=== PATIENT | female | born 1990 | race African-American/Black ===

== ENCOUNTER 2016-08-01 14:14 | Outpatient (CLI) | payer MEDICAID ==
[2016-08-01 15:10] LABS: APPEARANCE,URINE SLIGHTLY-CLOUDY; BILIRUBIN,URINE NEGATIVE (NEGATIVE); GLUCOSE, URINE NEGATIVE (NEGATIVE); KETONES,URINE 20 mg/dL (NEGATIVE); LEUKOCYTE ESTERASE,URINE NEGATIVE (NEGATIVE); NITRITE,URINE NEGATIVE (NEGATIVE); PROTEIN,URINE 30 mg/dL (NEGATIVE); URINE SPECIFIC GRAVITY 1.029; UROBILINOGEN,URINE NEGATIVE mg/dL (<2.0)
[2016-08-01 15:23] LABS: URINE BARBITURATES SCREEN NEGATIVE; URINE METHADONE SCREEN NEGATIVE; URINE OPIATES LOW NEGATIVE; URINE PHENCYCLIDINE SCREEN NEGATIVE
[2016-08-01 15:31] LABS: AMNISURE (ROM) NEGATIVE (NEGATIVE)
--- NOTE | 2016-08-01 16:00 | L&D Flow Sheet ---
LD Flowsheet Datetime Report Generated by CPN: 08/01/2016 16:00 Datetime: 08/01/2016 15:55 Communication Communication Comments: D/C instructions given. Prescription for Flagyl given. Reviewed dehydration and round ligament pain. Pt verbalizes understanding (Tamar Broderick, RN) Datetime: 08/01/2016 15:45 Vaginal Exam Exam by: A. Emmel CNM (Tamar Broderick, RN) Vaginal Exam Comments: closed/long (Tamar Broderick, RN) Datetime: 08/01/2016 15:44 Communication Communication Comments: GC/Chlam and wet prep sent (Tamar Broderick, RN) Datetime: 08/01/2016 15:05 Vital Signs NBP Sys/Lexi/Mean (mmHg): 117 (QS system process) : 57 (QS system process) : 78 (QS system process) Pulse: 65 (QS system process) Datetime: 08/01/2016 15:00 Pain Pain Scale: 5 (Tamar Broderick, RN) Pain Presence: Intermittent (Tamar Broderick, RN) Pain Type: Sharp (Tamar Broderick, RN) Pain Location: Abdomen; Back (Tamar Broderick, RN) Vaginal Bleeding: None (Tamar Broderick, RN) Maternal Assessment Level of Consciousness: Fully Conscious (Tamar Broderick, RN) DTR's/Clonus: DTRs 2+; No Clonus (Tamar Broderick, RN) Headache: Denies (Tamar Broderick, RN) Breath Sounds, Left: Clear and Equal (Tamar Broderick, RN) Breath Sounds, Right: Clear and Equal (Tamar Broderick, RN) Nausea/Vomiting: Denies (Tamar Broderick, RN) RUQ Epigastric Pain: Denies (Tamar Broderick, RN) Teaching Instructional Method: Verbal; Patient Instructed; Verbalized Understanding (Tamar Broderick RN) Plan of Care: Plan of Care Discussed (Tamar Broderick RN) Unit Routine: Shorter to Room; Call [place]; Bed; Handwashing; Monitoring; Bathroom Privileges (Tamar Broderick RN) Datetime: 08/01/2016 14:54 Temperature (F): 98.2 (Tamar Broderick RN) Temperature (C): 36.8 (QS system process)
[2016-08-01 18:06] LABS: CHLAM PCR NOT DETECTED (NOT DETECT)
== END 2016-08-01 16:02 | disposition home or self-care (01) ==
LOC: LC 14:14
PROVIDERS: ATTEND Obstetrics & Gynecology
PROC: 4A1HXCZ Monitoring of Products of Conception, Cardiac Rate, External Approach (ICD-10-PCS; principal; 2016-08-01)
DX: O23.592 Infection of other part of genital tract in pregnancy, second trimester (principal); N76.0 Acute vaginitis; B96.89 Other specified bacterial agents as the cause of diseases classified elsewhere; O99.282 Endocrine, nutritional and metabolic diseases complicating pregnancy, second trimester; E86.0 Dehydration; O26.892 Other specified pregnancy related conditions, second trimester; R10.2 Pelvic and perineal pain; O99.212 Obesity complicating pregnancy, second trimester; Z3A.23 23 weeks gestation of pregnancy
CPT/HCPCS: 80307; 81001; 84112; 87210; 87491; 87591

== ENCOUNTER 2016-11-03 07:25 | Outpatient (CLI) | payer MEDICAID ==
[2016-11-03 08:08] LABS: APPEARANCE,URINE CLOUDY; BILIRUBIN,URINE NEGATIVE (NEGATIVE); GLUCOSE, URINE NEGATIVE (NEGATIVE); KETONES,URINE NEGATIVE (NEGATIVE); LEUKOCYTE ESTERASE,URINE SMALL (NEGATIVE); NITRITE,URINE NEGATIVE (NEGATIVE); PROTEIN,URINE NEGATIVE (NEGATIVE); URINE SPECIFIC GRAVITY 1.019
--- NOTE | 2016-11-03 08:47 | L&D Progress Notes ---
PROGRESS NOTES Datetime Report Generated by CPN: 11/03/2016 08:46 PROGRESS NOTE Vital Signs : Reviewed Comment: 26 yo presents with possible LOF and increased pressure recently treated for yeast infection EDC 11/23/16 EGA 37 wega obesity >45 term instructions reviewed normal d/c cvx exam unchanged per RN no contractions noted lower lumbosacral pain- discussed body mechanics d/c home f/u at office FETUS A Monitoring: External US Variability: Moderate 6-25bpm Decelerations: None FHR Category: Category I : 37.0 SIGNATURE SIGNATURE: [id number] Assignment: Nereyda Graf MD Signature: with User ID: [email or web address] : with User ID: [email or web address]
[2016-11-03 08:52] LABS: URINE BARBITURATES SCREEN NEGATIVE; URINE METHADONE SCREEN NEGATIVE; URINE OPIATES LOW NEGATIVE; URINE PHENCYCLIDINE SCREEN NEGATIVE
--- NOTE | 2016-11-03 09:03 | Non Stress Test Report ---
Non Stress Test Datetime Report Generated by CPN: 11/03/2016 09:03 DEMOGRAPHIC EGA NST: 37.1 INDICATION Indication for Study: Other Indication for Study (NST) Other: LC MONITORING Monitor Explained: Monitor Explained; Test Explained; Patient Verbalized Understanding Time on Monitor: 11/03/2016 07:42 Time off Monitor: 11/03/2016 08:41 NST Duration: 59 NST INTERVENTIONS NST Interventions: None Physician Notified NST: A. Emmel CNM BABY A: [id number] BABY A Movement : Present Contraction Frequency : NONE FHR Baseline : 135 Accelerations : 15X15 Decelerations : None Variability : Moderate 6-25bpm NST Review: Meets Criteria for Reactive NST NST Review and Verified By : BL ROULUND, RN NST Results: Reactive NST REPORT Report Trigger: Send Report
== END 2016-11-03 08:48 | disposition home or self-care (01) ==
LOC: LC 07:25
PROVIDERS: ATTEND Obstetrics & Gynecology
PROC: 4A1HXCZ Monitoring of Products of Conception, Cardiac Rate, External Approach (ICD-10-PCS; principal; 2016-11-03)
DX: O47.1 False labor at or after 37 completed weeks of gestation (principal); Z3A.37 37 weeks gestation of pregnancy
CPT/HCPCS: 59025; 81005; 80307; Q0114

== ENCOUNTER 2016-11-08 17:48 | Outpatient (CLI) | payer MEDICAID ==
[2016-11-08 18:30] LABS: APPEARANCE,URINE SLIGHTLY-CLOUDY; BILIRUBIN,URINE NEGATIVE (NEGATIVE); GLUCOSE, URINE NEGATIVE (NEGATIVE); KETONES,URINE NEGATIVE (NEGATIVE); LEUKOCYTE ESTERASE,URINE SMALL (NEGATIVE); NITRITE,URINE NEGATIVE (NEGATIVE); PROTEIN,URINE NEGATIVE (NEGATIVE); URINE SPECIFIC GRAVITY 1.026; UROBILINOGEN,URINE NEGATIVE mg/dL (<2.0)
[2016-11-08 18:47] LABS: URINE BARBITURATES SCREEN NEGATIVE; URINE METHADONE SCREEN NEGATIVE; URINE OPIATES LOW NEGATIVE; URINE PHENCYCLIDINE SCREEN NEGATIVE
--- NOTE | 2016-11-08 18:58 | Non Stress Test Report ---
Non Stress Test Datetime Report Generated by CPN: 11/08/2016 18:58 DEMOGRAPHIC EGA NST: 37.6 INDICATION Indication for Study: Decreased Movement MONITORING Monitor Explained: Monitor Explained; Test Explained; Patient Verbalized Understanding Time on Monitor: 11/08/2016 18:00 Time off Monitor: 11/08/2016 18:51 NST Duration: 51 NST INTERVENTIONS NST Interventions: None Physician Notified NST: Dr Tal BABY A: [id number] BABY A Contraction Frequency : 0 FHR Baseline : 135 Accelerations : 15X15 Decelerations : None Variability : Moderate 6-25bpm NST Review: Meets Criteria for Reactive NST NST Review and Verified By : Kika Carlos RN NST Results: Reactive NST REPORT Report Trigger: Send Report
== END 2016-11-08 18:55 | disposition home or self-care (01) ==
LOC: LC 17:48
PROVIDERS: ATTEND Obstetrics & Gynecology
PROC: 4A1HXCZ Monitoring of Products of Conception, Cardiac Rate, External Approach (ICD-10-PCS; principal; 2016-11-08)
DX: O36.8130 Decreased fetal movements, third trimester, not applicable or unspecified (principal); Z3A.37 37 weeks gestation of pregnancy
CPT/HCPCS: 59025; 80307; 81005

== ENCOUNTER 2016-11-20 13:17 | Outpatient (CLI) | payer MEDICAID ==
[2016-11-20 14:17] LABS: APPEARANCE,URINE CLOUDY; BILIRUBIN,URINE NEGATIVE (NEGATIVE); GLUCOSE, URINE NEGATIVE (NEGATIVE); KETONES,URINE 80 mg/dL (NEGATIVE); LEUKOCYTE ESTERASE,URINE MODERATE (NEGATIVE); NITRITE,URINE NEGATIVE (NEGATIVE); PROTEIN,URINE 30 mg/dL (NEGATIVE); URINE SPECIFIC GRAVITY 1.028
[2016-11-20] MEDS ORDERED: RINGERS SOLUTION,LACTATED 1,000 ML IV PRN (14:17)
[2016-11-20] MEDS ORDERED: ONDANSETRON HCL INJ/PF 4 MG/2 ML SDV IV ONE (14:18)
[2016-11-20] MEDS ORDERED: ONDANSETRON HCL INJ/PF 4 MG/2 ML SDV ONE (14:32)
[2016-11-20 14:40] LABS: URINE BARBITURATES SCREEN NEGATIVE; URINE METHADONE SCREEN NEGATIVE; URINE OPIATES LOW NEGATIVE; URINE PHENCYCLIDINE SCREEN NEGATIVE
[2016-11-20] MEDS ORDERED: DEXTROSE 5%-LACTATED RINGERS 1,000 ML IV PRN (15:00)
== END 2016-11-20 16:25 | disposition home or self-care (01) ==
LOC: LC 13:17
PROVIDERS: ATTEND Obstetrics & Gynecology
PROC: 4A1HXCZ Monitoring of Products of Conception, Cardiac Rate, External Approach (ICD-10-PCS; principal; 2016-11-20)
DX: O47.1 False labor at or after 37 completed weeks of gestation (principal); O26.893 Other specified pregnancy related conditions, third trimester; R11.2 Nausea with vomiting, unspecified; R19.7 Diarrhea, unspecified; Z3A.39 39 weeks gestation of pregnancy
CPT/HCPCS: 59025; 81005; 80307; J2405

== ENCOUNTER 2016-11-20 23:01 | Inpatient (IN) | payer MEDICAID ==
--- NOTE | 2016-11-20 23:05 | Non Stress Test Report ---
Non Stress Test Datetime Report Generated by CPN: 11/20/2016 23:05 DEMOGRAPHIC EGA NST: 39.4 INDICATION Indication for Study: Other Indication for Study (NST) Other: LABOR CHECK- UC'S,N/V/D MONITORING Monitor Explained: Monitor Explained; Test Explained; Patient Verbalized Understanding Time on Monitor: 11/20/2016 13:48 Time off Monitor: 11/20/2016 16:06 NST Duration: 138 NST INTERVENTIONS NST Interventions: PO Hydration; IV Fluids; Reposition Patient BABY A: [id number] BABY A Movement : Present Contraction Frequency : IRREG FHR Baseline : 125 Accelerations : 15X15 Decelerations : None Variability : Moderate 6-25bpm NST Review: Meets Criteria for Reactive NST NST Review and Verified By : Edilma Camp RNC NST Results: Reactive NST REPORT Report Trigger: Send Report
[2016-11-20 23:48] LABS: APPEARANCE,URINE CLOUDY; BILIRUBIN,URINE NEGATIVE (NEGATIVE); GLUCOSE, URINE NEGATIVE (NEGATIVE); KETONES,URINE TRACE mg/dL (NEGATIVE); LEUKOCYTE ESTERASE,URINE SMALL (NEGATIVE); NITRITE,URINE NEGATIVE (NEGATIVE); PROTEIN,URINE 30 mg/dL (NEGATIVE); URINE SPECIFIC GRAVITY 1.027
[2016-11-20 23:52] LABS: AMNISURE (ROM) POSITIVE (NEGATIVE)
[2016-11-20] MEDS ORDERED: PENICILLIN G-K 5 MILLION UNIT VIAL ONE (23:59)
[2016-11-21] MEDS ORDERED: PENICILLIN G POTASSIUM 5,000,000 UNIT in DEXTROSE 5%-WATER 100 ML IV ONE (00:01)
[2016-11-21 00:10] LABS: URINE BARBITURATES SCREEN NEGATIVE; URINE METHADONE SCREEN NEGATIVE; URINE OPIATES LOW NEGATIVE; URINE PHENCYCLIDINE SCREEN NEGATIVE
[2016-11-21] MEDS ORDERED: PENICILLIN G-K 5 MILLION UNIT VIAL IV PRN (00:34)
[2016-11-21] MEDS: RINGERS SOLUTION,LACTATED 1,000 ML IV PRN ×3 (00:39→06:45)
[2016-11-21 00:41] LABS: ABSOLUTE EOSINOPHILS # (AUTO) 0.1 10^3/uL (0.0-0.6); ABSOLUTE LYMPHOCYTES (AUTO) 1.9 10^3/uL (0.5-4.7); ABSOLUTE MONOCYTES (AUTO) 0.5 10^3/uL (0.1-1.4); ABSOLUTE NEUT (AUTO) 5.7 10^3/uL (1.7-8.2); BASOPHILS % (AUTO) 0.6 % (0-2); EOSINOPHILS % (AUTO) 1.2 % (0-6); HEMATOCRIT 36.2 % (36.0-47.0); HEMOGLOBIN 12.1 g/dL (12.0-15.5); HGB HCT DIFFERENCE 0.1; LYMPHOCYTES % (AUTO) 23.1 % (13-45); MEAN CORPUSCULAR HEMOGLOBIN 29.1 pg (27.0-33.4); MEAN CORPUSCULAR HGB CONC 33.4 g/dL (32.0-36.0); MEAN CORPUSCULAR VOLUME 87 fl (80-97); MONOCYTES % (AUTO) 6.4 % (3-13); RED BLOOD COUNT 4.16 10^6/uL (3.72-5.28); SEGMENTED NEUTROPHILS % (AUTO) 68.7 % (42-78); WHITE BLOOD COUNT 8.3 10^3/uL (4.0-10.5)
[2016-11-21] MEDS ORDERED: OXYTOCIN/NORMAL SALINE 1,000 ML IV PRN ×2 (01:34→08:37)
--- NOTE | 2016-11-21 02:11 | RADIOLOGY REPORT (SQ) ---
EXAM DESCRIPTION: U/S OB LIMITED COMPLETED DATE/TIME: 11/21/2016 1:50 am REASON FOR STUDY: presentation-bedside . The patient is 39 weeks 5 days . COMPARISON: None. TECHNIQUE: Limited transabdominal grayscale ultrasound for evaluation of specific requested obstetri lizz parameters. LIMITATIONS: None. FINDINGS: CERVICAL LENGTH: Not applicable. Greater than 20 weeks. Need transvaginal study if indicat ed. FHR: 136 beats per minute. PRESENTATION: Vertex. IMPRESSION: LIMITED OBSTETRICAL ULTRASOUND WITH MEASURED PARAMETERS DELINEATED ABOVE. Trimester of : Third trimester - 28 weeks to delivery. TECHNICAL DOCUMENTATION: JOB ID: [id number] [employer]- All Rights Reserved
[2016-11-21] MEDS ORDERED: BUPIVACAINE HCL 0.25 % INJ/PF (2.5 MG/1 ML) 30 ML VIAL INFIL ONE (02:53)
[2016-11-21] MEDS ORDERED: FENTANYL/BUPIVACAINE/NS/PF 100 ML EPI PRN (02:53)
[2016-11-21] MEDS ORDERED: EPHEDRINE SULFATE INJ 50 MG/1 ML AMPULE IV ONE (02:53)
[2016-11-21] MEDS ORDERED: EPHEDRINE SULFATE INJ 50 MG/1 ML AMPULE IV PRN (02:53)
[2016-11-21] MEDS ORDERED: BENZOIN/ALOE VERA/STORAX/TOLU TINCTURE 60 ML TP PRN (02:53)
[2016-11-21] MEDS ORDERED: EPHEDRINE SULFATE INJ 50 MG/1 ML AMPULE ONE (02:54)
[2016-11-21] MEDS ORDERED: MISOPROSTOL 0.2 MG TABLET ONE (02:54)
[2016-11-21] MEDS ORDERED: LIDOCAINE 1% INJ-PF (10 MG/ML) 30 ML SDV ONE (02:54)
[2016-11-21] MEDS ORDERED: FENTANYL/BUPIVACAINE/NS/PF 200 MCG/100 ML RTUINJ EPI ONE (02:54)
[2016-11-21] MEDS ORDERED: OXYTOCIN/NORMAL SALINE 20 UNIT/1,000 ML RTUINJ ONE (02:55)
[2016-11-21] MEDS ORDERED: BUPIVACAINE HCL 0.25 % INJ/PF (2.5 MG/1 ML) 30 ML VIAL ONE (02:55)
[2016-11-21] MEDS ORDERED: PENICILLIN G-K 5 MILLION UNIT VIAL ONE (03:51)
[2016-11-21] MEDS ORDERED: PENICILLIN G POTASSIUM 2,500,000 UNIT in DEXTROSE 5%-WATER 50 ML IV SCH (04:00)
[2016-11-21] MEDS ORDERED: NALBUPHINE HCL INJ 10 MG/1 ML AMPULE INJ ONE (06:43)
[2016-11-21] MEDS ORDERED: NALBUPHINE HCL INJ 10 MG/1 ML AMPULE ONE (06:43)
[2016-11-21] MEDS ORDERED: PENICILLIN G-K 5 MILLION UNIT VIAL IV SCH (07:00)
[2016-11-21] MEDS ORDERED: DIBUCAINE 1% OINTMENT 28 GM TP PRN (08:37)
[2016-11-21] MEDS ORDERED: ZOLPIDEM TARTRATE 5 MG TABLET PO PRN (08:37)
[2016-11-21] MEDS ORDERED: MEASLES,MUMPS&RUBELLA VACC/PF 0.5 ML VIAL SUBCUT PRN (08:37)
[2016-11-21] MEDS ORDERED: DIPH/PERTUSS(ACELL)/TETANUS VAC/PF 0.5 ML SYR (>=10YO) IM PRN (08:37)
[2016-11-21] MEDS ORDERED: ACETAMINOPHEN WITH CODEINE #3 TABLET PO PRN (08:37)
[2016-11-21] MEDS ORDERED: BENZOCAINE/MENTHOL AEROSOL SPRAY 56 ML TOP PRN (08:37)
[2016-11-21] MEDS ORDERED: IBUPROFEN 800 MG TABLET ONE (08:51)
--- NOTE | 2016-11-21 09:26 | Delivery Summary ---
Del Sum A-C Datetime Report Generated by CPN: 11/21/2016 09:26 DELIVERY PERSONNEL DELIVERY PERSONNEL: [id number] Delivery Doctor:: Peggy Astudillo CNM Labor and Delivery Nurse:: Tamar Broderick RNdressing machine operator Nurse:: Radha Fortune RN Technology Education Teacher/INSURANCE INVESTIGATOR: Leti Miranda, DIRECTOR TREASURER Technology Education Teacher/INSURANCE INVESTIGATOR: Georgina Wolff CNA II MATERNAL INFORMATION Delivery Anesthesia: Epidural Medications After Delivery: Pitocin Bolus-Please Comment; Pitocin Drip 20 Units/1000ml NSS Estimated Blood Loss (ml): 250 Maternal Complications: None Provider Comments: of viable male infant over 2nd degree perineal laceration. Head, shoulders, and body delivered without difficulty. Infant with spontaneous cry and respirations, to maternal abdomen, cord clamped X2 after 2 minute delay, cut free by pts significant other, spontaneous delivery of intact meconium stained placeta, 3 VC, to pathology, repair as above, hemostasis acheived with external fundal massage and IV pitocin. Mother and in stable condition. Routine pp care. LABOR SUMMARY EDC: 11/23/2016 00:00 No. Babies in Womb: 1 Attempted: No Labor Anesthesia: Epidural LABOR INFORMATION Reason for Induction: Not Applicable Onset of Labor: 11/20/2016 23:39 Complete Dilatation: 11/21/2016 07:59 Oxytocin: Augmentation Group B Beta Strep: POSITIVE Antibiotics # of Doses: 2 Antibiotics Time of Last Dose: 0425 Name of Antibiotic Given: PCN Steroids Given: None Reason Steroids Not Administered: Not Applicable MEMBRANES Membranes Rupture Method: Spontaneous Rupture of Membranes: 11/20/2016 22:15 Length of Rupture (hr): 9.87 Amniotic Fluid Color: Moderate Meconium Amniotic Fluid Amount: per pt report moderate amount Amniotic Fluid Odor: Normal STAGES OF LABOR Stage 1 hr: 8 Stage 1 min: 20 Stage 2 hr: 0 Stage 2 min: 8 Stage 3 hr: 0 Stage 3 min: 4 Total Time in Labor hr: 8 Total Time in Labor min: 32 VAGINAL DELIVERY Episiotomy: None Laceration Extension: Second Degree Laceration Type: Perineal Laceration Repair: Yes Laceration Repair Note: repaired with 3-0 chromic in usual fashion using lidocaine for anesthesia Sponge Count Correct: Yes Sharps Count Correct: Yes CSECTION DELIVERY Primary Indication: N/A Secondary Indication: N/A CSection Incidence: N/A Labor: N/A Elective: N/A CSection Incision: N/A BABY A INFORMATION Infant Delivery Date/Time: 11/21/2016 08:07 Method of Delivery: Vaginal Born in Route : No : N/A Forceps: N/A Vacuum Extraction: N/A Shoulder Dystocia : No PRESENTATION/POSITION BABY A Presentation: Cephalic Cephalic Presentation: Vertex Vertex Position: Right Occipital Anterior Breech Presentation: N/A PLACENTA INFORMATION BABY A Placenta Delivery Time : 11/21/2016 08:11 Placenta Method of Delivery: Spontaneous Placenta Status: Delivered SCORES BABY A Heart Rate 1 min: >100 bpm Resp Effort 1 min: Good Cry Reflex Irritability 1 min: Cough or Sneeze or Pulls Away Muscle Tone 1 min: Active Motion Color 1 min: Body [place], Extremities Blue Resuscitation Effort 1 min: Tactile Stimulation SCORE 1 MIN: 9 Heart Rate 5 min: >100 bpm Resp Effort 5 min: Good Cry Reflex Irritability 5 min: Cough or Sneeze or Pulls Away Muscle Tone 5 min: Active Motion Color 5 min: Body [place], Extremities Blue Resuscitation Effort 5 min: Tactile Stimulation SCORE 5 MIN: 9 INFORMATION BABY A Gestational Age at Delivery: 39.5 Gestational Status: Full Term- 39- 40.6 Weeks Infant Outcome : Liveborn Infant Condition : Stable Sex: Male IDENTIFICATION BABY A Infant Verification Date/Time: 11/21/2016 08:59 ID Band Number: [id number] Mother's Name Verified: Yes RN Verifying Infant: Deborah Broderick RN Yohan Fortune RN WEIGHT/LENGTH BABY A Infant Birthweight (gm): 2865 Infant Weight (lb): 6 Infant Weight (oz): 5 Infant Length (in): 20.00 Infant Length (cm): 50.80 CORD INFORMATION BABY A No. Cord Vessels: 3 Nuchal Cord : N/A Cord Blood Taken: Yes-For Storage (Mom's Blood type +) Infant Suction: None ASSESSMENT BABY A Complications: Meconium Physical Findings at Delivery: Within Normal Limits Respirations: Appears Normal Skin to Skin: Yes Skin to Skin Time (min): 60 Client Service Representative/ALS Called : No Care By: R. Tong RN Transferred To: Remains with Mother BABY B INFORMATION : N/A SIGNATURES Assignment: Nereyda Graf MD Signature: with User ID: [email or web address] : with User ID: [email or web address]
--- NOTE | 2016-11-21 10:34 | Admission Physical ---
Datetime Report Generated by CPN: 11/21/2016 10:33 CURRENT ADMISSION Chief Complaint: Suspected Ruptured Membranes Indication for Induction: PROM Admit Plan: Admit to Unit; Initiate Labor Augmentation Protocol ALLERGIES Medication Allergies: No Medication Allergies: No Known Allergies (11/20/2016) Medication Allergies: No Known Allergies (11/03/2016) Medication Allergies: No Known Allergies (08/01/2016) Medication Allergies: No Known Allergies (04/08/2016) Latex: No Latex Allergies Food Allergies: NONE Environmental Allergies: NONE OBSTETRICAL HISTORY EDC: 11/23/2016 00:00 : 4 Para: 1 Para: 1 Term: 0 : 1 SAB: 2 IAB: 0 Ectopic: 0 Livin Cesareans: 0 VBACs: 0 Multiple Births: 0 Gestational Diabetes: No Rh Sensitization: No Incompetent Cervix: No ELOY: No Infertility: No ART Treatment: No Uterine Anomaly: No IUGR: Yes Hx Previous C/S: No Macrosomia: No Hx Loss/Stillborn: No PIH: No Hx : No Placenta Previa/Abruption: No Depression/PP Depression: No PTL/PROM: No Post Hemorrhage: No Current Procedures: Ultrasound Obstetrical History Comments: G1: 2009 32 week (pt states fluid was too low, IUGR) G2: SAB (pt unsure when it was but after delivery) G3: SAB (pt unsure what year) G4: current SEE RECORDS Alcohol: No Marijuana : No Cocaine: No Other Illicit Drugs: No Cigarettes: Never Smoker. [id number] MEDICAL HISTORY Diabetes: No Blood Transfusion: No Pulmonary Disease (Asthma, TB): No Breast Disease: No Hypertension: No Mask Inspector Surgery: No Heart Disease: No Hosp/Surgery: Yes Autoimmune Disorder: No Anesthetic Complications: No Kidney Disease: No Abnormal Pap Smear: No Neuro/Epilepsy: No Psychiatric Disorders: No Other Medical Diseases: No Hepatitis/Liver Disease: No Significant Family History: No Varicosities/Phlebitis: No Trauma/Violence : No Thyroid Dysfunction: No Medical History Comments: ACL repair 2005 surgery left ankle, childbirth INFECTIOUS HISTORY Gonorrhea: No Genital Herpes: No Chlamydia: No Tuberculosis: No Syphilis: No Hepatitis: No HIV/AIDS Exposure: No Rash or Viral Illness: No HPV: No PHYSICAL EXAM General: Normal HEENT: Normal Neurologic: Normal Thyroid: Normal Heart: Normal Lungs: Normal Breast: Normal Back: Normal Abdomen: Normal Genitourinary Exam: Normal Extremities: Normal DTRs: Normal Pelvic Type: Adequate Vital Signs: Reviewed VAGINAL EXAM Dilatation: 4 Effacement: 80 Station: -1 MEMBRANES Pooling: Positive Membranes: Ruptured FETUS A EGA: 37.1 Monitoring: External US FHR- Baseline: 130 Variability: Minimal - Undetectable to <=5bpm Accelerations: 15X15 Decelerations: None FHR Category: Category I Estimated Weight (gm): 4000 Presentation: Vertex PLANS FOR LABOR AND DELIVERY Labor and Delivery: None Pain Management: Epidural Feeding Preference: Both Benefit of Breast Feed Discussed: Yes Circumcision: Yes INFORMED CONSENT Signature: with User ID: [email or web address]
[2016-11-21] MEDS: PRENATAL VITAMIN W-O CA NO5/FE FUMARATE/FA CAPSULE PO SCH (10:40)
[2016-11-21] MEDS: DOCUSATE SODIUM 100 MG CAPSULE PO SCH ×2 (10:40→17:04)
[2016-11-21] MEDS: SENNOSIDES/DOCUSATE 8.6-50 MG 1 EACH TABLET PO SCH (10:40)
[2016-11-21] MEDS: FERROUS SULFATE 325 MG TABLET PO SCH ×2 (10:40→17:04)
[2016-11-21] MEDS: ACETAMINOPHEN WITH CODEINE #3 TABLET PO PRN ×2 (10:58→17:04)
[2016-11-21] MEDS: IBUPROFEN 800 MG TABLET PO SCH ×2 (14:46→21:39)
[2016-11-22] MEDS: IBUPROFEN 800 MG TABLET PO SCH ×3 (05:54→22:24)
[2016-11-22 06:44] LABS: HEMATOCRIT 34.7 % (36.0-47.0); HEMOGLOBIN 11.7 g/dL (12.0-15.5); HGB HCT DIFFERENCE 0.4; MEAN CORPUSCULAR HEMOGLOBIN 29.4 pg (27.0-33.4); MEAN CORPUSCULAR HGB CONC 33.6 g/dL (32.0-36.0); MEAN CORPUSCULAR VOLUME 87 fl (80-97); RED BLOOD COUNT 3.97 10^6/uL (3.72-5.28); RED CELL DISTRIBUTION WIDTH 14.3 % (11.5-14.0); WHITE BLOOD COUNT 11.7 10^3/uL (4.0-10.5)
[2016-11-22] MEDS: ACETAMINOPHEN WITH CODEINE #3 TABLET PO PRN (08:05)
--- NOTE | 2016-11-22 08:38 | PDOC PROGRESS REPORT ---
Subjective-OB Subjective: Post Delivery Day: 1 26 year old. Denies any needs at this time,states lochia is stable, pain is well controlled, voiding without difficulty, tolerating diet. Physical Exam (OB) Vital Signs: Temp Pulse Resp BP Pulse Ox 98.5 F 54 L 16 131/68 H 100 11/21/16 20:54 11/21/16 20:54 11/21/16 20:54 11/21/16 20:54 11/21/16 20:54 Intake & Output 11/21/16 11/22/16 11/23/16 06:59 06:59 06:59 Weight 143 kg - PIH/Pre-Eclampsia Clonus: Negative Headache: Absent Epigastric Pain: No Visual Changes: No - Lochia Lochia Amount: Scant < 10 ml Lochia Color: Rubra/Red - Abdomen Description: Soft Hernia Present: No Fundal Description: Firm Fundal Height: u/u - u/2 Objective-Diagnostic Laboratory: 11/22/16 06:20 11/22/16 06:20 WBC 11.7 H RBC 3.97 Hgb 11.7 L Hct 34.7 L MCV 87 MCH 29.4 MCHC 33.6 RDW 14.3 H Plt Count 150 Assessment and Plan(PN) - Assessment and Plan (1) Vaginal delivery Is this a current diagnosis for this admission?: YesPlan: routine pp care (2) Adjustment disorder with depressed mood Is this a current diagnosis for this admission?: YesPlan: d/c planning (3) Hyperemesis affecting , antepartum Is this a current diagnosis for this admission?: YesPlan: n/a-resolved - Time Spent with Patient Time with patient: Less than 15 minutes Critical Time spent with patient: Less than 15 minutes Medications reviewed and adjusted accordingly: Yes - Disposition Anticipated Discharge: Home
[2016-11-22] MEDS: PRENATAL VITAMIN W-O CA NO5/FE FUMARATE/FA CAPSULE PO SCH (10:33)
[2016-11-22] MEDS: SENNOSIDES/DOCUSATE 8.6-50 MG 1 EACH TABLET PO SCH (10:33)
[2016-11-22] MEDS: FERROUS SULFATE 325 MG TABLET PO SCH ×2 (10:33→18:09)
[2016-11-22] MEDS: DOCUSATE SODIUM 100 MG CAPSULE PO SCH ×2 (10:33→18:09)
[2016-11-23] MEDS: IBUPROFEN 800 MG TABLET PO SCH (05:39)
--- NOTE | 2016-11-23 08:18 | PDOC DISCHARGE SUMMARY ---
Final Diagnosis Discharge Date: 11/23/16 - Final Diagnosis (1) Vaginal delivery Is this a current diagnosis for this admission?: Yes (2) Adjustment disorder with depressed mood Is this a current diagnosis for this admission?: Yes (3) Hyperemesis affecting , antepartum Is this a current diagnosis for this admission?: Yes Discharge Data - Discharge Medication Home Medications: Vit/Iron Fumarate/FA [ Tablet] 1 tab PO DAILY 05/09/16 Acetaminophen with Codeine [Tylenol #3 Tablet] 2 each PO Q4HP PRN #20 tablet 10/06 Docusate Sodium [Colace 100 mg Capsule] 100 mg PO BID #60 capsule 11/23/16 Ibuprofen [Motrin 800 mg Tablet] 800 mg PO Q8 #60 tablet 11/23/16 Gestational Age: 39.5 Reason(s) for Admission: Onset of Labor, PROM, Group B Strep Positive Procedures: NST Intrapartum Procedure(s): Spontaneous Vaginal Delivery Complication(s): Laceration-Perineal Laceration-Degree: 2nd - Data Baby 1 Male at 1 minute: 9 at 5 minutes: 9 Weight: 2865 kg Home with Mother: Yes Complications: No - Diagnosis Test Laboratory: Temp Pulse Resp BP Pulse Ox 98.0 F 64 18 116/64 100 11/22/16 20:30 11/22/16 20:30 11/22/16 20:30 11/22/16 20:30 11/22/16 20:30 11/20/16 11/21/16 11/22/16 23:16 00:17 06:20 RBC 4.16 3.97 Hgb 12.1 11.7 L Hct 36.2 34.7 L Urine Opiates Screen NEGATIVE - Discharge information/Instructions Discharge Activity: Activity As Tolerated, No Lifting Over 10 Pounds, Pelvic Rest, Slowly Increase Activity, No tub bath Discharge Diet: Regular Disposition: HOME, SELF-CARE Follow [facility] with: [facility] in: 4, Weeks
[2016-11-23 09:11] VITALS: BP 116/64
[2016-11-23] MEDS: PRENATAL VITAMIN W-O CA NO5/FE FUMARATE/FA CAPSULE PO SCH (10:12)
[2016-11-23] MEDS: DOCUSATE SODIUM 100 MG CAPSULE PO SCH (10:12)
[2016-11-23] MEDS: FERROUS SULFATE 325 MG TABLET PO SCH (10:12)
[2016-11-23] MEDS: SENNOSIDES/DOCUSATE 8.6-50 MG 1 EACH TABLET PO SCH (10:13)
== END 2016-11-23 11:49 | disposition home or self-care (01) | DRG 775 ==
LOC: LC 23:01 → LR 23:59 → 2S 11-21 10:32
PROVIDERS: ADMIT Obstetrics & Gynecology; ATTEND Obstetrics & Gynecology
PROC: 10E0XZZ Delivery of Products of Conception, External Approach (ICD-10-PCS; principal; 2016-11-21)
PROC: 0KQM0ZZ Repair Perineum Muscle, Open Approach (ICD-10-PCS; 2016-11-21)
DX: O42.02 Full-term premature rupture of membranes, onset of labor within 24 hours of rupture (principal); Z68.42 Body mass index [BMI] 45.0-49.9, adult; O70.1 Second degree perineal laceration during delivery; O77.0 Labor and delivery complicated by meconium in amniotic fluid; O99.824 Streptococcus B carrier state complicating childbirth; O75.89 Other specified complications of labor and delivery; O99.214 Obesity complicating childbirth; F43.21 Adjustment disorder with depressed mood; E66.9 Obesity, unspecified; Z3A.39 39 weeks gestation of pregnancy; Z37.0 Single live birth
CPT/HCPCS: 36415; 59025; 76815; 80307; 81005; 84112; 85025; 85027; 86592; 86850; 86900; 86901; 88307; 94760; J2300; J2405; J2540; J2590; J3490

== ENCOUNTER 2016-12-14 22:48 | Emergency (ER) | payer MEDICAID ==
[2016-12-14] MEDS ORDERED: MORPHINE SULFATE 10 MG/ML INJ IV ONE (23:31)
--- NOTE | 2016-12-14 23:34 | ER Document Report ---
ED General - General Chief Complaint: Abdominal Pain Stated Complaint: PAINS IN BACK AND STOMACH Time Seen by Provider: 12/14/16 23:20 Notes: Patient is a 26-year-old female who presents with complaint of pain over bilateral upper abdomen that radiates from the flanks. She says she has had this pain off and on since around the second trimester of her . She had delivery of her child at the beginning of this month. She has not been sexually active since giving to her child. She says the pain continues to recur and therefore she is come to the ER. No fevers. No vomiting. No diarrhea. Pain is not triggered by eating. She is not currently breast- feeding. She had a vaginal delivery. No complications during the delivery. No other complaints at this time. She was told by her ESTIMATOR LUMBER that this was ligamentous pain from the . TRAVEL OUTSIDE OF THE [place] IN LAST 30 DAYS: No - Related Data Allergies/Adverse Reactions: No Known Allergies Allergy (Verified 11/20/16 13:28) Past Medical History - Social History Smoking Status: Never Smoker Frequency of alcohol use: None Drug Abuse: None Family History: None - Past Medical History Cardiac Medical History: Reports: Hx Hypertension Renal/ Medical History: Denies: Hx Peritoneal Dialysis Past Surgical History: Reports: Hx Oral Surgery, Hx Orthopedic Surgery - ACl R knee L ankle - Immunizations Hx Diphtheria, Pertussis, Tetanus Vaccination: Yes Review of Systems - Review of Systems Notes: My Normal Review Basic REVIEW OF SYSTEMS: CONSTITUTIONAL : Denies fever, chills, or sweats. Denies recent illness. EENT: Denies eye, ear, throat, or mouth pain or symptoms. Denies nasal or sinus congestion. CARDIOVASCULAR: Denies chest pain. RESPIRATORY: Denies cough, cold, or chest congestion. Denies shortness of breath, difficulty breathing, or wheezing. GASTROINTESTINAL: Intermittent upper abdominal pain. Denies nausea, vomiting, or diarrhea. Denies constipation. Last BM: GENITOURINARY: Denies difficulty urinating, painful urination, burning, frequency, or blood in urine. FEMALE GENITOURINARY: Denies vaginal bleeding, abnormal or irregular periods. LMP: Delivery of child 3 weeks ago MUSCULOSKELETAL: Denies neck or back pain or joint pain or swelling. SKIN: Denies rash or skin lesions. NEUROLOGICAL: Denies altered mental status or loss of consciousness. ALL OTHER SYSTEMS REVIEWED AND NEGATIVE. Physical Exam - Vital signs Vitals: Temp Pulse Resp BP Pulse Ox 97.5 F 78 20 104/76 98 12/14/16 23:00 12/14/16 23:00 12/14/16 23:00 12/14/16 23:00 12/14/16 23:00 - Notes Notes: General Appearance: Well nourished, alert, cooperative, no acute distress, moderate obvious discomfort. Vitals: reviewed, See vital signs table. Head: no swelling or tenderness to the head Eyes: PERRL, EOMI, Conjuctiva clear Mouth: No decreasd moisture Throat: No tonsillar inflammation, No airway obstruction, No lymphadenopathy Lungs: No wheezing, No rales, No rhonci, No accessory muscle use, good air exchange bilaterally. Heart: Normal rate, Regular rythm, No murmur, no rub Abdomen: Normal BS, soft, No rigidity, moderate bilateral upper abdominal tenderness to palpation. Lower abdomen is nontender., No guarding, no rebound, no abdominal masses, no organomegaly Extremities: strength 5/5 in all extremities, good pulses in all extremities, no swelling or tenderness in the extremities, no edema. Skin: warm, dry, appropriate color, no rash Neuro: speech clear, oriented x 3, normal affect, responds appropriately to questions. Course - Vital Signs Vital signs: Temp Pulse Resp BP Pulse Ox 97.5 F 78 20 104/76 98 12/14/16 23:00 12/14/16 23:00 12/14/16 23:00 12/14/16 23:00 12/14/16 23:00 - Laboratory Result Diagrams: 12/14/16 23:45 12/14/16 23:45 Laboratory results interpreted by me: 12/14/16 12/15/16 23:45 01:10 Direct Bilirubin 0.5 H AST 156 H ALT 262 H Alkaline Phosphatase 198 H Urine Urobilinogen 2.0 H Ur Leukocyte Esterase TRACE H Urine Ascorbic Acid 40 H - Transfer of Care Notes: 12/15/16 03:12 I did speak with the patient at length about her laboratory findings. She does have some elevated liver enzymes. Her gallbladder shows no signs of cholecystitis. She does have some gallstones, but her bile ducts are normal diameter. She is currently completely pain-free. She looks and feels improved. I did offer for her to stay to speak with the surgeon in the morning. I also offered her to go home and call the surgery clinic in the morning for close follow-up appointment. Informed her that she does go home she must return to the ER immediately if she has any recurrent pain, any fevers , or any vomiting. Patient requests to go home and follow-up with surgery clinic. She said she would call them in the morning to make a close follow-up appointment. I strongly encouraged her to return to ER immediately if she does have any recurrent pain or vomiting. I informed her to avoid any fats in her diet. I informed her to avoid any fried foods. Patient agrees with plan and will be discharged home. Dictation of this chart was performed using voice recognition software; therefore, there may be some unintended grammatical errors. Discharge - Discharge Clinical Impression: Elevated liver enzymes Cholelithiasis Qualifiers: Cholelithiasis location: gallbladder Cholecystitis presence: without cholecystitis Biliary obstruction: without biliary obstruction Qualified Code(s) : K80.20 - Calculus of gallbladder without cholecystitis without obstruction Condition: Good Disposition: HOME, SELF-CARE Additional Instructions: ABDOMINAL PAIN: There are many causes of abdominal pain. Pain can mean a serious problem requiring surgery (such as appendicitis). It can also be an innocent problem that goes away on its own (such as a viral infection). Often, time must pass to determine the cause of pain. The physician does not feel that hospitalization is necessary, at present. Things may change within the next 24 hours. Call the doctor or come back for re- examination if any problems occur, such as: (1) Pain that becomes more severe, steady, or becomes concentrated in one specific area. Also, pain that is more severe with movement or coughing. (2) Vomiting that persists or becomes more frequent. (3) Blood in the vomitus, urine, or bowel movements. Blood in the stool may have a tarry or black appearance. (4) Shaking chills or fever greater than 100 degrees F. (5) The abdomen becomes more distended or swollen. (6) Bowel movements cease. (7) Failure to improve as expected. GALLBLADDER DISEASE: Your evaluation shows evidence of gallbladder disease. The gallbladder is a pouch under the liver which stores bile. Stones, infection, or irritation of the gallbladder cause attacks of pain. Certain foods -- fats in particular -- may provoke attacks. The usual treatment for gallbladder disease is surgical removal of the gallbladder -- called a cholecystectomy. You will be referred to a physician qualified to advise you on the best treatment for your problem. Hospitalization is not necessary. Take clear liquids only until you are painfree. After that, you should stay on a low-fat diet, with frequent SMALL meals. Call the doctor or return at once if you develop severe pain, repeated vomiting, fever, or jaundice (a yellow color in the skin and whites of the eyes) . LOW-FAT DIET: The physician has recommended a low-fat diet. This diet is often used for gallbladder or pancreas problems. Your meals should be high-carbohydrate (potato, apples, noodles, breads, vegetables). Eat fish or skinless chicken (boiled or baked rather than fried) for protein. Beans and peas are good sources of fat-free protein. Soups are usually very low-fat. Don't eat anything fried. Avoid red meats. Avoid most dairy products. Skim milk and non-fat yogurt are OK. Most popular cheeses are very high-fat. Don't add butter or sauces -- use lemon or pepper instead. If you like salads, use one of the new "non-fat" dressings. "Fast Food" is "fat food." There is virtually nothing from a typical fast- food restaurant that you can eat. Fish patties and chicken nuggets are almost always deep-fat fried. "Special Sauces" are mostly fat. ANTINAUSEA MEDICATION: You have been given a medication to suppress nausea and vomiting. This type of medication can be given as a shot, pill, or suppository. It will usually last for many hours. Pills and shots usually last six to eight hours, suppositories last about 12 hours. For the typical illness, only one or two doses of the medication may be necessary. Mild lightheadedness may occur. This type of medicine can cause drowsiness. Do not drive or operate dangerous machinery while under its influence. Do not mix with alcohol. See your doctor at once if you have muscle spasms or tightness, or uncontrollable motions (particularly of the neck, mouth, or jaw). Persistent vomiting or severe lightheadedness should also be evaluated by the physician. FOLLOW-UP CARE: If you have been referred to a physician for follow-up care, call the physician s office for an appointment as you were instructed or within the next two days. If you experience worsening or a significant change in your symptoms, notify the physician immediately or return to the Emergency Department at any time for re-evaluation. It is very important you return to the immediately if you develop recurrent pain , fevers, vomiting, or feel unwell. Please follow up quickly with the surgery clinic to arrange a close follow up appointment to be reevaluated. You must avoid any fat containing foods or fried foods. Prescriptions: Ondansetron [Zofran Odt 4 mg Tablet] 1 tab PO Q4H PRN #10 tab.rapdis PRN Reason: For Nausea/Vomiting Forms: Return to Work Referrals: GILES CHAUDHARY MD [ACTIVE STAFF] - Follow up tomorrow (call the office in the morning to make a close follow up appointment.)
[2016-12-14 23:59] LABS: ABSOLUTE EOSINOPHILS # (AUTO) 0.2 10^3/uL (0.0-0.6); ABSOLUTE LYMPHOCYTES (AUTO) 2.2 10^3/uL (0.5-4.7); ABSOLUTE MONOCYTES (AUTO) 0.5 10^3/uL (0.1-1.4); ABSOLUTE NEUT (AUTO) 3.7 10^3/uL (1.7-8.2); BASOPHILS % (AUTO) 0.5 % (0-2); EOSINOPHILS % (AUTO) 2.4 % (0-6); HEMATOCRIT 42.5 % (36.0-47.0); HEMOGLOBIN 13.9 g/dL (12.0-15.5); HGB HCT DIFFERENCE -0.8; LYMPHOCYTES % (AUTO) 33.3 % (13-45); MEAN CORPUSCULAR HEMOGLOBIN 28.7 pg (27.0-33.4); MEAN CORPUSCULAR HGB CONC 32.6 g/dL (32.0-36.0); MEAN CORPUSCULAR VOLUME 88 fl (80-97); MONOCYTES % (AUTO) 8.1 % (3-13); RED BLOOD COUNT 4.83 10^6/uL (3.72-5.28); RED CELL DISTRIBUTION WIDTH 13.9 % (11.5-14.0); SEGMENTED NEUTROPHILS % (AUTO) 55.7 % (42-78); WHITE BLOOD COUNT 6.7 10^3/uL (4.0-10.5)
[2016-12-15 00:24] LABS: ALANINE AMINOTRANSFERASE 262 U/L (9-52); ALBUMIN 3.9 g/dL (3.5-5.0); ALKALINE PHOSPHATASE 198 U/L (38-126); ANION GAP 12 (5-19); ASPARTATE AMINO TRANSFERASE 156 U/L (14-36); BILIRUBIN,DIRECT 0.5 mg/dL (0.0-0.4); BILIRUBIN,TOTAL 0.7 mg/dL (0.2-1.3); BLOOD UREA NITROGEN 12 mg/dL (7-20); CALCIUM 9.3 mg/dL (8.4-10.2); CARBON DIOXIDE 28 mmol/L (22-30); CHLORIDE 103 mmol/L (98-107); CREATININE RESULT 0.91 mg/dL (0.52-1.25); GLUCOSE 107 mg/dL (75-110); LIPASE 91.5 U/L (23-300); POTASSIUM 3.7 mmol/L (3.6-5.0); SODIUM 142.9 mmol/L (137-145); TOTAL PROTEIN 7.8 g/dL (6.3-8.2)
[2016-12-15 01:30] LABS: APPEARANCE,URINE CLEAR; BILIRUBIN,URINE NEGATIVE (NEGATIVE); GLUCOSE, URINE NEGATIVE (NEGATIVE); KETONES,URINE NEGATIVE (NEGATIVE); LEUKOCYTE ESTERASE,URINE TRACE (NEGATIVE); NITRITE,URINE NEGATIVE (NEGATIVE); PROTEIN,URINE NEGATIVE (NEGATIVE); URINE SPECIFIC GRAVITY 1.014
--- NOTE | 2016-12-15 02:29 | RADIOLOGY REPORT (SQ) ---
EXAM DESCRIPTION: U/S ABDOMEN LTD W/DOPPLER COMPLETED DATE/TIME: 12/15/2016 2:12 am REASON FOR STUDY: RUQ pain COMPARISON: None. TECHNIQUE: Dynamic and static grayscale images acquired of the abdomen and recorded on PACS. Additio nal selected color Doppler and spectral images recorded. LIMITATIONS: None. FINDINGS: PANCREAS: No masses. Visualized pancreatic duct normal caliber. LIVER: No masses. Echotexture normal. LIVER VASCULATURE: Normal directional flow of the main portal vein and hepatic veins. GALLBLADDER: Small Gallstone(s). No pericholecystic fluid. No wall thickening. ULTRASOUND-DETECTED VILLALOBOS'S SIGN: Negative. INTRAHEPATIC DUCTS AND COMMON DUCT: 0.5 cm diameter CBD and intrahepatic ducts normal caliber. No gia ling defects. INFERIOR VENA CAVA: Normal flow. AORTA: No aneurysm. RIGHT KIDNEY: Normal size. Normal echogenicity. No solid or suspicious masses. No hydronephrosis. No calcifications. PERITONEAL AND RIGHT PLEURAL SPACE: No ascites or effusions. OTHER: No other significant findings. IMPRESSION: No acute findings. Cholelithiasis. TECHNICAL DOCUMENTATION: JOB ID: [id number] [employer]- All Rights Reserved
[2016-12-15 04:17] VITALS: BP 109/63
== END 2016-12-15 03:20 | disposition home or self-care (01) ==
LOC: ER 22:48
DX: O99.63 Diseases of the digestive system complicating the puerperium (principal); K80.20 Calculus of gallbladder without cholecystitis without obstruction; O90.89 Other complications of the puerperium, not elsewhere classified; R74.8 Abnormal levels of other serum enzymes; R10.11 Right upper quadrant pain; R10.12 Left upper quadrant pain; O16.5 Unspecified maternal hypertension, complicating the puerperium
CPT/HCPCS: 99284; 96374; 36415; 83690; 85025; 80053; 81001; 76705; 93976; J2270

== ENCOUNTER 2016-12-18 05:49 | Emergency (ER) | payer MEDICAID ==
[2016-12-18 07:17] LABS: ABSOLUTE EOSINOPHILS # (AUTO) 0.1 10^3/uL (0.0-0.6); ABSOLUTE LYMPHOCYTES (AUTO) 2.2 10^3/uL (0.5-4.7); ABSOLUTE MONOCYTES (AUTO) 0.4 10^3/uL (0.1-1.4); ABSOLUTE NEUT (AUTO) 2.7 10^3/uL (1.7-8.2); BASOPHILS % (AUTO) 0.7 % (0-2); EOSINOPHILS % (AUTO) 2.7 % (0-6); HEMATOCRIT 41.6 % (36.0-47.0); HEMOGLOBIN 13.5 g/dL (12.0-15.5); HGB HCT DIFFERENCE -1.1; LYMPHOCYTES % (AUTO) 39.5 % (13-45); MEAN CORPUSCULAR HEMOGLOBIN 28.6 pg (27.0-33.4); MEAN CORPUSCULAR HGB CONC 32.5 g/dL (32.0-36.0); MEAN CORPUSCULAR VOLUME 88 fl (80-97); MONOCYTES % (AUTO) 6.9 % (3-13); RED BLOOD COUNT 4.74 10^6/uL (3.72-5.28); RED CELL DISTRIBUTION WIDTH 13.7 % (11.5-14.0); SEGMENTED NEUTROPHILS % (AUTO) 50.2 % (42-78); WHITE BLOOD COUNT 5.5 10^3/uL (4.0-10.5)
[2016-12-18 07:18] LABS: APPEARANCE,URINE CLEAR; BILIRUBIN,URINE NEGATIVE (NEGATIVE); GLUCOSE, URINE NEGATIVE (NEGATIVE); KETONES,URINE NEGATIVE (NEGATIVE); LEUKOCYTE ESTERASE,URINE TRACE (NEGATIVE); NITRITE,URINE NEGATIVE (NEGATIVE); PROTEIN,URINE NEGATIVE (NEGATIVE); URINE SPECIFIC GRAVITY 1.011; UROBILINOGEN,URINE NEGATIVE mg/dL (<2.0)
[2016-12-18] MEDS ORDERED: ONDANSETRON HCL INJ/PF 4 MG/2 ML SDV IV ONE (07:21)
[2016-12-18] MEDS ORDERED: MORPHINE SULFATE 10 MG/ML INJ IV ONE ×2 (07:21→09:02)
--- NOTE | 2016-12-18 07:22 | ER Document Report ---
ED GI/ - General Chief Complaint: Abdominal Pain Stated Complaint: ABDOMINAL PAIN Time Seen by Provider: 12/18/16 07:20 Mode of Arrival: Ambulatory Information source: Patient Notes: Patient is a 26 year old morbidly obese -[place] female who presents to the ER today for right upper quadrant abdominal pain that started at 3 AM this morning and has been constant since. She admits to multiple episodes of nausea and vomiting along with diarrhea. She states that she has surgery to remove her gallbladder tomorrow for gallstones scheduled already. She denies any fevers or chills or other new symptoms. TRAVEL OUTSIDE OF THE [place] IN LAST 30 DAYS: No - Related Data Allergies/Adverse Reactions: No Known Allergies Allergy (Verified 11/20/16 13:28) Past Medical History - General Information source: Patient - Social History Smoking Status: Unknown if Ever Smoked Family History: None Patient has suicidal ideation: No - Past Medical History Cardiac Medical History: Reports: Hx Hypertension Renal/ Medical History: Denies: Hx Peritoneal Dialysis Past Surgical History: Reports: Hx Oral Surgery, Hx Orthopedic Surgery - ACl R knee L ankle - Immunizations Hx Diphtheria, Pertussis, Tetanus Vaccination: Yes Review of Systems - Review of Systems Constitutional: No symptoms reported EENT: No symptoms reported Cardiovascular: No symptoms reported Respiratory: No symptoms reported Gastrointestinal: See HPI Genitourinary: No symptoms reported Female Genitourinary: No symptoms reported Musculoskeletal: No symptoms reported Skin: No symptoms reported Hematologic/Lymphatic: No symptoms reported Neurological/Psychological: No symptoms reported Physical Exam - Vital signs Vitals: Temp Pulse Resp BP Pulse Ox 98.1 F 78 22 H 118/67 99 12/18/16 05:56 12/18/16 05:56 12/18/16 05:56 12/18/16 05:56 12/18/16 05:56 - Notes Notes: PHYSICAL EXAMINATION: General: Uncomfortable appearing, but in no acute distress. HEAD: Atraumatic, normocephalic. EYES: Pupils equal round and reactive to light, extraocular movements intact, sclera anicteric, conjunctiva are normal. NECK: Normal range of motion, supple without lymphadenopathy LUNGS: CTAB and equal. No wheezes rales or rhonchi. HEART: Regular rate and rhythm without murmurs ABDOMEN: Soft, moderate epigastric and RUQ tenderness. No guarding, no rebound BACK: no vertebral tenderness, normal ROM GI/: no CVA tenderness EXTREMITIES: Normal range of motion, no pitting edema. No cyanosis. NEUROLOGICAL: Cranial nerves grossly intact. Normal sensory/motor exams. PSYCH: Normal mood, normal affect. SKIN: Warm, Dry, normal turgor, no rashes or lesions noted Course - Re-evaluation Re-evalutation: 12/18/16 09:30 Lab work is unremarkable today including a normal white blood cell count, liver enzymes that are actually improved from here a couple days ago when this was diagnosed. She is scheduled for surgery for gallbladder removal for this exact issue tomorrow already and there is nothing emergent to take her to the OR today as right upper quadrant ultrasound revealed cholelithiasis but no cholecystitis. She is comfortable with the morphine here. I will send her home with Percocet and Zofran until tomorrow. - Vital Signs Vital signs: Temp Pulse Resp BP Pulse Ox 98.1 F 68 22 H 118/67 99 12/18/16 05:59 12/18/16 05:59 12/18/16 05:59 12/18/16 05:59 12/18/16 05:59 - Laboratory Result Diagrams: 12/18/16 06:43 12/18/16 06:43 Laboratory results interpreted by me: 12/18/16 12/18/16 06:43 06:43 AST 103 H ALT 171 H Alkaline Phosphatase 174 H Ur Leukocyte Esterase TRACE H Urine Ascorbic Acid 40 H Discharge - Discharge Clinical Impression: Cholelithiasis Qualifiers: Cholelithiasis location: gallbladder Cholecystitis presence: without cholecystitis Biliary obstruction: without biliary obstruction Qualified Code(s) : K80.20 - Calculus of gallbladder without cholecystitis without obstruction Condition: Stable Disposition: HOME, SELF-CARE Additional Instructions: Return immediately for any new or worsening symptoms. Keep your appointment for surgery tomorrow morning. Prescriptions: Ondansetron [Zofran Odt 4 mg Tablet] 1 - 2 tab PO Q4H PRN #15 tab.rapdis PRN Reason: For Nausea/Vomiting Oxycodone HCl/Acetaminophen [Percocet 5-325 mg Tablet] 1 - 2 tab PO Q4H PRN #15 tablet PRN Reason: Referrals: GILES CHAUDHARY MD [ACTIVE STAFF] - Follow up as needed
[2016-12-18 07:33] LABS: ALANINE AMINOTRANSFERASE 171 U/L (9-52); ALBUMIN 3.8 g/dL (3.5-5.0); ALKALINE PHOSPHATASE 174 U/L (38-126); ANION GAP 9 (5-19); ASPARTATE AMINO TRANSFERASE 103 U/L (14-36); BILIRUBIN,DIRECT 0.4 mg/dL (0.0-0.4); BILIRUBIN,TOTAL 0.6 mg/dL (0.2-1.3); BLOOD UREA NITROGEN 16 mg/dL (7-20); CALCIUM 9.3 mg/dL (8.4-10.2); CARBON DIOXIDE 28 mmol/L (22-30); CHLORIDE 104 mmol/L (98-107); CREATININE RESULT 0.87 mg/dL (0.52-1.25); GLUCOSE 102 mg/dL (75-110); LIPASE 114.2 U/L (23-300); POTASSIUM 4.2 mmol/L (3.6-5.0); SODIUM 141.2 mmol/L (137-145); TOTAL PROTEIN 7.2 g/dL (6.3-8.2)
--- NOTE | 2016-12-18 09:10 | RADIOLOGY REPORT (SQ) ---
EXAM DESCRIPTION: U/S ABDOMEN LIMITED W/O DOP COMPLETED DATE/TIME: 12/18/2016 9:00 am REASON FOR STUDY: ruq pain, n/v COMPARISON: 12/15/2016 TECHNIQUE: Dynamic and static grayscale images acquired of the abdomen and recorded on PACS. Altagraciao rich selected color Doppler and spectral images recorded. LIMITATIONS: None. FINDINGS: PANCREAS: No masses. Visualized pancreatic duct normal caliber. Limited visualization of the tail due to bowel gas. LIVER: No masses. Echotexture normal. LIVER VASCULATURE: Normal directional flow of the main portal vein and hepatic veins. GALLBLADDER: Gallstone(s). No pericholecystic fluid. No wall thickening. ULTRASOUND-DETECTED VILLALOBOS'S SIGN: Negative. INTRAHEPATIC DUCTS AND COMMON DUCT: CBD and intrahepatic ducts normal caliber. No filling defects. C ommon bile duct measures 6 mm INFERIOR VENA CAVA: Normal flow. AORTA: No aneurysm. RIGHT KIDNEY: Normal size. Normal echogenicity. No solid or suspicious masses. No hydronephrosis. No calcifications. PERITONEAL AND RIGHT PLEURAL SPACE: No ascites or effusions. OTHER: No other significant findings. IMPRESSION: Cholelithiasis without acute cholecystitis. Otherwise unremarkable right upper quadrant ultrasound. TECHNICAL DOCUMENTATION: JOB ID: [id number] [employer]- All Rights Reserved
[2016-12-18 09:45] VITALS: BP 122/74
== END 2016-12-18 09:45 | disposition home or self-care (01) ==
LOC: ER 05:49
DX: K80.20 Calculus of gallbladder without cholecystitis without obstruction (principal); R10.11 Right upper quadrant pain; R11.2 Nausea with vomiting, unspecified; R19.7 Diarrhea, unspecified; I10 Essential (primary) hypertension
CPT/HCPCS: 96376; 99284; 96374; 96375; 36415; 83690; 84703; 85025; 80053; 81001; 76705; J2270; J2405

== ENCOUNTER 2016-12-22 07:25 | Day surgery (SDC) | payer MEDICAID ==
[~2016-12-22 07:25] MED LIST: ACETAMINOPHEN 325 MG TABLET PO PRN; CEFAZOLIN 1 GM/D5W RTU 1 GM/50 ML RTUPB IV PRN; RINGERS SOLUTION,LACTATED 1,000 ML IV PRN
[2016-12-22] MEDS ORDERED: BUPIVACAINE HCL 0.25 % INJ/PF (2.5 MG/1 ML) 30 ML VIAL ONE (09:51)
[2016-12-22] MEDS ORDERED: ONDANSETRON HCL INJ/PF 4 MG/2 ML SDV ONE (10:02)
[2016-12-22] MEDS ORDERED: ACETAMINOPHEN 100 ML IV ONE (10:04)
[2016-12-22] MEDS ORDERED: PROPOFOL INJ 200 MG/20 ML VIAL IV ONE (10:04)
[2016-12-22] MEDS ORDERED: FENTANYL CITRATE INJ/PF 100 MCG/2 ML AMPUL ONE (10:04)
[2016-12-22] MEDS ORDERED: HYDROMORPHONE HCL INJ/PF 2 MG/ML AMPULE ONE (10:04)
[2016-12-22] MEDS ORDERED: MIDAZOLAM 2 MG/2 ML INJ ONE (10:04)
[2016-12-22] MEDS ORDERED: PROMETHAZINE HCL INJ 25 MG/1 ML VIAL IV PRN (10:54)
[2016-12-22] MEDS ORDERED: FENTANYL CITRATE INJ/PF 100 MCG/2 ML AMPUL IV PRN ×3 (10:54)
[2016-12-22] MEDS ORDERED: MORPHINE SULFATE 10 MG/ML INJ IV PRN (10:54)
[2016-12-22] MEDS ORDERED: MEPERIDINE HCL/PF INJ 25 MG/1 ML DISP.SYRIN IV PRN (10:54)
[2016-12-22] MEDS ORDERED: DIPHENHYDRAMINE HCL 50 MG/ML VIAL IV PRN (10:54)
[2016-12-22] MEDS ORDERED: RINGERS SOLUTION,LACTATED 1,000 ML IV PRN (11:36)
[2016-12-22] MEDS ORDERED: ONDANSETRON HCL INJ/PF 4 MG/2 ML SDV IV PRN (11:36)
[2016-12-22] MEDS ORDERED: OXYCODONE-ACETAMINOPHEN 5-325 MG TABLET PO PRN (11:36)
--- NOTE | 2016-12-22 11:47 | PDOC DISCHARGE SUMMARY ---
Discharge Summary (SDC) - Discharge Final Diagnosis: cholelithiasis Date of Surgery: 12/22/16 Discharge Date: 12/22/16 Condition: Stable Treatment or Instructions: [facility] [address], [place] [address] Discharge Instructions: Laparoscopic Surgery 1. General Information: a. DO NOT DRIVE a car or operate dangerous machinery for 3-4 days or while taking narcotic pain pills. b. DO NOT consume alcohol, tranquilizers, sleeping medications or any non- prescribed medications for 24 hours unless approved by your doctor or as long as taking narcotic prescription medications. c. DO NOT make important decisions or sign any important papers for the first 24 hours after surgery. d. When discharged home the same day of surgery have a responsible person with you for the first night. 2. Activity Restrictions: 4 weeks. a. NO heavy lifting, straining abdominal muscles, bending over a lot, yard work, house work, or sports for [address] for 3-4 days or while taking _narcotic pain medication_ . c. It is fine to go for walks, up and down steps, ride in a car. d. Elevate your head when sleeping/resting. 3. Treatment: a. You may shower 24 hours after surgery, no baths or swimming for 2 weeks. Remove band-aids or dressings before shower but leave paper strips (steri-strips ) on the skin to fall off on their own. If still on at postoperative visit they will be removed then. b. Drainage of fluid or blood is not unusual from an incision. If occurs, you can clean with peroxide and cotton ball daily and cover with dry gauze until the wound seals. c. If a lot of bleeding occurs, you can hold pressure with a gauze or cloth over the site for 10 minutes and it will usually stop. If bleeding continues you will need to call for possible evaluation in office or emergency room. 4. Medications: a. __Toradol__ may be taken for pain as needed, one tablet every 6 hours. Stop the narcotic when able since you cannot take it and drive, and they cause constipation. You may switch to plain Tylenol transition from the narcotic. Many adults find good pain relief with Advil 600-800 mg three times a day with meals when not taking Toradol. This can cause indigestion, ulcers, and kidney problems with long-term use. b. You should resume all normal medications unless a change is specified by your doctors. c. Antibiotic(s) if needed ( NONE) 5. Diet: Begin with clear liquids and may progress to your normal diet if not nauseated. No high fat, high protein foods the day of surgery. 6. The following may occur after laparoscopic surgery: a. Shoulder or upper back ache from retained gas that should resolve in 1-2 days b. Soreness and bruising at incision sites will resolve with time. c. Scrotal swelling (labia in women) and bruising is often seen after hernia surgery. d. Sore throat e. Fatigue may last days to weeks. f. Difficulty urinating may occur and may need to come into emergency room for urinary catheter placement. 7. Notify Physician If: a. Worsening or pain not improved with pain medication b. Persistent nausea and vomiting c. Fever above 101 d. Persistent bleeding or swelling at operative site e. Unable to urinate and uncomfortable bladder 6-8 hours after surgery 8..Follow Up Care: a. Schedule a follow up appointment with your doctor for 2 weeks. In the event of any postoperative problems or questions or you may call the office during business hours or the On-Call physician evenings and weekends at [facility]. [facility] I understand the instructions for my postoperative care as described above and a copy has been given to me. Patient/Significant Other Witness Date Prescriptions: Ketorolac Tromethamine [Toradol 10 mg Tablet] 10 mg PO Q6HP PRN #20 tablet PRN Reason: Discharge Diet: As Tolerated Discharge Activity: Activity As Tolerated Report the Following to Your Physician Immediately: Fever over 101 Degrees, Unusual Bleeding, Redness, Swelling, Warmth, Drainage-Foul Smelling
--- NOTE | 2016-12-22 11:49 | Operative Report ---
Operative Report DATE OF SURGERY: 12/22/16 PREOPERATIVE DIAGNOSIS: 1. Symptomatic cholelithiasis with cholecystitis. 2. Elevated liver function studies POSTOPERATIVE DIAGNOSIS: Same with distal common bile duct obstruction secondary to retained common duct stones OPERATION: 1. Laparoscopic cholecystectomy. 2. Intraoperative cholangiogram. 3. Interpretation of intraoperative cholangiography SURGEON: GILES CHAUDHARY 1ST BANQUET DIRECTOR: BRYAN BRITT ANESTHESIA: GA TISSUE REMOVED OR ALTERED: 1 gallbladder with stones COMPLICATIONS: None ESTIMATED BLOOD LOSS: Scant INTRAOPERATIVE FINDINGS: See below PROCEDURE: Patient taken to the preop holding area the main operating room and general anesthesia was induced. Arms were abducted, abdomen exposed, and prepped and draped in a sterile fashion. Laparoscopic instrumentation was set up for planned cholecystectomy. Surgical plan and surgical timeout conducted A supraumbilical vertical incision made with a knife and Veress needle was inserted peritoneal cavity pneumoperitoneum was established. Veress needle was removed, 5 mm port was inserted a 5 mm flexible scope was inserted. Under direct visualization 3 additional ports were placed one subxiphoid to in subcostal position. Findings were significant for a moderately distended gallbladder with chronic inflammatory changes but no acute changes. There was no evidence of bile in the peritoneal cavity. We aspirated the gallbladder approximately 50 cc of bile. Grasper placed on the fundus and infundibulum and the gallbladder was reflected above the liver bed. The neck of the gallbladder its junction with the cystic duct was dissected out. The anatomy here was classic. [place] of [place] was opened widely. Photographs taken. Cystic artery and node of [place] low in its typical location. Cystic artery was surrounded with a right angle clamp, clipped twice proximally once distally divided with scissors. Because of the patient's history of elevated liver function studies, and intraoperative cholangiogram was performed. The cystic duct was clipped on the gallbladder side, then a small opening made in the cystic duct. A percutaneous disposable cholangiogram catheter was threaded through a separate stab wound created by 11 blade. Upon opening up of the cystic duct, there was expression of 3 small round stones approximately 3-4 mm each. The bile expressed was under mild pressure. We insinuated the catheter into the cystic duct, and clipped it into position Patient level that we create a series of cholangiograms using full strength contrast. The revealed appropriate positioning of the catheter into the cystic duct with opacification of the cystic duct, bile duct, common hepatic duct, and intrahepatic biliary tree. There was no evidence of leak. Distally however there was no opacification of contrast into the duodenum. The patient was given 1 mg of glucagon, requisite time elapsed, and repeat imaging again showed no opacification of contrast into the duodenum. In fact there appeared to be a meniscus sign consistent with retained common duct stone or stones in the distal common bile duct. We level the patient now removed the cholangiogram catheter, milked an additional stone out of the cystic duct, clipped the cystic duct 3 times, divided. The gallbladder was removed from the liver bed using hook cautery dissection. It was taken out of the patient to the super umbilical port site incision without spillage of bile or stones. Return the peritoneal cavity check for bleeding there is none. Sponge and needle counts correct. We felt the operation was complete. All ports removed under direct visualization pneumoperitoneum evacuated was closed with 3-0 Vicryl benzoin and Steri-Strips Patient was extubated and taken to the recovery room in stable condition Postoperative management will include checking liver function studies, and setting patient up for interval ERCP. The physician chef's assistant, Ms. Britt, provided assistance during this case by: Assisting and port insertion, retracting tissue, instillation of local anesthesia and closure of skin incisions.
[2016-12-22] MEDS ORDERED: PROMETHAZINE HCL INJ 25 MG/1 ML VIAL ONE (12:00)
[2016-12-22 12:22] LABS: ALANINE AMINOTRANSFERASE 92 U/L (9-52); ALBUMIN 3.6 g/dL (3.5-5.0); ALKALINE PHOSPHATASE 134 U/L (38-126); ASPARTATE AMINO TRANSFERASE 35 U/L (14-36); BILIRUBIN,DIRECT 0.3 mg/dL (0.0-0.4); BILIRUBIN,TOTAL 0.6 mg/dL (0.2-1.3); TOTAL PROTEIN 6.8 g/dL (6.3-8.2)
[2016-12-22] MEDS ORDERED: NEOSTIGMINE METHYLSULFATE 10 MG/10 ML VIAL ONE (13:28)
[2016-12-22] MEDS ORDERED: ROCURONIUM BROMIDE INJ 50 MG/5 ML VIAL IV ONE (13:28)
[2016-12-22] MEDS ORDERED: GLYCOPYRROLATE INJ 0.4 MG/2 ML VIAL ONE (13:28)
[2016-12-22] MEDS ORDERED: SUCCINYLCHOLINE CHLORIDE INJ 200 MG/10 ML VIAL ONE (13:28)
[2016-12-22 15:43] VITALS: BP 124/72
--- NOTE | 2016-12-22 16:15 | RADIOLOGY REPORT (SQ) ---
EXAM DESCRIPTION: NO CHG FLUORO; CHOLANGIOGRAM OPERATIVE COMPLETED DATE/TIME: 12/22/2016 4:05 pm REASON FOR STUDY: CHOLANGIOGRAM K80.20 CALCULUS OF GALLBLADDER W/O CHOLECYSTITIS W/O OBSTRUC COMPARISON: None. FLUOROSCOPY TIME: 0.1 minute 5 images saved to PACS. TECHNIQUE: 5 images were obtained from an intraoperative cholangiogram. LIMITATIONS: Motion. FINDINGS: There is opacification of the bile ducts, cystic duct remnants and second portion of the d uodenum without evidence of fixed filling defect or significant extravasation. IMPRESSION: INTRAOPERATIVE CHOLANGIOGRAM. COMMENT: Quality ID 145: Final reports for procedures using fluoroscopy that document radiation exp osure indices, or exposure time and number of fluorographic images (if radiation exposure indices are not available) TECHNICAL DOCUMENTATION: JOB ID: [id number]- All Rights Reserved
--- NOTE | 2016-12-22 16:15 | RADIOLOGY REPORT (SQ) ---
EXAM DESCRIPTION: NO CHG FLUORO; CHOLANGIOGRAM OPERATIVE COMPLETED DATE/TIME: 12/22/2016 4:05 pm REASON FOR STUDY: CHOLANGIOGRAM K80.20 CALCULUS OF GALLBLADDER W/O CHOLECYSTITIS W/O OBSTRUC COMPARISON: None. FLUOROSCOPY TIME: 0.1 minute 5 images saved to PACS. TECHNIQUE: 5 images were obtained from an intraoperative cholangiogram. LIMITATIONS: Motion. FINDINGS: There is opacification of the bile ducts, cystic duct remnants and second portion of the d uodenum without evidence of fixed filling defect or significant extravasation. IMPRESSION: INTRAOPERATIVE CHOLANGIOGRAM. COMMENT: Quality ID 145: Final reports for procedures using fluoroscopy that document radiation exp osure indices, or exposure time and number of fluorographic images (if radiation exposure indices are not available) TECHNICAL DOCUMENTATION: JOB ID: [id number] [employer]- All Rights Reserved
== END 2016-12-22 15:00 | disposition home or self-care (01) ==
LOC: OROUT 07:25
PROVIDERS: ATTEND Surgery
PROC: BF13YZZ Fluoroscopy of Gallbladder and Bile Ducts using Other Contrast (ICD-10-PCS; 2016-12-22)
PROC: 0FT44ZZ Resection of Gallbladder, Percutaneous Endoscopic Approach (ICD-10-PCS; principal; 2016-12-22 09:45)
DX: K80.11 Calculus of gallbladder with chronic cholecystitis with obstruction (principal); E66.9 Obesity, unspecified; Z68.42 Body mass index [BMI] 45.0-49.9, adult
CPT/HCPCS: 86900; 86901; 36415; 86850; 82150; 81025; 80076; 88304 ×2; 74300; 47563; J2250; J0690; J3490 ×2; J3010; J1610; J1170; J2550; J0330; J2405; S0020; J2704; J0131; 790

== ENCOUNTER → 2016-12-24 | Outpatient (CLI) | payer MEDICAID ==
[2016-12-24 12:33] LABS: ALANINE AMINOTRANSFERASE 302 U/L (9-52); ALBUMIN 3.6 g/dL (3.5-5.0); ALKALINE PHOSPHATASE 198 U/L (38-126); ASPARTATE AMINO TRANSFERASE 174 U/L (14-36); BILIRUBIN,DIRECT 0.4 mg/dL (0.0-0.4); BILIRUBIN,TOTAL 0.6 mg/dL (0.2-1.3); TOTAL PROTEIN 6.6 g/dL (6.3-8.2)
== END ==
LOC: OD 11:07
PROVIDERS: ATTEND Internal Medicine Gastroenterology
DX: R94.5 Abnormal results of liver function studies (principal)
CPT/HCPCS: 36415; 80076

== ENCOUNTER 2016-12-25 16:29 | Day surgery (SDC) | payer MEDICAID ==
[~2016-12-25 16:29] MED LIST changes: -ACETAMINOPHEN 325 MG TABLET PO PRN; -CEFAZOLIN 1 GM/D5W RTU 1 GM/50 ML RTUPB IV PRN; +EPINEPHRINE INJ 1 MG/10 ML DISP.SYRIN ONE; -RINGERS SOLUTION,LACTATED 1,000 ML IV PRN
[2016-12-25] MEDS ORDERED: FENTANYL CITRATE INJ/PF 100 MCG/2 ML AMPUL ONE (18:27)
[2016-12-25] MEDS ORDERED: PROPOFOL INJ 200 MG/20 ML VIAL IV ONE (18:27)
[2016-12-25] MEDS ORDERED: MIDAZOLAM 2 MG/2 ML INJ ONE (18:27)
[2016-12-25] MEDS ORDERED: FENTANYL CITRATE INJ/PF 100 MCG/2 ML AMPUL IV PRN ×3 (19:44)
[2016-12-25] MEDS ORDERED: ONDANSETRON HCL INJ/PF 4 MG/2 ML SDV IV PRN ×2 (19:44→20:22)
[2016-12-25] MEDS ORDERED: MEPERIDINE HCL/PF INJ 25 MG/1 ML DISP.SYRIN IV PRN (19:44)
[2016-12-25] MEDS ORDERED: DIPHENHYDRAMINE HCL 50 MG/ML VIAL IV PRN (19:44)
[2016-12-25] MEDS ORDERED: PROMETHAZINE HCL INJ 25 MG/1 ML VIAL IV PRN (19:44)
--- NOTE | 2016-12-25 20:06 | RADIOLOGY REPORT (SQ) ---
EXAM DESCRIPTION: CHOLANGIOGRAM OPERATIVE COMPLETED DATE/TIME: 12/25/2016 7:57 pm REASON FOR STUDY: ERCP K80.43 CALCULUS OF BILE DUCT W ACUTE CHOLECYSTITIS WITH OBST COMPARISON: None. FLUOROSCOPY TIME: 2.6 minutes. TECHNIQUE: Intra-operative images acquired during surgical procedure to evaluate progress. NUMBER OF IMAGES: 8 images LIMITATIONS: None. FINDINGS: Fluoroscopic images obtained during ERCP with opacification of the common bile duct and in trahepatic biliary ducts. No gross complication identified. IMPRESSION: IMAGE(S) OBTAINED DURING PROCEDURE. COMMENT: Quality ID 145: Final reports for procedures using fluoroscopy that document radiation exp osure indices, or exposure time and number of fluorographic images (if radiation exposure indices are not available) Please consult full operative report of the attending physician for description of the procedure. TECHNICAL DOCUMENTATION: JOB ID: [id number]- All Rights Reserved
--- NOTE | 2016-12-25 20:20 | Operative Report ---
Operative Report DATE OF SURGERY: 12/25/16 Operative Report: Pre-op diagnosis: Abnormal intraoperative cholangiogram and elevated LFT Post-op diagnosis: Common bile duct sludge Surgery: ERCP with sphincterotomy and balloon sludge extraction Medications: As per anesthesia Tissue removed: None Procedure: After informed consent obtained from patient, she was placed under general anesthesia. The ERCP endoscope was then inserted into the esophagus blindly and advanced into the stomach. The duodenum was entered and the ampulla was identified. Using the triple-lumen sphincterotomy catheter the common bile duct was freely cannulated. A cholangiogram was obtained which showed possible filling defect in the distal common bile duct. The common bile duct and intrahepatic ducts did not appear dilated. A good sized sphincterotomy was then performed using the endocut mode. The catheter was removed over the guidewire before a 9-12 mm balloon catheter was inserted. The balloon was inflated to 12 mm in the proximal common bile duct and pulled down the duct. Some sludge was extracted. The duct was swept one more time. A balloon occlusion cholangiogram was normal. The pancreatic duct was intentionally not cannulated. Patient tolerated procedure well. Findings Common bile duct: Small amount of sludge Intrahepatic ducts: Normal Pancreatic duct: Not cannulated Plan: We will observe overnight and follow LFTs OPERATION: .
[2016-12-25] MEDS ORDERED: NORMAL SALINE 1000 ML 1,000 ML IV PRN (20:21)
[2016-12-26 06:52] LABS: ABSOLUTE EOSINOPHILS # (AUTO) 0.1 10^3/uL (0.0-0.6); ABSOLUTE LYMPHOCYTES (AUTO) 1.8 10^3/uL (0.5-4.7); ABSOLUTE MONOCYTES (AUTO) 0.4 10^3/uL (0.1-1.4); ABSOLUTE NEUT (AUTO) 3.8 10^3/uL (1.7-8.2); BASOPHILS % (AUTO) 0.6 % (0-2); EOSINOPHILS % (AUTO) 1.5 % (0-6); HEMATOCRIT 40.2 % (36.0-47.0); HGB HCT DIFFERENCE -1.2; LYMPHOCYTES % (AUTO) 29.8 % (13-45); MEAN CORPUSCULAR HEMOGLOBIN 28.3 pg (27.0-33.4); MEAN CORPUSCULAR HGB CONC 32.4 g/dL (32.0-36.0); MEAN CORPUSCULAR VOLUME 88 fl (80-97); MONOCYTES % (AUTO) 6.4 % (3-13); RED BLOOD COUNT 4.59 10^6/uL (3.72-5.28); RED CELL DISTRIBUTION WIDTH 13.8 % (11.5-14.0); SEGMENTED NEUTROPHILS % (AUTO) 61.7 % (42-78); WHITE BLOOD COUNT 6.2 10^3/uL (4.0-10.5)
[2016-12-26 07:11] LABS: ALANINE AMINOTRANSFERASE 156 U/L (9-52); ALBUMIN 3.4 g/dL (3.5-5.0); ALKALINE PHOSPHATASE 154 U/L (38-126); ASPARTATE AMINO TRANSFERASE 64 U/L (14-36); BILIRUBIN,DIRECT 0.3 mg/dL (0.0-0.4); BILIRUBIN,TOTAL 0.7 mg/dL (0.2-1.3); TOTAL PROTEIN 6.5 g/dL (6.3-8.2)
[2016-12-26 09:01] VITALS: BP 142/89
== END 2016-12-26 09:46 | disposition home or self-care (01) ==
LOC: 2N 16:29 → OROUT 16:29
PROVIDERS: ATTEND Internal Medicine Gastroenterology
PROC: 0FC98ZZ Extirpation of Matter from Common Bile Duct, Via Natural or Artificial Opening Endoscopic (ICD-10-PCS; principal; 2016-12-25 17:30)
PROC: 0F798ZZ Dilation of Common Bile Duct, Via Natural or Artificial Opening Endoscopic (ICD-10-PCS; 2016-12-25 17:30)
DX: K83.8 Other specified diseases of biliary tract (principal); F17.210 Nicotine dependence, cigarettes, uncomplicated; E66.9 Obesity, unspecified; Z68.42 Body mass index [BMI] 45.0-49.9, adult; Z79.891 Long term (current) use of opiate analgesic
CPT/HCPCS: 43264; 43262; 36415; 85025; 81025; 80076; 74300; J2250; J3010; J2704; 740; J0171

== ENCOUNTER 2017-01-15 09:10 | Emergency (ER) | payer MEDICAID ==
--- NOTE | 2017-01-15 09:42 | ER Document Report ---
ED Medical Screen (RME) - General Chief Complaint: Vaginal Bleeding Stated Complaint: VAGINAL BLEEDING Time Seen by Provider: 01/15/17 09:41 Notes: Patient presents with vaginal bleeding and lower abdominal cramping that started approximately 530 this morning. She states she is already soaked 4 pads. She states she is 6 weeks . She states after her last she did not have a period for 1 year so that is why she is concerned. She also states that this would be heavier than a normal period for her. She states she has not had intercourse since giving . TRAVEL OUTSIDE OF THE [place] IN LAST 30 DAYS: No - Related Data Allergies/Adverse Reactions: No Known Allergies Allergy (Verified 01/15/17 09:19) Past Medical History - Past Medical History Cardiac Medical History: Denies: Hx Coronary Artery Disease, Hx Heart Attack, Hx Hypertension Pulmonary Medical History: Denies: Hx Asthma, Hx Bronchitis, Hx COPD, Hx Pneumonia Neurological Medical History: Denies: Hx Cerebrovascular Accident, Hx Seizures Renal/ Medical History: Denies: Hx Peritoneal Dialysis Musculoskeltal Medical History: Denies Hx Arthritis Past Surgical History: Reports: Hx Oral Surgery, Hx Orthopedic Surgery - ACl R knee L ankle - Immunizations Hx Diphtheria, Pertussis, Tetanus Vaccination: Yes Physical Exam - Vital signs Vitals: Temp Pulse Resp BP Pulse Ox 97.8 F 67 20 114/77 99 01/15/17 09:20 01/15/17 09:20 01/15/17 09:20 01/15/17 09:20 01/15/17 09:20 Course - Vital Signs Vital signs: Temp Pulse Resp BP Pulse Ox 97.8 F 67 20 114/77 99 01/15/17 09:20 01/15/17 09:20 01/15/17 09:20 01/15/17 09:20 01/15/17 09:20
[2017-01-15 10:00] LABS: ABSOLUTE BASOPHILS # (AUTO) 0.1 10^3/uL (0.0-0.2); ABSOLUTE EOSINOPHILS # (AUTO) 0.1 10^3/uL (0.0-0.6); ABSOLUTE LYMPHOCYTES (AUTO) 2.2 10^3/uL (0.5-4.7); ABSOLUTE MONOCYTES (AUTO) 0.4 10^3/uL (0.1-1.4); ABSOLUTE NEUT (AUTO) 2.2 10^3/uL (1.7-8.2); BASOPHILS % (AUTO) 1.1 % (0-2); EOSINOPHILS % (AUTO) 2.6 % (0-6); HEMATOCRIT 39.6 % (36.0-47.0); HEMOGLOBIN 13.5 g/dL (12.0-15.5); HGB HCT DIFFERENCE 0.9; LYMPHOCYTES % (AUTO) 44.1 % (13-45); MEAN CORPUSCULAR HEMOGLOBIN 29.3 pg (27.0-33.4); MEAN CORPUSCULAR HGB CONC 34.1 g/dL (32.0-36.0); MEAN CORPUSCULAR VOLUME 86 fl (80-97); MONOCYTES % (AUTO) 7.4 % (3-13); RED CELL DISTRIBUTION WIDTH 13.7 % (11.5-14.0); SEGMENTED NEUTROPHILS % (AUTO) 44.8 % (42-78); WHITE BLOOD COUNT 4.9 10^3/uL (4.0-10.5)
[2017-01-15 10:21] LABS: ALANINE AMINOTRANSFERASE 35 U/L (9-52); ALBUMIN 4.2 g/dL (3.5-5.0); ALKALINE PHOSPHATASE 84 U/L (38-126); ANION GAP 12 (5-19); ASPARTATE AMINO TRANSFERASE 30 U/L (14-36); BILIRUBIN,DIRECT 0.3 mg/dL (0.0-0.4); BILIRUBIN,TOTAL 0.4 mg/dL (0.2-1.3); BLOOD UREA NITROGEN 20 mg/dL (7-20); CALCIUM 9.6 mg/dL (8.4-10.2); CARBON DIOXIDE 25 mmol/L (22-30); CHLORIDE 104 mmol/L (98-107); GLUCOSE 79 mg/dL (75-110); POTASSIUM 4.4 mmol/L (3.6-5.0); SODIUM 140.9 mmol/L (137-145); TOTAL PROTEIN 7.5 g/dL (6.3-8.2)
[2017-01-15 10:24] LABS: APPEARANCE,URINE CLEAR; BILIRUBIN,URINE NEGATIVE (NEGATIVE); GLUCOSE, URINE NEGATIVE (NEGATIVE); KETONES,URINE NEGATIVE (NEGATIVE); LEUKOCYTE ESTERASE,URINE NEGATIVE (NEGATIVE); NITRITE,URINE NEGATIVE (NEGATIVE); PROTEIN,URINE NEGATIVE (NEGATIVE); URINE SPECIFIC GRAVITY 1.016; UROBILINOGEN,URINE NEGATIVE mg/dL (<2.0)
--- NOTE | 2017-01-15 10:25 | ER Document Report ---
ED GI/ - General Chief Complaint: Vaginal Bleeding Stated Complaint: VAGINAL BLEEDING Time Seen by Provider: 01/15/17 09:41 Mode of Arrival: Ambulatory Information source: Patient TRAVEL OUTSIDE OF THE [place] IN LAST 30 DAYS: No - HPI Patient complains to provider of: Pelvic pain, Vaginal bleeding Onset: Yesterday Timing/Duration: Sudden Quality of pain: Achy, Cramping Severity at maximum: Moderate Severity in ED: Moderate Location: Pelvis Vaginal bleeding (Compared to normal period): Heavier Associated symptoms: None Exacerbated by: Denies Relieved by: Denies Similar symptoms previously: No Recently seen / treated by doctor: Yes Notes: 01/15/17 10:23 Patient is a 26-year-old female who is approximately 6 weeks from a normal vaginal delivery with no complications, who presents today with heavy vaginal bleeding and pelvic cramping that started yesterday, this is the first episode of bleeding since her normal bleeding, she does report heavier periods prior to but this is worse than usual, stating she is gone through 4 pads in an hour, although she feels as though the bleeding has slowed down slightly since being in the emergency room, she denies any nausea or vomiting, no urinary symptoms, she has taken Tylenol 3 and ibuprofen at home with minimal relief of symptoms - Related Data Allergies/Adverse Reactions: No Known Allergies Allergy (Verified 01/15/17 09:19) Home Medications: Current Home Medications Vit/Iron Fumarate/FA [ Tablet] 1 each PO DAILY 01/15/17 [ History] Past Medical History - General Information source: Patient - Social History Smoking Status: Never Smoker Family History: None Patient has suicidal ideation: No Patient has homicidal ideation: No - Past Medical History Cardiac Medical History: Denies: Hx Coronary Artery Disease, Hx Heart Attack, Hx Hypertension Pulmonary Medical History: Denies: Hx Asthma, Hx Bronchitis, Hx COPD, Hx Pneumonia Neurological Medical History: Denies: Hx Cerebrovascular Accident, Hx Seizures Renal/ Medical History: Denies: Hx Peritoneal Dialysis Musculoskeltal Medical History: Denies Hx Arthritis Past Surgical History: Reports: Hx Oral Surgery, Hx Orthopedic Surgery - ACl R knee L ankle - Immunizations Hx Diphtheria, Pertussis, Tetanus Vaccination: Yes Review of Systems - Review of Systems Constitutional: No symptoms reported EENT: No symptoms reported Cardiovascular: No symptoms reported Respiratory: No symptoms reported Gastrointestinal: No symptoms reported Genitourinary: No symptoms reported Female Genitourinary: See HPI Musculoskeletal: No symptoms reported Skin: No symptoms reported Hematologic/Lymphatic: No symptoms reported Neurological/Psychological: No symptoms reported -: Yes All other systems reviewed and negative Physical Exam - Vital signs Vitals: Temp Pulse Resp BP Pulse Ox 97.8 F 67 20 114/77 99 01/15/17 09:20 01/15/17 09:20 01/15/17 09:20 01/15/17 09:20 01/15/17 09:20 Interpretation: Normal - General General appearance: Appears well, Alert - HEENT Head: Normocephalic, Atraumatic Eyes: Normal Pupils: PERRL - Respiratory Respiratory status: No respiratory distress Chest status: Nontender Breath sounds: Normal Chest palpation: Normal - Cardiovascular Rhythm: Regular Heart sounds: Normal auscultation Murmur: No - Abdominal Inspection: Obese Distension: No distension Bowel sounds: Normal Tenderness: Nontender Organomegaly: No organomegaly - Genitourinary External exam: Normal Speculum exam: Cervix closed Vaginal bleeding: Moderate Bimanuel exam: Normal - Back Back: Normal, Nontender - Extremities General upper extremity: Normal inspection, Nontender, Normal color, Normal ROM , Normal temperature General lower extremity: Normal inspection, Nontender, Normal color, Normal ROM , Normal temperature, Normal weight bearing. No: Pat's sign - Neurological Neuro grossly intact: Yes Cognition: Normal Orientation: AAOx4 [place] Coma Scale Eye Opening: Spontaneous Nenita Coma Scale Verbal: Oriented [place] Coma Scale Motor: Obeys Commands [place] Coma Scale Total: 15 Speech: Normal Motor strength normal: LUE, RUE, LLE, RLE Sensory: Normal - Psychological Associated symptoms: Normal affect, Normal mood - Skin Skin Temperature: Warm Skin Moisture: Dry Skin Color: Normal Course - Re-evaluation Re-evalutation: 01/15/17 11:22 Patient with moderate amount of vaginal bleeding approximately 7 weeks , normal labs and vital signs, physical exam findings otherwise unremarkable, attempted to call on-call MEDICAL MASSAGE THERAPIST, message was left on voicemail, however patient is stable, she will be discharged with prescription for pain medication and information for follow-up, advised to return if symptoms worsen, patient acknowledges understanding and agreement with this plan 01/15/17 11:25 Patient was discussed with Dr. Parada, on-call MEDICAL MASSAGE THERAPIST, who reports this is likely patient's first menstrual period since delivery, generally menstrual cycles are heavier and more painful in the early period, She confirms that no additional testing is required and patient can safely be discharged home to follow-up as an outpatient - Vital Signs Vital signs: Temp Pulse Resp BP Pulse Ox 97.8 F 67 20 114/77 99 01/15/17 09:20 01/15/17 09:20 01/15/17 09:20 01/15/17 09:20 01/15/17 09:20 - Laboratory Result Diagrams: 01/15/17 09:50 01/15/17 09:50 Laboratory results interpreted by me: 01/15/17 09:59 Urine Blood LARGE H Urine Ascorbic Acid 40 H Discharge - Discharge Clinical Impression: Vaginal bleeding Condition: Stable Disposition: HOME, SELF-CARE Instructions: Vaginal Bleeding ([facility]) Additional Instructions: Follow up with your primary care provider and MEDICAL MASSAGE THERAPIST in one to 2 days. Return to the emergency room immediately if symptoms worsen or any additional concerns. Prescriptions: Hydrocodone/Acetaminophen [Hydrocodon-Acetaminophen 5-325] 1 each PO Q6 #20 tablet Forms: Return to Work
[2017-01-15 11:43] VITALS: BP 114/55
== END 2017-01-15 11:41 | disposition home or self-care (01) ==
LOC: ER 09:10
DX: N93.9 Abnormal uterine and vaginal bleeding, unspecified (principal)
CPT/HCPCS: 36415; 80053; 81001; 81025; 85025; 99284

== ENCOUNTER 2017-03-09 11:03 | Emergency (ER) | payer SELFPAY ==
[2017-03-09 11:25] VITALS: BP 114/71
[2017-03-09] MEDS ORDERED: ACETAMINOPHEN 325 MG TABLET PO ONE (12:42)
--- NOTE | 2017-03-09 13:01 | ER Document Report ---
ED Fall - General Chief Complaint: Fall Stated Complaint: FALL BACK PAIN Time Seen by Provider: 03/09/17 12:11 Mode of Arrival: Ambulatory Information source: Patient Notes: 26-year-old female presents to ED for pain in her left shoulder, left hip, upper and lower back since she fell last night getting her to shower. She states she took ibuprofen at 11 AM and Tylenol 3 at 5 AM that she had left over from her gallbladder surgery. TRAVEL OUTSIDE OF THE [place] IN LAST 30 DAYS: No - HPI Occurred: Yesterday Where: Home, Indoors Context: Slipped Associated symptoms: None Location of injury/pain: Back, Hip, Shoulder Quality of pain: Achy, Sharp Severity: Moderate Pain Level: 4 - Related data Allergies/Adverse Reactions: No Known Allergies Allergy (Verified 01/15/17 09:19) Past Medical History - General Information source: Patient - Social History Smoking Status: Never Smoker Cigarette use (# per day): No Chew tobacco use (# tins/day): No Smoking Education Provided: No Frequency of alcohol use: None Drug Abuse: None Occupation: [employer] Lives with: Spouse/Significant other Family History: Arthritis, Hypertension. denies: CAD, COPD, CVA, DM, Hyperlipidemia, Malignancy, Thyroid Disfunction Patient has suicidal ideation: No Patient has homicidal ideation: No - Past Medical History Cardiac Medical History: Denies: Hx Coronary Artery Disease, Hx Heart Attack, Hx Hypertension Pulmonary Medical History: Denies: Hx Asthma, Hx Bronchitis, Hx COPD, Hx Pneumonia Neurological Medical History: Denies: Hx Cerebrovascular Accident, Hx Seizures Renal/ Medical History: Denies: Hx Peritoneal Dialysis Musculoskeltal Medical History: Denies Hx Arthritis Past Surgical History: Reports: Hx Oral Surgery, Hx Orthopedic Surgery - ACl R knee L ankle - Immunizations Hx Diphtheria, Pertussis, Tetanus Vaccination: Yes Review of Systems - Review of Systems Constitutional: No symptoms reported EENT: No symptoms reported Cardiovascular: No symptoms reported Respiratory: No symptoms reported Gastrointestinal: No symptoms reported Genitourinary: No symptoms reported Female Genitourinary: No symptoms reported Musculoskeletal: Back pain - upper and lower, Other - left shoulder and hip pain from fall Skin: No symptoms reported Hematologic/Lymphatic: No symptoms reported Neurological/Psychological: No symptoms reported -: Yes All other systems reviewed and negative Physical Exam - Vital signs Vitals: Temp Pulse Resp BP Pulse Ox 98.1 F 69 16 114/71 99 03/09/17 11:24 03/09/17 11:24 03/09/17 11:24 03/09/17 11:24 03/09/17 11:24 Interpretation: Normal - General General appearance: Appears well, Alert - HEENT Head: Normocephalic, Atraumatic Eyes: Normal Pupils: PERRL - Respiratory Respiratory status: No respiratory distress Chest status: Nontender Breath sounds: Normal Chest palpation: Normal - Cardiovascular Rhythm: Regular Heart sounds: Normal auscultation Murmur: No - Abdominal Inspection: Normal Distension: No distension Bowel sounds: Normal Tenderness: Nontender Organomegaly: No organomegaly - Back Back: Normal, Tender. No: Deformity/step-off, CVA tenderness, Vertebra tenderness, Scars, Scoliosis, Wounds - Extremities General upper extremity: Normal inspection, Normal color, Normal ROM - with pain to left shoulder, Normal temperature General lower extremity: Normal inspection, Normal color, Normal ROM - with pain to left hip, Normal temperature, Normal weight bearing. No: Pat's sign Shoulder: Tender. No: Limited ROM - pain with range of motion Hip: Tender, Pain with ROM - Neurological Neuro grossly intact: Yes Cognition: Normal Orientation: AAOx4 [place] Coma Scale Eye Opening: Spontaneous [place] Coma Scale Verbal: Oriented [place] Coma Scale Motor: Obeys Commands Nenita Coma Scale Total: 15 Speech: Normal Motor strength normal: LUE, RUE, LLE, RLE Sensory: Normal - Psychological Associated symptoms: Normal affect, Normal mood - Skin Skin Temperature: Warm Skin Moisture: Dry Skin Color: Normal Course - Re-evaluation Re-evalutation: 03/09/17 17:05 X-rays discussed with patient. Patient was given Tylenol in the ED and instructed to use Tylenol or Motrin and Aspercreme for her pain to her left shoulder hip and back after her fall. Patient to follow-up with her primary doctor. - Vital Signs Vital signs: Temp Pulse Resp BP Pulse Ox 98.1 F 69 16 114/71 99 03/09/17 11:24 03/09/17 11:24 03/09/17 11:24 03/09/17 11:24 03/09/17 11:24 - Diagnostic Test Radiology reviewed: Image reviewed, Reports reviewed Discharge - Discharge Clinical Impression: Upper back pain Fall Qualifiers: Encounter type: initial encounter Qualified Code(s): W19.XXXA - Unspecified fall, initial encounter Low back pain Qualifiers: Chronicity: acute Back pain laterality: left Sciatica presence: without sciatica Qualified Code(s): M54.5 - Low back pain Contusion of left hip Qualifiers: Encounter type: initial encounter Qualified Code(s): S70.02XA - Contusion of left hip, initial encounter Contusion of left shoulder Qualifiers: Encounter type: initial encounter Qualified Code(s): S40.012A - Contusion of left shoulder, initial encounter Condition: Stable Disposition: HOME, SELF-CARE Instructions: Family Physicians / Practices, Knee Exercise Program ([facility]), Range of Motion Exercises ([facility]), Exercise Program for the Shoulder ([facility]), Stretching Exercises for the Back ([facility]) Additional Instructions: CONTUSION: Your injury has resulted in a contusion -- a crushing of the deep tissues. No injury to important structures was detected during the physician's exam. Contusions vary in the amount of pain they cause, and in the length of time required for healing. Typically, the area will become bruised, and will remain painful to touch for two or three weeks. However, most patients are back to working and playing within a few days. After the initial period of rest and cold-packs, your symptoms (together with the doctor's recommendations) will determine how rapidly you can get back to full activity. Usually this means "do what feels okay, but don't do things that hurt." If re-examination was recommended, it's important to follow up as instructed. Call the doctor or return any time if pain increases, if swelling becomes severe, if you develop numbness or weakness in an injured extremity, or if any other alarming symptoms occur. LOW BACK PAIN: Three out of every four people will have an episode of disabling back pain during their lifetime. Most commonly the pain is due to straining of the muscles and ligaments in the low back. Usual treatment includes: (1) Rest on a firm surface. Avoid lying on your stomach. (2) Ice pack the painful area. After a few days, gentle heat may be used intermittently to relax the area, or ice packs can be continued. (3) Medication may be needed -- muscle relaxers and antiinflammatory medicines are commonly used. (4) As the back improves, exercises are prescribed to strengthen the back and abdominal muscles. Your doctor will advise you on the proper care for your back at each stage in your recovery. You may be better in a few days -- or healing may take several weeks. If new symptoms of a "herniated disc" (radiation of pain, numbness, or tingling down the back of the leg or weakness in the leg) occur, you should be re-examined. Further testing may be necessary. Ibuprofen Ibuprofen is an excellent, safe drug for pain control. In addition, it has potent antiinflammatory effects which are beneficial, especially in the treatment of injuries, arthritis, or tendonitis. It's best to take ibuprofen with food. Persons with ulcer disease or allergy to aspirin should notify their physician of this before taking ibuprofen. Take the medication exactly as prescribed. Don't take additional doses unless instructed to do so by your doctor. If you develop wheezing, shortness of breath, hives, faintness, stomach pain, vomiting, or dark black stools, return for re-evaluation at once. ICE PACKS: Apply ice packs frequently against the painful area. Many different schedules are recommended, such as "20 minutes on, 20 minutes off" or "one hour ice, two hours rest." If you need to work, you may need to go longer between ice treatments. You should plan to have the area ice packed AT LEAST one fourth of the time. The ice should be applied over the wrap, tape, or splint, or over a layer of cloth -- not directly against the skin. Some ice bags have a built-in cloth and can be put directly on the skin. WARM PACKS: After approximately two days, apply gentle heat (such as a heating pad or hot water bottle) for about 20 to 30 minutes about every two hours -- at least four times daily. Warmth and elevation will help you make a more rapid recovery , and will ease the pain considerably. Do not use HOT heat, and never apply heat for longer than 30 minutes. The continuous heat can invisibly damage skin and muscles -- even when no burn is seen on the surface. Damaged muscles can make you MORE sore. FOLLOW-UP CARE: If you have been referred to a physician for follow-up care, call the physician s office for an appointment as you were instructed or within the next two days. If you experience worsening or a significant change in your symptoms, notify the physician immediately or return to the Emergency Department at any time for re-evaluation. Prescriptions: Ibuprofen 800 mg PO Q8HP PRN #20 tablet PRN Reason: Forms: Return to Work
[2017-03-09 14:35] LABS: APPEARANCE,URINE CLEAR; BILIRUBIN,URINE NEGATIVE (NEGATIVE); GLUCOSE, URINE NEGATIVE (NEGATIVE); KETONES,URINE NEGATIVE (NEGATIVE); LEUKOCYTE ESTERASE,URINE NEGATIVE (NEGATIVE); NITRITE,URINE NEGATIVE (NEGATIVE); PROTEIN,URINE NEGATIVE (NEGATIVE); URINE SPECIFIC GRAVITY 1.014; UROBILINOGEN,URINE NEGATIVE mg/dL (<2.0)
--- NOTE | 2017-03-09 15:01 | RADIOLOGY REPORT (SQ) ---
EXAM DESCRIPTION: L SPINE WHOLE COMPLETED DATE/TIME: 03/09/2017 2:49 pm REASON FOR STUDY: fall out of shower pain back hip shoulder COMPARISON: None. NUMBER OF VIEWS: Five views including obliques. TECHNIQUE: AP, lateral, oblique, and sacral radiographic images acquired of the lumbar spine. LIMITATIONS: None. FINDINGS: MINERALIZATION: Normal. SEGMENTATION: Normal. No transitional anatomy. ALIGNMENT: Normal. VERTEBRAE: Maintained height. No fracture or worrisome bone lesion. DISCS: Preserved height. No significant osteophytes or end plate irregularity. POSTERIOR ELEMENTS: Pedicles and facets are intact. No pars defect or posterior arch defects. HARDWARE: None in the spine. PARASPINAL SOFT TISSUES: Normal. PELVIS: Intact as visualized. No fractures or worrisome bone lesions. SI joints intact. OTHER: No other significant finding. IMPRESSION: NORMAL 5 VIEW LUMBAR SPINE. TECHNICAL DOCUMENTATION: JOB ID: [id number] [employer]- All Rights Reserved
--- NOTE | 2017-03-09 15:02 | RADIOLOGY REPORT (SQ) ---
EXAM DESCRIPTION: SHOULDER LEFT 2 OR MORE VIEWS COMPLETED DATE/TIME: 03/09/2017 2:49 pm REASON FOR STUDY: fall out of shower pain back hip shoulder COMPARISON: None. NUMBER OF VIEWS: Three views. TECHNIQUE: Internal rotation, external rotation, and Y view images acquired of the left shoulder. LIMITATIONS: None. FINDINGS: MINERALIZATION: Normal. BONES: No acute fracture or dislocation. No worrisome bone lesions. JOINTS: No dislocation. VISUALIZED LUNGS AND RIBS: No pneumothorax. No rib fracture. SOFT TISSUES: No radiopaque foreign body. OTHER: No other significant finding. IMPRESSION: NEGATIVE STUDY OF THE LEFT SHOULDER. NO RADIOGRAPHIC EVIDENCE OF ACUTE INJURY. TECHNICAL DOCUMENTATION: JOB ID: [id number] [employer]- All Rights Reserved
--- NOTE | 2017-03-09 15:02 | RADIOLOGY REPORT (SQ) ---
EXAM DESCRIPTION: T SPINE AP/LAT COMPLETED DATE/TIME: 03/09/2017 2:49 pm REASON FOR STUDY: fall out of shower pain back hip shoulder COMPARISON: None. NUMBER OF VIEWS: Two views. TECHNIQUE: AP and lateral radiographic images acquired of the thoracic spine. LIMITATIONS: None. FINDINGS: MINERALIZATION: Normal. ALIGNMENT: Normal. No scoliosis. VERTEBRAE: No fracture or bone lesion. Maintained height, normal segmentation. DISCS: No significant loss of height or significant narrowing. No large osteophytes. HARDWARE: None in the spine. MEDIASTINUM AND SOFT TISSUES: Normal heart size and aortic contour. No soft tissue abnormality. VISUALIZED LUNG OLIVARES: Clear. OTHER: No other significant finding. IMPRESSION: NO SIGNIFICANT RADIOGRAPHIC FINDING IN THE THORACIC SPINE. TECHNICAL DOCUMENTATION: JOB ID: [id number] [employer]- All Rights Reserved
--- NOTE | 2017-03-09 15:02 | RADIOLOGY REPORT (SQ) ---
EXAM DESCRIPTION: HIP LEFT AP/LATERAL COMPLETED DATE/TIME: 03/09/2017 2:49 pm REASON FOR STUDY: fall out of shower pain back hip shoulder COMPARISON: None. NUMBER OF VIEWS: Two views. TECHNIQUE: AP pelvis and additional frog-leg view of the left hip. LIMITATIONS: None. FINDINGS: MINERALIZATION: Normal. LEFT HIP: No fracture or dislocation. No worrisome bone lesions. RIGHT HIP: No fracture or dislocation. No worrisome bone lesions. PUBIS AND ISCHIUM: No fracture. PELVIS: No fracture. SACRUM: No fracture or dislocation. No worrisome bone lesions. LOWER LUMBAR SPINE: No fracture or dislocation. No worrisome bone lesions. No significant disc disea se. SOFT TISSUES: No findings. OTHER: No other significant finding. IMPRESSION: NEGATIVE STUDY OF THE LEFT HIP AND PELVIS. NO RADIOGRAPHIC EVIDENCE OF ACUTE INJURY. TECHNICAL DOCUMENTATION: JOB ID: [id number] [employer]- All Rights Reserved
== END 2017-03-09 15:35 | disposition home or self-care (01) ==
LOC: ER 11:03
DX: S40.012A Contusion of left shoulder, initial encounter (principal); S70.02XA Contusion of left hip, initial encounter; M54.5 Low back pain; M25.512 Pain in left shoulder; M25.552 Pain in left hip; M54.89 Other dorsalgia; W18.2XXA Fall in (into) shower or empty bathtub, initial encounter; Y93.89 Activity, other specified; Y92.002 Bathroom of unspecified non-institutional (private) residence as the place of occurrence of the external cause
CPT/HCPCS: 72070; 72110; 81001; 81025; 99283

== ENCOUNTER 2017-05-04 05:58 | Emergency (ER) | payer MEDICAID ==
[2017-05-04] MEDS ORDERED: DIPHENHYDRAMINE HCL 50 MG CAPSULE PO ONE (07:30)
[2017-05-04] MEDS ORDERED: PROMETHAZINE HCL 25 MG TABLET PO ONE (07:30)
--- NOTE | 2017-05-04 08:15 | ER Document Report ---
ED General - General Chief Complaint: Abdominal Cramping Stated Complaint: ABDOMINAL PAIN,HEADACHE Time Seen by Provider: 05/04/17 07:15 Mode of Arrival: Ambulatory Information source: Patient Notes: 26-year-old female presents with complaints of a headache. Patient denies any fevers or chills admits to nausea vomiting. Patient states she is unsure of how far along but states she will have an ultrasound this week coming up. Patient denies any vaginal bleeding or discharge admits to mild cramping to the nurse however denies this to myself TRAVEL OUTSIDE OF THE [place] IN LAST 30 DAYS: No - HPI Onset: Other - 2 days Onset/Duration: Persistent Quality of pain: Cramping Severity: None Pain Level: Denies Associated symptoms: Headache, Nausea, Vomiting Exacerbated by: Denies Relieved by: Denies Similar symptoms previously: No Recently seen / treated by doctor: No - Related Data Allergies/Adverse Reactions: No Known Allergies Allergy (Verified 04/23/17 17:00) Past Medical History - Social History Smoking Status: Never Smoker Cigarette use (# per day): No Chew tobacco use (# tins/day): No Smoking Education Provided: No Frequency of alcohol use: None Drug Abuse: None Family History: Arthritis, Hypertension. denies: CAD, COPD, CVA, DM, Hyperlipidemia, Malignancy, Thyroid Disfunction Patient has suicidal ideation: No Patient has homicidal ideation: No - Past Medical History Cardiac Medical History: Denies: Hx Coronary Artery Disease, Hx Heart Attack, Hx Hypertension Pulmonary Medical History: Denies: Hx Asthma, Hx Bronchitis, Hx COPD, Hx Pneumonia Neurological Medical History: Denies: Hx Cerebrovascular Accident, Hx Seizures Renal/ Medical History: Denies: Hx Peritoneal Dialysis Musculoskeltal Medical History: Denies Hx Arthritis Past Surgical History: Reports: Hx Cholecystectomy - 4 months ago, Hx Oral Surgery, Hx Orthopedic Surgery - ACl R knee L ankle - Immunizations Hx Diphtheria, Pertussis, Tetanus Vaccination: Yes Review of Systems - Review of Systems Notes: REVIEW OF SYSTEMS: CONSTITUTIONAL : Denies fever, chills, or sweats. Denies recent illness. EENT: Denies eye, ear, throat, or mouth pain or symptoms. Denies nasal or sinus congestion or discharge. Denies throat, tongue, or mouth swelling or difficulty swallowing. CARDIOVASCULAR: Denies chest pain. Denies palpitations or racing or irregular heart beat. Denies ankle edema. RESPIRATORY: Denies cough, cold, or chest congestion. Denies shortness of breath, difficulty breathing, or wheezing. GASTROINTESTINAL: Denies abdominal pain or distention. Denies nausea, vomiting , or diarrhea. Denies blood in vomitus, stools, or per rectum. Denies black, tarry stools. Denies constipation. GENITOURINARY: Denies difficulty urinating, painful urination, burning, frequency, blood in urine, or discharge. FEMALE GENITOURINARY: Denies vaginal bleeding, heavy or abnormal periods, irregular periods. Denies vaginal discharge or odor. MUSCULOSKELETAL: Denies back or neck pain or stiffness. Denies joint pain or swelling. SKIN: Denies rash, lesions or sores. HEMATOLOGIC : Denies easy bruising or bleeding. LYMPHATIC: Denies swollen, enlarged glands. NEUROLOGICAL: Admits to headache PSYCHIATRIC: Denies anxiety or stress. Denies depression, suicidal ideation, or homicidal ideation. ALL OTHER SYSTEMS REVIEWED AND NEGATIVE. PHYSICAL EXAMINATION: GENERAL: Well-appearing, well-nourished and in no acute distress. HEAD: Atraumatic, normocephalic. EYES: Pupils equal round and reactive to light, extraocular movements intact, conjunctiva are normal. ENT: Nares patent, oropharynx clear without exudates. Moist mucous membranes. NECK: Normal range of motion, supple without lymphadenopathy LUNGS: Breath sounds clear to auscultation bilaterally and equal. No wheezes rales or rhonchi. HEART: Regular rate and rhythm without murmurs ABDOMEN: Soft, nontender, nondistended abdomen. No guarding, no rebound. No masses appreciated. Female : deferred Musculoskeletal: Normal range of motion, no pitting or edema. No cyanosis. NEUROLOGICAL: Cranial nerves grossly intact. Normal speech, normal gait. Normal sensory, motor exams PSYCH: Normal mood, normal affect. SKIN: Warm, Dry, normal turgor, no rashes or lesions noted. Dictation was performed using [employer] voice recognition software Physical Exam - Vital signs Vitals: Temp Pulse Resp BP Pulse Ox 98.2 F 65 16 110/59 L 98 05/04/17 06:01 05/04/17 06:01 05/04/17 06:01 05/04/17 06:01 05/04/17 06:01 Course - Re-evaluation Re-evalutation: 05/04/17 14:[address] head and lumbar puncture however she states she is which is deferred at this time, risks and benefits have been discussed, I spoke with the patient at length in regards to having a lumbar puncture performed. Pt was told the risks and benefits of the procedure in length. I do not believe the patient should leave without the LP being performed but the patient is alert oriented x4, understands the risks and benefits of staying and leaving including disability and . Pt understands that she can return at any time for further care and is more than welcome to do so. Patient was also discussed regarding her abdominal pain which she denies at this time. Therefore I will treat her symptomatically and was given Benadryl and Phenergan and notes her headache is improved significantly, patient has been instructed to follow-up with her A[employer] PROFESSOR regarding her pain as well as follow-up for confirmation of . Strict return precautions including pain vaginal bleeding have been discussed for concerns of ectopic as well as miscarriage After performing a Medical Screening Examination, I estimate there is LOW risk for ACUTE APPENDICITIS, BOWEL OBSTRUCTION, ACUTE CHOLECYSTITIS, PERFORATED DIVERTICULITIS, INCARCERATED HERNIA, PANCREATITIS, PELVIC INFLAMMATORY DISEASE, PERFORATED ULCER, ECTOPIC , or TUBO-OVARIAN ABSCESS, thus I consider the discharge disposition reasonable. Also, there is no evidence or peritonitis , sepsis, or toxicity. I have reevaluated this patient multiple times and no significant life threatening changes are noted. The patient and I have discussed the diagnosis and risks, and we agree with discharging home with close follow-up with the understanding that symptoms and presentations can change. We also discussed returning to the Emergency Department immediately if new or worsening symptoms occur. We have discussed the symptoms which are most concerning (e.g., bloody stool, fever, changing or worsening pain, vomiting) that necessitate immediate return. - Vital Signs Vital signs: Temp Pulse Resp BP Pulse Ox 98.4 F 80 18 104/77 100 05/04/17 08:29 05/04/17 08:29 05/04/17 08:29 05/04/17 08:29 05/04/17 08:29 Discharge - Discharge Clinical Impression: Nausea & vomiting Qualifiers: Vomiting type: unspecified Vomiting Intractability: non-intractable Qualified Code(s): R11.2 - Nausea with vomiting, unspecified Headache Qualifiers: Headache type: unspecified Headache chronicity pattern: acute headache Intractability: not intractable Qualified Code(s): R51 - Headache Condition: Stable Disposition: HOME, SELF-CARE Instructions: Vomiting ([facility]) Additional Instructions: Follow up with your physician tomorrow for further care or return to the ED IMMEDIATELY if symptoms worsen or new concerns occur. If you cannot afford to follow up with your primary care physician a list of low cost clinics have been provided at the end of your discharge papers as well. Prescriptions: Promethazine HCl [Phenergan 25 mg Tablet] 25 - 50 mg PO Q4HP PRN #20 tablet PRN Reason: Forms: Return to Work
[2017-05-04 08:34] VITALS: BP 104/77
== END 2017-05-04 08:30 | disposition home or self-care (01) ==
LOC: ER 05:58
DX: R51 Headache (principal); R11.2 Nausea with vomiting, unspecified; R10.9 Unspecified abdominal pain
CPT/HCPCS: 99283; J3490 ×2

== ENCOUNTER 2017-05-30 10:00 | Emergency (ER) | payer MEDICAID ==
[2017-05-30] MEDS ORDERED: GUAIFENESIN SYRP 200 MG/10 ML UDC PO ONE (10:17)
--- NOTE | 2017-05-30 10:23 | ER Document Report ---
ED General <SHERRILL NEAL - Last Filed: 05/30/17 17:42> - General Mode of Arrival: Medic Information source: Patient TRAVEL OUTSIDE OF THE [place] IN LAST 30 DAYS: No - HPI Onset: Other Onset/Duration: Persistent Associated symptoms: Productive cough, Fever Exacerbated by: Denies Relieved by: Denies Similar symptoms previously: No Recently seen / treated by doctor: No <NOEMI MAHARAJ - Last Filed: 06/03/17 16:52> - General Chief Complaint: Respiratory Distress Stated Complaint: DIFFICULTY BREATHING Time Seen by Provider: 05/30/17 10:08 Notes: Patient presents emergency department with complaints of productive cough with green sputum for the past couple of days. Reports cough so hard that she vomits. Denies nausea. Denies recent trips. HR 76. 02SAT 95%. Denies history of PE. Reports she feels short of breath that started yesterday. She reports she used her sons albuterol inhaler yesterday but it did not help her symptoms. Reports fever today, when she arrived here. Denies history of asthma. Patient is approximately 12 weeks , patient frequently coughing, gagging after cough, no retractions. Denies abdominal pain, denies vaginal bleeding/discharge. (NOEMI MAHARAJ) - Related Data Allergies/Adverse Reactions: No Known Allergies Allergy (Verified 05/30/17 10:13) Past Medical History - General Information source: Patient Last Menstrual Period: 12 weeks - Social History Smoking Status: Never Smoker Cigarette use (# per day): No Chew tobacco use (# tins/day): No Frequency of alcohol use: None Drug Abuse: None Occupation: [employer] Lives with: Family Family History: Arthritis, Hypertension. denies: CAD, COPD, CVA, DM, Hyperlipidemia, Malignancy, Thyroid Disfunction Patient has suicidal ideation: No Patient has homicidal ideation: No - Past Medical History Cardiac Medical History: Denies: Hx Coronary Artery Disease, Hx Heart Attack, Hx Hypertension Pulmonary Medical History: Denies: Hx Asthma, Hx Bronchitis, Hx COPD, Hx Pneumonia Neurological Medical History: Denies: Hx Cerebrovascular Accident, Hx Seizures Renal/ Medical History: Denies: Hx Peritoneal Dialysis Musculoskeltal Medical History: Denies Hx Arthritis Traumatic Medical History: Reports: Hx Fractures - ankle Past Surgical History: Reports: Hx Cholecystectomy - 4 months ago, Hx Oral Surgery, Hx Orthopedic Surgery - ACl R knee L ankle - Immunizations Hx Diphtheria, Pertussis, Tetanus Vaccination: Yes <NOEMI MAHARAJ - Last Filed: 06/03/17 16:52> Review of Systems <SHERRILL NEAL - Last Filed: 05/30/17 17:42> <NOEMI MAHARAJ - Last Filed: 06/03/17 16:52> - Review of Systems Notes: Review HPI for review of systems., All other systems negative (NOEMI MAHARAJ) Physical Exam <SHERRILL NEAL - Last Filed: 05/30/17 17:42> <NOEMI MAHARAJ - Last Filed: 06/03/17 16:52> - Vital signs Vitals: Temp Pulse BP Pulse Ox 99.1 F 76 141/62 H 95 05/30/17 10:05 05/30/17 10:05 05/30/17 10:05 05/30/17 10:05 - Notes Notes: PHYSICAL EXAMINATION: GENERAL: nontoxic looking HEAD: Atraumatic, normocephalic. EYES: Pupils equal round , extraocular movements intact, sclera anicteric, conjunctiva are normal. ENT: nares patent, oropharynx clear without exudates. Moist mucous membranes. NECK: Normal range of motion, supple without lymphadenopathy LUNGS: RR even, SOB with talk, exertion, exp. wheeze right posterior HEART: Regular rate and rhythm without murmurs ABDOMEN: Soft, no tenderness. No guarding, no rebound denies pain EXTREMITIES: Normal range of motion, no pitting edema. No cyanosis. NEUROLOGICAL: Cranial nerves grossly intact. Normal sensory/motor exams. PSYCH: Normal mood, normal affect. SKIN: Warm, Dry, normal turgor, no rashes or lesions noted (NOEMI MAHARAJ) Course - Laboratory Result Diagrams: 05/30/17 12:45 05/30/17 12:45 <SHERRILL NEAL - Last Filed: 05/30/17 17:42> - Laboratory Result Diagrams: 05/30/17 12:45 05/30/17 12:45 - Diagnostic Test Radiology reviewed: Image reviewed, Reports reviewed - IMPRESSION: NO SIGNIFICANT RADIOGRAPHIC FINDING IN THE CHEST - EKG Interpretation by Wy EKG shows normal: Sinus rhythm <NOEMI MAHARAJ - Last Filed: 06/03/17 16:52> - Re-evaluation Re-evalutation: 05/30/17 11:40 pt got up to go to the BR, became sob, tight, dr neal in to see patient, advised continuous neb, magnesium 2gms 05/30/17 12:38 pt still wheezing, tight, dr neal advised epi 0.3 Subcut, codeine for cough. 2nd gram of magnesium infusing. dr neal advised ddimer 05/30/17 13:39 Pt 02sat 93% on 2 l/nc, decreases to 89% without oxygen. Tight some expiratory wheeze posterior right side, pt becoming tired, dr neal in to assess patient. pt informed we will try xopenex if that doesn't help patient informed of possible intubation. 05/30/17 13:[address] dinah rivas in regards to steroids per dr neal request. Dr rivas reports treat mom at this time, 125 mg Solu-Medrol IV ordered dr neal agree's to bipap trial 05/30/17 14:10 bipap started pt seems to be doing better on bipap, ativan ordered for anxiety. 05/30/17 14:30 pt not tolerating bipap, tachypneic, 02sat 93%, c/o cp EKG SR. 05/30/17 14:54 Mother contacted- leilani henriquez [phone], she will come to the [facility], [place], contacted regarding propofal for sedation in , does cross placenta but at this time we need to keep mom comfortable pt intubated 7.5 at 21cm at the lip, OG placed, ETT placement confirmed by xray , consider PE, cta ordered, attempting to obtain 20g in AC. 05/30/17 15:20 Mother leilani henriquez at bedside, instructed on patients condition, waiting for CTA. reports patient had history of asthma as a child but not as an adult. 05/30/17 15:48 central line placed right femoral by Dr Neal, fluids started 05/30/17 16:[address] Locke radiologist, no PE noted , contacted dr han , she is worried about pulmonology support, dr le consulted, he is ok if hospitalist and ob is on board. 05/30/17 17:14 dr han in the ED, she declines patient, reports patient needs tertiary center. Informed Dr Le is consular officer and will see patient if ob and hospitalist is on board. Dr Neal informed, he advised contact [facility], [facility] transfer center contacted. Suctioning out thick sputum 05/30/17 17:26 Dr Butt from [facility] accepted patient. Family at bedside, aware of transfer 05/30/17 18:03 Gastricult neg. protonix cancelled, bed available at [facility] c209, family aware 05/30/17 18:13 patient fighting the vent, ABG attempted x 3, unsuccessful due to patient fighting vent, diprivan at 60mcg/kg, instructed nurse to titrate 05/30/17 20:08 Multiple family members at the bedside, pt very agitated, vomited, suctioned, NGT secured, family instructed on importance of maintaining sedation, calm, one family at a time requested. family members very understanding. consulted dr denny regarding alternate sedation- versed, he agree's, nicanor RN instructed on versed, titrate diprivan to maintain sedation. 05/30/17 20:25 [facility] transport here, family will travel to [facility]. Pt stable, calm during transfer. (NOEMI MAHARAJ) - Vital Signs Vital signs: Temp Pulse Resp BP Pulse Ox 99.1 F 76 27 H 137/67 H 100 05/30/17 10:05 05/30/17 10:05 05/30/17 21:15 05/30/17 21:15 05/30/17 21:15 - Laboratory Laboratory results interpreted by me: 05/30/17 05/30/17 05/30/17 12:45 12:45 12:45 RDW 14.2 H Seg Neutrophils % 78.3 H D-Dimer 0.99 H Potassium 3.4 L Glucose 126 H POC Glucose Beta HCG, Quant Urine Protein Urine Glucose (UA) Urine Ketones Urine Urobilinogen Urine Ascorbic Acid 05/30/17 05/30/17 05/30/17 12:45 14:50 16:32 RDW Seg Neutrophils % D-Dimer Potassium Glucose POC Glucose 250 H Beta HCG, Quant 99744.00 H Urine Protein >=500 H Urine Glucose (UA) 50 H Urine Ketones 80 H Urine Urobilinogen 2.0 H Urine Ascorbic Acid 40 H Procedures - Central Line Right Femoral Time completed: 03:00 Central line pre-insertion: Sterile PPE donned, Betadine prep applied, Chloraprep applied, Sterile drapes applied Central line lumen type: Triple Ultrasound guided: No Line secured with sutures: Yes Central line post-insertion: Blood return from lumens, Biopatch applied, Sutured Number of attempts: 1 - Intubation Orotracheal Time of Intubation: 03:00 Airway evaluation: Normal anatomy. No: Abnormal 3-3-2 rule, Copious secretions , Large tongue, Loose teeth, Neck immobility, Obese, Poss. upper airway obst., Other Mallampati Classification: Class 1 Medications: Etomidate, Succinylcholine Intubation method: Orotracheal Blade type: Servin Blade size: 4 ETT size: 7.5 ETT secured at: Teeth ETT secured at (cm): 24 Breath Sounds after Intubation: Equal End tidal CO2 confirmed: Yes Ventilator settings: CMV Tidal volume: Refer to the order set Post Intubation Xray: Yes Intubation Complications: No complications <SHERRILL NEAL - Last Filed: 05/30/17 17:42> <NOEMI MAHARAJ - Last Filed: 06/03/17 16:52> - Central Line Right Femoral Notes: 05/30/17 17:39 Procedure was done without any complications. (SHERRILL NEAL) Critical Care Note - Critical Care Note Total time excluding time spent on procedures (mins): 90 <SHERRILL NEAL - Last Filed: 05/30/17 17:42> <NOEMI MAHARAJ - Last Filed: 06/03/17 16:52> - Critical Care Note Comments: Ventilator management, status asthmaticus management, upper GI bleed management , IV IV fluid and sedation management. (SHERRILL NEAL) Discharge <SHERRILL NEAL - Last Filed: 05/30/17 17:42> <NOEMI MAHARAJ - Last Filed: 06/03/17 16:52> - Discharge Clinical Impression: Status asthmaticus Disposition: [facility]
[2017-05-30] MEDS ORDERED: ROCURONIUM BROMIDE INJ 50 MG/5 ML VIAL IV ONE (10:52)
[2017-05-30] MEDS ORDERED: SUCCINYLCHOLINE CHLORIDE INJ 200 MG/10 ML VIAL ONE (10:52)
--- NOTE | 2017-05-30 10:53 | RADIOLOGY REPORT (SQ) ---
EXAM DESCRIPTION: CHEST PA/LAT COMPLETED DATE/TIME: 05/30/2017 10:40 am REASON FOR STUDY: productive cough COMPARISON: 01/19/2016. EXAM PARAMETERS: NUMBER OF VIEWS: two views TECHNIQUE: Digital Frontal and Lateral radiographic views of the chest acquired. RADIATION DOSE: NA LIMITATIONS: none FINDINGS: LUNGS AND PLEURA: No opacities, masses or pneumothorax. No pleural effusion. MEDIASTINUM AND HILAR STRUCTURES: No masses or contour abnormalities. HEART AND VASCULAR STRUCTURES: Heart normal size. No evidence for failure. BONES: No acute findings. HARDWARE: None in the chest. OTHER: No other significant finding. IMPRESSION: NO SIGNIFICANT RADIOGRAPHIC FINDING IN THE CHEST. TECHNICAL DOCUMENTATION: JOB ID: [id number] [employer]- All Rights Reserved
[2017-05-30] MEDS ORDERED: ALBUTEROL SULFATE 0.083% NEB 2.5 MG/3 ML AMPUL NEB ONE ×3 (10:56→11:45)
[2017-05-30] MEDS: MAGNESIUM SULFATE/D5W 1 GM/100 ML RTUPB IV SCH ×2 (11:47→12:36)
[2017-05-30] MEDS ORDERED: ONDANSETRON HCL INJ/PF 4 MG/2 ML SDV IV ONE (12:11)
[2017-05-30] MEDS ORDERED: ACETAMINOPHEN WITH CODEINE 120-12 MG/5 ML UDCUP PO ONE (12:36)
[2017-05-30] MEDS ORDERED: EPINEPHRINE INJ/PF 1 MG/1 ML AMPULE ONE (12:40)
[2017-05-30] MEDS ORDERED: EPINEPHRINE INJ/PF 1 MG/1 ML AMPULE SUBCUT ONE (12:45)
[2017-05-30 12:58] LABS: ABSOLUTE EOSINOPHILS # (AUTO) 0.2 10^3/uL (0.0-0.6); ABSOLUTE LYMPHOCYTES (AUTO) 1.2 10^3/uL (0.5-4.7); ABSOLUTE MONOCYTES (AUTO) 0.4 10^3/uL (0.1-1.4); ABSOLUTE NEUT (AUTO) 6.6 10^3/uL (1.7-8.2); BASOPHILS % (AUTO) 0.3 % (0-2); EOSINOPHILS % (AUTO) 2.1 % (0-6); HEMATOCRIT 39.5 % (36.0-47.0); HEMOGLOBIN 13.7 g/dL (12.0-15.5); LYMPHOCYTES % (AUTO) 14.2 % (13-45); MEAN CORPUSCULAR HEMOGLOBIN 29.4 pg (27.0-33.4); MEAN CORPUSCULAR HGB CONC 34.5 g/dL (32.0-36.0); MEAN CORPUSCULAR VOLUME 85 fl (80-97); MONOCYTES % (AUTO) 5.1 % (3-13); PLATELET COUNT 220 10^3/uL (150-450); RED BLOOD COUNT 4.65 10^6/uL (3.72-5.28); RED CELL DISTRIBUTION WIDTH 14.2 % (11.5-14.0); SEGMENTED NEUTROPHILS % (AUTO) 78.3 % (42-78); TOTAL CELLS COUNTED % (AUTO) 100 %; WHITE BLOOD COUNT 8.5 10^3/uL (4.0-10.5)
[2017-05-30 13:17] LABS: ALANINE AMINOTRANSFERASE 32 U/L (9-52); ALBUMIN 4.2 g/dL (3.5-5.0); ALKALINE PHOSPHATASE 60 U/L (38-126); ANION GAP 14 (5-19); ASPARTATE AMINO TRANSFERASE 24 U/L (14-36); BILIRUBIN,DIRECT 0.4 mg/dL (0.0-0.4); BILIRUBIN,TOTAL 0.4 mg/dL (0.2-1.3); BLOOD UREA NITROGEN 10 mg/dL (7-20); CALCIUM 9.6 mg/dL (8.4-10.2); CARBON DIOXIDE 23 mmol/L (22-30); CHLORIDE 102 mmol/L (98-107); GLUCOSE 126 mg/dL (75-110); POTASSIUM 3.4 mmol/L (3.6-5.0); SODIUM 138.6 mmol/L (137-145); TOTAL PROTEIN 7.5 g/dL (6.3-8.2)
[2017-05-30] MEDS ORDERED: LEVALBUTEROL HCL NEB 1.25 MG/3 ML AMPUL NEB ONE ×2 (13:37→13:39)
[2017-05-30] MEDS ORDERED: METHYLPREDNISOLONE INJ 125 MG/2 ML SDV IV ONE (13:50)
[2017-05-30] MEDS ORDERED: LORAZEPAM INJ 2 MG/1 ML VIAL IV ONE (14:16)
[2017-05-30] MEDS ORDERED: LORAZEPAM INJ 2 MG/1 ML VIAL ONE (14:21)
[2017-05-30] MEDS ORDERED: ETOMIDATE INJ/PF 20 MG/10 ML SDV IV ONE (14:29)
[2017-05-30] MEDS ORDERED: VECURONIUM BROMIDE INJ 10 MG VIAL IV ONE ×2 (14:36→14:37)
[2017-05-30] MEDS ORDERED: PROPOFOL INJ 200 MG/20 ML VIAL IV ONE ×2 (14:49→16:33)
[2017-05-30] MEDS ORDERED: PROPOFOL 100 ML IV PRN (14:58)
[2017-05-30] MEDS ORDERED: SUCCINYLCHOLINE CHLORIDE INJ 200 MG/10 ML VIAL IV ONE (15:02)
--- NOTE | 2017-05-30 15:13 | RADIOLOGY REPORT (SQ) ---
EXAM DESCRIPTION: CHEST SINGLE VIEW COMPLETED DATE/TIME: 05/30/2017 2:59 pm REASON FOR STUDY: ETT, NGT COMPARISON: 05/30/2017. EXAM PARAMETERS: NUMBER OF VIEWS: One view. TECHNIQUE: Single frontal radiographic view of the chest acquired. RADIATION DOSE: NA LIMITATIONS: None. FINDINGS: LUNGS AND PLEURA: No opacities, masses or pneumothorax. No pleural effusion. MEDIASTINUM AND HILAR STRUCTURES: No masses. Contour normal. HEART AND VASCULAR STRUCTURES: Mild cardiac enlargement and mild vascular prominence. BONES: No acute findings. HARDWARE: Endotracheal tube with the tip located 3 cm proximal to the johnny. Nasogastric tube with the tip in the stomach. OTHER: No other significant finding. IMPRESSION: LIFE LINES DESCRIBED IN SATISFACTORY POSITION. THERE IS MILD CARDIOMEGALY WITH MILD VASCULAR PROMINENCE. TECHNICAL DOCUMENTATION: JOB ID: [id number] [employer]- All Rights Reserved
[2017-05-30] MEDS ORDERED: NORMAL SALINE 1000 ML 1,000 ML IV PRN (15:48)
--- NOTE | 2017-05-30 16:53 | RADIOLOGY REPORT (SQ) ---
EXAM DESCRIPTION: CTA NECK COMPLETED DATE/TIME: 05/30/2017 4:30 pm REASON FOR STUDY: Tracheal stenosis COMPARISON: None. TECHNIQUE: Axial dynamic scanning technique with dynamic contrast enhancement through the extra-aircraft steel fabricator nial carotid and vertebral arteries. Multiplanar reconstruction. 3-D MIPS and Volume-rendered imag es acquired at the workstation and saved to PACS. Images are reviewed in soft tissue, bone, lung w indows. All CT scanners at this facility use dose modulation, iterative reconstruction, and/or weight based d osing when appropriate to reduce radiation dose to as low as reasonably achievable (ALARA). [facility]: Dose Right [facility]: CareDose [facility]: Dose Right [facility]: Teradose 4D [facility]: [place] CONTRAST TYPE AND DOSE: 86.5 mL RENAL FUNCTION: None required. The patient is less than 50 years old. LIMITATIONS: None. FINDINGS: AORTIC ARCH: Normal three-vessel origin. Bilateral subclavian arteries are patent. No d issection. RIGHT CAROTIDS: Patent common, internal and external carotid arteries without suggestion of significa nt stenosis or irregular plaque. No dissection. RIGHT VERTEBRAL: Patent. No dissection. LEFT CAROTIDS: Patent common, internal and external carotid arteries without suggestion of significan t stenosis or irregular plaque. No dissection. LEFT VERTEBRAL: Patent. No dissection. OTHER: Endotracheal tube and nasogastric tube in place. OTHER: 3-D reconstructions confirm findings. IMPRESSION: NORMAL CTA OF THE EXTRA-CRANIAL CAROTID AND VERTEBRAL ARTERIES. COMMENT: Quality ID #[id number]: Measurements of distal internal carotid diameter were used as the denomina tor for stenosis measurement. TECHNICAL DOCUMENTATION: JOB ID: [id number] Quality ID # [id number]: Final reports with documentation of one or more dose reduction techniques (e.g., Au tomated exposure control, adjustment of the mA and/or kV according to patient size, use of iterative reconstruction technique) 2010 [employer]- All Rights Reserved
--- NOTE | 2017-05-30 16:55 | RADIOLOGY REPORT (SQ) ---
EXAM DESCRIPTION: CTA CHEST COMPLETED DATE/TIME: 05/30/2017 4:30 pm REASON FOR STUDY: difficulty breathing COMPARISON: None. TECHNIQUE: CT scan of the chest performed using helical scanning technique with dynamic intravenous contrast injection. Images reviewed with lung, soft tissue and bone windows. Reconstructed coronal and sagittal MPR images reviewed. Additional 3 dimensional post-processing performed to develop Maximal Intensity Projection images (NE P). All images stored on PACS. All CT scanners at this facility use dose modulation, iterative reconstruction, and/or weight based d osing when appropriate to reduce radiation dose to as low as reasonably achievable (ALARA). [facility]: Dose Right [facility]: CareDose [facility]: Dose Right [facility]: Teradose 4D [facility]: [employer] CONTRAST TYPE AND DOSE: 86.5 mL Isovue 370- low osmolar. Contrast bolus optimized for the pulmonary arteries. Not diagnostic for the aorta. RENAL FUNCTION: None required. The patient is less than 50 years old. RADIATION DOSE: . LIMITATIONS: Auditory motion. FINDINGS: LUNGS AND PLEURA: Secretions/ mucus plugging noted within the anterior basal segment of th e right lower lobe in the medial segment of the right middle lobe with mild surrounding airspace dise ase. Lungs and pleural spaces otherwise clear. AORTA AND GREAT VESSELS: No aneurysm. Contrast bolus not optimized for the aorta. HEART: No pericardial effusion. No significant coronary artery calcifications. PULMONARY ARTERIES: No emboli visualized in the main pulmonary arteries or the segmental branches. HILAR AND MEDIASTINAL STRUCTURES: No identified masses or abnormal nodes. HARDWARE: Endotracheal tube and nasogastric tube visualized in adequate position. UPPER ABDOMEN: No significant findings. Limited exam. THYROID AND OTHER SOFT TISSUES: No masses. No adenopathy. BONES: No acute or significant finding. 3D MIPS: Confirm above findings. OTHER: No other significant finding. IMPRESSION: NO PULMONARY EMBOLI. SECRETIONS/MUCUS PLUGGING MEDIAL SEGMENT RIGHT MIDDLE LOBE AND ANTERIOR BASAL SEGMENT RIGHT LOWER LOB E SUGGESTIVE OF ASPIRATION GIVEN RECENT ENDOTRACHEAL TUBE PLACEMENT. SATISFACTORY POSITION ENDOTRACHEAL TUBE AND NASOGASTRIC TUBE. NO ADDITIONAL ACUTE OR SIGNIFICANT FINDINGS. COMMENT: Quality ID # 436: Final reports with documentation of one or more dose reduction techniques (e.g., Automated exposure control, adjustment of the mA and/or kV according to patient size, use of iterative reconstruction technique) TECHNICAL DOCUMENTATION: JOB ID: [id number]- All Rights Reserved
--- NOTE | 2017-05-30 17:23 | PDOC CONSULTATION ---
Consultation Consult Date: 05/30/17 Consult reason:: [facility] hospitalist services have been consulted for potential admission. History of Present Illness History of Present Illness: CAYLA NOLASCO is a 26 year old female who came into the emergency department via EMS secondary to worsening shortness of breath. The patient was well until a few days ago. According to her mother the patient started to feel ill a few days ago with aches and pains in her muscles and joints. The patient started to develop shortness of breath yesterday. This progressed to the point that she used her son's nebulizer machine last evening. The mother was unable to tell me if this was effective or not. By this morning the patient's symptoms got worse and she sought treatment through urgent care clinic. The urgent care clinic Center to the emergency department via EMS. When she arrived in the emergency department she was given several doses of albuterol and Zofran. She was ruled out for pulmonary embolus by CT angiogram and she was eventually intubated. She appears to be in status asthmaticus. She has a history of asthma as a child but has not had any difficulties with asthma during her recent adulthood. Because the patient is 12 weeks we have recommended that the patient be sent to a tertiary care center where they have high risk obstetrics available. Past Medical History Cardiac Medical History: Denies: Coronary Artery Disease, Myocardial Infarction, Hypertension Pulmonary Medical History: Denies: Asthma, Bronchitis, Chronic Obstructive Pulmonary Disease (COPD), Pneumonia Neurological Medical History: Denies: Seizures Musculoskeltal Medical History: Denies: Arthritis Hematology: Denies: Anemia Past Surgical History Past Surgical History: Reports: Cholecystectomy - 4 months ago, Orthopedic Surgery - ACl R knee L ankle Social History Smoking Status: Never Smoker Frequency of Alcohol Use: None Hx Recreational Drug Use: No Drugs: None Hx Prescription Drug Abuse: No Family History Family History: Arthritis, Hypertension. denies: CAD, COPD, CVA, DM, Hyperlipidemia, Malignancy, Thyroid Disfunction Parental Family History Reviewed: Yes Children Family History Reviewed: Yes - Son has asthma Sibling(s) Family History Reviewed.: Yes Medication/Allergy Home Medications: Hydrocodone/Acetaminophen [Hydrocodon-Acetaminophen 5-325] 1 each PO Q6 #20 tablet 01/15/17 Vit/Iron Fum/Folic AC [ Tablet] 1 each PO DAILY 01/15/17 Ibuprofen 800 mg PO Q8HP PRN #20 tablet 03/09/17 Promethazine HCl [Phenergan 25 mg Tablet] 25 - 50 mg PO Q4HP PRN #20 tablet Allergies/Adverse Reactions: No Known Allergies Allergy (Verified 05/30/17 10:13) Review of Systems ROS unobtainable: Due to endotracheal tube Physical Exam Vital Signs: Temp Pulse Resp BP Pulse Ox 99.1 F 76 14 147/111 H 96 05/30/17 10:05 05/30/17 10:05 05/30/17 15:10 05/30/17 15:10 05/30/17 15:10 Intake & Output 05/29/17 05/30/17 05/31/17 06:59 06:59 06:59 Weight 146.51 kg Additional comments: The patient is a morbidly obese black female who is currently intubated. She is currently sedated and unable to give me any history. The history was obtained by the patient's mother who was at the bedside. Patient's facial appearance is fairly normal with the exception of the placement of the endotracheal tube. Her neck is supple. She does not have any significant JVD. Her lungs are fairly quiet in the left side but she does have significant end expiratory wheezing on the right side. Patient's cardiac exam is distant but regular. I do not appreciate any murmurs, gallops or rubs. The abdomen is obese but soft. Bowel sounds are noted in the lower quadrants. Patient's lower extremities are obese but she does not have any significant pitting edema. Skin is warm dry and intact. There are no lesions or rashes in the visible areas. Results Laboratory Results: 05/30/17 12:45 05/30/17 12:45 05/30/17 05/30/17 12:45 12:45 WBC 8.5 RBC 4.65 Hgb 13.7 Hct 39.5 MCV 85 MCH 29.4 MCHC 34.5 RDW 14.2 H Plt Count 220 Seg Neutrophils % 78.3 H Lymphocytes % 14.2 Monocytes % 5.1 Eosinophils % 2.1 Basophils % 0.3 Absolute Neutrophils 6.6 Absolute Lymphocytes 1.2 Absolute Monocytes 0.4 Absolute Eosinophils 0.2 Absolute Basophils 0.0 Sodium 138.6 Potassium 3.4 L Chloride 102 Carbon Dioxide 23 Anion Gap 14 BUN 10 Creatinine 0.62 Est GFR ( Amer) > 60 Est GFR (Non-Af Amer) > 60 Glucose 126 H Calcium 9.6 Total Bilirubin 0.4 AST 24 ALT 32 Alkaline Phosphatase 60 Total Protein 7.5 Albumin 4.2 Impressions: Chest X-Ray 05/30/17 10:17 IMPRESSION: NO SIGNIFICANT RADIOGRAPHIC FINDING IN THE CHEST. Chest/Abdomen CTA 05/30/17 14:48 IMPRESSION: NO PULMONARY EMBOLI. SECRETIONS/MUCUS PLUGGING MEDIAL SEGMENT RIGHT MIDDLE LOBE AND ANTERIOR BASAL SEGMENT RIGHT LOWER LOBE SUGGESTIVE OF ASPIRATION GIVEN RECENT ENDOTRACHEAL TUBE PLACEMENT. SATISFACTORY POSITION ENDOTRACHEAL TUBE AND NASOGASTRIC TUBE. NO ADDITIONAL ACUTE OR SIGNIFICANT FINDINGS. Neck CTA 05/30/17 16:13 IMPRESSION: NORMAL CTA OF THE EXTRA-CRANIAL CAROTID AND VERTEBRAL ARTERIES. Assessment & Plan - Diagnosis (1) Acute respiratory failure requiring reintubation Is this a current diagnosis for this admission?: Yes (2) Status asthmaticus Is this a current diagnosis for this admission?: Yes (3) Intrauterine Is this a current diagnosis for this admission?: Yes - Time Time Spent: 30 to 50 Minutes - Plan Summary Plan Summary: The patient appears to have developed status asthmaticus requiring intubation and mechanical ventilation. It is possible that a viral infection has precipitated her acute illness. I would strongly recommend evaluating the patient for influenza as well as other respiratory pathogens. Due to the fact that she is 12 weeks she will require transfer to a tertiary care facility where intensive care services and high risk obstetric services are available.
[2017-05-30] MEDS ORDERED: PANTOPRAZOLE SODIUM 40 MG VIAL IV ONE (17:36)
[2017-05-30 18:05] LABS: APPEARANCE,URINE SLIGHTLY-CLOUDY; BILIRUBIN,URINE NEGATIVE (NEGATIVE); COLOR,URINE YELLOW; GLUCOSE, URINE 50 mg/dL (NEGATIVE); KETONES,URINE 80 mg/dL (NEGATIVE); LEUKOCYTE ESTERASE,URINE NEGATIVE (NEGATIVE); NITRITE,URINE NEGATIVE (NEGATIVE); PROTEIN,URINE >=500 mg/dL (NEGATIVE); URINE SPECIFIC GRAVITY 1.034
[2017-05-30 18:18] LABS: URINE AMPHETAMINES SCREEN NEGATIVE; URINE BARBITURATES SCREEN NEGATIVE; URINE BENZODIAZEPINES SCREEN NEGATIVE; URINE COCAINE SCREEN NEGATIVE; URINE MARIJUANA (THC) SCREEN NEGATIVE; URINE METHADONE SCREEN NEGATIVE; URINE PHENCYCLIDINE SCREEN NEGATIVE
[2017-05-30] MEDS: PROPOFOL 100 ML IV PRN ×2 (18:32→19:51)
[2017-05-30 18:55] VITALS: BP 137/67
[2017-05-30] MEDS ORDERED: MIDAZOLAM 2 MG/2 ML INJ ONE (19:56)
[2017-05-30] MEDS ORDERED: MIDAZOLAM 2 MG/2 ML INJ IV ONE (20:07)
--- NOTE | 2017-05-30 23:02 | EKG REPORT ---
SEVERITY:- BORDERLINE ECG - SINUS RHYTHM BORDERLINE T ABNORMALITIES, ANT-LAT LEADS : Confirmed by: Kelli Fajardo 30-May-2017 23:01:43
[2017-05-31] MEDS ORDERED: CEFTRIAXONE SODIUM 500 MG in DEXTROSE 5%-WATER 25 ML IV SCH (10:00)
== END 2017-05-30 20:48 | disposition short-term general hospital (02) ==
LOC: ER 10:00
DX: O99.519 Diseases of the respiratory system complicating pregnancy, unspecified trimester (principal); J45.902 Unspecified asthma with status asthmaticus; O99.619 Diseases of the digestive system complicating pregnancy, unspecified trimester; K92.2 Gastrointestinal hemorrhage, unspecified; O99.340 Other mental disorders complicating pregnancy, unspecified trimester; F41.9 Anxiety disorder, unspecified; O21.9 Vomiting of pregnancy, unspecified; O26.899 Other specified pregnancy related conditions, unspecified trimester; R05 Cough; R06.02 Shortness of breath; R50.9 Fever, unspecified; Z3A.00 Weeks of gestation of pregnancy not specified; Z90.49 Acquired absence of other specified parts of digestive tract
CPT/HCPCS: 36556; 93005; 94640 ×2; 99291; 99292; 96361; 51702; 96375; 96365; 96366; 36415; 87040; 82962; 84702; 85025; 80053; 81001; 80307; 85379; 71020; 71010; 70498; 71275; 93010; 94660; 31500; C1751; J3490 ×6; J0171; J2704; J2930; J2060; J3475; J0330; J2405; J7030; 94002

== ENCOUNTER 2017-06-04 04:41 | Observation (INO) | payer MEDICAID ==
[2017-06-04] MEDS ORDERED: ALBUTEROL SULFATE 0.083% NEB 2.5 MG/3 ML AMPUL NEB ONE (05:05)
[2017-06-04] MEDS ORDERED: METHYLPREDNISOLONE INJ 125 MG/2 ML SDV IV ONE (05:06)
[2017-06-04] MEDS: MAGNESIUM SULFATE/D5W 1 GM/100 ML RTUPB IV SCH ×2 (05:10→05:12)
[2017-06-04 05:18] LABS: ABSOLUTE EOSINOPHILS # (AUTO) 0.5 10^3/uL (0.0-0.6); ABSOLUTE LYMPHOCYTES (AUTO) 2.4 10^3/uL (0.5-4.7); ABSOLUTE MONOCYTES (AUTO) 0.5 10^3/uL (0.1-1.4); BASOPHILS % (AUTO) 0.4 % (0-2); EOSINOPHILS % (AUTO) 5.1 % (0-6); HEMATOCRIT 40.2 % (36.0-47.0); HEMOGLOBIN 13.7 g/dL (12.0-15.5); HGB HCT DIFFERENCE 0.9; LYMPHOCYTES % (AUTO) 25.7 % (13-45); MEAN CORPUSCULAR HGB CONC 34.1 g/dL (32.0-36.0); MEAN CORPUSCULAR VOLUME 85 fl (80-97); MONOCYTES % (AUTO) 5.1 % (3-13); RED BLOOD COUNT 4.72 10^6/uL (3.72-5.28); RED CELL DISTRIBUTION WIDTH 13.6 % (11.5-14.0); SEGMENTED NEUTROPHILS % (AUTO) 63.7 % (42-78); WHITE BLOOD COUNT 9.4 10^3/uL (4.0-10.5)
[2017-06-04 05:21] LABS: VENOUS BLOOD BASE EXCESS -1.9 mmol/L; VENOUS BLOOD PCO2 40.2 mmHg (35-63); VENOUS BLOOD PH 7.38 (7.30-7.42)
--- NOTE | 2017-06-04 05:28 | ER Document Report ---
Doctor's Note Notes: 06/04/17 05:26 Performed a quick triage evaluation of the patient. Patient is a pleasant 26- year-old female who is 13 weeks . She was seen here approximately week ago. 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 She said she was recently discharged and had been feeling well for about 3-4 days afterwards. Yesterday she started having some cough and congestion. She said she saw her OB doctor was told that she probably had a cold. Tonight she started having wheezing. She tried to use her son's inhaler but was not improving therefore came to the ER. She denies any fevers. She denies any previous history of asthma. I did review some the notes from her visit. One consultation at said that she had a history of childhood asthma however patient says that she never had a previous history of asthma and says this is not true. Currently she says she feels nowhere near as bad as she did last time she came to the hospital. She is currently speaking full sentences but she does have some diffuse wheezing with fair to good air exchange. I have ordered Solu-Medrol and magnesium as well as some breathing treatments. Chest x-ray has been ordered. Blood work has been ordered. EKG does not show any concerning findings. She did have a CT angio of her chest last week which was negative. 06/04/17 05:48 Reevaluation the patient's wheezing is improving significantly. Still speaking full sentences. She says that she is feeling improved. Will keep patient on monitor. She will need some repeat treatments. Workup is still pending completion.
[2017-06-04 05:32] LABS: ALANINE AMINOTRANSFERASE 37 U/L (9-52); ALBUMIN 3.8 g/dL (3.5-5.0); ALKALINE PHOSPHATASE 52 U/L (38-126); ANION GAP 12 (5-19); ASPARTATE AMINO TRANSFERASE 34 U/L (14-36); BILIRUBIN,DIRECT 0.2 mg/dL (0.0-0.4); BILIRUBIN,TOTAL 0.3 mg/dL (0.2-1.3); BLOOD UREA NITROGEN 13 mg/dL (7-20); CALCIUM 9.5 mg/dL (8.4-10.2); CARBON DIOXIDE 21 mmol/L (22-30); CHLORIDE 104 mmol/L (98-107); CREATININE RESULT 0.64 mg/dL (0.52-1.25); GLUCOSE 94 mg/dL (75-110); POTASSIUM 4.1 mmol/L (3.6-5.0); SODIUM 137.2 mmol/L (137-145)
--- NOTE | 2017-06-04 05:39 | RADIOLOGY REPORT (SQ) ---
EXAM DESCRIPTION: CHEST SINGLE VIEW CLINICAL HISTORY: dyspnea COMPARISON: 05/30/2017 FINDINGS: Single frontal view of the chest. The cardiomediastinal silhouette has normal size and contour. No consolidation, pneumothorax, or pleural effusion. No displaced rib fractures identified. Upper abdominal soft tissues are unremarkable. Leads overlie the chest. IMPRESSION: 1. No acute pulmonary process identified.
--- NOTE | 2017-06-04 06:39 | ER Document Report ---
ED Respiratory Problem - General Mode of Arrival: Ambulatory Information source: Patient TRAVEL OUTSIDE OF THE [place] IN LAST 30 DAYS: No <MICHELLE VELÁSQUEZ - Last Filed: 06/04/17 12:03> <EMILY SIMMONS - Last Filed: 06/04/17 14:47> - General Chief Complaint: Shortness Of Breath Stated Complaint: SHORT OF BREATH Time Seen by Provider: 06/04/17 05:03 Notes: Patient is a 26-year-old female that presents to the emergency department today with complaints of shortness of breath. Patient was seen here x5 days ago (2016) for shortness of breath. 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 Patient is 13 weeks . During her last visit, the patient denied any respiratory history, including denying asthma however when mom came she stated that the patient had childhood asthma. Patient states she has tried her son's nebulizer treatments at home, doing 2 treatments prior to arrival with no relief. Patient denies being in a new house , stating she has lived in the current location for 6 months. Patient denies any new pets in the house. Patient states she does not smoke however her boyfriend does but he usually smokes outside. (MICHELLE VELÁSQUEZ) - Related Data Allergies/Adverse Reactions: No Known Allergies Allergy (Verified 05/30/17 10:13) Past Medical History - General Information source: Patient, [facility] Records - Social History Smoking Status: Never Smoker Cigarette use (# per day): No - does have second hand smoke exposure Frequency of alcohol use: None Drug Abuse: None Lives with: Family Family History: Arthritis, Hypertension Patient has suicidal ideation: No Patient has homicidal ideation: No Pulmonary Medical History: Reports: Hx Asthma - As a child according to Mom, was intubated for asthma exacerbation May 2017 Traumatic Medical History: Reports: Hx Fractures - ankle Past Surgical History: Reports: Hx Cholecystectomy - 4 months ago, Hx Oral Surgery, Hx Orthopedic Surgery - ACl R knee L ankle - Immunizations Hx Diphtheria, Pertussis, Tetanus Vaccination: Yes <MICHELLE VELÁSQUEZ - Last Filed: 06/04/17 12:03> Review of Systems - Review of Systems Constitutional: No symptoms reported EENT: No symptoms reported Cardiovascular: No symptoms reported Respiratory: See HPI, Short of breath, Wheezing Gastrointestinal: No symptoms reported Genitourinary: No symptoms reported Female Genitourinary: No symptoms reported Musculoskeletal: No symptoms reported Skin: No symptoms reported Hematologic/Lymphatic: No symptoms reported Neurological/Psychological: No symptoms reported -: Yes All other systems reviewed and negative <MICHELLE VELÁSQUEZ - Last Filed: 06/04/17 12:03> Physical Exam <MICHELLE VELÁSQUEZ - Last Filed: 06/04/17 12:03> <EMILY SIMMONS - Last Filed: 06/04/17 14:47> - Vital signs Vitals: Resp Pulse Ox 20 94 06/04/17 04:47 06/04/17 04:47 - Notes Notes: Physical Exam: General: Alert, mild distress, appears uncomfortable. HEENT: Normocephalic. Atraumatic. PERRL. Extraocular movements intact. Oropharynx clear. Neck: Supple. Non-tender. Respiratory: Mild respiratory distress. Tachypneic. Wheezing throughout bilaterally. Cardiovascular: Tachycardic, regular rhythm. Abdominal: Obese. Non-tender. No distension. Normal Bowel Sounds. Back: Non-tender. No deformity or step off. Extremities: Moves all four extremities. Upper extremities: Normal inspection. Normal ROM. Lower extremities: Normal inspection. No edema. Normal ROM. Neurological: Normal cognition. AAOx4. Normal speech. Psychological: Normal affect. Normal Mood. Skin: Warm. Dry. Normal color. (MICHELLE VELÁSQUEZ) Course - Laboratory Result Diagrams: 06/04/17 05:00 06/04/17 05:00 <MICHELLE VELÁSQUEZ - Last Filed: 06/04/17 12:03> - Laboratory Result Diagrams: 06/04/17 05:00 06/04/17 05:00 <EMILY SIMMOSN - Last Filed: 06/04/17 14:47> - Re-evaluation Re-evalutation: 06/04/17 Patient is a 26-year-old female who is 13 weeks who presents with wheezing. Patient was recently seen on 05/30 and [facility] for status asthmaticus was initially improved after one nebulizer treatment, Solu- Medrol, and magnesium. And had been intubated. The patient her oxygen saturation asleep was 95%. Patient began to have wheezing again and DuoNeb was given. Due to the patient's recent hospital course, I feel that it is in her best interest to admit her. Patient was discussed with Dr. Shane who agrees to admit the patient. Given her previable at this time, I do not think that she needs STUNT MAN consult at this time. Patient is agreeable to admission. Stable at time of admission. (EMILY SIMMONS) - Vital Signs Vital signs: Temp Pulse Resp BP Pulse Ox 99.2 F 95 16 135/73 H 94 06/04/17 13:04 06/04/17 13:04 06/04/17 13:04 06/04/17 13:04 06/04/17 13:04 - Laboratory Laboratory results interpreted by me: 06/04/17 05:00 Carbon Dioxide 21 L Critical Care Note - Critical Care Note Total time excluding time spent on procedures (mins): 35 - Evaluation and management of respiratory distress, wheezing, multiple re-evaluations, coordination of admission, counseling of patient <EMILY SIMMONS - Last Filed: 06/04/17 14:47> Discharge <MICHELLE VELÁSQUEZ - Last Filed: 06/04/17 12:03> - Discharge Admitting Provider: Hospitalist - Juan Unit Admitted: Telemetry <EMILY SIMMONS - Last Filed: 06/04/17 14:47> - Discharge Clinical Impression: Asthma exacerbation Qualifiers: Asthma severity: moderate Asthma persistence: unspecified Qualified Code(s): J45.901 - Unspecified asthma with (acute) exacerbation Condition: Stable Disposition: ADMITTED INPATIENT Scribe Attestation: 06/04/17 14:47 I personally performed the services described in the documentation, reviewed and edited the documentation which was dictated to the scribe in my presence, and it accurately records my words and actions. (EMILY SIMMONS) Scribe Documentation - Scribe Written by Violetta:: Violetta Morgan, 06/04/2017 0848 acting as scribe for :: Keila <MICHELLE VELÁSQUEZ - Last Filed: 06/04/17 12:03>
--- NOTE | 2017-06-04 07:34 | EKG REPORT ---
SEVERITY:- BORDERLINE ECG - SINUS RHYTHM BORDERLINE T WAVE ABNORMALITIES : Confirmed by: Kelli Fajardo 04-Jun-2017 07:33:28
[2017-06-04] MEDS ORDERED: IPRATROPIUM/ALBUTEROL 0.5-2.5 MG/3 ML AMPUL NEB ONE (07:46)
[2017-06-04 07:53] LABS: APPEARANCE,URINE CLEAR; BILIRUBIN,URINE NEGATIVE (NEGATIVE); GLUCOSE, URINE NEGATIVE (NEGATIVE); KETONES,URINE NEGATIVE (NEGATIVE); LEUKOCYTE ESTERASE,URINE NEGATIVE (NEGATIVE); NITRITE,URINE NEGATIVE (NEGATIVE); PROTEIN,URINE NEGATIVE (NEGATIVE); URINE SPECIFIC GRAVITY 1.016; UROBILINOGEN,URINE NEGATIVE mg/dL (<2.0)
[2017-06-04] MEDS ORDERED: PROMETHAZINE HCL 25 MG SUPP.RECT PR PRN (09:23)
[2017-06-04] MEDS ORDERED: NORMAL SALINE 1000 ML 1,000 ML IV PRN (09:23)
[2017-06-04] MEDS ORDERED: (PENDING PHARMACY ID) (Prenatal Vit/Iron Fum/Folic Ac [Prenatal Tablet] 1 EACH) PO SCH (10:00)
[2017-06-04] MEDS: PRENATAL VITAMIN W DHA CAPSULE PO SCH (10:36)
[2017-06-04] MEDS: BUDESONIDE/FORMOTEROL 80-4.5 MCG 60 PUFF/6.9 GM MDI IH SCH ×2 (10:37→21:13)
[2017-06-04] MEDS: ACETAMINOPHEN 325 MG TABLET PO PRN (14:42)
[2017-06-04] MEDS ORDERED: INFLUENZA ADLT QUAD (36MOS+) 2017-18 VAC 0.5 ML SYR IM PRN (15:52)
[2017-06-04] MEDS: IPRATROPIUM/ALBUTEROL 0.5-2.5 MG/3 ML AMPUL NEB PRN (16:57)
[2017-06-04] MEDS ORDERED: METHYLPREDNISOLONE INJ 40 MG/1 ML SDV IV SCH (17:00)
--- NOTE | 2017-06-04 18:57 | PDOC H&P ---
History of Present Illness History of Present Illness: CAYLA NOLASCO is a 26 year old -[place] female with a past medical history significant for hypertension who is 13 weeks gravid and presents with shortness of breath. Last week the patient presented in acute respiratory distress is was felt that she was likely in status asthmaticus. 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 She now represents with shortness of breath that started yesterday. She cannot think of anything that triggered her symptoms. She states that when she was released from the hospital she did feel better. She was told to follow-up at [facility] with the registered vascular technologist (rvt) in November. [facility] She denies any recent fevers, chills. She does have vomiting. She has a cough which she states gets so out of control that causes her to throw up. In the emergency room she is received a nebulizer treatment as well as Solu-Medrol and magnesium. Overall the patient has done quite well in the emergency room. She is now currently off of oxygen and breathing much better. Patient does however feel tired. Last time she ate was dinner last night. Past Medical History Pulmonary Medical History: Reports: Asthma - As a child according to Mom, was intubated for asthma exacerbation May 2017 Past Surgical History Past Surgical History: Reports: Cholecystectomy - 4 months ago, Orthopedic Surgery - ACl R knee L ankle Social History Lives with: Family Smoking Status: Never Smoker Frequency of Alcohol Use: None Hx Recreational Drug Use: No Drugs: None Hx Prescription Drug Abuse: No - Advance Directive Resuscitation Status: Full Code Family History Family History: Arthritis, Hypertension Parental Family History Reviewed: Yes Children Family History Reviewed: Yes Sibling(s) Family History Reviewed.: Yes Medication/Allergy Home Medications: Vit/Iron Fum/Folic AC [ Tablet] 1 each PO DAILY 01/15/17 Allergies/Adverse Reactions: No Known Allergies Allergy (Verified 05/30/17 10:13) Review of Systems Review of Systems: The patient admits to nausea and vomiting. There is been no blood in the emesis. She has a cough and feels that most of her vomiting is from extreme coughing that eventually makes her feel as though she wants to throw up. She denies any chest pain. She denies any fevers or chills. She has had weight gain with her of course. The last time she ate was dinner last night. Physical Exam Vital Signs: Temp Pulse Resp BP Pulse Ox 11 L 120/69 97 06/04/17 08:01 06/04/17 08:01 06/04/17 09:00 GENERAL: This is a well-developed, well-nourished morbidly obese - [place] female resting in bed in no acute distress but appearing quite worn out. HEENT: Normocephalic, atraumatic. Dry mucous membranes. Trachea is midline. Sclera are anicteric. HEART: Regular rate and rhythm. No murmurs, rubs or gallops. LUNGS: Diminished at the bases bilaterally with equal rise and fall of the chest. Currently the patient has no wheezing. ABDOMEN: Soft, nontender, nondistended with normoactive bowel sounds EXTREMETIES: No clubbing, cyanosis or edema. 2+ peripheral pulses bilaterally. NEURO: Awake, alert and oriented 3. Cranial nerves II through XII are grossly intact. Results Laboratory Results: 06/04/17 05:00 06/04/17 05:00 06/04/17 06/04/17 06/04/17 05:00 05:00 05:00 WBC 9.4 RBC 4.72 Hgb 13.7 Hct 40.2 MCV 85 MCH 29.0 MCHC 34.1 RDW 13.6 Plt Count 198 Seg Neutrophils % 63.7 Lymphocytes % 25.7 Monocytes % 5.1 Eosinophils % 5.1 Basophils % 0.4 Absolute Neutrophils 6.0 Absolute Lymphocytes 2.4 Absolute Monocytes 0.5 Absolute Eosinophils 0.5 Absolute Basophils 0.0 VBG pH 7.38 VBG pCO2 40.2 VBG HCO3 23.0 VBG Base Excess -1.9 Sodium 137.2 Potassium 4.1 Chloride 104 Carbon Dioxide 21 L Anion Gap 12 BUN 13 Creatinine 0.64 Est GFR ( Amer) > 60 Est GFR (Non-Af Amer) > 60 Glucose 94 Calcium 9.5 Total Bilirubin 0.3 AST 34 ALT 37 Alkaline Phosphatase 52 Total Protein 7.0 Albumin 3.8 Urine Color Urine Appearance Urine pH Ur Specific [place] Urine Protein Urine Glucose (UA) Urine Ketones Urine Blood Urine Nitrite Ur Leukocyte Esterase Urine WBC (Auto) Urine RBC (Auto) 06/04/17 07:30 WBC RBC Hgb Hct MCV MCH MCHC RDW Plt Count Seg Neutrophils % Lymphocytes % Monocytes % Eosinophils % Basophils % Absolute Neutrophils Absolute Lymphocytes Absolute Monocytes Absolute Eosinophils Absolute Basophils VBG pH VBG pCO2 VBG HCO3 VBG Base Excess Sodium Potassium Chloride Carbon Dioxide Anion Gap BUN Creatinine Est GFR ( Amer) Est GFR (Non-Af Amer) Glucose Calcium Total Bilirubin AST ALT Alkaline Phosphatase Total Protein Albumin Urine Color YELLOW Urine Appearance CLEAR Urine pH 6.0 Ur Specific [place] 1.016 Urine Protein NEGATIVE Urine Glucose (UA) NEGATIVE Urine Ketones NEGATIVE Urine Blood NEGATIVE Urine Nitrite NEGATIVE Ur Leukocyte Esterase NEGATIVE Urine WBC (Auto) 2 Urine RBC (Auto) 1 Impressions: Chest X-Ray 06/04/17 05:05 IMPRESSION: 1. No acute pulmonary process identified. Assessment & Plan - Diagnosis (1) Acute asthma exacerbation Qualifiers: Asthma severity: moderate Asthma persistence: persistent Qualified Code(s ): J45.41 - Moderate persistent asthma with (acute) exacerbation Is this a current diagnosis for this admission?: Yes Plan: Continue with albuterol Atrovent nebulizers. The patient is status post magnesium in the ED. She also received a dose of Solu-Medrol. Will continue moving forward with another dose of saw a Medrol later on today and conversion to p.o. prednisone by the morning. My hope is that she will be stable enough to discharge to follow-up appropriately. I consulted Dr. Le for his input as she has no registered vascular technologist (rvt) in the area. (2) Intrauterine Is this a current diagnosis for this admission?: Yes Plan: I have consulted the PERSONAL INJURY L[employer]IGATION [employer] service for the patient to be evaluated. She states that was her 2 previous pregnancies she was considered to be high risk because of issues with her back. I am not sure about this. However, she is high risk based on her morbid obesity and is being treated by the [facility] department OB. She was recently transferred out for status asthmaticus and highway maintenance supervisor state. My concern is that the patient will re-present with respiratory issues moving forward through her . My question is this: Given the patient's status, is she someone who can be appropriately managed here either now or in the future from an OB perspective. Should she re-presented again to this hospital for any reason, issue patient that needs to be transferred due to a high OB risk. - Time Time Spent: 30 to 50 Minutes
[2017-06-05 06:45] LABS: HEMATOCRIT 36.5 % (36.0-47.0); HEMOGLOBIN 12.3 g/dL (12.0-15.5); HGB HCT DIFFERENCE 0.4; MEAN CORPUSCULAR HEMOGLOBIN 28.9 pg (27.0-33.4); MEAN CORPUSCULAR HGB CONC 33.7 g/dL (32.0-36.0); MEAN CORPUSCULAR VOLUME 86 fl (80-97); RED BLOOD COUNT 4.26 10^6/uL (3.72-5.28); RED CELL DISTRIBUTION WIDTH 13.8 % (11.5-14.0); WHITE BLOOD COUNT 12.9 10^3/uL (4.0-10.5)
[2017-06-05 07:02] LABS: ANION GAP 9 (5-19); BLOOD UREA NITROGEN 11 mg/dL (7-20); CARBON DIOXIDE 22 mmol/L (22-30); CHLORIDE 106 mmol/L (98-107); CREATININE RESULT 0.62 mg/dL (0.52-1.25); GLUCOSE 88 mg/dL (75-110); MAGNESIUM 1.7 mg/dL (1.6-2.3); POTASSIUM 3.6 mmol/L (3.6-5.0); SODIUM 136.8 mmol/L (137-145)
--- NOTE | 2017-06-05 07:14 | CONSULTATION REPORT E ---
Consultation Report NAME: CAYLA NOLASCO : 1990 AGE: 26Y DATE: 06/05/2017 527 A TO: John OCHOA M.D. FROM: LOUANN OJEDA M.D. Requesting Physician DATE OF CONSULTATION: 06/05/2017 HISTORY OF PRESENT ILLNESS: Patient is a 26-year-old 5, para 2-2-0-1 with last menstrual period in January who, by an [facility] she [facility] on [facility] , is approximately 13 weeks. Patient was admitted for acute exacerbation of asthma and has a history of having been intubated 1 week prior and sent home with no followup medications. The patient states that she had 2 uneventful pregnancies in the past, both delivered vaginally. She has not had problems with hypertension and/or gestational diabetes and has no other medical problems at present. The patient's physical exam was deferred, and the recommendation for her is to do a repeat ultrasound and continue with present plan of management, and when she is discharged, to follow up with the [facility] where she has been receiving her care. DICTATING PHYSICIAN: John OCHOA M.D. [id number] PHY#: [id number] ID: [id number] JOB#: [id number] ACCT: [id number] cc:John OCHOA M.D. >
[2017-06-05] MEDS: ACETAMINOPHEN 325 MG TABLET PO PRN (08:25)
[2017-06-05] MEDS: IPRATROPIUM/ALBUTEROL 0.5-2.5 MG/3 ML AMPUL NEB PRN (08:38)
[2017-06-05] MEDS: BUDESONIDE/FORMOTEROL 80-4.5 MCG 60 PUFF/6.9 GM MDI IH SCH (09:04)
[2017-06-05] MEDS: PRENATAL VITAMIN W DHA CAPSULE PO SCH (09:04)
[2017-06-05] MEDS ORDERED: PREDNISONE 20 MG TABLET PO SCH (10:00)
[2017-06-05] MEDS ORDERED: GUAIFENESIN/D-METHORPHAN (200-20 MG) SYRUP 10 ML PO PRN (13:27)
[2017-06-05] MEDS ORDERED: ALBUTEROL SULFATE 0.083% NEB 2.5 MG/3 ML AMPUL NEB PRN (13:30)
[2017-06-05] MEDS ORDERED: TIOTROPIUM BROMIDE DPI 5 CAP/KIT (18 MCG/CAP) IH ONE (14:30)
--- NOTE | 2017-06-05 14:56 | RADIOLOGY REPORT (SQ) ---
EXAM DESCRIPTION: U/S OB 14+ TRNABD 1GES W/O DOP COMPLETED DATE/TIME: 06/05/2017 2:36 pm REASON FOR STUDY: viability COMPARISON: 11/21/2016. TECHNIQUE: Static and Dynamic grayscale imaging performed of gravid uterus using transabdominal appr oach. Additional selected color Doppler and spectral images recorded. All stored on PACS. LIMITATIONS: None. FINDINGS: EGA: 14 week 4 day CARLOS: 11/30/2017 EFW: Not calculated. PERCENTILE: Not applicable. MARTA: Largest vertical pocket is 4.2 cm. PLACENTA: Posterior. No hematoma suggested. PRESENTATION: Variable. ANATOMY: HEART RATE: 169 beats per minute. FOUR CHAMBER HEART: Visualized. THREE VESSEL CORD: Yes. CORD INSERTION: Visualized. KIDNEYS AND BLADDER: Visualized. Appear normal. STOMACH: Visualized. Appears normal. SPINE: Limited assessment. No gross pathology. BRAIN AND LATERAL VENTRICLES: Visualized. Appear normal. OTHER: Limited upper extremity evaluation. Lower extremities look normal. MATERNAL ADNEXA: Maternal ovaries not visualized. CERVICAL LENGTH: 3.8 cm. Closed. OTHER: No other significant finding. IMPRESSION: LIVING INTRAUTERINE . ESTIMATED GESTATIONAL AGE 14 week 4 day. NO VISUALIZED ANOMALIES. Trimester of : Second trimester - 13 weeks 1 day to 27 weeks 6 days. TECHNICAL DOCUMENTATION: JOB ID: [id number] [employer]- All Rights Reserved
--- NOTE | 2017-06-05 15:51 | PDOC DISCHARGE SUMMARY ---
General - Admit/Disc Date/PCP Admission Date/Primary Care Provider: 06/04/17 10:01 Discharge Date: 06/05/17 - Discharge Diagnosis (1) Acute asthma exacerbation Is this a current diagnosis for this admission?: Yes (2) Intrauterine Is this a current diagnosis for this admission?: Yes - Additional Information Resuscitation Status: Full Code Prescriptions: Montelukast Sodium [Singulair 10 mg Tablet] 10 mg PO QHS #1 tablet Albuterol Sulfate [Proair HFA Inhalation Aerosol 8.5 gm MDI] 1 puff IH Q4 PRN # 1 mdi PRN Reason: Budesonide/Formoterol Fumarate [Symbicort HFA 80-4.5 mcg Inhaler 6.9 gm] 2 puff IH Q12 #1 inhaler Prednisone [Deltasone 20 mg Tablet] 40 mg PO DAILY #15 tablet Tiotropium [place] [Spiriva Handihaler 5 Cap/Kit (18 Mcg/Cap)] 1 cap IH DAILY # 1 kit Home Medications: Vit/Iron Fum/Folic AC [ Tablet] 1 each PO DAILY 01/15/17 Albuterol Sulfate [Proair HFA Inhalation Aerosol 8.5 gm MDI] 1 puff IH Q4 PRN # 1 mdi 06/05/17 Budesonide/Formoterol Fumarate [Symbicort HFA 80-4.5 mcg Inhaler 6.9 gm] 2 puff IH Q12 #1 inhaler 06/05/17 Montelukast Sodium [Singulair 10 mg Tablet] 10 mg PO QHS #1 tablet 06/05/17 Prednisone [Deltasone 20 mg Tablet] 40 mg PO DAILY #15 tablet 06/05/17 Tiotropium [place] [Spiriva Handihaler 5 Cap/Kit (18 Mcg/Cap)] 1 cap IH DAILY # 1 kit 06/05/17 History of Present Illness History of Present Illness: CAYLA NOLASCO is a 26 year old -Uz[place] female with a past medical history significant for hypertension who is 13 weeks gravid and presents with shortness of breath. Last week the patient presented in acute respiratory distress is was felt that she was likely in status asthmaticus. 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 She now represents with shortness of breath that started yesterday. She cannot think of anything that triggered her symptoms. She states that when she was released from the hospital she did feel better. She was told to follow-up at [facility] with the ballet company member in November. Patient [facility] her medical [facility] from [facility]. She denies any recent fevers, chills. She does have vomiting. She has a cough which she states gets so out of control that causes her to throw up. In the emergency room she is received a nebulizer treatment as well as Solu-Medrol and magnesium. Overall the patient has done quite well in the emergency room. She is now currently off of oxygen and breathing much better. Patient does however feel tired. Last time she ate was dinner last night. Hospital Course Hospital Course: Patient was admitted to observation status. She did quite well overnight. She was started on Spiriva, Symbicort, Solu-Medrol with conversion to prednisone at discharge, nebulizer treatments. The patient was also provided with a peak flow meter and shown how to use it prior to discharge. Patient will need to follow-up with Dr. Le. He did see her while here in the hospital. In addition to that the patient was seen by Dr. Loera with [facility] and had an OB ultrasound that showed a live intrauterine at 13 weeks. She will need to follow-up at the health department as scheduled. The patient currently is doing well and is feeling much better than what she did when she came in yesterday. She is encouraged to continue her medications as ordered and to return to the emergency room she has any further issues. She was asked to take her medications that were used here in the hospital home. She was also provided with prescriptions for any replacements Physical Exam Vital Signs: Temp Pulse Resp BP Pulse Ox 99.1 F 72 20 127/60 H 98 06/05/17 11:15 06/05/17 11:15 06/05/17 11:15 06/05/17 11:15 06/05/17 11:15 Intake & Output 06/04/17 06/05/17 06/06/17 06:59 06:59 06:59 Intake Total 940 600 Balance 940 600 Weight 150 kg 150 kg GENERAL: This is a well-developed, well-nourished morbidly obese - [place] female resting in bed in no acute distress looking much better HEENT: Normocephalic, atraumatic. Dry mucous membranes. Trachea is midline. Sclera are anicteric. HEART: Regular rate and rhythm. No murmurs, rubs or gallops. LUNGS: Diminished at the bases bilaterally with equal rise and fall of the chest. Currently the patient has no wheezing. ABDOMEN: Soft, nontender, nondistended with normoactive bowel sounds EXTREMETIES: No clubbing, cyanosis or edema. 2+ peripheral pulses bilaterally. NEURO: Awake, alert and oriented 3. Cranial nerves II through XII are grossly intact. Results Laboratory Results: 06/05/17 05:54 06/05/17 05:54 06/05/17 06/05/17 05:54 05:54 WBC 12.9 H RBC 4.26 Hgb 12.3 Hct 36.5 MCV 86 MCH 28.9 MCHC 33.7 RDW 13.8 Plt Count 176 Sodium 136.8 L Potassium 3.6 Chloride 106 Carbon Dioxide 22 Anion Gap 9 BUN 11 Creatinine 0.62 Est GFR ( Amer) > 60 Est GFR (Non-Af Amer) > 60 Glucose 88 Calcium 9.0 Magnesium 1.7 Impressions: Chest X-Ray 06/04/17 05:05 IMPRESSION: 1. No acute pulmonary process identified. Obstetrics Ultrasound 06/05/17 00:00 IMPRESSION: LIVING INTRAUTERINE . ESTIMATED GESTATIONAL AGE 14 week 4 day. NO VISUALIZED ANOMALIES. Trimester of : Second trimester - 13 weeks 1 day to 27 weeks 6 days. Qualifiers PATEINT BEING DISCHARGED WITH ANY OF THE FOLLOWING DIAGNOSIS?: No Plan Time Spent: Less than 30 Minutes
[2017-06-05 16:30] VITALS: BP 124/66
[2017-06-05] MEDS ORDERED: MONTELUKAST SODIUM 10 MG TABLET PO SCH (22:00)
[2017-06-06] MEDS ORDERED: TIOTROPIUM BROMIDE DPI 5 CAP/KIT (18 MCG/CAP) IH SCH (10:00)
--- NOTE | 2017-06-07 17:30 | PDOC CONSULTATION ---
Consultation Consult Date: 06/05/17 Attending physician:: LOUANN OJEDA Consult reason:: Dyspnea History of Present Illness Admission Date/PCP: 06/04/17 10:01 History of Present Illness: 6-year-old female approximately 5 days status post discharge from [facility] for dyspnea and exacerbation of asthma she has been transferred to [facility] from [facility] emergency room. Patient presents today with similar complaints since she is increasing shortness of breath and a cough that has some white to yellow phlegm she is unaware of any fevers or chills and she denies hemoptysis her PPD status is unknown. She has had no history of chronic lung disease as a child or adolescent was only recently told that she has had asthma however she has never been discharged on has medication and has had no asthma education. She admits to exposure to passive smoke as a child and had a left she herself has never smoked. She has no recent travel she admits to some tightness in her chest sleeps on 2 pillows occasional PND frequent nocturnal cough and occasional edema. He admits to snoring restless sleep nocturia unrestful sleep and daytime somnolence. She is currently 12 weeks and is a A3 all of which were the results of miscarriages Past Medical History Cardiac Medical History: Denies: Congestive Heart Failure, Coronary Artery Disease, Myocardial Infarction, Hypertension Pulmonary Medical History: Reports: Asthma - As a child according to Mom, was intubated for asthma exacerbation May 2017 Denies: Bronchitis, Chronic Obstructive Pulmonary Disease (COPD), Pneumonia, Tuberculosis EENT Medical History: Denies: Ears, Nose, Throat Neurological Medical History: Denies: Migraine, Multiple Sclerosis, Seizures Endocrine Medical History: Denies: Diabetes Mellitus Type 1 Renal/ Medical History: Denies: End Stage Renal Disease, Nephrolithiasis Malignancy Medical History: Reports: None GI Medical History: Reports: Gastroesophageal Reflux Disease Denies: Cirrhosis, Crohn's Disease, Ulcerative Colitis Musculoskeltal Medical History: Denies: Arthritis, Gout Skin Medical History: Denies: Psoriasis Psychiatric Medical History: Denies: Bipolar Disorder, Depression, Tobacco Dependency Traumatic Medical History: Denies: Traumatic Brain Injury Hematology: Denies: Anemia, Bleeding Tendencies Infectious Medical History: Denies: Hepatitis B, Hepatitis C Past Surgical History Past Surgical History: Reports: Cholecystectomy - 4 months ago, Orthopedic Surgery - ACl R knee L ankle Social History Information Source: Patient, [facility] Records Lives with: Family Smoking Status: Never Smoker Passive smoke exposure as: Both Frequency of Alcohol Use: None Hx Recreational Drug Use: No Drugs: None Hx Prescription Drug Abuse: No Do you have pets?: Yes Have you had any respiratory illnesses as a child?: No Have you been exposed to any sick contacts recently?: No Have you had any recent respiratory illnesses?: Yes Have you travelled outside of [place] in the past 12 months?: No - Advance Directive Resuscitation Status: Full Code Family History Family History: Arthritis, Hypertension Parental Family History Reviewed: Yes Children Family History Reviewed: Yes Sibling(s) Family History Reviewed.: Yes Medication/Allergy Home Medications: Vit/Iron Fum/Folic AC [ Tablet] 1 each PO DAILY 01/15/17 Albuterol Sulfate [Proair HFA Inhalation Aerosol 8.5 gm MDI] 1 puff IH Q4 PRN # 1 mdi 06/05/17 Budesonide/Formoterol Fumarate [Symbicort HFA 80-4.5 mcg Inhaler 6.9 gm] 2 puff IH Q12 #1 inhaler 06/05/17 Montelukast Sodium [Singulair 10 mg Tablet] 10 mg PO QHS #1 tablet 06/05/17 Prednisone [Deltasone 20 mg Tablet] 40 mg PO DAILY #15 tablet 06/05/17 Tiotropium [place] [Spiriva Handihaler 5 Cap/Kit (18 Mcg/Cap)] 1 cap IH DAILY # 1 kit 06/05/17 Allergies/Adverse Reactions: No Known Allergies Allergy (Verified 05/30/17 10:13) Review of Systems Constitutional: PRESENT: weight gain. ABSENT: anorexia, chills, fatigue, fever( s), headache(s), night sweats Eyes: ABSENT: visual disturbances Ears: ABSENT: hearing changes Nose, Mouth, and Throat: ABSENT: mouth pain, sore throat Cardiovascular: PRESENT: dyspnea on exertion. ABSENT: chest pain, palpitations Respiratory: ABSENT: hemoptysis Gastrointestinal: ABSENT: abdominal pain, bloating, coffee ground emesis, dysphagia, hematemesis, hematochezia, melena Genitourinary: ABSENT: hematuria, nocturia Musculoskeletal: ABSENT: deformity Integumentary: ABSENT: pruritus, rash Neurological: ABSENT: abnormal speech, confusion, convulsions, focal weakness, frequent falls, lack of coordination, memory loss Psychiatric: ABSENT: hallucinations, homidical ideation, suicidal ideation Endocrine: ABSENT: cold intolerance, heat intolerance, polydipsia, polyuria Hematologic/Lymphatic: ABSENT: easy bruising Physical Exam Vital Signs: Temp Pulse Resp BP Pulse Ox 99.1 F 72 20 127/60 H 98 06/05/17 11:15 06/05/17 11:15 06/05/17 11:15 06/05/17 11:15 06/05/17 11:15 Intake & Output 06/04/17 06/05/17 06/06/17 06:59 06:59 06:59 Intake Total 940 Balance 940 Weight 150 kg 150 kg General appearance: PRESENT: no acute distress, cooperative, disheveled, morbidly obese, well-developed. ABSENT: mild distress, obese, severe distress, thin Head exam: PRESENT: atraumatic, normocephalic Eye exam: PRESENT: conjunctiva pale, EOMI. ABSENT: conjunctival injection, conjunctiva pink, nystagmus, periorbital swelling, scleral icterus Mouth exam: PRESENT: moist, neck supple, tongue midline, other - 4 [place] 4. ABSENT: dry mucosa, laceration Neck exam: ABSENT: carotid bruit, JVD, lymphadenopathy, thyromegaly, tracheal deviation, tracheostomy Respiratory exam: PRESENT: decreased breath sounds, prolonged expiratory phas, rhonchi, symmetrical, unlabored, wheezes. ABSENT: accessory muscle use, chest wall tenderness, clear to auscultation cuong, crackles, rales, retraction, stridor , tachypnea Cardiovascular exam: PRESENT: RRR, +S1, +S2. ABSENT: irregular rhythm, rubs Pulses: PRESENT: normal radial pulses GI/Abdominal exam: PRESENT: normal bowel sounds, soft. ABSENT: distended, guarding, mass, organolmegaly, rebound, tenderness Extremities exam: PRESENT: clubbing, joint swelling Musculoskeletal exam: PRESENT: deformity, dislocation Neurological exam: PRESENT: alert, awake Psychiatric exam: PRESENT: flat affect Skin exam: PRESENT: dry, warm Results Laboratory Results: 06/05/17 05:54 06/05/17 05:54 06/05/17 06/05/17 05:54 05:54 WBC 12.9 H RBC 4.26 Hgb 12.3 Hct 36.5 MCV 86 MCH 28.9 MCHC 33.7 RDW 13.8 Plt Count 176 Sodium 136.8 L Potassium 3.6 Chloride 106 Carbon Dioxide 22 Anion Gap 9 BUN 11 Creatinine 0.62 Est GFR ( Amer) > 60 Est GFR (Non-Af Amer) > 60 Glucose 88 Calcium 9.0 Magnesium 1.7 Impressions: Chest X-Ray 06/04/17 05:05 IMPRESSION: 1. No acute pulmonary process identified. Assessment & Plan - Diagnosis (1) Acute asthma exacerbation Qualifiers: Asthma severity: moderate Asthma persistence: persistent Qualified Code(s ): J45.41 - Moderate persistent asthma with (acute) exacerbation Is this a current diagnosis for this admission?: Yes Plan: Currently being treated with Singulair, Denise, LABA,long acting muscarinic agent , inhaled corticosteroids as well as prednisone Agree with current therapeutic regimen (2) Intrauterine Is this a current diagnosis for this admission?: Yes Plan: As per obstetrics patient may be considered for workup of hypercoagulability as she is a A2
== END 2017-06-05 17:19 | disposition home or self-care (01) ==
LOC: ER 04:41 → EH 10:01 → 5 12:57
PROVIDERS: ADMIT Hospitalist; ATTEND Hospitalist
PROC: 3E0F7GC Introduction of Other Therapeutic Substance into Respiratory Tract, Via Natural or Artificial Opening (ICD-10-PCS; principal; 2017-06-04)
DX: J45.41 Moderate persistent asthma with (acute) exacerbation (principal); O99.511 Diseases of the respiratory system complicating pregnancy, first trimester; O99.211 Obesity complicating pregnancy, first trimester; E66.01 Morbid (severe) obesity due to excess calories; R40.0 Somnolence; R06.83 Snoring; O26.891 Other specified pregnancy related conditions, first trimester; Z68.43 Body mass index [BMI] 50.0-59.9, adult; Z3A.13 13 weeks gestation of pregnancy; Z90.49 Acquired absence of other specified parts of digestive tract
CPT/HCPCS: 93005; 94640 ×3; 99291; 96375; 96365; 36415 ×2; 83735; 85025; 85027; 80048; 80053; 81001; 82803; 71010; 76805; 93010; J3490 ×6; J2930; J3475; J7512; J7030; J7620 ×2

== ENCOUNTER 2017-06-20 03:04 | Emergency (ER) | payer MEDICAID ==
[2017-06-20] MEDS ORDERED: IPRATROPIUM/ALBUTEROL 0.5-2.5 MG/3 ML AMPUL NEB ONE (03:12)
[2017-06-20] MEDS ORDERED: LIDOCAINE 2% INJ-PF (20 MG/ML) 10 ML AMPUL NEB ONE (03:12)
[2017-06-20] MEDS ORDERED: PREDNISONE 20 MG TABLET PO ONE (03:13)
[2017-06-20] MEDS ORDERED: NORMAL SALINE 1000 ML 1,000 ML IV ONE ×2 (03:13→03:48)
[2017-06-20] MEDS ORDERED: BENZONATATE 100 MG CAPSULE PO ONE (03:13)
--- NOTE | 2017-06-20 03:14 | ER Document Report ---
ED General - General Stated Complaint: SHORTNESS OF BREATH Time Seen by Provider: 06/20/17 03:12 Notes: Patient is a 26-year-old female currently 16 weeks who presents with cough and shortness of breath. Patient states that for the past 2 days she has had a progressively worsening cough. She was recently hospitalized and intubated for asthmatic presentation and states she had been overall doing well since that time. She states that she has been trying nebulizers at home without any significant improvement of her coughing and shortness of breath. Patient was transported by EMS. They report that in route patient's vitals were within normal lives with the exception of tachycardia. Patient does report that she has had viral upper respiratory infection symptoms as have multiple people within her home. She denies any syncope, fever, hemoptysis, or unilateral leg swelling. TRAVEL OUTSIDE OF THE [place] IN LAST 30 DAYS: No - Related Data Allergies/Adverse Reactions: No Known Allergies Allergy (Verified 05/30/17 10:13) Past Medical History - General Information source: Patient - Social History Smoking Status: Never Smoker Frequency of alcohol use: None Drug Abuse: None Lives with: Spouse/Significant other Family History: Arthritis, Hypertension - Past Medical History Cardiac Medical History: Denies: Hx Congestive Heart Failure, Hx Coronary Artery Disease, Hx Heart Attack, Hx Hypertension Pulmonary Medical History: Reports: Hx Asthma - As a child according to Mom, was intubated for asthma exacerbation May 2017 Denies: Hx Bronchitis, Hx COPD, Hx Pneumonia, Hx Tuberculosis Neurological Medical History: Denies: Hx Cerebrovascular Accident, Hx Migraine, Hx Seizures Endocrine Medical History: Denies: Hx Diabetes Mellitus Type 1 Renal/ Medical History: Denies: Hx End Stage Renal Disease, Hx Kidney Stones, Hx Peritoneal Dialysis GI Medical History: Reports: Hx Gastroesophageal Reflux Disease. Denies: Hx Cirrhosis, Hx Crohn's Disease, Hx Ulcer, Hx Ulcerative Colitis Musculoskeltal Medical History: Denies Hx Arthritis, Denies Hx Gout, Denies Hx Multiple Sclerosis Skin Medical History: Denies Hx Psoriasis Psychiatric Medical History: Denies: Hx Bipolar Disorder, Hx Depression, Hx Schizophrenia Traumatic Medical History: Reports: Hx Fractures - ankle. Denies: Hx Traumatic Brain Injury Past Surgical History: Reports: Hx Cholecystectomy - 4 months ago, Hx Oral Surgery, Hx Orthopedic Surgery - ACl R knee L ankle - Immunizations Hx Diphtheria, Pertussis, Tetanus Vaccination: Yes Review of Systems - Review of Systems Notes: Constitutional: Negative for fever. HENT: Negative for sore throat. Eyes: Negative for visual changes. Cardiovascular: Negative for chest pain. Respiratory: Positive for cough and shortness of breath Gastrointestinal: Negative for abdominal pain, vomiting or diarrhea. Genitourinary: Negative for dysuria. Musculoskeletal: Negative for back pain. Skin: Negative for rash. Neurological: Negative for headaches, weakness or numbness. 10 point ROS negative except as marked above and in HPI. Physical Exam - Vital signs Vitals: Temp Pulse Resp BP Pulse Ox 98.3 F 118 H 22 H 144/87 H 96 06/20/17 03:05 06/20/17 03:05 06/20/17 03:05 06/20/17 03:05 06/20/17 03:05 Interpretation: Tachycardic Notes: PHYSICAL EXAMINATION: GENERAL: Coughing, appears uncomfortable with the cough but in no acute distress HEAD: Atraumatic, normocephalic. EYES: Pupils equal round and reactive to light, extraocular movements intact, sclera anicteric, conjunctiva are normal. ENT: nares patent, oropharynx clear without exudates. Moist mucous membranes. NECK: Normal range of motion, supple without lymphadenopathy LUNGS: Mild wheezing at the bases bilaterally otherwise no wheezing. No tachypnea or distress. Appropriate air movement throughout. HEART: Regular tachycardia without murmurs ABDOMEN: Soft, nontender, normoactive bowel sounds. No guarding, no rebound. No masses appreciated. EXTREMITIES: Normal range of motion, no pitting or edema. No cyanosis. NEUROLOGICAL: No focal neurological deficits. Moves all extremities spontaneously and on command. PSYCH: Normal mood, normal affect. SKIN: Warm, Dry, normal turgor, no rashes or lesions noted. Course - Re-evaluation Re-evalutation: 06/20/17 03:14 Patient presents with a mild exacerbation of their baseline asthma. Mild wheezing at time of presentation but vitals do not show significant hypoxemia or tachypnea. No retractions. Patient did clinically improve after receiving nebulizers here in the emergency department. Chest x-ray without evidence of an acute pneumonia. Patient able to ambulate without any respiratory distress. Based on patient's overall reassuring assessment, I believe they are stable for outpatient management with steroids. I do not suspect an acute alternative pathology at this time based on history and exam including acute pulmonary embolus, ACS, pneumothorax, or aortic dissection. At this time will discharge with return precautions and follow-up recommendations. Verbal discharge instructions given a the bedside and opportunity for questions given. Medication warnings reviewed. Patient is in agreement with this plan and has verbalized understanding of return precautions and the need for primary care follow-up in the next 24-72 hours. - Vital Signs Vital signs: Temp Pulse Resp BP Pulse Ox 98.3 F 118 H 20 133/84 H 98 06/20/17 03:05 06/20/17 03:05 06/20/17 04:10 06/20/17 04:10 06/20/17 04:10 - Laboratory Result Diagrams: 06/20/17 04:15 06/20/17 04:15 Laboratory results interpreted by me: 06/20/17 04:15 WBC 12.7 H RDW 14.3 H Absolute Eosinophils 0.7 H Discharge - Discharge Clinical Impression: Bronchitis Acute asthma exacerbation Qualifiers: Asthma severity: moderate Asthma persistence: persistent Qualified Code(s): J45.41 - Moderate persistent asthma with (acute) exacerbation Condition: Stable Disposition: HOME, SELF-CARE Additional Instructions: Please return for any worsening shortness of breath, persistent coughing, fever , or any other symptoms that are worrisome to you. Please follow-up with your primary doctor in the next 1-2 days. Prescriptions: Benzonatate [Tessalon Perles 100 mg Capsule] 100 mg PO Q8HP PRN #40 capsule PRN Reason: Prednisone [Deltasone 20 mg Tablet] 3 tab PO DAILY 5 Days tablet
[2017-06-20] MEDS ORDERED: ALBUTEROL SULFATE 0.083% NEB 2.5 MG/3 ML AMPUL NEB ONE (03:39)
[2017-06-20] MEDS: MAGNESIUM SULFATE/D5W 1 GM/100 ML RTUPB IV SCH ×2 (04:10→04:43)
--- NOTE | 2017-06-20 04:13 | RADIOLOGY REPORT (SQ) ---
EXAM DESCRIPTION: CHEST SINGLE VIEW CLINICAL HISTORY: sob COMPARISON: 06/04/2017 FINDINGS: Single frontal view of the chest. The cardiomediastinal silhouette has normal size and contour. No consolidation, pneumothorax, or pleural effusion. No displaced rib fractures identified. Upper abdominal soft tissues are unremarkable. Leads overlie the chest. IMPRESSION: 1. No acute pulmonary process identified.
[2017-06-20 04:25] LABS: ABSOLUTE EOSINOPHILS # (AUTO) 0.7 10^3/uL (0.0-0.6); ABSOLUTE LYMPHOCYTES (AUTO) 3.3 10^3/uL (0.5-4.7); ABSOLUTE MONOCYTES (AUTO) 0.7 10^3/uL (0.1-1.4); ABSOLUTE NEUT (AUTO) 7.9 10^3/uL (1.7-8.2); BASOPHILS % (AUTO) 0.3 % (0-2); EOSINOPHILS % (AUTO) 5.5 % (0-6); HEMATOCRIT 38.1 % (36.0-47.0); HEMOGLOBIN 12.7 g/dL (12.0-15.5); LYMPHOCYTES % (AUTO) 26.1 % (13-45); MEAN CORPUSCULAR HEMOGLOBIN 28.6 pg (27.0-33.4); MEAN CORPUSCULAR HGB CONC 33.5 g/dL (32.0-36.0); MEAN CORPUSCULAR VOLUME 85 fl (80-97); MONOCYTES % (AUTO) 5.8 % (3-13); PLATELET COUNT 244 10^3/uL (150-450); RED BLOOD COUNT 4.46 10^6/uL (3.72-5.28); RED CELL DISTRIBUTION WIDTH 14.3 % (11.5-14.0); SEGMENTED NEUTROPHILS % (AUTO) 62.3 % (42-78); TOTAL CELLS COUNTED % (AUTO) 100 %; WHITE BLOOD COUNT 12.7 10^3/uL (4.0-10.5)
[2017-06-20 04:37] LABS: ANION GAP 11 (5-19); BLOOD UREA NITROGEN 12 mg/dL (7-20); CALCIUM 9.7 mg/dL (8.4-10.2); CARBON DIOXIDE 24 mmol/L (22-30); CHLORIDE 105 mmol/L (98-107); GLUCOSE 97 mg/dL (75-110); POTASSIUM 3.4 mmol/L (3.6-5.0); SODIUM 140.1 mmol/L (137-145)
[2017-06-20 05:06] VITALS: BP 108/73
== END 2017-06-20 05:06 | disposition home or self-care (01) ==
LOC: ER 03:04
DX: J45.41 Moderate persistent asthma with (acute) exacerbation (principal); J40 Bronchitis, not specified as acute or chronic; R06.02 Shortness of breath; R05 Cough; O26.892 Other specified pregnancy related conditions, second trimester; O99.512 Diseases of the respiratory system complicating pregnancy, second trimester; Z3A.16 16 weeks gestation of pregnancy
CPT/HCPCS: 94640 ×2; 99285; 96365; 36415; 85025; 80048; 71010; J3490; J3475; J7512; J7620

== ENCOUNTER 2017-06-27 17:56 | Emergency (ER) | payer MEDICAID ==
[2017-06-27] MEDS ORDERED: IPRATROPIUM/ALBUTEROL 0.5-2.5 MG/3 ML AMPUL NEB ONE (18:32)
[2017-06-27] MEDS ORDERED: METHYLPREDNISOLONE INJ 125 MG/2 ML SDV IV ONE (18:32)
--- NOTE | 2017-06-27 18:34 | ER Document Report ---
ED Respiratory Problem - General Chief Complaint: Asthma Exacerbation Stated Complaint: BREATHING ISSUES Time Seen by Provider: 06/27/17 18:23 Notes: The patient is a 26-year-old female, past medical history asthma, presents with wheezing and cough. She was intubated for 2 days last week and then finished a 5 day course of prednisone yesterday. She was feeling better, but once her prednisone was stopped, her wheezing returned. She has a family member that smokes outside, but she said the smoke on the jacket can trigger her asthma. Patient was started on maintenance medication for her asthma by Dr. Le while she was in the hospital, but she has not been able to follow-up yet in his office. TRAVEL OUTSIDE OF THE [place] IN LAST 30 DAYS: No - Related Data Allergies/Adverse Reactions: No Known Allergies Allergy (Verified 06/27/17 17:57) Past Medical History - General Information source: Patient - Social History Smoking Status: Never Smoker Family History: Arthritis, Hypertension - Past Medical History Cardiac Medical History: Denies: Hx Congestive Heart Failure, Hx Coronary Artery Disease, Hx Heart Attack, Hx Hypertension Pulmonary Medical History: Reports: Hx Asthma - As a child according to Mom, was intubated for asthma exacerbation May 2017 Denies: Hx Bronchitis, Hx COPD, Hx Pneumonia, Hx Tuberculosis Neurological Medical History: Denies: Hx Cerebrovascular Accident, Hx Migraine, Hx Seizures Endocrine Medical History: Denies: Hx Diabetes Mellitus Type 1 Renal/ Medical History: Denies: Hx End Stage Renal Disease, Hx Kidney Stones, Hx Peritoneal Dialysis GI Medical History: Reports: Hx Gastroesophageal Reflux Disease. Denies: Hx Cirrhosis, Hx Crohn's Disease, Hx Ulcer, Hx Ulcerative Colitis Musculoskeltal Medical History: Denies Hx Arthritis, Denies Hx Gout, Denies Hx Multiple Sclerosis Skin Medical History: Denies Hx Psoriasis Psychiatric Medical History: Denies: Hx Bipolar Disorder, Hx Depression, Hx Schizophrenia Traumatic Medical History: Reports: Hx Fractures - ankle. Denies: Hx Traumatic Brain Injury Past Surgical History: Reports: Hx Cholecystectomy - 4 months ago, Hx Oral Surgery, Hx Orthopedic Surgery - ACl R knee L ankle - Immunizations Hx Diphtheria, Pertussis, Tetanus Vaccination: Yes Review of Systems - Review of Systems Notes: REVIEW OF SYSTEMS: CONSTITUTIONAL: -fevers, -chills EENT: -eye pain, -difficulty swallowing, -nasal congestion CARDIOVASCULAR: -chest pain, -syncope. RESPIRATORY: +cough, +SOB GASTROINTESTINAL: -abdominal pain, -nausea, -vomiting, -diarrhea GENITOURINARY: -dysuria, -hematuria MUSCULOSKELETAL: -back pain, -neck pain SKIN: -rash or skin lesions. HEMATOLOGIC: -easy bruising or bleeding. LYMPHATIC: -swollen, enlarged glands. NEUROLOGICAL: -altered mental status or loss of consciousness, -headache, - neurologic symptoms PSYCHIATRIC: -anxiety, -depression. ALL OTHER SYSTEMS REVIEWED AND NEGATIVE. Physical Exam - Vital signs Vitals: Pulse Ox 94 06/27/17 18:23 - Notes Notes: PHYSICAL EXAMINATION: GENERAL: Well-appearing, well-nourished and in no acute distress. HEAD: Atraumatic, normocephalic. EYES: Pupils equal round and reactive to light, extraocular movements intact, sclera anicteric, conjunctiva are normal. ENT: nares patent, oropharynx clear without exudates. Moist mucous membranes. NECK: Normal range of motion, supple without lymphadenopathy LUNGS: Mild tachypnea. Speaking in full sentences. End expiratory wheezes. No accessory muscle use. HEART: Tachycardia. ABDOMEN: Soft, nontender, normoactive bowel sounds. No guarding, no rebound. No masses appreciated. EXTREMITIES: Normal range of motion, no pitting or edema. No cyanosis. NEUROLOGICAL: Cranial nerves grossly intact. Normal speech, normal gait. Normal sensory and motor exams. PSYCH: Normal mood, normal affect. SKIN: Warm, Dry, normal turgor, no rashes or lesions noted. Course - Re-evaluation Re-evalutation: Patient mildly tachypneic with wheezing on arrival to the ER. She is speaking in full sentences and is slightly tachycardic after she used her home albuterol. She said that she felt much better with the prednisone, but her wheezing returned when her prednisone stopped. After 3 duonebs and Solu-Medrol , she feels much better and her wheezing has resolved. She remains satting 99% on room air. Considered PE, but her heart rate goes down into the 90s at rest and she is not having any current shortness of breath at this time. She has an appointment with Dr. Le this week and was started on multiple long-term maintenance medications by him when she was admitted to the ICU. Patient will be started on a prednisone taper with very strict return precautions. She has a family member that will smoke outside, but the smoke on his clothes trigger her asthma. Spoke to family about trying to stop smoking for the patient's sake. They also have carpet and instructed them to consider hardwood floors. - Vital Signs Vital signs: Temp Pulse Resp BP Pulse Ox 98.6 F 100 20 116/96 H 99 06/27/17 19:58 06/27/17 19:58 06/27/17 19:58 06/27/17 19:58 06/27/17 19:58 - Laboratory Result Diagrams: 06/27/17 18:33 06/27/17 18:33 Laboratory results interpreted by me: 06/27/17 18:33 WBC 11.5 H RDW 14.3 H Discharge - Discharge Clinical Impression: Asthma exacerbation Qualifiers: Asthma severity: mild Asthma persistence: intermittent Qualified Code(s): J45.21 - Mild intermittent asthma with (acute) exacerbation Condition: Stable Disposition: HOME, SELF-CARE Additional Instructions: ASTHMA: You have been diagnosed as having asthma. This is a condition where there is episodic tightness in the bronchial tubes. Allergies, infections, and polluted or cold air may be contributing factors. Emergency treatment of a severe asthma attack may include adrenaline shots , or bronchodilator aerosol. You may feel lightheaded, have a decreased exercise tolerance and a rapid pulse for an hour or two. Rest and get plenty of fluids. Home treatment of asthma requires bronchodilator drugs. These can be administered by injection, inhalation, or by mouth. Antibiotics and corticosteroids may be required for some patients. You should avoid chemical fumes, dusts, pollens, and exercising in very cold or dry air. If you smoke, stop!! If you develop a fever, increased wheezing, chest pain, or severe shortness of breath, you should contact the doctor immediately. STEROID MEDICATION: You have been given an injection of or oral medicine of the cortisone/ steroid class. This medication is used to control inflammation or allergy. Raj t is usually only given for a short period of time, until the acute process subsides. There are usually no side effects from short-term use of cortisone-like medications. Some persons feel an increased sense of well-being and are not sleepy at bedtime. Long-term use of cortisone medications is best avoided, unless required for a severe condition. If your condition does not remit, or relapses after the course of corticosteroid medication, you should consult your physician. INHALED BRONCHODILATORS: You have received treatment(s) of and/or prescription for an inhaled bronchodilator -- a medication which stimulates the airways in the lung to dilate. This improves the flow of air in asthma, bronchitis, and emphysema. These medicines have some similarity to adrenaline, and can cause similar side effects: shakiness, racing heart, and a sense of nervousness. These side effects decrease with time. Contact your doctor if these side effects are severe. Do not over-use the medicine. Too-frequent use of the inhaler may make it ineffective. Call your doctor if the inhaler is not controlling your symptoms at the prescribed doses. SMOKING: If you smoke, you should stop smoking. The tar and chemicals in cigarette smoke are harmful. Smoking has been shown to cause: emphysema chronic bronchitis lung cancer mouth and throat cancer stomach and pancreas cancer premature aging defects In addition, smoking increases ear and lung infections in children of smokers. USE OF ACETAMINOPHEN: Acetaminophen may be taken for pain relief or fever control. It's much safer than aspirin, offering a wider range of "safe" dosages. It is safe during . Some brand names are Tylenol, Panadol, Datril, Anacin 3, Tempra, and Liquiprin. Acetaminophen can be repeated every four hours. The following are maximum recommended dosages: USE OF ACETAMINOPHEN (Tylenol): Acetaminophen may be taken for pain relief or fever control. It's much safer than aspirin, offering a wider range of "safe" dosages. It is safe during . Some brand names are Tylenol, Panadol, Datril, Anacin 3, Tempra, and Liquiprin. Acetaminophen can be repeated every four hours. The following are maximum recommended dosages: WEIGHT Dose Drops Elixir Chewable( 80mg) (LBS.) drprs=droppers tsp=teaspoon 6 40 mg 0.4 ml (1/2) 6-11 80 mg 0.8 ml (full) tsp 1 tab 12-16 120 mg 1 1/2 drprs 3/4 tsp 1 1/2 tabs 17-23 160 mg 2 drprs 1 tsp 2 tabs 24-30 240 mg 3 drprs 1 1/2 tsp 3 tabs 30-35 320 mg 2 tsp 4 tabs 36-41 360 mg 2 1/4 tsp 4 1/2 tabs 42-47 400 mg 2 1/2 tsp 5 tabs 48-53 480 mg 3 tsp 6 tabs 54-59 520 mg 3 1/4 tsp 6 1/2 tabs 60-64 560 mg 3 1/2 tsp 7 tabs 65-70 600 mg 3 3/4 tsp 7 1/2 tabs 71-76 640 mg 4 tsp 8 tabs 77-82 720 mg 4 1/2 tsp 9 tabs 83-88 800 mg 5 tsp 10 tabs >89 pounds or adults 650 mg to 900 mg Acetaminophen can be repeated every four hours. Maximum dose not to exceed 4000 mg a day. These maximum recommended dosages are slightly higher than the dosages written on the product container, but these dosages are very safe and below the toxic dosage for acetaminophen. FOLLOW-UP CARE: If you have been referred to a physician for follow-up care, call the physician s office for an appointment as you were instructed or within the next two days. If you experience worsening or a significant change in your symptoms, notify the physician immediately or return to the Emergency Department at any time for re-evaluation. Prescriptions: Albuterol Sulfate [Proair HFA Inhalation Aerosol 8.5 gm MDI] 2 puff IH Q4H PRN # 1 mdi PRN Reason: Prednisone [Deltasone 10 mg Tablet] 10 mg PO ASDIR PRN #21 tablet PRN Reason: Prednisone [Deltasone 10 mg Tablet] 10 mg PO ASDIR PRN #21 tablet PRN Reason: Tiotropium Ulmer [Spiriva Handihaler 18 mcg/dose (30 Dose)] 1 cap IH DAILY # 30 capsule Forms: Elevated Blood Pressure Referrals: PARAS LE MD [ACTIVE STAFF] - Follow up as needed
[2017-06-27 18:59] LABS: ABSOLUTE EOSINOPHILS # (AUTO) 0.5 10^3/uL (0.0-0.6); ABSOLUTE LYMPHOCYTES (AUTO) 2.5 10^3/uL (0.5-4.7); ABSOLUTE MONOCYTES (AUTO) 0.6 10^3/uL (0.1-1.4); ABSOLUTE NEUT (AUTO) 7.9 10^3/uL (1.7-8.2); BASOPHILS % (AUTO) 0.3 % (0-2); EOSINOPHILS % (AUTO) 4.1 % (0-6); HEMATOCRIT 42.2 % (36.0-47.0); HEMOGLOBIN 14.1 g/dL (12.0-15.5); LYMPHOCYTES % (AUTO) 21.6 % (13-45); MEAN CORPUSCULAR HEMOGLOBIN 28.6 pg (27.0-33.4); MEAN CORPUSCULAR HGB CONC 33.5 g/dL (32.0-36.0); MEAN CORPUSCULAR VOLUME 86 fl (80-97); MONOCYTES % (AUTO) 5.2 % (3-13); PLATELET COUNT 263 10^3/uL (150-450); RED BLOOD COUNT 4.93 10^6/uL (3.72-5.28); RED CELL DISTRIBUTION WIDTH 14.3 % (11.5-14.0); SEGMENTED NEUTROPHILS % (AUTO) 68.8 % (42-78); TOTAL CELLS COUNTED % (AUTO) 100 %; WHITE BLOOD COUNT 11.5 10^3/uL (4.0-10.5)
[2017-06-27 19:11] LABS: ALANINE AMINOTRANSFERASE 26 U/L (9-52); ALBUMIN 3.9 g/dL (3.5-5.0); ALKALINE PHOSPHATASE 61 U/L (38-126); ANION GAP 9 (5-19); ASPARTATE AMINO TRANSFERASE 16 U/L (14-36); BILIRUBIN,DIRECT 0.2 mg/dL (0.0-0.4); BILIRUBIN,TOTAL 0.2 mg/dL (0.2-1.3); BLOOD UREA NITROGEN 12 mg/dL (7-20); CALCIUM 10.2 mg/dL (8.4-10.2); CARBON DIOXIDE 24 mmol/L (22-30); CHLORIDE 104 mmol/L (98-107); GLUCOSE 83 mg/dL (75-110); SODIUM 137.4 mmol/L (137-145); TOTAL PROTEIN 6.8 g/dL (6.3-8.2)
[2017-06-27 19:16] LABS: VENOUS BLOOD BASE EXCESS -0.4 mmol/L; VENOUS BLOOD HCO3 25.7 mmol/L (20-32); VENOUS BLOOD PCO2 47.1 mmHg (35-63); VENOUS BLOOD PH 7.35 (7.30-7.42)
[2017-06-27 20:00] VITALS: BP 116/96
== END 2017-06-27 19:58 | disposition home or self-care (01) ==
LOC: ER 17:56
DX: J45.21 Mild intermittent asthma with (acute) exacerbation (principal); R05 Cough; Z77.22 Contact with and (suspected) exposure to environmental tobacco smoke (acute) (chronic); R06.02 Shortness of breath
CPT/HCPCS: 94640; 99285; 96374; 36415; 85025; 80053; 82803; J2930; J7620

== ENCOUNTER → 2017-07-06 | Outpatient (CLI) | payer MEDICAID ==
[2017-07-06 11:24] LABS: ABSOLUTE BASOPHILS # (AUTO) 0.1 10^3/uL (0.0-0.2); ABSOLUTE EOSINOPHILS # (AUTO) 0.1 10^3/uL (0.0-0.6); ABSOLUTE LYMPHOCYTES (AUTO) 2.2 10^3/uL (0.5-4.7); ABSOLUTE MONOCYTES (AUTO) 0.5 10^3/uL (0.1-1.4); BASOPHILS % (AUTO) 0.6 % (0-2); EOSINOPHILS % (AUTO) 1.5 % (0-6); HEMATOCRIT 39.6 % (36.0-47.0); HEMOGLOBIN 13.5 g/dL (12.0-15.5); LYMPHOCYTES % (AUTO) 22.3 % (13-45); MEAN CORPUSCULAR HEMOGLOBIN 28.9 pg (27.0-33.4); MEAN CORPUSCULAR VOLUME 85 fl (80-97); MONOCYTES % (AUTO) 4.8 % (3-13); PLATELET COUNT 234 10^3/uL (150-450); RED BLOOD COUNT 4.67 10^6/uL (3.72-5.28); RED CELL DISTRIBUTION WIDTH 14.2 % (11.5-14.0); SEGMENTED NEUTROPHILS % (AUTO) 70.8 % (42-78); TOTAL CELLS COUNTED % (AUTO) 100 %; WHITE BLOOD COUNT 9.9 10^3/uL (4.0-10.5)
[2017-07-09 03:36] LABS: M001-IGE PENICILLIUM CHRYSOGEN <0.10 kU/L (Class 0); M002-IGE CLADOSPORIUM HERBARUM <0.10 kU/L (Class 0); M003-IGE ASPERGILLUS FUMIGATUS <0.10 kU/L (Class 0); M004-IGE MUCOR RACEMOSUS <0.10 kU/L (Class 0); M005-IGE CANDIDA ALBICANS <0.10 kU/L (Class 0); M006-IGE ALTERNARIA ALTERNATA <0.10 kU/L (Class 0); M009-IGE FUSARIUM PROLIFERATUM <0.10 kU/L (Class 0); M012-IGE AUREOBASIDI PULLULANS <0.10 kU/L (Class 0); M013-IGE PHOMA BETAE <0.10 kU/L (Class 0); M014-IGE EPICOCCUM PURPURASCEN <0.10 kU/L (Class 0)
[2017-07-09 07:06] LABS: M010-IGE STEMPHYLIUM HERBARUM <0.10 kU/L (Class 0)
== END ==
LOC: OD 10:17
PROVIDERS: ATTEND Physician Assistant
DX: J45.50 Severe persistent asthma, uncomplicated (principal)
CPT/HCPCS: 36415; 85025; 86003

== ENCOUNTER 2017-07-09 18:53 | Inpatient (IN) | payer MEDICAID ==
[2017-07-09] MEDS ORDERED: IPRATROPIUM/ALBUTEROL 0.5-2.5 MG/3 ML AMPUL NEB ONE ×3 (19:47→22:59)
--- NOTE | 2017-07-09 19:49 | ER Document Report ---
ED Medical Screen (RME) - General Chief Complaint: Asthma Exacerbation Stated Complaint: SHORTNESS OF BREATH Time Seen by Provider: 07/09/17 19:45 Mode of Arrival: Medic Information source: Patient Notes: 26-year-old female history of asthma presents with complaints of asthma exacerbation. Patient notes she has had a dry nonproductive cough, patient is currently on steroids from her terminal block assembler who she saw a few days prior. Patient was given breathing treatments at home which did not improve her symptoms notes she had been treatment by EMS which did help I have greeted and performed a rapid initial assessment of this patient. A comprehensive ED assessment and evaluation of the patient, analysis of test results and completion of the medical decision making process will be conducted by additional ED providers. PHYSICAL EXAMINATION: GENERAL: Well-appearing, well-nourished and in no acute distress. HEAD: Atraumatic, normocephalic. EYES: Pupils equal round extraocular movements intact, conjunctiva are normal. ENT: Nares patent NECK: Normal range of motion LUNGS: No respiratory distress Musculoskeletal: Normal range of motion NEUROLOGICAL: Normal speech, normal gait. PSYCH: Normal mood, normal affect. SKIN: Warm, Dry, normal turgor, no rashes or lesions noted. TRAVEL OUTSIDE OF THE [place] IN LAST 30 DAYS: No - Related Data Allergies/Adverse Reactions: No Known Allergies Allergy (Verified 06/27/17 17:57) Past Medical History - Past Medical History Cardiac Medical History: Denies: Hx Congestive Heart Failure, Hx Coronary Artery Disease, Hx Heart Attack, Hx Hypertension Pulmonary Medical History: Reports: Hx Asthma - As a child according to Mom, was intubated for asthma exacerbation May 2017 Denies: Hx Bronchitis, Hx COPD, Hx Pneumonia, Hx Tuberculosis Neurological Medical History: Denies: Hx Cerebrovascular Accident, Hx Migraine, Hx Seizures Endocrine Medical History: Denies: Hx Diabetes Mellitus Type 1 Renal/ Medical History: Denies: Hx End Stage Renal Disease, Hx Kidney Stones, Hx Peritoneal Dialysis GI Medical History: Reports: Hx Gastroesophageal Reflux Disease. Denies: Hx Cirrhosis, Hx Crohn's Disease, Hx Ulcer, Hx Ulcerative Colitis Musculoskeltal Medical History: Denies Hx Arthritis, Denies Hx Gout, Denies Hx Multiple Sclerosis Skin Medical History: Denies Hx Psoriasis Psychiatric Medical History: Denies: Hx Bipolar Disorder, Hx Depression, Hx Schizophrenia Traumatic Medical History: Reports: Hx Fractures - ankle. Denies: Hx Traumatic Brain Injury Past Surgical History: Reports: Hx Cholecystectomy - 4 months ago, Hx Oral Surgery, Hx Orthopedic Surgery - ACl R knee L ankle - Immunizations Hx Diphtheria, Pertussis, Tetanus Vaccination: Yes History of Influenza Vaccine for 03/2017 - 08/2017 Season: No Physical Exam - Vital signs Vitals: Temp Pulse Resp BP Pulse Ox 98.5 F 80 18 118/68 98 07/09/17 19:07 07/09/17 19:07 07/09/17 19:07 07/09/17 19:07 07/09/17 19:07 Course - Vital Signs Vital signs: Temp Pulse Resp BP Pulse Ox 98.5 F 80 18 118/68 99 07/09/17 19:07 07/09/17 19:44 07/09/17 19:44 07/09/17 19:07 07/09/17 19:44
[2017-07-09] MEDS ORDERED: METHYLPREDNISOLONE INJ 125 MG/2 ML SDV IV ONE (22:57)
[2017-07-09] MEDS ORDERED: ALBUTEROL SULFATE 0.083% NEB 2.5 MG/3 ML AMPUL NEB ONE (22:57)
[2017-07-09] MEDS ORDERED: MAGNESIUM SULFATE/D5W 2 GM/200 ML RTUPB IV ONE (22:59)
--- NOTE | 2017-07-09 23:01 | ER Document Report ---
ED General - General Chief Complaint: Asthma Exacerbation Stated Complaint: SHORTNESS OF BREATH Time Seen by Provider: 07/09/17 19:45 Mode of Arrival: Medic Notes: Patient is a 26-year-old female currently 17 weeks who presents with 24 hours of progressively worsening shortness of breath. Patient has had a very unfortunate course in setting of this with multiple asthma exacerbations one of which prompted a hospitalization with an associated intubation. She has had multiple repeat ER visits since that time has been able to be successfully discharged on those visits. Today she states that she has been taking her albuterol inhalers at home and is continued on steroids as an outpatient without any improvement. She states that when her symptoms became extreme tonight she contacted EMS to bring her to the hospital. She notes that this feels more severe than her last presentations to the emergency department that allowed her to be discharged home. Nothing seems to improve or worsen her symptoms. She has not seen a primary care doctor yet regarding today 's concerns. She denies any associated fever, vomiting, chest pain, or passing out. No vaginal bleeding or discharge. TRAVEL OUTSIDE OF THE [place] IN LAST 30 DAYS: No - Related Data Allergies/Adverse Reactions: No Known Allergies Allergy (Verified 06/27/17 17:57) Past Medical History - General Information source: Patient - Social History Smoking Status: Never Smoker Frequency of alcohol use: None Drug Abuse: None Lives with: Family Family History: Arthritis, Hypertension Patient has suicidal ideation: No Patient has homicidal ideation: No - Past Medical History Cardiac Medical History: Denies: Hx Congestive Heart Failure, Hx Coronary Artery Disease, Hx Heart Attack, Hx Hypertension Pulmonary Medical History: Reports: Hx Asthma - As a child according to Mom, was intubated for asthma exacerbation May 2017 Denies: Hx Bronchitis, Hx COPD, Hx Pneumonia, Hx Tuberculosis Neurological Medical History: Denies: Hx Cerebrovascular Accident, Hx Migraine, Hx Seizures Endocrine Medical History: Denies: Hx Diabetes Mellitus Type 1 Renal/ Medical History: Denies: Hx End Stage Renal Disease, Hx Kidney Stones, Hx Peritoneal Dialysis GI Medical History: Reports: Hx Gastroesophageal Reflux Disease. Denies: Hx Cirrhosis, Hx Crohn's Disease, Hx Ulcer, Hx Ulcerative Colitis Musculoskeltal Medical History: Denies Hx Arthritis, Denies Hx Gout, Denies Hx Multiple Sclerosis Skin Medical History: Denies Hx Psoriasis Psychiatric Medical History: Denies: Hx Bipolar Disorder, Hx Depression, Hx Schizophrenia Traumatic Medical History: Reports: Hx Fractures - ankle. Denies: Hx Traumatic Brain Injury Past Surgical History: Reports: Hx Cholecystectomy - 4 months ago, Hx Oral Surgery, Hx Orthopedic Surgery - ACl R knee L ankle - Immunizations Hx Diphtheria, Pertussis, Tetanus Vaccination: Yes Review of Systems - Review of Systems Notes: Constitutional: Negative for fever. HENT: Negative for sore throat. Eyes: Negative for visual changes. Cardiovascular: Negative for chest pain. Respiratory: Positive for shortness of breath. Gastrointestinal: Negative for abdominal pain, vomiting or diarrhea. Genitourinary: Negative for dysuria. Musculoskeletal: Negative for back pain. Skin: Negative for rash. Neurological: Negative for headaches, weakness or numbness. 10 point ROS negative except as marked above and in HPI. Physical Exam - Vital signs Vitals: Temp Pulse Resp BP Pulse Ox 98.5 F 80 18 118/68 98 07/09/17 19:07 07/09/17 19:07 07/09/17 19:07 07/09/17 19:07 07/09/17 19:07 Interpretation: Tachycardic, Tachypneic Notes: PHYSICAL EXAMINATION: GENERAL: Appears very uncomfortable, in moderate respiratory distress HEAD: Atraumatic, normocephalic. EYES: Pupils equal round and reactive to light, extraocular movements intact, sclera anicteric, conjunctiva are normal. ENT: nares patent, oropharynx clear without exudates. Moderately dry mucous membranes. NECK: Normal range of motion, supple without lymphadenopathy LUNGS: No air movement at the bases bilaterally. Coarse air movements with associated expiratory wheezing in the bilateral upper lung giang. Moderate respiratory distress with tachypnea, initial respiratory rate 32 breaths per minute. Patient is leaning forward in a tripod position HEART: Regular tachycardia without murmurs ABDOMEN: Soft, nontender, normoactive bowel sounds. No guarding, no rebound. No masses appreciated. EXTREMITIES: Normal range of motion, no pitting or edema. No cyanosis. NEUROLOGICAL: No focal neurological deficits. Moves all extremities spontaneously and on command. PSYCH: Moderately anxious SKIN: Warm, Dry, normal turgor, no rashes or lesions noted. Course - Re-evaluation Re-evalutation: 07/09/17 22:59 Patient presents after having been in triage for quite some time in obvious respiratory distress. She is breathing 32 times per minute, retracting, and a tripod position. I have assessed this patient on 2 prior occasions and she is known to me. She medically context of a and has actually been intubated in the past 2 months for her asthma. She received 2 duo nebulizers prior to my assessment and continues to be in distress. Immediately upon my assessment she was started on continuous nebulizers, and IV has been established and 2 g of magnesium will be infused over 20 minutes. Will also begin IV Solu-Medrol. Patient was placed on continuous telemetry. Basic laboratories including a blood gas will be sent. Patient will be reassessed frequently given her work of breathing and overall clinical appearance. She is critically ill at this time. 07/10/17 00:12 Patient continues to have very poor air movement at the bases bilaterally, continues to be tachypneic with respiratory rates in the upper 20s. Will place on BiPAP. Currently saturating 97% on room air. Labs do not show any evidence of an acidosis. Patient will require hospitalization and remains critically ill at this time. 07/10/17 01:35 Patient did have difficulty tolerating BiPAP secondary to anxiety but this was remedied with a dose of Ativan. Work of breathing is now improved. ABG continues to be reassuring. I discussed this case with Dr. Jeramy Grady who has agreed to hospitalize the patient - Vital Signs Vital signs: Temp Pulse Resp BP Pulse Ox 98.5 F 80 26 H 142/73 H 100 07/09/17 19:07 07/09/17 19:44 07/10/17 00:05 07/10/17 00:05 07/10/17 00:05 - Laboratory Result Diagrams: 07/09/17 23:20 07/09/17 23:20 Laboratory results interpreted by me: 07/09/17 07/09/17 07/10/17 23:20 23:20 00:35 WBC 11.6 H RDW 14.7 H ABG pO2 72.1 L Sodium 135.6 L Critical Care Note - Critical Care Note Total time excluding time spent on procedures (mins): 37 Comments: Critical care time spent obtaining history from patient or surrogate, discussions with consultants, development of treatment plan with patient or surrogate, evaluation of patient's response to treatment, examination of patient , ordering and performing treatments and interventions, ordering and review of laboratory studies, re-evaluation of patient's condition, ordering and review of radiographic studies and review of old charts Discharge - Discharge Clinical Impression: Respiratory distress Reactive airway disease with acute exacerbation Qualifiers: Asthma severity: moderate Asthma persistence: persistent Qualified Code(s): J45.41 - Moderate persistent asthma with (acute) exacerbation Condition: Fair Disposition: ADMITTED INPATIENT [facility] Admitted: Telemetry
[2017-07-09] MEDS: MAGNESIUM SULFATE/D5W 1 GM/100 ML RTUPB IV SCH (23:05)
[2017-07-09] MEDS ORDERED: ONDANSETRON HCL INJ/PF 4 MG/2 ML SDV ONE (23:08)
[2017-07-09 23:30] LABS: ABSOLUTE BASOPHILS # (AUTO) 0.1 10^3/uL (0.0-0.2); ABSOLUTE EOSINOPHILS # (AUTO) 0.3 10^3/uL (0.0-0.6); ABSOLUTE LYMPHOCYTES (AUTO) 2.3 10^3/uL (0.5-4.7); ABSOLUTE MONOCYTES (AUTO) 0.7 10^3/uL (0.1-1.4); ABSOLUTE NEUT (AUTO) 8.2 10^3/uL (1.7-8.2); BASOPHILS % (AUTO) 0.8 % (0-2); EOSINOPHILS % (AUTO) 2.7 % (0-6); HEMATOCRIT 39.4 % (36.0-47.0); HEMOGLOBIN 13.2 g/dL (12.0-15.5); LYMPHOCYTES % (AUTO) 20.1 % (13-45); MEAN CORPUSCULAR HGB CONC 33.6 g/dL (32.0-36.0); MEAN CORPUSCULAR VOLUME 86 fl (80-97); MONOCYTES % (AUTO) 5.9 % (3-13); PLATELET COUNT 229 10^3/uL (150-450); RED BLOOD COUNT 4.56 10^6/uL (3.72-5.28); RED CELL DISTRIBUTION WIDTH 14.7 % (11.5-14.0); SEGMENTED NEUTROPHILS % (AUTO) 70.5 % (42-78); TOTAL CELLS COUNTED % (AUTO) 100 %; WHITE BLOOD COUNT 11.6 10^3/uL (4.0-10.5)
[2017-07-09 23:48] LABS: VENOUS BLOOD BASE EXCESS -1.6 mmol/L; VENOUS BLOOD PCO2 53.5 mmHg (35-63); VENOUS BLOOD PH 7.31 (7.30-7.42)
[2017-07-09 23:50] LABS: ANION GAP 9 (5-19); BLOOD UREA NITROGEN 11 mg/dL (7-20); CARBON DIOXIDE 23 mmol/L (22-30); CHLORIDE 104 mmol/L (98-107); GLUCOSE 99 mg/dL (75-110); POTASSIUM 3.8 mmol/L (3.6-5.0); SODIUM 135.6 mmol/L (137-145)
[2017-07-10] MEDS ORDERED: LORAZEPAM INJ 2 MG/1 ML VIAL IV ONE (00:29)
[2017-07-10] MEDS ORDERED: CHLORPHENIRAMINE MALEATE 4 MG TABLET PO ONE (00:31)
[2017-07-10] MEDS ORDERED: HYDRALAZINE HCL INJ/PF 20 MG/1 ML SDV IV PRN (00:31)
[2017-07-10] MEDS ORDERED: IPRATROPIUM/ALBUTEROL 0.5-2.5 MG/3 ML AMPUL NEB PRN (00:33)
[2017-07-10] MEDS ORDERED: MAG HYDROX/AL HYDROX/SIMETH SUSP 30 ML UDCUP PO PRN (00:33)
[2017-07-10] MEDS ORDERED: ACETAMINOPHEN 650 MG SUPP.RECT PR PRN (00:33)
[2017-07-10] MEDS: MAGNESIUM SULFATE/D5W 1 GM/100 ML RTUPB IV SCH (00:35)
[2017-07-10] MEDS ORDERED: FLUTICASONE NASAL SPRAY 50 MCG/SPRY 120 SPRAY/16 GM NASL ONE ×2 (00:45→11:30)
[2017-07-10 01:18] LABS: ARTERIAL BLOOD BASE EXCESS -3.5 mmol/L; ARTERIAL BLOOD FIO2 ROOM AIR; ARTERIAL BLOOD H2CO3 1.06 mmol/L (1.05-1.35); ARTERIAL BLOOD HCO3 20.8 mmol/L (20-26); ARTERIAL BLOOD O2 SATURATION 94.5 % (94-98); ARTERIAL BLOOD PCO2 35.1 mmHg (35-45); ARTERIAL BLOOD PH 7.39 (7.35-7.45); ARTERIAL BLOOD PO2 72.1 mmHg (80-100); ARTERIAL BLOOD TOTAL CO2 21.8 mmol/L (21-25)
[2017-07-10] MEDS: IPRATROPIUM/ALBUTEROL 0.5-2.5 MG/3 ML AMPUL NEB SCH ×4 (02:06→20:16)
[2017-07-10] MEDS ORDERED: CHLORPHENIRAMINE MALEATE 4 MG TABLET ONE (03:33)
[2017-07-10] MEDS ORDERED: FLUTICASONE NASAL SPRAY 50 MCG/SPRY 120 SPRAY/16 GM ONE (03:34)
[2017-07-10 06:04] LABS: HEMATOCRIT 37.7 % (36.0-47.0); HEMOGLOBIN 12.6 g/dL (12.0-15.5); MEAN CORPUSCULAR HEMOGLOBIN 28.8 pg (27.0-33.4); MEAN CORPUSCULAR HGB CONC 33.5 g/dL (32.0-36.0); MEAN CORPUSCULAR VOLUME 86 fl (80-97); PLATELET COUNT 222 10^3/uL (150-450); RED BLOOD COUNT 4.38 10^6/uL (3.72-5.28); RED CELL DISTRIBUTION WIDTH 14.2 % (11.5-14.0); WHITE BLOOD COUNT 14.6 10^3/uL (4.0-10.5)
--- NOTE | 2017-07-10 06:22 | PDOC H&P ---
History of Present Illness Admission Date/PCP: 07/10/17 01:49 Patient complains of: Shortness of breath History of Present Illness: CAYLA NOLASCO is a 26 year old female with a past medical history of morbid obesity with a BMI of 50, asthma with recent hospitalization requiring intubation 1 month ago and at 20 weeks gestation. Patient presents with 24 hours of exceptional shortness of breath, nonproductive cough and wheeze unable to speak in full sentences prompting evaluation in the emergency room. She is found to have global wheeze and paroxysms of cough with speech, desaturating into the 80s on room air. Imaging and biochemistry is unremarkable. She receives albuterol, magnesium, lorazepam, Solu-Medrol and is referred to the hospitalist for admission. Denies chest pain or palpitations, infectious contacts, known triggers of asthma, rhinorrhea, GERD or change of medications. Past Medical History Cardiac Medical History: Denies: Congestive Heart Failure, Coronary Artery Disease, Myocardial Infarction, Hypertension Pulmonary Medical History: Reports: Asthma - As a child according to Mom, was intubated for asthma exacerbation May 2017 Denies: Bronchitis, Chronic Obstructive Pulmonary Disease (COPD), Pneumonia, Tuberculosis Neurological Medical History: Denies: Migraine, Seizures Endocrine Medical History: Denies: Diabetes Mellitus Type 1 Renal/ Medical History: Denies: End Stage Renal Disease GI Medical History: Reports: Gastroesophageal Reflux Disease Denies: Cirrhosis, Crohn's Disease, Ulcerative Colitis Musculoskeltal Medical History: Denies: Arthritis, Gout Skin Medical History: Denies: Psoriasis Psychiatric Medical History: Denies: Bipolar Disorder, Depression Traumatic Medical History: Denies: Traumatic Brain Injury Hematology: Denies: Anemia, Bleeding Tendencies Past Surgical History Past Surgical History: Reports: Cholecystectomy - 4 months ago, Orthopedic Surgery - A[facility] R knee L ankle Social History Information Source: Patient, [facility] Records Lives with: Family Smoking Status: Never Smoker Frequency of Alcohol Use: None Hx Recreational Drug Use: No Drugs: None Hx Prescription Drug Abuse: No - Advance Directive Resuscitation Status: Full Code Family History Family History: Arthritis, Hypertension Parental Family History Reviewed: Yes Children Family History Reviewed: Yes Sibling(s) Family History Reviewed.: Yes Medication/Allergy Home Medications: Vit/Iron Fum/Folic AC [ Tablet] 1 each PO DAILY 01/15/17 Albuterol Sulfate [Proair HFA Inhalation Aerosol 8.5 gm MDI] 1 puff IH Q4 PRN # 1 mdi 06/05/17 Budesonide/Formoterol Fumarate [Symbicort HFA 80-4.5 mcg Inhaler 6.9 gm] 2 puff IH Q12 #1 inhaler 06/05/17 Montelukast Sodium [Singulair 10 mg Tablet] 10 mg PO QHS #1 tablet 06/05/17 Prednisone [Deltasone 20 mg Tablet] 40 mg PO DAILY #15 tablet 06/05/17 Tiotropium [place] [Spiriva Handihaler 5 Cap/Kit (18 Mcg/Cap)] 1 cap IH DAILY # 1 kit 06/05/17 Benzonatate [Tessalon Perles 100 mg Capsule] 100 mg PO Q8HP PRN #40 capsule Prednisone [Deltasone 20 mg Tablet] 3 tab PO DAILY 5 Days tablet 06/20/17 Albuterol Sulfate [Proair HFA Inhalation Aerosol 8.5 gm MDI] 2 puff IH Q4H PRN # 1 mdi 06/27/17 Prednisone [Deltasone 10 mg Tablet] 10 mg PO ASDIR PRN #21 tablet 06/27/17 Prednisone [Deltasone 10 mg Tablet] 10 mg PO ASDIR PRN #21 tablet 06/27/17 Tiotropium [place] [Spiriva Handihaler 18 mcg/dose (30 Dose)] 1 cap IH DAILY # 30 capsule 06/27/17 Allergies/Adverse Reactions: No Known Allergies Allergy (Verified 06/27/17 17:57) Review of Systems Constitutional: ABSENT: chills, fever(s), headache(s), weight gain, weight loss Eyes: ABSENT: visual disturbances Ears: ABSENT: hearing changes Cardiovascular: ABSENT: chest pain, dyspnea on exertion, edema, orthropnea, palpitations Respiratory: ABSENT: cough, hemoptysis Gastrointestinal: ABSENT: abdominal pain, constipation, diarrhea, hematemesis, hematochezia, nausea, vomiting Genitourinary: ABSENT: dysuria, hematuria Musculoskeletal: ABSENT: joint swelling Integumentary: ABSENT: rash, wounds Neurological: ABSENT: abnormal gait, abnormal speech, confusion, dizziness, focal weakness, syncope Psychiatric: ABSENT: anxiety, depression, homidical ideation, suicidal ideation Endocrine: ABSENT: cold intolerance, heat intolerance, polydipsia, polyuria Hematologic/Lymphatic: ABSENT: easy bleeding, easy bruising Physical Exam Vital Signs: Temp Pulse Resp BP Pulse Ox 98.5 F 80 21 H 124/75 97 07/09/17 19:07 07/09/17 19:44 07/10/17 06:01 07/10/17 06:01 07/10/17 06:01 General appearance: PRESENT: cooperative, morbidly obese, severe distress Head exam: PRESENT: atraumatic, normocephalic Eye exam: PRESENT: conjunctiva pink, EOMI, PERRLA. ABSENT: scleral icterus Ear exam: PRESENT: normal external ear exam Mouth exam: PRESENT: moist, tongue midline Neck exam: ABSENT: carotid bruit, JVD, lymphadenopathy, thyromegaly Respiratory exam: PRESENT: accessory muscle use, decreased breath sounds, retraction, symmetrical, tachypnea, wheezes. ABSENT: chest wall tenderness, rhonchi, stridor Cardiovascular exam: PRESENT: RRR. ABSENT: diastolic murmur, rubs, systolic murmur Pulses: PRESENT: normal dorsalis pedis pul Vascular exam: PRESENT: normal capillary refill GI/Abdominal exam: PRESENT: normal bowel sounds, soft. ABSENT: distended, guarding, mass, organolmegaly, rebound, tenderness Rectal exam: PRESENT: deferred Extremities exam: PRESENT: full ROM. ABSENT: calf tenderness, clubbing, pedal edema Neurological exam: PRESENT: alert, awake, oriented to person, oriented to place , oriented to time, oriented to situation, CN II-XII grossly intact. ABSENT: motor sensory deficit Psychiatric exam: PRESENT: appropriate affect, normal mood. ABSENT: homicidal ideation, suicidal ideation Skin exam: PRESENT: dry, intact, warm. ABSENT: cyanosis, rash Assessment & Plan - Diagnosis (1) Reactive airway disease with acute exacerbation Qualifiers: Asthma severity: moderate Asthma persistence: persistent Qualified Code(s ): J45.41 - Moderate persistent asthma with (acute) exacerbation Is this a current diagnosis for this admission?: Yes Plan: IMCU admission, BiPAP, albuterol, steroids and supportive care. Concern for possible asymptomatic acid reflux with micro aspiration given body habitus and . IV Pepcid ordered (2) Morbid obesity Is this a current diagnosis for this admission?: Yes Plan: Consider TSH and dietitian consult (3) Intrauterine Is this a current diagnosis for this admission?: Yes Plan: Discrepancy between patient and records regarding gestational age. Complicated by the above. TUBE CLEANING OPERATOR consulted. - Time Time Spent: 50 to 70 Minutes - Inpatient Certification Medical Necessity: Need Close Monitoring Due to Risk of Patient Decompensation
[2017-07-10 06:42] LABS: ABSOLUTE LYMPHOCYTES# (MANUAL) 0.7 10^3/uL (0.5-4.7); ABSOLUTE MONOCYTES # (MANUAL) 0.6 10^3/uL (0.1-1.4); ABSOLUTE NEUTROPHILS# (MANUAL) 13.3 10^3/uL (1.7-8.2); BASOPHILS % (MANUAL) 0 % (0-2); EOSINOPHILS % (MANUAL) 0 % (0-6); LYMPHOCYTES % (MANUAL) 5 % (13-45); MONOCYTES % (MANUAL) 4 % (3-13); SEGMENTED NEUTROPHILS % (MAN) 91 % (42-78); TOTAL CELLS COUNTED 100
[2017-07-10 06:43] LABS: ANISOCYTOSIS SLIGHT; OVALOCYTES SLIGHT; PLATELET COMMENT ADEQUATE; POIKILOCYTOSIS SLIGHT
[2017-07-10] MEDS: HEPARIN SOD (PORCINE) 5,000 UNIT/ML 1 ML SYRINGE SUBCUT SCH ×3 (06:43→22:20)
--- NOTE | 2017-07-10 09:42 | PDOC PROGRESS REPORT ---
Subjective Progress Note for:: 07/10/17 Subjective:: Patient is doing a lot better today she is off bipap and oxygenating adequately on room air No fever no chills she has no chest pain Reason For Visit: ASTHMA EXACERBATION, GERD, 17 WKS GEST Physical Exam Vital Signs: Temp Pulse Resp BP Pulse Ox 98.5 F 99 22 H 139/76 H 99 07/09/17 19:07 07/10/17 07:35 07/10/17 08:01 07/10/17 08:01 07/10/17 08:01 General appearance: PRESENT: no acute distress Head exam: PRESENT: atraumatic, normocephalic Eye exam: PRESENT: conjunctiva pink, EOMI, PERRLA. ABSENT: scleral icterus Respiratory exam: PRESENT: tachypnea, unlabored. ABSENT: accessory muscle use, chest wall tenderness Cardiovascular exam: PRESENT: tachycardia Vascular exam: PRESENT: normal capillary refill GI/Abdominal exam: PRESENT: normal bowel sounds, soft. ABSENT: distended, guarding, mass, organolmegaly, rebound, tenderness Extremities exam: PRESENT: full ROM. ABSENT: calf tenderness, clubbing, pedal edema Results Laboratory Results: 07/10/17 05:45 07/10/17 05:45 WBC 14.6 H RBC 4.38 Hgb 12.6 Hct 37.7 MCV 86 MCH 28.8 MCHC 33.5 RDW 14.2 H Plt Count 222 Seg Neutrophils % Not Reportable Lymphocytes % Not Reportable Monocytes % Not Reportable Eosinophils % Not Reportable Basophils % Not Reportable Absolute Neutrophils Not Reportable Absolute Lymphocytes Not Reportable Absolute Monocytes Not Reportable Absolute Eosinophils Not Reportable Absolute Basophils Not Reportable Assessment & Plan - Diagnosis (1) Intrauterine Is this a current diagnosis for this admission?: Yes (2) Asthma with acute exacerbation Qualifiers: Asthma severity: severe Is this a current diagnosis for this admission?: Yes - Time Time Spent with patient: Patient is improving We will continue the present management continue steroids Continue nebs will get OB consult Time Spent with patient: 25-34 minutes
[2017-07-10] MEDS: DOCUSATE SODIUM 100 MG CAPSULE PO SCH ×2 (10:33→18:45)
[2017-07-10] MEDS: FLUTICASONE NASAL SPRAY 50 MCG/SPRY 120 SPRAY/16 GM NASL SCH ×2 (10:33→22:23)
[2017-07-10] MEDS ORDERED: METHYLPREDNISOLONE INJ 125 MG/2 ML SDV IV ONE (11:00)
[2017-07-10] MEDS: AMOXICILLIN TRIHYDRATE 500 MG CAPSULE PO SCH ×2 (14:29→22:21)
--- NOTE | 2017-07-10 18:21 | RADIOLOGY REPORT (SQ) ---
EXAM DESCRIPTION: U/S OB 14+ TA/1 GEST W/DOPPLER COMPLETED DATE/TIME: 07/10/2017 6:06 pm REASON FOR STUDY: COMPARISON: 06/05/2017 TECHNIQUE: Static and Dynamic grayscale imaging performed of gravid uterus using transabdominal appr oach. Additional selected color Doppler and spectral images recorded. All stored on PACS. LIMITATIONS: Body wall acoustics. FINDINGS: EGA: 19 weeks 2 days CARLOS: 12/02/2017 EFW: 266 grams PERCENTILE: Not applicable. Fetus less than or equal to 20 weeks gestation. MARTA: Adequate amount. PLACENTA: Posterior PRESENTATION: Cephalic. ANATOMY: HEART RATE: 158 beats per minute. FOUR CHAMBER HEART: Visualized. THREE VESSEL CORD: Yes. CORD INSERTION: Visualized. KIDNEYS AND BLADDER: Visualized. Appear normal. STOMACH: Visualized. Appears normal. SPINE: Normal as visualized. BRAIN AND LATERAL VENTRICLES: Visualized. Appear normal. OTHER: No other significant finding. MATERNAL ADNEXA: Maternal ovaries not visualized. CERVICAL LENGTH: 3.3 cm Closed. OTHER: No other significant finding. IMPRESSION: LIVING INTRAUTERINE . ESTIMATED GESTATIONAL AGE 19 WEEKS 2 DAYS NO VISUALIZED ANOMALIES. Trimester of : Second trimester - 13 weeks 1 day to 27 weeks 6 days. TECHNICAL DOCUMENTATION: JOB ID: [id number] [employer]- All Rights Reserved
[2017-07-10] MEDS: METHYLPREDNISOLONE INJ 125 MG/2 ML SDV IV SCH (18:45)
--- NOTE | 2017-07-10 22:16 | PDOC CONSULTATION ---
Consultation Consult Date: 07/10/17 Attending physician:: SPARKLE CHADWICK Consult reason:: History of Present Illness Admission Date/PCP: 07/10/17 01:49 Patient complains of: SOB, History of Present Illness: CAYLA NOLASCO is a 26 year old at 19+3ega by US done on 06/05 (on was 14+4ega with CARLOS 11/30/2017) with a past medical history of morbid obesity with a BMI of 50, asthma with recent hospitalization requiring intubation 1 month ago. . Patient presented with 24 hours of exertional shortness of breath, nonproductive cough and wheeze unable to speak in full sentences prompting evaluation in the emergency room. She is found to have global wheeze and paroxysms of cough with speech, desaturating into the 80s on room air. Imaging and biochemistry is unremarkable. She received albuterol, magnesium, lorazepam, Solu-Medrol and was admitted to the hospitalist for admission. Denies chest pain or palpitations, infectious contacts, known triggers of asthma, rhinorrhea, GERD or change of medications. She denies abd pain/VB/LOF, unable to feel FM yet. Pt reports has medicaid already - she had US at [facility] at approx 8wks - not available at present. Past Medical History Gynecological Infection: No Baby 1 Year: 2,010 Delivery: Spontaneous Vaginal Delivery Baby 2 Year: 2,016 Delivery: Spontaneous Vaginal Delivery Spontaneous Delivery: Other Cardiac Medical History: Denies: Congestive Heart Failure, Coronary Artery Disease, Myocardial Infarction, Hypertension Pulmonary Medical History: Reports: Asthma - As a child according to Mom, was intubated for asthma exacerbation May 2017 Denies: Bronchitis, Chronic Obstructive Pulmonary Disease (COPD), Pneumonia, Tuberculosis Neurological Medical History: Denies: Migraine, Seizures Endocrine Medical History: Denies: Diabetes Mellitus Type 1 Renal/ Medical History: Denies: End Stage Renal Disease GI Medical History: Reports: Gastroesophageal Reflux Disease Denies: Cirrhosis, Crohn's Disease, Ulcerative Colitis Musculoskeltal Medical History: Denies: Arthritis, Gout Skin Medical History: Denies: Psoriasis Psychiatric Medical History: Denies: Bipolar Disorder, Depression Traumatic Medical History: Denies: Traumatic Brain Injury Social History Information Source: Patient Lives with: Family Smoking Status: Never Smoker Frequency of Alcohol Use: None Hx Recreational Drug Use: No Drugs: None Hx Prescription Drug Abuse: No - Advance Directive Resuscitation Status: Full Code Family History Family History: Arthritis, Hypertension Parental Family History Reviewed: No Children Family History Reviewed: NA Sibling(s) Family History Reviewed.: NA Medication/Allergy Home Medications: Albuterol Sulfate [Proair Hfa Inhalation Aerosol 8.5 gm Mdi] 2 puff IH Q4HP PRN 07/10/17 Budesonide/Formoterol Fumarate [Symbicort Hfa 160-4.5 Mcg Inhaler 6 gm] 2 puff IH Q12 07/10/17 Ipratropium/Albuterol Sulfate [Duoneb 3 ml Ampul] 3 ml NEB RTQ6HP PRN 07/10/17 Tiotropium [place] [Spiriva Handihaler 18 mcg/dose (30 Dose)] 1 cap IH DAILY Allergies/Adverse Reactions: No Known Allergies Allergy (Verified 06/27/17 17:57) Review of Systems Constitutional: ABSENT: chills, fever(s), headache(s), weight gain, weight loss Respiratory: PRESENT: dyspnea - improved. ABSENT: cough Gastrointestinal: ABSENT: abdominal pain, constipation, diarrhea, hematemesis, hematochezia, nausea, vomiting Musculoskeletal: ABSENT: joint swelling Integumentary: ABSENT: rash, wounds Neurological: ABSENT: abnormal gait, abnormal speech, confusion, dizziness, focal weakness, syncope Psychiatric: ABSENT: anxiety, depression, homidical ideation, suicidal ideation Endocrine: ABSENT: cold intolerance, heat intolerance, polydipsia, polyuria Hematologic/Lymphatic: ABSENT: easy bleeding, easy bruising Physical Exam - Physical Exam Vital Signs: Temp Pulse Resp BP Pulse Ox 98.2 F 72 16 138/67 H 100 07/10/17 19:40 07/10/17 19:40 07/10/17 19:40 07/10/17 19:40 07/10/17 19:40 Intake & Output 07/09/17 07/10/17 07/11/17 06:59 06:59 06:59 Intake Total 100 Balance 100 General appearance: PRESENT: no acute distress, well-developed, well-nourished Head exam: PRESENT: atraumatic, normocephalic Respiratory exam: PRESENT: decreased breath sounds - bases, symmetrical, unlabored, wheezes - end exp. ABSENT: rales, retraction Cardiovascular exam: PRESENT: RRR. ABSENT: diastolic murmur, rubs, systolic murmur Pulses: PRESENT: normal dorsalis pedis pul, +2 pedal pulses bilateral Vascular exam: PRESENT: normal capillary refill GI/Abdominal exam: PRESENT: normal bowel sounds, soft. ABSENT: distended, guarding, mass, organolmegaly, rebound, tenderness Rectal exam: PRESENT: deferred Extremities exam: PRESENT: full ROM. ABSENT: calf tenderness, clubbing, pedal edema Neurological exam: PRESENT: alert Psychiatric exam: PRESENT: appropriate affect, normal mood. ABSENT: homicidal ideation, suicidal ideation Skin exam: PRESENT: dry, intact, warm. ABSENT: cyanosis, rash Result Laboratory Results: 07/10/17 05:45 07/10/17 05:45 WBC 14.6 H RBC 4.38 Hgb 12.6 Hct 37.7 MCV 86 MCH 28.8 MCHC 33.5 RDW 14.2 H Plt Count 222 Seg Neutrophils % Not Reportable Lymphocytes % Not Reportable Monocytes % Not Reportable Eosinophils % Not Reportable Basophils % Not Reportable Absolute Neutrophils Not Reportable Absolute Lymphocytes Not Reportable Absolute Monocytes Not Reportable Absolute Eosinophils Not Reportable Absolute Basophils Not Reportable Impressions: Obstetrics Ultrasound 07/10/17 13:36 IMPRESSION: LIVING INTRAUTERINE . ESTIMATED GESTATIONAL AGE 19 WEEKS 2 DAYS NO VISUALIZED ANOMALIES. Trimester of : Second trimester - 13 weeks 1 day to 27 weeks 6 days. Assessment & Plan - Diagnosis (1) Reactive airway disease with acute exacerbation Qualifiers: Asthma severity: moderate Asthma persistence: persistent Qualified Code(s ): J45.41 - Moderate persistent asthma with (acute) exacerbation Is this a current diagnosis for this admission?: Yes Plan: manage per primary Team (2) Intrauterine Is this a current diagnosis for this admission?: Yes Plan: 19+3ega and previable. Current meds appear to be safe in . Would recommend pt seek f/u in office at [facility] immediately after discharge to establish care for this . It appears that to date she has not had any care. She will f/u at [facility]. Reassuring FWB today on US. HbA1c ordered. FHT q shift ordered. Incentive Spirometer ordered due to decreased BS in bases. Will follow along as needed. She will need PNV at discharge - please provide at discharge PNV rx. - Time Time Spent: 30 to 50 Minutes Critical Time spent with patient: Less than 15 minutes Medications reviewed and adjusted accordingly: Yes Anticipated discharge: Home Within: Other - per primary team - Inpatient Certification Based on my medical assessment, after consideration of the patient's comorbidities, presenting symptoms, or acuity I expect that the services needed warrant INPATIENT care.: Yes I certify that my determination is in accordance with my understanding of Medicare's requirements for reasonable and necessary INPATIENT services [42 CFR 412.3e].: Yes Medical Necessity: Failure to Improve With Outpatient Therapy, Need Close Monitoring Due to Risk of Patient Decompensation, Need for Nebulizer Therapy and Monitoring of Response Post Hospital Care: D/C Manager Transplant Documentation - Plan Summary Plan Summary: Discharge per primary team
[2017-07-10] MEDS: FLUTICASONE/SALMETEROL DISKUS 250-50 MCG/DOSE IH SCH (22:23)
[2017-07-11] MEDS: METHYLPREDNISOLONE INJ 125 MG/2 ML SDV IV SCH ×2 (02:29→10:23)
[2017-07-11] MEDS: IPRATROPIUM/ALBUTEROL 0.5-2.5 MG/3 ML AMPUL NEB SCH ×3 (02:40→14:53)
[2017-07-11] MEDS: AMOXICILLIN TRIHYDRATE 500 MG CAPSULE PO SCH ×2 (06:08→14:59)
[2017-07-11] MEDS: HEPARIN SOD (PORCINE) 5,000 UNIT/ML 1 ML SYRINGE SUBCUT SCH ×2 (06:09→15:00)
[2017-07-11 07:19] LABS: ABSOLUTE LYMPHOCYTES (AUTO) 1.1 10^3/uL (0.5-4.7); ABSOLUTE MONOCYTES (AUTO) 0.5 10^3/uL (0.1-1.4); ABSOLUTE NEUT (AUTO) 15.9 10^3/uL (1.7-8.2); HEMOGLOBIN 12.2 g/dL (12.0-15.5); LYMPHOCYTES % (AUTO) 6.2 % (13-45); MEAN CORPUSCULAR HEMOGLOBIN 28.9 pg (27.0-33.4); MEAN CORPUSCULAR HGB CONC 33.8 g/dL (32.0-36.0); MEAN CORPUSCULAR VOLUME 85 fl (80-97); MONOCYTES % (AUTO) 2.7 % (3-13); PLATELET COUNT 239 10^3/uL (150-450); RED BLOOD COUNT 4.22 10^6/uL (3.72-5.28); RED CELL DISTRIBUTION WIDTH 14.7 % (11.5-14.0); SEGMENTED NEUTROPHILS % (AUTO) 91.1 % (42-78); TOTAL CELLS COUNTED % (AUTO) 100 %; WHITE BLOOD COUNT 17.5 10^3/uL (4.0-10.5)
--- NOTE | 2017-07-11 10:06 | PDOC PROGRESS REPORT ---
Subjective Progress Note for:: 07/11/17 Subjective:: Pt without complaints. Currently doing neb treatment. No SOB. Denies vaginal bleeding. Nursing reports pt had scant nose bleed that has now resolved. Reason For Visit: ASTHMA EXACERBATION, GERD, 17 WKS GEST Physical Exam - Physical Exam Vital Signs: Temp Pulse Resp BP Pulse Ox 98.2 F 72 16 113/60 97 07/11/17 08:20 07/11/17 08:46 07/11/17 08:46 07/11/17 08:20 07/11/17 08:46 Intake & Output 07/10/17 07/11/17 07/12/17 06:59 06:59 06:59 Intake Total 900 Output Total 1200 Balance -300 Weight 148.3 kg General appearance: PRESENT: no acute distress, cooperative, obese Head exam: PRESENT: atraumatic, normocephalic Respiratory exam: PRESENT: clear to auscultation cuong, unlabored Cardiovascular exam: PRESENT: RRR GI/Abdominal exam: PRESENT: normal bowel sounds, soft Neurological exam: PRESENT: oriented to person, oriented to place, oriented to time, oriented to situation Result Laboratory Results: 07/11/17 06:37 07/11/17 06:37 WBC 17.5 H RBC 4.22 Hgb 12.2 Hct 36.0 MCV 85 MCH 28.9 MCHC 33.8 RDW 14.7 H Plt Count 239 Seg Neutrophils % 91.1 H Lymphocytes % 6.2 L Monocytes % 2.7 L Eosinophils % 0.0 Basophils % 0.0 Absolute Neutrophils 15.9 H Absolute Lymphocytes 1.1 Absolute Monocytes 0.5 Absolute Eosinophils 0.0 Absolute Basophils 0.0 Impressions: Obstetrics Ultrasound 07/10/17 13:36 IMPRESSION: LIVING INTRAUTERINE . ESTIMATED GESTATIONAL AGE 19 WEEKS 2 DAYS NO VISUALIZED ANOMALIES. Trimester of : Second trimester - 13 weeks 1 day to 27 weeks 6 days. Assessment & Plan - Diagnosis (1) Reactive airway disease with acute exacerbation Qualifiers: Asthma severity: moderate Asthma persistence: persistent Qualified Code(s ): J45.41 - Moderate persistent asthma with (acute) exacerbation Is this a current diagnosis for this admission?: Yes Plan: Pt stable. Currently receiving neb treatments. Lungs clear on exam. Primary care per hospitalist. (2) Intrauterine Is this a current diagnosis for this admission?: Yes Plan: No obstetric issues currently. Continue FHTs q shift. (3) Leukocytosis, unspecified Is this a current diagnosis for this admission?: Yes Plan: WBC count trending upward. Pt is currently afebrile and BP, HR are stable. Findings nonspecific at this point but could be due to the asthma exacerbation process, meds. Continue to monitor for any signs of infection.
[2017-07-11] MEDS: FLUTICASONE/SALMETEROL DISKUS 250-50 MCG/DOSE IH SCH (10:24)
[2017-07-11] MEDS: FLUTICASONE NASAL SPRAY 50 MCG/SPRY 120 SPRAY/16 GM NASL SCH (10:25)
[2017-07-11] MEDS: DOCUSATE SODIUM 100 MG CAPSULE PO SCH (10:26)
[2017-07-11 12:40] VITALS: BP 116/53
--- NOTE | 2017-07-11 17:50 | PDOC DISCHARGE SUMMARY ---
General - Admit/Disc Date/PCP Admission Date/Primary Care Provider: 07/10/17 01:49 Discharge Date: 07/11/17 - Discharge Diagnosis (1) Intrauterine Is this a current diagnosis for this admission?: Yes (2) Asthma with acute exacerbation Is this a current diagnosis for this admission?: Yes - Additional Information Resuscitation Status: Full Code Discharge Diet: As Tolerated Discharge Activity: Activity As Tolerated Prescriptions: Amoxicillin Trihydrate [Amoxil 500 mg Capsule] 500 mg PO Q8 #21 capsule Fluticasone Propionate [Flonase Nasal [place] 50 Mcg/[place] 16 gm] 2 spray NASL Q12 30 Days #1 spray.pump Ipratropium/Albuterol Sulfate [Duoneb 3 ml Ampul] 3 ml NEB RTQ6 30 Days #30 vial.neb Prednisone 10 mg PO ASDIR PRN #50 tablet PRN Reason: Home Medications: Albuterol Sulfate [Proair HFA Inhalation Aerosol 8.5 gm MDI] 2 puff IH Q4HP PRN 07/10/17 Budesonide/Formoterol Fumarate [Symbicort HFA 160-4.5 mcg Inhaler 6 gm] 2 puff IH Q12 07/10/17 Tiotropium [place] [Spiriva Handihaler 18 mcg/dose (30 Dose)] 1 cap IH DAILY Amoxicillin Trihydrate [Amoxil 500 mg Capsule] 500 mg PO Q8 #21 capsule Fluticasone Propionate [Flonase Nasal [place] 50 Mcg/[place] 16 gm] 2 spray NASL Q12 30 Days #1 spray.pump 07/11/17 Ipratropium/Albuterol Sulfate [Duoneb 3 ml Ampul] 3 ml NEB RTQ6 30 Days #30 vial.neb 07/11/17 Prednisone 10 mg PO ASDIR PRN #50 tablet 07/11/17 History of Present Illness Patient complains of: SOB History of Present Illness: CAYLA NOLASCO is a 26 year old female with a past medical history of morbid obesity with a BMI of 50, asthma with recent hospitalization requiring intubation 1 month ago and at 20 weeks gestation. Patient presents with 24 hours of exceptional shortness of breath, nonproductive cough and wheeze unable to speak in full sentences prompting evaluation in the emergency room. She is found to have global wheeze and paroxysms of cough with speech, desaturating into the 80s on room air. Imaging and biochemistry is unremarkable. She receives albuterol, magnesium, lorazepam, Solu-Medrol and is referred to the hospitalist for admission. Denies chest pain or palpitations, infectious contacts, known triggers of asthma, rhinorrhea, GERD or change of medications. Hospital Course Hospital Course: (1) Intrauterine Is this a current diagnosis for this admission?: Yes Patient was evaluated by EDUCATION AND DEVELOPMENT MANAGER and was found to have a 19 week intrauterine viable She can be followed at the EDUCATION AND DEVELOPMENT MANAGER clinic (2) Asthma with acute exacerbation Qualifiers: Asthma severity: severe Is this a current diagnosis for this admission?: Yes patient's condition improved within 24 hours she was treated with steroids nebs, antibiotics She was discharged on amoxicillin and prednisone taper Physical Exam Vital Signs: Temp Pulse Resp BP Pulse Ox 98.5 F 70 16 116/53 L 97 07/11/17 15:18 07/11/17 15:18 07/11/17 15:18 07/11/17 15:18 07/11/17 15:18 Intake & Output 07/10/17 07/11/17 07/12/17 00:59 00:59 00:59 Intake Total 100 1040 Output Total 1500 Balance 100 -460 Weight 148.3 kg Results Laboratory Results: 07/11/17 06:37 07/11/17 06:37 WBC 17.5 H RBC 4.22 Hgb 12.2 Hct 36.0 MCV 85 MCH 28.9 MCHC 33.8 RDW 14.7 H Plt Count 239 Seg Neutrophils % 91.1 H Lymphocytes % 6.2 L Monocytes % 2.7 L Eosinophils % 0.0 Basophils % 0.0 Absolute Neutrophils 15.9 H Absolute Lymphocytes 1.1 Absolute Monocytes 0.5 Absolute Eosinophils 0.0 Absolute Basophils 0.0 Impressions: Obstetrics Ultrasound 07/10/17 13:36 IMPRESSION: LIVING INTRAUTERINE . ESTIMATED GESTATIONAL AGE 19 WEEKS 2 DAYS NO VISUALIZED ANOMALIES. Trimester of : Second trimester - 13 weeks 1 day to 27 weeks 6 days.
== END 2017-07-11 16:23 | disposition home or self-care (01) | DRG 781 ==
LOC: ER 18:53 → EH 07-10 01:49 → 2N 07-10 14:50
PROVIDERS: ADMIT Internal Medicine; ATTEND Internal Medicine
PROC: 5A09357 Assistance with Respiratory Ventilation, Less than 24 Consecutive Hours, Continuous Positive Airway Pressure (ICD-10-PCS; principal; 2017-07-10)
PROC: 3E0F73Z Introduction of Anti-inflammatory into Respiratory Tract, Via Natural or Artificial Opening (ICD-10-PCS; 2017-07-11)
DX: O99.512 Diseases of the respiratory system complicating pregnancy, second trimester (principal); J45.41 Moderate persistent asthma with (acute) exacerbation; Z68.43 Body mass index [BMI] 50.0-59.9, adult; O99.212 Obesity complicating pregnancy, second trimester; E66.01 Morbid (severe) obesity due to excess calories; O99.612 Diseases of the digestive system complicating pregnancy, second trimester; K21.9 Gastro-esophageal reflux disease without esophagitis; Z82.61 Family history of arthritis; Z82.49 Family history of ischemic heart disease and other diseases of the circulatory system; Z3A.19 19 weeks gestation of pregnancy; Z79.51 Long term (current) use of inhaled steroids
CPT/HCPCS: 36415; 76805; 80048; 82803; 83036; 85025; 93976; 94640; 94660; 96365; 96375; 99291; J1644; J2060; J2405; J2930; J3475; J3490; J7620

== ENCOUNTER 2017-08-19 21:33 | Outpatient (CLI) | payer MEDICAID ==
[2017-08-19 22:23] LABS: APPEARANCE,URINE SLIGHTLY-CLOUDY; BILIRUBIN,URINE NEGATIVE (NEGATIVE); COLOR,URINE YELLOW; GLUCOSE, URINE NEGATIVE (NEGATIVE); KETONES,URINE TRACE mg/dL (NEGATIVE); LEUKOCYTE ESTERASE,URINE SMALL (NEGATIVE); NITRITE,URINE NEGATIVE (NEGATIVE); PROTEIN,URINE NEGATIVE (NEGATIVE); URINE SPECIFIC GRAVITY 1.033
[2017-08-19 23:00] LABS: URINE AMPHETAMINES SCREEN NEGATIVE; URINE BARBITURATES SCREEN NEGATIVE; URINE BENZODIAZEPINES SCREEN NEGATIVE; URINE COCAINE SCREEN NEGATIVE; URINE MARIJUANA (THC) SCREEN NEGATIVE; URINE METHADONE SCREEN NEGATIVE; URINE PHENCYCLIDINE SCREEN NEGATIVE
== END 2017-08-19 22:49 | disposition home or self-care (01) ==
LOC: ER 21:33 → LC 22:49
PROVIDERS: ATTEND Obstetrics & Gynecology Gynecology
PROC: 4A1HXCZ Monitoring of Products of Conception, Cardiac Rate, External Approach (ICD-10-PCS; principal; 2017-08-19)
DX: O47.02 False labor before 37 completed weeks of gestation, second trimester (principal); Z3A.24 24 weeks gestation of pregnancy
CPT/HCPCS: 80307; 81001

== ENCOUNTER 2017-11-08 20:25 | Outpatient (CLI) | payer MEDICAID | END 2017-11-08 21:11 | disposition home or self-care (01) | LOC: LC 20:25 | PROVIDERS: ATTEND Obstetrics & Gynecology Gynecology | PROC: 4A1HXCZ Monitoring of Products of Conception, Cardiac Rate, External Approach (ICD-10-PCS; principal; 2017-11-08) | DX: Z34.93 Encounter for supervision of normal pregnancy, unspecified, third trimester (principal) | CPT/HCPCS: 59025 ==

== ENCOUNTER 2017-12-11 10:29 | Emergency (ER) | payer MEDICAID ==
[2017-12-11] MEDS ORDERED: ACETAMINOPHEN 325 MG TABLET PO ONE (10:49)
--- NOTE | 2017-12-11 10:51 | ER Document Report ---
ED Medical Screen (RME) - General Chief Complaint: Pelvic Pain Stated Complaint: HEADACHE Time Seen by Provider: 12/11/17 10:37 Mode of Arrival: Ambulatory Information source: Patient Notes: 27 yr old female presents with complaints of headache 5/10 not worst headache of her life as well as some pelvic crmping and spotting 1 month after delivering I have greeted and performed a rapid initial assessment of this patient. A comprehensive ED assessment and evaluation of the patient, analysis of test results and completion of the medical decision making process will be conducted by additional ED providers. PHYSICAL EXAMINATION: GENERAL: Well-appearing, obese and in no acute distress. HEAD: Atraumatic, normocephalic. EYES: Pupils equal round extraocular movements intact, conjunctiva are normal. ENT: Nares patent NECK: Normal range of motion LUNGS: No respiratory distress Musculoskeletal: Normal range of motion NEUROLOGICAL: Normal speech, normal gait. PSYCH: Normal mood, normal affect. SKIN: Warm, Dry, normal turgor, no rashes or lesions noted. TRAVEL OUTSIDE OF THE [place] IN LAST 30 DAYS: No - Related Data Allergies/Adverse Reactions: No Known Allergies Allergy (Verified 08/19/17 22:18) Past Medical History - Social History Chew tobacco use (# tins/day): No Frequency of alcohol use: None Drug Abuse: None - Past Medical History Cardiac Medical History: Denies: Hx Congestive Heart Failure, Hx Coronary Artery Disease, Hx Heart Attack, Hx Hypertension Pulmonary Medical History: Reports: Hx Asthma - As a child according to Mom, was intubated for asthma exacerbation May 2017 Denies: Hx Bronchitis, Hx COPD, Hx Pneumonia, Hx Tuberculosis Neurological Medical History: Denies: Hx Cerebrovascular Accident, Hx Migraine, Hx Seizures Endocrine Medical History: Denies: Hx Diabetes Mellitus Type 1 Renal/ Medical History: Denies: Hx End Stage Renal Disease, Hx Kidney Stones, Hx Peritoneal Dialysis GI Medical History: Reports: Hx Gastroesophageal Reflux Disease. Denies: Hx Cirrhosis, Hx Crohn's Disease, Hx Ulcer, Hx Ulcerative Colitis Musculoskeltal Medical History: Denies Hx Arthritis, Denies Hx Gout, Denies Hx Multiple Sclerosis Skin Medical History: Denies Hx Psoriasis Psychiatric Medical History: Denies: Hx Bipolar Disorder, Hx Depression, Hx Schizophrenia Traumatic Medical History: Reports: Hx Fractures - ankle. Denies: Hx Traumatic Brain Injury Past Surgical History: Reports: Hx Cholecystectomy - 4 months ago, Hx Oral Surgery, Hx Orthopedic Surgery - ACl R knee L ankle - Immunizations Hx Diphtheria, Pertussis, Tetanus Vaccination: Yes History of Influenza Vaccine for 03/2017 - 08/2017 Season: Yes Physical Exam - Vital signs Vitals: Temp Pulse Resp BP Pulse Ox 98.4 F 72 16 129/84 H 98 12/11/17 10:34 12/11/17 10:34 12/11/17 10:34 12/11/17 10:34 12/11/17 10:34 Course - Vital Signs Vital signs: Temp Pulse Resp BP Pulse Ox 98.4 F 72 16 129/84 H 98 12/11/17 10:34 12/11/17 10:34 12/11/17 10:34 12/11/17 10:34 12/11/17 10:34 Doctor's Discharge - Discharge Referrals: NIMCO OCHOA MD [Primary Care Provider] - Follow up as needed
[2017-12-11 11:14] LABS: ABSOLUTE EOSINOPHILS # (AUTO) 0.3 10^3/uL (0.0-0.6); ABSOLUTE MONOCYTES (AUTO) 0.3 10^3/uL (0.1-1.4); ABSOLUTE NEUT (AUTO) 2.4 10^3/uL (1.7-8.2); BASOPHILS % (AUTO) 0.9 % (0-2); HEMATOCRIT 42.6 % (36.0-47.0); HEMOGLOBIN 14.3 g/dL (12.0-15.5); MEAN CORPUSCULAR HEMOGLOBIN 28.4 pg (27.0-33.4); MEAN CORPUSCULAR HGB CONC 33.6 g/dL (32.0-36.0); MEAN CORPUSCULAR VOLUME 84 fl (80-97); MONOCYTES % (AUTO) 6.6 % (3-13); PLATELET COUNT 256 10^3/uL (150-450); RED BLOOD COUNT 5.05 10^6/uL (3.72-5.28); RED CELL DISTRIBUTION WIDTH 14.7 % (11.5-14.0); SEGMENTED NEUTROPHILS % (AUTO) 47.5 % (42-78); TOTAL CELLS COUNTED % (AUTO) 100 %
[2017-12-11 11:27] LABS: ALANINE AMINOTRANSFERASE 34 U/L (9-52); ALBUMIN 3.9 g/dL (3.5-5.0); ALKALINE PHOSPHATASE 65 U/L (38-126); ANION GAP 9 (5-19); ASPARTATE AMINO TRANSFERASE 34 U/L (14-36); BILIRUBIN,DIRECT 0.3 mg/dL (0.0-0.4); BILIRUBIN,TOTAL 0.5 mg/dL (0.2-1.3); BLOOD UREA NITROGEN 14 mg/dL (7-20); CALCIUM 9.5 mg/dL (8.4-10.2); CARBON DIOXIDE 27 mmol/L (22-30); CHLORIDE 106 mmol/L (98-107); GLUCOSE 86 mg/dL (75-110); POTASSIUM 4.1 mmol/L (3.6-5.0); SODIUM 142.4 mmol/L (137-145); TOTAL PROTEIN 6.8 g/dL (6.3-8.2)
[2017-12-11 11:33] LABS: APPEARANCE,URINE SLIGHTLY-CLOUDY; BILIRUBIN,URINE NEGATIVE (NEGATIVE); COLOR,URINE YELLOW; GLUCOSE, URINE NEGATIVE (NEGATIVE); KETONES,URINE NEGATIVE (NEGATIVE); LEUKOCYTE ESTERASE,URINE SMALL (NEGATIVE); NITRITE,URINE NEGATIVE (NEGATIVE); PROTEIN,URINE NEGATIVE (NEGATIVE); URINE SPECIFIC GRAVITY 1.014; UROBILINOGEN,URINE NEGATIVE mg/dL (<2.0)
[2017-12-11] MEDS ORDERED: IBUPROFEN 800 MG TABLET PO ONE (12:05)
--- NOTE | 2017-12-11 13:04 | RADIOLOGY REPORT (SQ) ---
EXAM DESCRIPTION: U/S NON-OB PELVIS LTD W/O DOP COMPLETED DATE/TIME: 12/11/2017 12:55 pm REASON FOR STUDY: 4 weeks , new bleeding and cramping COMPARISON: None. TECHNIQUE: Dynamic and static grayscale images acquired of the pelvis via transabdominal approach an d recorded on PACS. Additional selected color Doppler and spectral images recorded. LIMITATIONS: None. FINDINGS: UTERUS: Contour normal. No mass. ENDOMETRIAL STRIPE: No focal or generalized thickening. No masses. No suggestion of retained product s of conception. CERVIX: 4.1 cm. No nabothian cysts. RIGHT OVARY AND DOPPLER: Ovary not seen. LEFT OVARY AND DOPPLER: Ovary not seen. FREE FLUID: None noted. OTHER: No other significant finding. MEASUREMENTS: UTERUS: 10.4 x 5.3 x 6.9 cm. ENDOMETRIAL STRIPE: 4.5 mm. RIGHT OVARY: Ovary not seen. LEFT OVARY: Ovary not seen. IMPRESSION: NORMAL PELVIC ULTRASOUND BY TRANSABDOMINAL TECHNIQUE. TECHNICAL DOCUMENTATION: JOB ID: [id number]- All Rights Reserved Reading location - IP/workstation name: [email or web address]
--- NOTE | 2017-12-11 13:52 | ER Document Report ---
ED GI/ - General Chief Complaint: Pelvic Pain Stated Complaint: HEADACHE Time Seen by Provider: 12/11/17 10:37 Mode of Arrival: Ambulatory Information source: Patient Notes: Pt is a 27 year old female 4 weeks who presents to the ER today for migraine x 3 days and abdominal cramping, vaginal spotting for 2 days after going back to work at that time. She denies any passage of blood clots. 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 No heavy lifting. She does have a history of migraines. She has been taking tylenol which hasn't been helping. She is . TRAVEL OUTSIDE OF THE [place] IN LAST 30 DAYS: No - Related Data Allergies/Adverse Reactions: No Known Allergies Allergy (Verified 08/19/17 22:18) Past Medical History - General Information source: Patient - Social History Smoking Status: Never Smoker Chew tobacco use (# tins/day): No Frequency of alcohol use: None Drug Abuse: None Family History: Arthritis, Hypertension Patient has suicidal ideation: No Patient has homicidal ideation: No - Past Medical History Cardiac Medical History: Denies: Hx Congestive Heart Failure, Hx Coronary Artery Disease, Hx Heart Attack, Hx Hypertension Pulmonary Medical History: Reports: Hx Asthma - As a child according to Mom, was intubated for asthma exacerbation May 2017 Denies: Hx Bronchitis, Hx COPD, Hx Pneumonia, Hx Tuberculosis Neurological Medical History: Denies: Hx Cerebrovascular Accident, Hx Migraine, Hx Seizures Endocrine Medical History: Denies: Hx Diabetes Mellitus Type 1 Renal/ Medical History: Denies: Hx End Stage Renal Disease, Hx Kidney Stones, Hx Peritoneal Dialysis GI Medical History: Reports: Hx Gastroesophageal Reflux Disease. Denies: Hx Cirrhosis, Hx Crohn's Disease, Hx Ulcer, Hx Ulcerative Colitis Musculoskeltal Medical History: Denies Hx Arthritis, Denies Hx Gout, Denies Hx Multiple Sclerosis Skin Medical History: Denies Hx Psoriasis Psychiatric Medical History: Denies: Hx Bipolar Disorder, Hx Depression, Hx Schizophrenia Traumatic Medical History: Reports: Hx Fractures - ankle. Denies: Hx Traumatic Brain Injury Past Surgical History: Reports: Hx Cholecystectomy - 4 months ago, Hx Oral Surgery, Hx Orthopedic Surgery - ACl R knee L ankle - Immunizations Hx Diphtheria, Pertussis, Tetanus Vaccination: Yes Review of Systems - Review of Systems Constitutional: No symptoms reported EENT: No symptoms reported Cardiovascular: No symptoms reported Respiratory: No symptoms reported Gastrointestinal: No symptoms reported Genitourinary: No symptoms reported Female Genitourinary: See HPI Musculoskeletal: No symptoms reported Skin: No symptoms reported Hematologic/Lymphatic: No symptoms reported Neurological/Psychological: See HPI Physical Exam - Vital signs Vitals: Temp Pulse Resp BP Pulse Ox 98.4 F 72 16 129/84 H 98 12/11/17 10:34 12/11/17 10:34 12/11/17 10:34 12/11/17 10:34 12/11/17 10:34 - Notes Notes: PHYSICAL EXAMINATION: GENERAL: Well-appearing and in no acute distress. HEAD: Atraumatic, normocephalic. EYES: slightly light sensitive, Pupils equal round and reactive to light, extraocular movements intact, sclera anicteric, conjunctiva are normal. NECK: Normal range of motion, supple without lymphadenopathy LUNGS: CTAB and equal. No wheezes rales or rhonchi. HEART: Regular rate and rhythm without murmurs ABDOMEN: Soft, no tenderness. No guarding, no rebound BACK: no vertebral tenderness, normal ROM GI/: no CVA tenderness EXTREMITIES: Normal range of motion, no pitting edema. No cyanosis. NEUROLOGICAL: Cranial nerves grossly intact. Normal sensory/motor exams. PSYCH: Normal mood, normal affect. SKIN: Warm, Dry, normal turgor, no rash Course - Re-evaluation Re-evalutation: 12/11/17 21:54 pt feels better after drinking water and taking motrin 800mg. US reveals no acute pathology. I believe this is normal bleeding after vaginal delivery. I've advised she follow up with OBGYN. She agrees. - Vital Signs Vital signs: Temp Pulse Resp BP Pulse Ox 98.8 F 63 18 113/49 L 99 12/11/17 14:40 12/11/17 14:40 12/11/17 14:40 12/11/17 14:40 12/11/17 14:40 - Laboratory Result Diagrams: 12/11/17 10:50 12/11/17 10:50 Laboratory results interpreted by me: 12/11/17 12/11/17 10:50 10:50 RDW 14.7 H Ur Leukocyte Esterase SMALL H Discharge - Discharge Clinical Impression: vaginal bleeding Migraine Qualifiers: Migraine type: unspecified Status migrainosus presence: without status migrainosus Intractability: not intractable Qualified Code(s): G43.909 - Migraine, unspecified, not intractable, without status migrainosus Condition: Stable Disposition: HOME, SELF-CARE Additional Instructions: Return immediately for any new or worsening symptoms. Follow up with primary care provider, call tomorrow to make followup appointment. Prescriptions: Promethazine HCl [Phenergan 25 mg Tablet] 25 mg PO Q8 PRN #15 tablet PRN Reason: For Headache Or Pain Forms: Return to Work Referrals: NIMCO OCHOA MD [ACTIVE STAFF] - Follow up as needed
[2017-12-11 14:43] VITALS: BP 113/49
== END 2017-12-11 14:43 | disposition home or self-care (01) ==
LOC: ER 10:29
DX: O99.355 Diseases of the nervous system complicating the puerperium (principal); G43.909 Migraine, unspecified, not intractable, without status migrainosus; O72.1 Other immediate postpartum hemorrhage; O90.89 Other complications of the puerperium, not elsewhere classified; R10.9 Unspecified abdominal pain
CPT/HCPCS: 99284; 36415; 85025; 80053; 81001; 76857; J3490 ×2

== ENCOUNTER 2017-12-26 15:43 | Emergency (ER) | payer MEDICAID ==
--- NOTE | 2017-12-26 16:34 | ER Document Report ---
ED Medical Screen (RME) - General Chief Complaint: Post Problem Stated Complaint: BODY PAIN Time Seen by Provider: 12/26/17 16:32 Notes: The patient is a 27-year-old female, , 6 weeks from spontaneous vaginal delivery, presents with diffuse body aches and pain in her vagina and buttocks. She went back to work after 3 weeks and thinks this was too early. She is not having any thoughts of depression or thoughts of hurting herself or the baby. PE: NAD. Abdomen soft and non-tender. I have greeted and performed a rapid initial assessment of this patient. A comprehensive ED assessment and evaluation of the patient, analysis of test results and completion of the medical decision making process will be conducted by additional ED providers. TRAVEL OUTSIDE OF THE [place] IN LAST 30 DAYS: No - Related Data Allergies/Adverse Reactions: No Known Allergies Allergy (Verified 12/26/17 15:45) Past Medical History - Past Medical History Cardiac Medical History: Denies: Hx Congestive Heart Failure, Hx Coronary Artery Disease, Hx Heart Attack, Hx Hypertension Pulmonary Medical History: Reports: Hx Asthma - As a child according to Mom, was intubated for asthma exacerbation May 2017 Denies: Hx Bronchitis, Hx COPD, Hx Pneumonia, Hx Tuberculosis Neurological Medical History: Denies: Hx Cerebrovascular Accident, Hx Migraine, Hx Seizures Endocrine Medical History: Denies: Hx Diabetes Mellitus Type 1 Renal/ Medical History: Denies: Hx End Stage Renal Disease, Hx Kidney Stones, Hx Peritoneal Dialysis GI Medical History: Reports: Hx Gastroesophageal Reflux Disease. Denies: Hx Cirrhosis, Hx Crohn's Disease, Hx Ulcer, Hx Ulcerative Colitis Musculoskeltal Medical History: Denies Hx Arthritis, Denies Hx Gout, Denies Hx Multiple Sclerosis Skin Medical History: Denies Hx Psoriasis Psychiatric Medical History: Denies: Hx Bipolar Disorder, Hx Depression, Hx Schizophrenia Traumatic Medical History: Reports: Hx Fractures - ankle. Denies: Hx Traumatic Brain Injury Past Surgical History: Reports: Hx Cholecystectomy - 4 months ago, Hx Oral Surgery, Hx Orthopedic Surgery - ACl R knee L ankle - Immunizations Hx Diphtheria, Pertussis, Tetanus Vaccination: Yes History of Influenza Vaccine for 03/2017 - 08/2017 Season: Yes Physical Exam - Vital signs Vitals: Temp Pulse Resp BP Pulse Ox 98.2 F 63 18 141/73 H 98 12/26/17 16:04 12/26/17 16:04 12/26/17 16:04 12/26/17 16:04 12/26/17 16:04 Course - Vital Signs Vital signs: Temp Pulse Resp BP Pulse Ox 98.2 F 63 18 141/73 H 98 12/26/17 16:04 12/26/17 16:04 12/26/17 16:04 12/26/17 16:04 12/26/17 16:04 Doctor's Discharge - Discharge Referrals: YAEL MCLEAN MD [Primary Care Provider] - Follow up as needed
[2017-12-26 17:02] LABS: APPEARANCE,URINE SLIGHTLY-CLOUDY; BILIRUBIN,URINE NEGATIVE (NEGATIVE); COLOR,URINE YELLOW; GLUCOSE, URINE NEGATIVE (NEGATIVE); KETONES,URINE NEGATIVE (NEGATIVE); LEUKOCYTE ESTERASE,URINE LARGE (NEGATIVE); NITRITE,URINE NEGATIVE (NEGATIVE); PROTEIN,URINE NEGATIVE (NEGATIVE); URINE SPECIFIC GRAVITY 1.016
[2017-12-26 17:04] LABS: ABSOLUTE BASOPHILS # (AUTO) 0.1 10^3/uL (0.0-0.2); ABSOLUTE EOSINOPHILS # (AUTO) 0.3 10^3/uL (0.0-0.6); ABSOLUTE LYMPHOCYTES (AUTO) 2.9 10^3/uL (0.5-4.7); ABSOLUTE MONOCYTES (AUTO) 0.6 10^3/uL (0.1-1.4); ABSOLUTE NEUT (AUTO) 4.6 10^3/uL (1.7-8.2); BASOPHILS % (AUTO) 0.6 % (0-2); EOSINOPHILS % (AUTO) 3.2 % (0-6); HEMATOCRIT 42.6 % (36.0-47.0); HEMOGLOBIN 14.3 g/dL (12.0-15.5); LYMPHOCYTES % (AUTO) 34.3 % (13-45); MEAN CORPUSCULAR HEMOGLOBIN 28.4 pg (27.0-33.4); MEAN CORPUSCULAR HGB CONC 33.5 g/dL (32.0-36.0); MEAN CORPUSCULAR VOLUME 85 fl (80-97); MONOCYTES % (AUTO) 6.8 % (3-13); PLATELET COUNT 229 10^3/uL (150-450); RED BLOOD COUNT 5.02 10^6/uL (3.72-5.28); RED CELL DISTRIBUTION WIDTH 14.4 % (11.5-14.0); SEGMENTED NEUTROPHILS % (AUTO) 55.1 % (42-78); TOTAL CELLS COUNTED % (AUTO) 100 %; WHITE BLOOD COUNT 8.4 10^3/uL (4.0-10.5)
--- NOTE | 2017-12-26 17:19 | ER Document Report ---
ED General - General Chief Complaint: Post Problem Stated Complaint: BODY PAIN Time Seen by Provider: 12/26/17 16:32 Mode of Arrival: Ambulatory Information source: Patient Notes: The patient is a 27-year-old female, , 6 weeks from spontaneous vaginal delivery, presents with plain of abdominal pain, back pain that started this morning. Patient's abdominal pain is diffusely located, described as an aching pain. Patient complaining of low back and buttocks pain that also started today. She denies any aggravating or relieving factors. She denies any fever, chills, nausea, vomiting, chest pain, dysuria, hematuria, vaginal bleeding, vaginal discharge. She went back to work after 3 weeks and thinks this was too early. She is not having any thoughts of depression or thoughts of hurting herself or the baby. Patient has a appointment with her [employer] in 4 days. TRAVEL OUTSIDE OF THE [place] IN LAST 30 DAYS: No - HPI Onset: This morning Onset/Duration: Gradual, Intermittent Quality of pain: Achy Severity: Mild Associated symptoms: Body/muscle aches. denies: Chest pain, Fever, Nausea, Vomiting, Shortness of breath Exacerbated by: Denies Relieved by: Denies Similar symptoms previously: No Recently seen / treated by doctor: Yes - Related Data Allergies/Adverse Reactions: No Known Allergies Allergy (Verified 12/26/17 15:45) Past Medical History - General Information source: Patient - Social History Smoking Status: Never Smoker Chew tobacco use (# tins/day): No Frequency of alcohol use: None Drug Abuse: None Lives with: Family Family History: Arthritis, Hypertension Patient has suicidal ideation: No Patient has homicidal ideation: No - Past Medical History Cardiac Medical History: Denies: Hx Congestive Heart Failure, Hx Coronary Artery Disease, Hx Heart Attack, Hx Hypertension Pulmonary Medical History: Reports: Hx Asthma - As a child according to Mom, was intubated for asthma exacerbation May 2017 Denies: Hx Bronchitis, Hx COPD, Hx Pneumonia, Hx Tuberculosis Neurological Medical History: Denies: Hx Cerebrovascular Accident, Hx Migraine, Hx Seizures Endocrine Medical History: Denies: Hx Diabetes Mellitus Type 1 Renal/ Medical History: Denies: Hx End Stage Renal Disease, Hx Kidney Stones, Hx Peritoneal Dialysis GI Medical History: Reports: Hx Gastroesophageal Reflux Disease. Denies: Hx Cirrhosis, Hx Crohn's Disease, Hx Ulcer, Hx Ulcerative Colitis Musculoskeltal Medical History: Denies Hx Arthritis, Denies Hx Gout, Denies Hx Multiple Sclerosis Skin Medical History: Denies Hx Psoriasis Psychiatric Medical History: Denies: Hx Bipolar Disorder, Hx Depression, Hx Schizophrenia Traumatic Medical History: Reports: Hx Fractures - ankle. Denies: Hx Traumatic Brain Injury Past Surgical History: Reports: Hx Cholecystectomy - 4 months ago, Hx Oral Surgery, Hx Orthopedic Surgery - ACl R knee L ankle - Immunizations Hx Diphtheria, Pertussis, Tetanus Vaccination: Yes Review of Systems - Review of Systems Notes: REVIEW OF SYSTEMS: CONSTITUTIONAL : Denies fever, chills, or sweats. Denies recent illness. Denies weight loss, recent hospitalizations. EENT: Denies visual changes, eye pain. Denies nasal or sinus congestion or discharge. Denies sore throat, oral lesions, difficulty swallowing. CARDIOVASCULAR: Denies chest pain. Denies palpitations. Denies lower extremity edema. RESPIRATORY: Denies cough, cold, or chest congestion. Denies shortness of breath, wheezing. GASTROINTESTINAL: Denies abdominal distention. Denies nausea, vomiting, or diarrhea. Denies blood in vomitus, stools, or per rectum. Denies black, tarry stools. Denies constipation. GENITOURINARY: Denies difficulty urinating, painful urination, frequency, blood in urine, or vaginal discharge. MUSCULOSKELETAL: Denies neck pain or stiffness. Denies joint pain or swelling. SKIN: Denies rash, lesions or sores. HEMATOLOGIC : Denies easy bruising or bleeding. LYMPHATIC: Denies swollen glands. NEUROLOGICAL: Denies confusion or altered mental status. Denies passing out or loss of consciousness. Denies dizziness or lightheadedness. Denies headache. Denies weakness or paralysis. Denies problems difficulty with ambulation, slurred speech. Denies sensory loss, numbness, or tingling. Denies seizures. PSYCHIATRIC: Denies anxiety or stress. Denies depression, suicidal ideation, or homicidal ideation. Denies visual or auditory hallucinations. Physical Exam - Vital signs Vitals: Temp Pulse Resp BP Pulse Ox 98.2 F 63 18 141/73 H 98 12/26/17 16:04 12/26/17 16:04 12/26/17 16:04 12/26/17 16:04 12/26/17 16:04 - Notes Notes: PHYSICAL EXAMINATION: GENERAL: Well-appearing, well-nourished and in no acute distress. HEAD: Atraumatic, normocephalic. EYES: Pupils equal round and reactive to light, extraocular movements intact, conjunctiva are normal. ENT: Nares patent, oropharynx clear without exudates. Moist mucous membranes. NECK: Normal range of motion, supple without lymphadenopathy LUNGS: Breath sounds clear to auscultation bilaterally and equal. No wheezes rales or rhonchi. HEART: Regular rate and rhythm without murmurs ABDOMEN: Soft, nontender, nondistended abdomen. No guarding, no rebound. No masses appreciated. Female : deferred Musculoskeletal: Normal range of motion, no pitting or edema. No cyanosis. NEUROLOGICAL: Cranial nerves grossly intact. Normal speech, normal gait. Normal sensory, motor exams PSYCH: Normal mood, normal affect. SKIN: Warm, Dry, normal turgor, no rashes or lesions noted. Course - Re-evaluation Re-evalutation: 12/26/17 17:25 Laboratory 12/26/17 12/26/17 12/26/17 16:45 16:45 16:45 WBC 8.4 RBC 5.02 Hgb 14.3 Hct 42.6 MCV 85 MCH 28.4 MCHC 33.5 RDW 14.4 H Plt Count 229 Seg Neutrophils % 55.1 Lymphocytes % 34.3 Monocytes % 6.8 Eosinophils % 3.2 Basophils % 0.6 Absolute Neutrophils 4.6 Absolute Lymphocytes 2.9 Absolute Monocytes 0.6 Absolute Eosinophils 0.3 Absolute Basophils 0.1 Sodium 141.0 Potassium 4.1 Chloride 103 Carbon Dioxide 31 H Anion Gap 7 BUN 13 Creatinine 0.89 Est GFR ( Amer) > 60 Est GFR (Non-Af Amer) > 60 Glucose 81 Calcium 9.2 Total Bilirubin 0.5 Direct Bilirubin 0.3 Neonat Total Bilirubin Not Reportable Neonat Direct Bilirubin Not Reportable Neonat Indirect Bili Not Reportable AST 25 ALT 26 Alkaline Phosphatase 64 Creatine Kinase 247 H Total Protein 6.4 Albumin 3.7 Urine Color YELLOW Urine Appearance SLIGHTLY-CLOUDY Urine pH 6.0 Ur Specific [place] 1.016 Urine Protein NEGATIVE Urine Glucose (UA) NEGATIVE Urine Ketones NEGATIVE Urine Blood NEGATIVE Urine Nitrite NEGATIVE Urine Bilirubin NEGATIVE Urine Urobilinogen 2.0 H Ur Leukocyte Esterase LARGE H Urine WBC (Auto) 25 Urine RBC (Auto) 6 Urine Bacteria (Auto) TRACE Squamous Epi Cells Auto 10 Urine Mucus (Auto) RARE Urine Ascorbic Acid 20 H Urine HCG, Qual NEGATIVE 12/26/17 23:45 The patient is a 27-year-old female, , 6 weeks from spontaneous vaginal delivery, presents with plain of abdominal pain, back pain that started this morning. Patient's abdominal pain is diffusely located, described as an aching pain. Patient complaining of low back and buttocks pain that also started today. She denies any aggravating or relieving factors. She denies any fever, chills, nausea, vomiting, chest pain, dysuria, hematuria, vaginal bleeding, vaginal discharge. Patient has not been sexually active since delivery. Patient was seen by myself upon arrival. Vital signs were reviewed. Patient is afebrile, normotensive and not hypoxic. Patient does not appear toxic or dehydrated. They are in no acute distress. Previous medical records and nursing notes reviewed. Significant findings include urinalysis consistent with UTI. Patient was administered Bactrim during her ED course and was discharged home with prescription for Bactrim. Patient provided the opportunity to ask questions, and express concerns. Discharge instructions discussed. Patient is agreeable with discharge home. Return indications explained and discussed with the patient who displays understanding. Patient encouraged to return to the emergency department immediately with any concerns. 12/26/17 23:45 - Vital Signs Vital signs: Temp Pulse Resp BP Pulse Ox 98.2 F 65 16 104/61 99 12/26/17 17:36 12/26/17 17:36 12/26/17 17:36 12/26/17 17:36 12/26/17 17:36 - Laboratory Result Diagrams: 12/26/17 16:45 12/26/17 16:45 Laboratory results interpreted by me: 12/26/17 12/26/17 12/26/17 16:45 16:45 16:45 RDW 14.4 H Carbon Dioxide 31 H Creatine Kinase 247 H Urine Urobilinogen 2.0 H Ur Leukocyte Esterase LARGE H Urine Ascorbic Acid 20 H Discharge - Discharge Clinical Impression: Myalgia UTI (urinary tract infection) Qualifiers: Urinary tract infection type: site unspecified Hematuria presence: without hematuria Qualified Code(s): N39.0 - Urinary tract infection, site not specified Back pain Qualifiers: Back pain location: low back pain Chronicity: acute Back pain laterality: bilateral Sciatica presence: without sciatica Qualified Code(s): M54.5 - Low back pain Condition: Good Disposition: HOME, SELF-CARE Instructions: Trimethoprim-Sulfa ([facility]), Urinary Tract Infection ([facility]) Additional Instructions: Your lab testing shows that you have a urinary tract infection. You will be prescribed Bactrim for this. Please keep your upcoming appointment with your OB /LABOR RELATIONS REPRESENTATIVE so that he can assure that this infection is clearing. Please return to the emergency department if you have any difficulty taking her antibiotics. Follow up with your physician tomorrow for further care or return to the ED IMMEDIATELY if symptoms worsen or new concerns occur. If you cannot afford to follow up with your primary care physician a list of low cost clinics have been provided at the end of your discharge papers as well. Prescriptions: Tramadol HCl [Ultram 50 mg Tablet] 50 mg PO Q6HP PRN #10 tablet PRN Reason: Sulfamethoxazole/Trimethoprim [Bactrim Ds Tablet] 1 each PO BID 5 Days #10 tablet Forms: Return to Work Referrals: YAEL MCLEAN MD [Primary Care Provider] - Follow up as needed
[2017-12-26 17:21] LABS: ALANINE AMINOTRANSFERASE 26 U/L (9-52); ALBUMIN 3.7 g/dL (3.5-5.0); ALKALINE PHOSPHATASE 64 U/L (38-126); ANION GAP 7 (5-19); ASPARTATE AMINO TRANSFERASE 25 U/L (14-36); BILIRUBIN,DIRECT 0.3 mg/dL (0.0-0.4); BILIRUBIN,TOTAL 0.5 mg/dL (0.2-1.3); BLOOD UREA NITROGEN 13 mg/dL (7-20); CALCIUM 9.2 mg/dL (8.4-10.2); CARBON DIOXIDE 31 mmol/L (22-30); CHLORIDE 103 mmol/L (98-107); CREATINE KINASE 247 U/L (30-135); GLUCOSE 81 mg/dL (75-110); POTASSIUM 4.1 mmol/L (3.6-5.0); TOTAL PROTEIN 6.4 g/dL (6.3-8.2)
[2017-12-26] MEDS ORDERED: SULFAMETHOXAZOLE/TRIMETHOPRIM 800-160 MG TABLET PO ONE (17:25)
[2017-12-26 17:39] VITALS: BP 104/61
== END 2017-12-26 17:39 | disposition home or self-care (01) ==
LOC: ER 15:43
DX: O99.89 Other specified diseases and conditions complicating pregnancy, childbirth and the puerperium (principal); O86.20 Urinary tract infection following delivery, unspecified; M79.1 Myalgia; M54.9 Dorsalgia, unspecified
CPT/HCPCS: 99284; 36415; 82550; 85025; 81025; 80053; 81001; J3490

== ENCOUNTER 2018-01-04 12:10 | Emergency (ER) | payer MEDICAID ==
[2018-01-04 12:26] VITALS: BP 111/64
[2018-01-04] MEDS ORDERED: IBUPROFEN 800 MG TABLET PO ONE (13:02)
--- NOTE | 2018-01-04 13:08 | ER Document Report ---
ED Extremity Problem, Lower - General Chief Complaint: Knee Pain Stated Complaint: KNEE PAIN Time Seen by Provider: 01/04/18 12:46 Mode of Arrival: Ambulatory Information source: Patient Notes: 27-year-old female presents to ED for complaint of right knee pain and swelling. She states that she had ACL and cartilage repair in 2008. She states she has had flareups since then. She states she has not been to a doctor because she does not know how to go to. She states she has also had a history of ankle fracture asthma and a gallbladder removal. She is alert and oriented respirations regular and unlabored speaks with full sentences and walks with a limp due to the pain in her knee. TRAVEL OUTSIDE OF THE [place] IN LAST 30 DAYS: No - HPI Patient complains to provider of: Pain, Swelling Location: Knee - Right Occurred: Other - Week Onset/Duration: Gradual, Intermittent Quality of pain: Throbbing Severity: Severe Pain Level: 4 Recent injury: No Associated symptoms: Painful ambulation Exacerbated by: Hanging down, Movement, Walking Relieved by: Nothing - Related Data Allergies/Adverse Reactions: No Known Allergies Allergy (Verified 01/04/18 12:11) Past Medical History - General Information source: Patient - Social History Smoking Status: Never Smoker Cigarette use (# per day): No Chew tobacco use (# tins/day): No Smoking Education Provided: No Frequency of alcohol use: None Drug Abuse: None Occupation: [employer] Lives with: Alone Family History: Arthritis, Hypertension Patient has suicidal ideation: No Patient has homicidal ideation: No - Past Medical History Cardiac Medical History: Reports: None Denies: Hx Congestive Heart Failure, Hx Coronary Artery Disease, Hx Heart Attack, Hx Hypertension Pulmonary Medical History: Reports: Hx Asthma - As a child according to Mom, was intubated for asthma exacerbation May 2017 EENT Medical History: Reports: None Neurological Medical History: Reports: None Endocrine Medical History: Reports: None Renal/ Medical History: Reports: None Malignancy Medical History: Reports: None GI Medical History: Reports: Hx Gastroesophageal Reflux Disease Musculoskeletal Medical History: Reports Hx Musculoskeletal Trauma Skin Medical History: Reports None Psychiatric Medical History: Reports: None Traumatic Medical History: Reports: Hx Fractures - ankle Infectious Medical History: Reports: None Past Surgical History: Reports: Hx Cholecystectomy - 4 months ago, Hx Oral Surgery, Hx Orthopedic Surgery - ACl R knee L ankle - Immunizations Hx Diphtheria, Pertussis, Tetanus Vaccination: Yes Review of Systems - Review of Systems Constitutional: No symptoms reported EENT: No symptoms reported Cardiovascular: No symptoms reported Respiratory: No symptoms reported Gastrointestinal: No symptoms reported Genitourinary: No symptoms reported Female Genitourinary: No symptoms reported Musculoskeletal: Joint pain - Right knee, Joint swelling - Right knee Skin: No symptoms reported Hematologic/Lymphatic: No symptoms reported Neurological/Psychological: No symptoms reported -: Yes All other systems reviewed and negative Physical Exam - Vital signs Vitals: Temp Pulse Resp BP Pulse Ox 98.5 F 59 L 14 111/64 99 01/04/18 12:25 01/04/18 12:25 01/04/18 12:25 01/04/18 12:25 01/04/18 12:25 Interpretation: Normal - General General appearance: Appears well, Alert - HEENT Head: Normocephalic, Atraumatic Eyes: Normal Pupils: PERRL - Respiratory Respiratory status: No respiratory distress Chest status: Nontender Breath sounds: Normal Chest palpation: Normal - Cardiovascular Rhythm: Regular Heart sounds: Normal auscultation Murmur: No - Abdominal Inspection: Normal Distension: No distension Bowel sounds: Normal Tenderness: Nontender Organomegaly: No organomegaly - Back Back: Normal, Nontender - Extremities General upper extremity: Normal inspection, Nontender, Normal color, Normal ROM , Normal temperature General lower extremity: Normal temperature. No: Pat's sign Knee: Tender, Pain with ROM, Patellar tendon intact, Tender joint line. No: Abrasion, Deformity, Dislocation, Drawer's test instability, Ecchymosis, Instability, Laceration, Laxity with valgus stress, Laxity with varus stress, Popliteal fossa tender, Unable to bear weight Ankle: Normal, Nontender Foot: Normal, Nontender - Neurological Neuro grossly intact: Yes Cognition: Normal Orientation: AAOx4 [place] Coma Scale Eye Opening: Spontaneous [place] Coma Scale Verbal: Oriented [place] Coma Scale Motor: Obeys Commands [place] Coma Scale Total: 15 Speech: Normal Motor strength normal: LUE, RUE, LLE, RLE Sensory: Normal - Psychological Associated symptoms: Normal affect, Normal mood - Skin Skin Temperature: Warm Skin Moisture: Dry Skin Color: Normal Course - Re-evaluation Re-evalutation: 01/04/18 22:46 X-rays were discussed with patient and written report of x-rays were given to patient. Patient refused Shamar wrap or crutches. She states she could get a Shamar wrap at home. Patient was instructed to follow-up with primary doctor. Patient instructed to elevate and ice the knee and use ibuprofen for pain. - Vital Signs Vital signs: Temp Pulse Resp BP Pulse Ox 98.2 F 20 L 14 111/64 99 01/04/18 15:18 01/04/18 15:18 01/04/18 15:18 01/04/18 15:18 01/04/18 15:18 - Diagnostic Test Radiology reviewed: Image reviewed, Reports reviewed Discharge - Discharge Clinical Impression: Right knee pain Qualifiers: Chronicity: acute Qualified Code(s): M25.561 - Pain in right knee Condition: Stable Disposition: HOME, SELF-CARE Additional Instructions: You were seen today for right knee pain. Like to have an old injury to this knee. I offered a Shamar wrap and he stated he would put one on at home yourself. If you go to the medical supply store and get one in a hinged knee brace is able probably give you more support. ICE & ELEVATION: Apply ice packs frequently against the painful area. Many different schedules are recommended, such as "20 minutes on, 20 minutes off" or "one hour ice, two hours rest." If you need to work, you may need to go longer between ice treatments. You should plan to have the area ice packed AT LEAST one- fourth of the time. The ice should be applied over the wrap, tape, or splint, or over a layer of cloth -- not directly against the skin. Some ice bags have a built-in cloth and can be put directly on the skin. Your injured part should be elevated as much as possible over the next 48 hours. Try to keep the injury above the level of the heart. Avoid use of the injured area. Elevation and rest will decrease the swelling. USE OF AOTL-FEK-JWVBBGA IBUPROFEN: Ibuprofen (Advil, Nuprin, Medipren, Motrin IB) is a medication for fever and pain control. In addition, it has anti- inflammatory effects which may be beneficial, especially in the treatment of injuries. It's best to take ibuprofen with food. Persons with ulcer disease or allergy to aspirin should notify their physician of this before taking ibuprofen. Ibuprofen can be given every four to six hours, for a total of four doses daily. Age Pain or fever dose Antiinflammatory dose 6-8 yr 200 mg (1 tab) 200 mg (1 tab) 9-11 yr 200 mg (1 tab) 200-400 mg (1-2 tab) 11-14 yr 200-400 mg (1-2 tab) 400 mg (2 tab) 15-adult 400 mg (2 tab) 600 mg (3 tab) FOLLOW-UP CARE: If you have been referred to a physician for follow-up care, call the physician s office for an appointment as you were instructed or within the next two days. If you experience worsening or a significant change in your symptoms, notify the physician immediately or return to the Emergency Department at any time for re-evaluation. Forms: Return to Work Referrals: YAEL MCLEAN MD [Primary Care Provider] - Follow up as needed [facility] [Provider Group] - Follow up as needed
--- NOTE | 2018-01-04 14:38 | RADIOLOGY REPORT (SQ) ---
EXAM DESCRIPTION: KNEE RIGHT 4 VIEWS COMPLETED DATE/TIME: 01/04/2018 1:32 pm REASON FOR STUDY: pain and swelling diffuse right knee pain without known injury, prior ACL repair i n 2009 COMPARISON: 01/29/2016, 07/25/2015 NUMBER OF VIEWS: Four views. TECHNIQUE: AP, lateral, and both oblique radiographic images acquired of the right knee. LIMITATIONS: Nonstandard positioning on lateral view FINDINGS: MINERALIZATION: Normal. BONES: No acute fracture or dislocation. Old screws from ACL reconstruction in the distal femur and proximal tibia. JOINT: No effusion. Medial joint space narrowing with mild bony spurring. SOFT TISSUES: No soft tissue swelling. No radio-opaque foreign body. OTHER: No other significant finding. 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 No acute fracture TECHNICAL DOCUMENTATION: JOB ID: [id number] [employer]- All Rights Reserved Reading location - IP/workstation name: [email or web address]
== END 2018-01-04 15:19 | disposition home or self-care (01) ==
LOC: ER 12:10
DX: M25.561 Pain in right knee (principal); M25.461 Effusion, right knee; Z98.890 Other specified postprocedural states; J45.909 Unspecified asthma, uncomplicated
CPT/HCPCS: 99283; 73564; J3490

== ENCOUNTER 2018-01-13 05:39 | Emergency (ER) | payer MEDICAID ==
--- NOTE | 2018-01-13 07:18 | ER Document Report ---
ED Neck/Back Problem - General Chief Complaint: Back Pain Stated Complaint: BACK PAIN Time Seen by Provider: 01/13/18 07:12 Mode of Arrival: Ambulatory Information source: Patient Notes: Patient is a 27-year-old female who presents to the ER today 2 months for left lower back pain radiating to the back of the left knee. Patient denies any numbness or tingling, loss of bladder or bowel function. She denies any dysuria or hematuria, history of kidney stones. She denies any injury. TRAVEL OUTSIDE OF THE [place] IN LAST 30 DAYS: No - Related Data Allergies/Adverse Reactions: No Known Allergies Allergy (Verified 01/04/18 12:11) Past Medical History - General Information source: Patient - Social History Smoking Status: Unknown if Ever Smoked Family History: Arthritis, Hypertension Patient has suicidal ideation: No Patient has homicidal ideation: No - Past Medical History Cardiac Medical History: Denies: Hx Congestive Heart Failure, Hx Coronary Artery Disease, Hx Heart Attack, Hx Hypertension Pulmonary Medical History: Reports: Hx Asthma - As a child according to Mom, was intubated for asthma exacerbation May 2017 Renal/ Medical History: Denies: Hx Peritoneal Dialysis GI Medical History: Reports: Hx Gastroesophageal Reflux Disease Musculoskeletal Medical History: Reports Hx Musculoskeletal Trauma Traumatic Medical History: Reports: Hx Fractures - ankle Past Surgical History: Reports: Hx Cholecystectomy - 4 months ago, Hx Oral Surgery, Hx Orthopedic Surgery - ACl R knee L ankle - Immunizations Hx Diphtheria, Pertussis, Tetanus Vaccination: Yes Review of Systems - Review of Systems Constitutional: No symptoms reported EENT: No symptoms reported Cardiovascular: No symptoms reported Respiratory: No symptoms reported Gastrointestinal: No symptoms reported Genitourinary: No symptoms reported Female Genitourinary: No symptoms reported Musculoskeletal: See HPI Skin: No symptoms reported Hematologic/Lymphatic: No symptoms reported Neurological/Psychological: No symptoms reported Physical Exam - Vital signs Vitals: Temp Pulse Resp BP Pulse Ox 97.8 F 64 16 124/87 H 97 01/13/18 05:48 01/13/18 05:48 01/13/18 05:48 01/13/18 05:48 01/13/18 05:48 - Notes Notes: Return immediately for any new or worsening symptoms. Follow up with primary care provider, call tomorrow to make followup appointment. Course - Re-evaluation Re-evalutation: 01/13/18 09:22 Urinalysis reveals infection with 89 white blood cells and trace leukocytes. I will treat her with an antibiotic at this time. Patient advised to drink plenty of water. Vital signs are all normal today. Patient is afebrile. - Vital Signs Vital signs: Temp Pulse Resp BP Pulse Ox 97.8 F 64 16 124/87 H 97 01/13/18 05:48 01/13/18 05:48 01/13/18 05:48 01/13/18 05:48 01/13/18 05:48 - Laboratory Laboratory results interpreted by me: 01/13/18 08:17 Urine Protein 30 H Urine Blood LARGE H Ur Leukocyte Esterase TRACE H Discharge - Discharge Clinical Impression: Low back pain Qualifiers: Chronicity: acute Back pain laterality: left Sciatica presence: without sciatica Qualified Code(s): M54.5 - Low back pain Condition: Stable Disposition: HOME, SELF-CARE Additional Instructions: Return immediately for any new or worsening symptoms. Follow up with primary care provider, call tomorrow to make followup appointment. Prescriptions: Nitrofurantoin/Nitrofuran Mac [Macrobid 100 mg Capsule] 1 tab PO BID #10 capsule Referrals: YAEL MCLEAN MD [Primary Care Provider] - Follow up as needed
[2018-01-13] MEDS ORDERED: CYCLOBENZAPRINE HCL 10 MG TABLET PO ONE (07:58)
[2018-01-13] MEDS ORDERED: HYDROCODONE/ACETAMINOPHEN 5-325 MG TABLET PO ONE (07:58)
[2018-01-13 08:33] LABS: APPEARANCE,URINE SLIGHTLY-CLOUDY; BILIRUBIN,URINE NEGATIVE (NEGATIVE); COLOR,URINE YELLOW; GLUCOSE, URINE NEGATIVE (NEGATIVE); KETONES,URINE NEGATIVE (NEGATIVE); LEUKOCYTE ESTERASE,URINE TRACE (NEGATIVE); NITRITE,URINE NEGATIVE (NEGATIVE); PROTEIN,URINE 30 mg/dL (NEGATIVE); UROBILINOGEN,URINE NEGATIVE mg/dL (<2.0)
[2018-01-13 08:34] LABS: TRICHOMONAS, URINE PRESENT /HPF
[2018-01-13 09:44] VITALS: BP 104/53
== END 2018-01-13 09:44 | disposition home or self-care (01) ==
LOC: ER 05:39
DX: M54.5 Low back pain (principal); N39.0 Urinary tract infection, site not specified; J45.909 Unspecified asthma, uncomplicated
CPT/HCPCS: 99283; 81001; J3490

== ENCOUNTER 2018-01-15 06:38 | Emergency (ER) | payer MEDICAID ==
[2018-01-15] MEDS ORDERED: KETOROLAC TROMETHAMINE 60 MG/2 ML SDV IM ONE (07:30)
--- NOTE | 2018-01-15 07:31 | ER Document Report ---
ED General - General Chief Complaint: Flank Pain Stated Complaint: BACK PAIN Time Seen by Provider: 01/15/18 06:56 Notes: This is a 19-year-old female patient emergency department chief complaint of left sciatic pain. Patient was seen here in the emergency department approximately 1 day ago. Had the same pain. Had urinalysis performed. Positive for UTI. Was told this may be a kidney infection. Was placed on antibiotics. Patient states that she has not gotten any better. New that she could not make it through work today because she stands all day. Works as a worker in the kitchen. She denies any fever. No vomiting. No chills or sweats. No other symptoms at this time. Pain is located in the left back area and radiates down her buttocks and down the back of her leg. TRAVEL OUTSIDE OF THE [place] IN LAST 30 DAYS: No - HPI Onset: Yesterday Onset/Duration: Gradual, Persistent - Related Data Allergies/Adverse Reactions: No Known Allergies Allergy (Verified 01/04/18 12:11) Past Medical History - General Information source: Patient - Social History Smoking Status: Never Smoker Cigarette use (# per day): No Frequency of alcohol use: None Drug Abuse: None Lives with: Family Family History: Arthritis, Hypertension Patient has suicidal ideation: No Patient has homicidal ideation: No - Past Medical History Cardiac Medical History: Denies: Hx Congestive Heart Failure, Hx Coronary Artery Disease, Hx Heart Attack, Hx Hypertension Pulmonary Medical History: Reports: Hx Asthma - As a child according to Mom, was intubated for asthma exacerbation May 2017 Renal/ Medical History: Denies: Hx Peritoneal Dialysis GI Medical History: Reports: Hx Gastroesophageal Reflux Disease Musculoskeletal Medical History: Reports Hx Musculoskeletal Trauma Traumatic Medical History: Reports: Hx Fractures - ankle Past Surgical History: Reports: Hx Cholecystectomy - 4 months ago, Hx Oral Surgery, Hx Orthopedic Surgery - ACl R knee L ankle - Immunizations Hx Diphtheria, Pertussis, Tetanus Vaccination: Yes Review of Systems - Review of Systems Constitutional: denies: Fever, Malaise, Weakness Cardiovascular: denies: Chest pain, Palpitations, Heart racing Respiratory: denies: Cough, Hurts to breathe, Short of breath Gastrointestinal: denies: Abdominal pain, Diarrhea, Nausea, Vomiting Genitourinary: Flank pain. denies: Burning, Dysuria, Discharge, Frequency, Hematuria, Urgency, Retention Female Genitourinary: denies: Vaginal discharge, Vaginal bleeding, Vaginal odor Musculoskeletal: Back pain, Muscle pain. denies: Joint pain, Joint swelling, Muscle stiffness, Deformity, Leg swelling, Ankle swelling Skin: denies: Dryness, Lesions, Lumps, Rash Neurological/Psychological: denies: Sensory change, Weakness, Loss of power, Paralysis, Numbness Physical Exam - Vital signs Vitals: Temp Pulse Resp BP Pulse Ox 97.8 F 62 18 122/41 L 100 01/15/18 06:41 01/15/18 06:41 01/15/18 06:41 01/15/18 06:41 01/15/18 06:41 Interpretation: Normal - General General appearance: Appears well, Alert - Respiratory Respiratory status: No respiratory distress Chest status: Nontender Breath sounds: Normal Chest palpation: Normal - Cardiovascular Rhythm: Regular Heart sounds: Normal auscultation Murmur: No - Abdominal Inspection: Normal Distension: No distension Bowel sounds: Normal Tenderness: Nontender Organomegaly: No organomegaly - Back Back: Normal, Nontender. No: Vertebra tenderness Notes: Mild pain when raising the leg on the left upwards. Mild pain when dorsiflexing the left foot. - Extremities General upper extremity: Normal inspection, Nontender, Normal color, Normal ROM , Normal temperature General lower extremity: Normal inspection, Nontender, Normal color, Normal ROM , Normal temperature, Normal weight bearing. No: Pat's sign - Neurological Neuro grossly intact: Yes Cognition: Normal Orientation: AAOx4 [place] Coma Scale Eye Opening: Spontaneous [place] Coma Scale Verbal: Oriented [place] Coma Scale Motor: Obeys Commands [place] Coma Scale Total: 15 Speech: Normal Motor strength normal: LUE, RUE, LLE, RLE Sensory: Normal - Skin Skin Temperature: Warm Skin Moisture: Dry Skin Color: Normal Course - Re-evaluation Re-evalutation: 01/15/18 07:30 At this time patient is not manifesting serious signs of pyelonephritis. More likely this is a sciatic issue. We will recheck her urine and reassess. 01/15/18 07:34 A review of the urinalysis results from 2 days ago reveals that she has trichomoniasis and her urine which was not treated. Is currently on Macrobid. Based on the high association between trichomoniasis syncopal infections with gonorrhea and/or chlamydia will do a treatment at this time. This will definitely not hurt her UTI diagnosis either. We will give her a gram of azithromycin, 2 g of Flagyl and a shot of Rocephin IM. Will repeat urine and reassess. - Vital Signs Vital signs: Temp Pulse Resp BP Pulse Ox 97.8 F 62 18 122/41 L 100 01/15/18 06:41 01/15/18 06:41 01/15/18 06:41 01/15/18 06:41 01/15/18 06:41 - Laboratory Laboratory results interpreted by me: 01/15/18 07:04 Urine Blood LARGE H Urine Urobilinogen 2.0 H Ur Leukocyte Esterase SMALL H Urine Ascorbic Acid 40 H Discharge - Discharge Clinical Impression: Trichomoniasis, urogenital, Left sided sciatica Condition: Good Disposition: HOME, SELF-CARE Instructions: Trichomonas Infection ([facility]), Sciatica ([facility]), Urinary Tract Infection ([facility]) Additional Instructions: There appears to be an infection seen in your urine which is often associated with sexual transmission. We have treated you for other potential co- infections. Please notify your sexual partners that treatment is needed. In the event that your symptoms are getting worse please return for repeat evaluation. If you develop nausea, vomiting, fever, chills, sweats, severe abdominal pain, worsening symptoms or concerns please return. Continue to use anti-inflammatories for your sciatica. If you have any change in bowel or bladder function, loss of function of your lower extremity or other concerns please return. Prescriptions: Ibuprofen [Motrin 800 mg Tablet] 800 mg PO Q8H PRN 10 Days #30 tab PRN Reason: For Pain Scale 3-4 Forms: Return to Work Referrals: YAEL MCLEAN MD [COMMUNITY BASED STAFF] - Follow up as needed
[2018-01-15] MEDS ORDERED: METRONIDAZOLE 500 MG TABLET PO ONE (07:32)
[2018-01-15] MEDS ORDERED: ONDANSETRON 4 MG TAB.RAPDIS PO ONE (07:32)
[2018-01-15] MEDS ORDERED: CEFTRIAXONE INJ 250 MG VIAL IM ONE (07:34)
[2018-01-15] MEDS ORDERED: AZITHROMYCIN 1 GM SUSP PACKET PO ONE (07:34)
[2018-01-15 07:36] LABS: APPEARANCE,URINE SLIGHTLY-CLOUDY; BILIRUBIN,URINE NEGATIVE (NEGATIVE); COLOR,URINE YELLOW; GLUCOSE, URINE NEGATIVE (NEGATIVE); KETONES,URINE NEGATIVE (NEGATIVE); LEUKOCYTE ESTERASE,URINE SMALL (NEGATIVE); NITRITE,URINE NEGATIVE (NEGATIVE); PROTEIN,URINE NEGATIVE (NEGATIVE); URINE SPECIFIC GRAVITY 1.023
[2018-01-15] MEDS ORDERED: LIDOCAINE 1% INJ-PF (10 MG/ML) 30 ML SDV ONE (07:55)
[2018-01-15] MEDS ORDERED: LIDOCAINE 1% INJ-PF (10 MG/ML) 30 ML SDV INJ ONE (07:56)
[2018-01-15 08:37] VITALS: BP 116/54
== END 2018-01-15 08:38 | disposition home or self-care (01) ==
LOC: ER 06:38
DX: A59.00 Urogenital trichomoniasis, unspecified (principal); M54.32 Sciatica, left side
CPT/HCPCS: 99284; 96372; 87086; 81025; 81001; J1885; S0119; J3490 ×2; Q0144; J0696

== ENCOUNTER 2018-02-01 05:04 | Emergency (ER) | payer MEDICAID ==
[2018-02-01 05:10] VITALS: BP 125/80
[2018-02-01] MEDS ORDERED: PREDNISONE 20 MG TABLET PO ONE (06:31)
[2018-02-01] MEDS ORDERED: IPRATROPIUM/ALBUTEROL 0.5-2.5 MG/3 ML AMPUL NEB ONE (06:31)
[2018-02-01] MEDS ORDERED: ALBUTEROL SULFATE 0.083% NEB 2.5 MG/3 ML AMPUL NEB ONE ×2 (06:31→08:05)
--- NOTE | 2018-02-01 06:45 | ER Document Report ---
ED Respiratory Problem - General Mode of Arrival: Ambulatory Information source: Patient TRAVEL OUTSIDE OF THE [place] IN LAST 30 DAYS: No COUNTRY TRAVELED TO/FROM: [facility] Chief Complaint: Asthma Exacerbation Stated Complaint: SHORTNESS OF BREATH Time Seen by Provider: 02/01/18 06:07 Notes: 27-year-old female that presents to the emergency department today with complaints of asthma exacerbation. Patient has an extensive asthma history and was last intubated in May of 2017 according to records. Patient states she was awoken this morning with wheezing and shortness of breath. Patient states she used her "rescue inhaler" this morning prior to arrival with minimal relief. Patient complains of a nonproductive cough. Patient denies any fevers. (MICHELLE VELÁSQUEZ) - Related Data Allergies/Adverse Reactions: No Known Allergies Allergy (Verified 01/04/18 12:11) Past Medical History - General Information source: Patient - Social History Smoking Status: Never Smoker Cigarette use (# per day): No Chew tobacco use (# tins/day): No Frequency of alcohol use: None Drug Abuse: None Lives with: Family Family History: Arthritis, Hypertension Patient has suicidal ideation: No Patient has homicidal ideation: No Pulmonary Medical History: Reports: Hx Asthma - intubated for asthma exacerbation May 2017 GI Medical History: Reports: Hx Gastroesophageal Reflux Disease Musculoskeletal Medical History: Reports Hx Musculoskeletal Trauma Traumatic Medical History: Reports: Hx Fractures - ankle Past Surgical History: Reports: Hx Cholecystectomy - 4 months ago, Hx Oral Surgery, Hx Orthopedic Surgery - ACl R knee L ankle - Immunizations Hx Diphtheria, Pertussis, Tetanus Vaccination: Yes Review of Systems - Review of Systems Constitutional: denies: Fever EENT: No symptoms reported Cardiovascular: No symptoms reported Respiratory: See HPI, Cough - non-productive, Short of breath, Wheezing Gastrointestinal: No symptoms reported Genitourinary: No symptoms reported Female Genitourinary: No symptoms reported Musculoskeletal: No symptoms reported Skin: No symptoms reported Hematologic/Lymphatic: No symptoms reported Neurological/Psychological: No symptoms reported -: Yes All other systems reviewed and negative Physical Exam - Vital signs Vitals: Temp Pulse Resp BP Pulse Ox 98.1 F 71 20 125/80 98 02/01/18 05:09 02/01/18 05:09 02/01/18 05:09 02/01/18 05:09 02/01/18 05:09 - Notes Notes: Physical Exam: General: Alert, appears well. Sleeping comfortably. HEENT: Normocephalic. Atraumatic. PERRL. Extraocular movements intact. Oropharynx clear. Hoarse voice. Neck: Supple. Non-tender. Respiratory: No respiratory distress. Inspiratory and Expiratory wheezing bilaterally. Slight retractions. Dry cough. Cardiovascular: Regular rate and rhythm. Abdominal: Normal Inspection. Non-tender. No distension. Normal Bowel Sounds. Back: Non-tender. No deformity or step off. Extremities: Moves all four extremities. Upper extremities: Normal inspection. Normal ROM. Lower extremities: Normal inspection. No edema. Normal ROM. Neurological: Normal cognition. AAOx4. Normal speech. Psychological: Normal affect. Normal Mood. Skin: Warm. Dry. Normal color. (MICHELLE VELÁSQUEZ) Course - Re-evaluation Re-evalutation: 02/01/18 09:18 Patient states her breathing feels much better and she is ready to go home. Lungs are clear at this time. (THANH ROSS) - Vital Signs Vital signs: Temp Pulse Resp BP Pulse Ox 98.1 F 71 20 125/80 98 02/01/18 05:09 02/01/18 05:09 02/01/18 05:09 02/01/18 05:09 02/01/18 05:09 Discharge - Discharge Clinical Impression: Asthma exacerbation Qualifiers: Asthma severity: moderate Asthma persistence: unspecified Qualified Code(s): J45.901 - Unspecified asthma with (acute) exacerbation Condition: Stable Disposition: HOME, SELF-CARE Additional Instructions: Drink plenty of fluids today. Start the prednisone prescription tomorrow. Continue using her inhalers. Follow-up with your doctor tomorrow as scheduled and be sure to let them know you had run out of prednisone for a few days prior to this asthma exacerbation. RETURN TO THE EMERGENCY ROOM IF ANY NEW OR WORSENING SYMPTOMS. Prescriptions: Prednisone [Deltasone 10 mg Tablet] 10 mg PO ASDIR PRN #21 tablet PRN Reason: Forms: Parent Work Note Scribe Attestation: 02/01/18 08:06 I personally performed the services described in the documentation, reviewed and edited the documentation which was dictated to the scribe in my presence, and it accurately records my words and actions. (THANH ROSS) Scribe Documentation - Scribe Written by Scribe:: Violetta Morgan, 02/01/2018 0724 acting as scribe for :: Tony
== END 2018-02-01 09:55 | disposition home or self-care (01) ==
LOC: ER 05:04
DX: J45.901 Unspecified asthma with (acute) exacerbation (principal); R05 Cough
CPT/HCPCS: 94640 ×2; 99284; J7512; J7620

== ENCOUNTER → 2018-02-05 | Outpatient (CLI) | payer MEDICAID ==
--- NOTE | 2018-02-05 10:42 | RADIOLOGY REPORT (SQ) ---
EXAM DESCRIPTION: CHEST PA/LATERAL COMPLETED DATE/TIME: 02/05/2018 9:25 am REASON FOR STUDY: COUGH COMPARISON: 06/20/2017 EXAM PARAMETERS: NUMBER OF VIEWS: two views TECHNIQUE: Digital Frontal and Lateral radiographic views of the chest acquired. RADIATION DOSE: NA LIMITATIONS: none FINDINGS: LUNGS AND PLEURA: No opacities, masses or pneumothorax. No pleural effusion. MEDIASTINUM AND HILAR STRUCTURES: No masses or contour abnormalities. HEART AND VASCULAR STRUCTURES: Heart normal size. No evidence for failure. BONES: No acute findings. HARDWARE: None in the chest. OTHER: No other significant finding. IMPRESSION: NO SIGNIFICANT RADIOGRAPHIC FINDING IN THE CHEST. TECHNICAL DOCUMENTATION: JOB ID: [id number] [employer]- All Rights Reserved Reading location - IP/workstation name: [email or web address]
== END ==
LOC: OD 09:10
PROVIDERS: ATTEND Physician Assistant
DX: R05 Cough (principal)
CPT/HCPCS: 71046

== ENCOUNTER 2018-02-06 09:58 | Emergency (ER) | payer MEDICAID ==
[2018-02-06] MEDS ORDERED: IPRATROPIUM/ALBUTEROL 0.5-2.5 MG/3 ML AMPUL NEB ONE (10:22)
--- NOTE | 2018-02-06 10:22 | ER Document Report ---
ED Medical Screen (RME) - General Chief Complaint: Chest Wall Pain Stated Complaint: DIFFICULTY BREATHING Time Seen by Provider: 02/06/18 10:18 Mode of Arrival: Ambulatory Information source: Patient Notes: This is a 27-year-old female with a history of reactive airway disease, steroid- dependent, history of respiratory failure with ventilation in May 2017 that presents with shortness of breath, wheezing and thoracic pain. Patient states that her symptoms were exacerbated at work where it is very hot. She is 3 months . She is followed by pulmonology (Dr. Le's office). TRAVEL OUTSIDE OF THE [place] IN LAST 30 DAYS: No COUNTRY TRAVELED TO/FROM: [place] - Related Data Allergies/Adverse Reactions: No Known Allergies Allergy (Verified 02/06/18 09:59) Past Medical History - Past Medical History Cardiac Medical History: Denies: Hx Congestive Heart Failure, Hx Coronary Artery Disease, Hx Heart Attack, Hx Hypertension Pulmonary Medical History: Reports: Hx Asthma - intubated for asthma exacerbation May 2017 Renal/ Medical History: Denies: Hx Peritoneal Dialysis GI Medical History: Reports: Hx Gastroesophageal Reflux Disease Musculoskeltal Medical History: Reports Hx Musculoskeletal Trauma Traumatic Medical History: Reports: Hx Fractures - ankle Past Surgical History: Reports: Hx Cholecystectomy - 4 months ago, Hx Oral Surgery, Hx Orthopedic Surgery - ACl R knee L ankle - Immunizations Hx Diphtheria, Pertussis, Tetanus Vaccination: Yes History of Influenza Vaccine for 03/2017 - 08/2017 Season: Yes Physical Exam - Vital signs Vitals: Temp Pulse Resp BP Pulse Ox 98.4 F 69 18 122/44 L 98 02/06/18 10:03 02/06/18 10:03 02/06/18 10:03 02/06/18 10:03 02/06/18 10:03 Course - Vital Signs Vital signs: Temp Pulse Resp BP Pulse Ox 98.4 F 69 18 122/44 L 98 02/06/18 10:03 02/06/18 10:03 02/06/18 10:03 02/06/18 10:03 02/06/18 10:03 Doctor's Discharge - Discharge Referrals: BRYAN LEIVA PA-C [Primary Care Provider] - Follow up as needed
--- NOTE | 2018-02-06 10:43 | RADIOLOGY REPORT (SQ) ---
EXAM DESCRIPTION: CHEST 2 VIEWS COMPLETED DATE/TIME: 02/06/2018 10:32 am REASON FOR STUDY: sob COMPARISON: 05/30/2017 EXAM PARAMETERS: NUMBER OF VIEWS: two views TECHNIQUE: Digital Frontal and Lateral radiographic views of the chest acquired. RADIATION DOSE: NA LIMITATIONS: none FINDINGS: LUNGS AND PLEURA: No opacities, masses or pneumothorax. No pleural effusion. MEDIASTINUM AND HILAR STRUCTURES: No masses or contour abnormalities. HEART AND VASCULAR STRUCTURES: Heart normal size. No evidence for failure. BONES: No acute findings. HARDWARE: None in the chest. OTHER: No other significant finding. IMPRESSION: NO ACUTE RADIOGRAPHIC FINDING IN THE CHEST. TECHNICAL DOCUMENTATION: JOB ID: [id number] [employer]- All Rights Reserved Reading location - IP/workstation name: [email or web address]
[2018-02-06 11:03] LABS: ABSOLUTE BASOPHILS # (AUTO) 0.1 10^3/uL (0.0-0.2); ABSOLUTE EOSINOPHILS # (AUTO) 0.2 10^3/uL (0.0-0.6); ABSOLUTE LYMPHOCYTES (AUTO) 2.7 10^3/uL (0.5-4.7); ABSOLUTE MONOCYTES (AUTO) 0.5 10^3/uL (0.1-1.4); BASOPHILS % (AUTO) 1.2 % (0-2); EOSINOPHILS % (AUTO) 2.9 % (0-6); HEMOGLOBIN 13.5 g/dL (12.0-15.5); LYMPHOCYTES % (AUTO) 31.7 % (13-45); MEAN CORPUSCULAR HEMOGLOBIN 28.8 pg (27.0-33.4); MEAN CORPUSCULAR HGB CONC 33.8 g/dL (32.0-36.0); MEAN CORPUSCULAR VOLUME 85 fl (80-97); MONOCYTES % (AUTO) 6.2 % (3-13); PLATELET COUNT 273 10^3/uL (150-450); RED CELL DISTRIBUTION WIDTH 14.2 % (11.5-14.0); TOTAL CELLS COUNTED % (AUTO) 100 %; WHITE BLOOD COUNT 8.6 10^3/uL (4.0-10.5)
[2018-02-06 11:20] LABS: ALANINE AMINOTRANSFERASE 19 U/L (9-52); ALBUMIN 3.6 g/dL (3.5-5.0); ALKALINE PHOSPHATASE 56 U/L (38-126); ANION GAP 10 (5-19); ASPARTATE AMINO TRANSFERASE 21 U/L (14-36); BILIRUBIN,DIRECT 0.2 mg/dL (0.0-0.4); BILIRUBIN,TOTAL 0.2 mg/dL (0.2-1.3); BLOOD UREA NITROGEN 17 mg/dL (7-20); CALCIUM 9.1 mg/dL (8.4-10.2); CARBON DIOXIDE 29 mmol/L (22-30); CHLORIDE 103 mmol/L (98-107); GLUCOSE 89 mg/dL (75-110); POTASSIUM 3.7 mmol/L (3.6-5.0); SODIUM 141.9 mmol/L (137-145); TOTAL PROTEIN 6.5 g/dL (6.3-8.2)
[2018-02-06] MEDS ORDERED: NORMAL SALINE 500 ML IV ONE (11:53)
--- NOTE | 2018-02-06 12:27 | RADIOLOGY REPORT (SQ) ---
EXAM DESCRIPTION: CTA CHEST COMPLETED DATE/TIME: 02/06/2018 12:09 pm REASON FOR STUDY: elevated d dimer sob cp COMPARISON: Chest radiographs 02/06/2018, CT chest 05/30/2017 TECHNIQUE: CT scan of the chest performed using helical scanning technique with dynamic intravenous contrast injection. Images reviewed with lung, soft tissue and bone windows. Reconstructed coronal and sagittal MPR images reviewed. Additional 3 dimensional post-processing performed to develop Maximal Intensity Projection images ([place] P). All images stored on PACS. All CT scanners at this facility use dose modulation, iterative reconstruction, and/or weight based d osing when appropriate to reduce radiation dose to as low as reasonably achievable (ALARA). [facility]: Dose Right [facility]: CareDose [facility]: Dose Right [facility]: Teradose 4D [facility]: Cityblis CONTRAST TYPE AND DOSE: contrast/concentration: Isovue 350.00 mg/ml; Total Contrast Delivered: 90.0 ml; Total Saline Delivered: 110.0 ml 90 mL of Omnipaque 350- low osmolar. Contrast bolus optimized for the pulmonary arteries. Not diagnostic for the aorta. RENAL FUNCTION: BUN 17 creatinine 0.82 RADIATION DOSE: CT Rad equipment meets quality standard of care and radiation dose reduction techniq ues were employed. CTDIvol: 41.8 - 57.9 mGy. DLP: 1471 mGy-cm. . LIMITATIONS: Suboptimal timing of contrast bolus. Only able to evaluate the main and lobar pulmonar y arteries. FINDINGS: LUNGS AND PLEURA: No masses, infiltrates, or pneumothorax. No pleural effusions or pleura l calcifications. AORTA AND GREAT VESSELS: No aneurysm. Contrast bolus not optimized for the aorta. HEART: No pericardial effusion. No significant coronary artery calcifications. PULMONARY ARTERIES: No emboli visualized in the main or lobar pulmonary arteries. HILAR AND MEDIASTINAL STRUCTURES: No identified masses or abnormal nodes. HARDWARE: None in the chest. UPPER ABDOMEN: No significant findings. Limited exam. THYROID AND OTHER SOFT TISSUES: No masses. No adenopathy. BONES: No acute or significant finding. 3D MIPS: Confirm above findings. OTHER: No other significant finding. IMPRESSION: Suboptimal timing of contrast bolus. No acute findings of the chest. Specifically, no pulmonary embolus of the main or lobar pulmonary arteries. COMMENT: Quality ID # [id number]: Final reports with documentation of one or more dose reduction techniques (e.g., Automated exposure control, adjustment of the mA and/or kV according to patient size, use of iterative reconstruction technique) TECHNICAL DOCUMENTATION: JOB ID: [id number] [employer]- All Rights Reserved Reading location - IP/workstation name: [email or web address]
--- NOTE | 2018-02-06 14:08 | ER Document Report ---
ED General - General Chief Complaint: Chest Wall Pain Stated Complaint: DIFFICULTY BREATHING Time Seen by Provider: 02/06/18 10:18 Mode of Arrival: Ambulatory TRAVEL OUTSIDE OF THE U.S. IN LAST 30 DAYS: No COUNTRY TRAVELED TO/FROM: [facility] Patient complains to provider of: Chest wall pain difficulty breathing Notes: Patient coming in for difficulty breathing chest wall pain. Patient states symptoms ongoing intermittently since May when she gave to her last child. Patient states exacerbation of her symptoms today. Patient states she does see Dr. Le nursing associate. Patient states she has been evaluated for asthma with pulmonary function testing told her she does not have asthma however is treated with bronchodilator therapy Spiriva and steroids. Patient states symptoms today exacerbated over the last 24 hours. Denies any recent travel. Patient denies any fever chills nausea vomiting diarrhea abdominal pain patient denies any smoking. Patient states pain in her chest whenever she takes a deep breath in. - Related Data Allergies/Adverse Reactions: No Known Allergies Allergy (Verified 02/06/18 09:59) Past Medical History - General Information source: Patient - Social History Smoking Status: Never Smoker Frequency of alcohol use: None Drug Abuse: None Family History: Arthritis, Hypertension Patient has suicidal ideation: No Patient has homicidal ideation: No - Past Medical History Cardiac Medical History: Denies: Hx Congestive Heart Failure, Hx Coronary Artery Disease, Hx Heart Attack, Hx Hypertension Pulmonary Medical History: Reports: Hx Asthma - intubated for asthma exacerbation May 2017 Renal/ Medical History: Denies: Hx Peritoneal Dialysis GI Medical History: Reports: Hx Gastroesophageal Reflux Disease Musculoskeletal Medical History: Reports Hx Musculoskeletal Trauma Traumatic Medical History: Reports: Hx Fractures - ankle Past Surgical History: Reports: Hx Cholecystectomy - 4 months ago, Hx Oral Surgery, Hx Orthopedic Surgery - ACl R knee L ankle - Immunizations Hx Diphtheria, Pertussis, Tetanus Vaccination: Yes Review of Systems - Review of Systems Constitutional: No symptoms reported EENT: No symptoms reported Cardiovascular: Chest pain Respiratory: Short of breath Gastrointestinal: No symptoms reported Genitourinary: No symptoms reported Female Genitourinary: No symptoms reported Musculoskeletal: No symptoms reported Skin: No symptoms reported Hematologic/Lymphatic: No symptoms reported Neurological/Psychological: No symptoms reported -: Yes All other systems reviewed and negative Physical Exam - Vital signs Vitals: Temp Pulse Resp BP Pulse Ox 98.4 F 69 18 122/44 L 98 02/06/18 10:03 02/06/18 10:03 02/06/18 10:03 02/06/18 10:03 02/06/18 10:03 Interpretation: Normal - General General appearance: Appears well, Alert - HEENT Head: Normocephalic, Atraumatic Eyes: Normal Pupils: PERRL - Respiratory Respiratory status: No respiratory distress Chest status: Nontender Breath sounds: Normal Chest palpation: Normal - Cardiovascular Rhythm: Regular Heart sounds: Normal auscultation Murmur: No - Abdominal Inspection: Normal Distension: No distension Bowel sounds: Normal Tenderness: Nontender Organomegaly: No organomegaly - Back Back: Normal, Nontender - Extremities General upper extremity: Normal inspection, Nontender, Normal color, Normal ROM , Normal temperature General lower extremity: Normal inspection, Nontender, Normal color, Normal ROM , Normal temperature, Normal weight bearing. No: Pat's sign - Neurological Neuro grossly intact: Yes Cognition: Normal Orientation: AAOx4 [place] Coma Scale Eye Opening: Spontaneous [place] Coma Scale Verbal: Oriented [place] Coma Scale Motor: Obeys Commands [place] Coma Scale Total: 15 Speech: Normal Motor strength normal: LUE, RUE, LLE, RLE Sensory: Normal - Psychological Associated symptoms: Normal affect, Normal mood - Skin Skin Temperature: Warm Skin Moisture: Dry Skin Color: Normal Course - Re-evaluation Re-evalutation: 02/06/18 15:36 Patient has very received a breathing treatment on upon my evaluation patient's lungs are otherwise clear. Patient laboratory studies not reveal any significant pathology. Chest x-ray was negative. D-dimer did return elevated therefore patient underwent a CTA showing no large pulmonary emboli. Again no acute pulmonary pathology. Spleen is a patient at this time would continue to treat her with bronchodilator therapy. Will add Atrovent to her malaise regimen at home. Patient agrees with this plan also encouraged follow-up with primary care physician and her nursing associate. Patient discharged home. - Vital Signs Vital signs: Temp Pulse Resp BP Pulse Ox 97.8 F 63 16 124/66 100 02/06/18 14:11 02/06/18 14:11 02/06/18 14:11 02/06/18 14:11 02/06/18 14:11 - Laboratory Result Diagrams: 02/06/18 10:37 02/06/18 10:37 Laboratory results interpreted by me: 02/06/18 02/06/18 10:37 10:37 RDW 14.2 H D-Dimer 0.97 H Discharge - Discharge Clinical Impression: Chest wall pain Dyspnea Qualifiers: Dyspnea type: unspecified Qualified Code(s): R06.00 - Dyspnea, unspecified Condition: Good Disposition: HOME, SELF-CARE Instructions: Anti-Inflammatory Medication ([facility]), Chest Wall Pain ([facility]), Dyspnea, Nonspecific ([facility]) Additional Instructions: Evaluation is not show any signs of acute infection or pneumonia also no signs of cardiac ischemia no signs of heart failure no signs of pulmonary embolism. I will have him recommend following up with your lung specialist and your primary care physician. Would recommend that we add Atrovent to your nebulizer regimen. He can use the Atrovent twice a day. I would recommend using your albuterol 1 treatment are 2+ every 2-4 hours. Prescriptions: Ipratropium [place] [Atrovent 0.02% Neb 0.5 mg/2.5 ml Ampul] 0.5 mg NEB BID #30 vial.neb Forms: Return to Work Referrals: BRYAN LEIVA PA-C [Primary Care Provider] - Follow up in 3-5 days
[2018-02-06 14:15] VITALS: BP 124/66
--- NOTE | 2018-02-06 17:08 | EKG REPORT ---
SEVERITY:- NORMAL ECG - SINUS RHYTHM : Confirmed by: Boo Dawkins MD 06-Feb-2018 17:07:47
== END 2018-02-06 14:15 | disposition home or self-care (01) ==
LOC: ER 09:58
DX: R07.89 Other chest pain (principal); R06.02 Shortness of breath; Z79.51 Long term (current) use of inhaled steroids; Z79.899 Other long term (current) drug therapy
CPT/HCPCS: 93005; 94640; 99285; 96360; 36415; 84703; 85025; 80053; 84484; 85379; 83880; 71046; 71275; 93010; J7040; J7620

== ENCOUNTER 2018-02-09 10:26 | Emergency (ER) | payer MEDICAID ==
[2018-02-09] MEDS ORDERED: LIDOCAINE 5% (700 MG) TRANSDERMAL ADH..PATCH TP ONE (10:48)
--- NOTE | 2018-02-09 11:08 | RADIOLOGY REPORT (SQ) ---
EXAM DESCRIPTION: CHEST 2 VIEWS COMPLETED DATE/TIME: 02/09/2018 10:57 am REASON FOR STUDY: sob tspine back pain COMPARISON: 02/06/2018. TECHNIQUE: Frontal and lateral radiographic views of the chest acquired. NUMBER OF VIEWS: Two view. LIMITATIONS: None. FINDINGS: LUNGS AND PLEURA: No opacities, masses or pneumothorax. No pleural effusion. MEDIASTINUM AND HILAR STRUCTURES: No masses or contour abnormalities. HEART AND VASCULAR STRUCTURES: Heart normal size. No evidence for failure. BONES: No acute findings. HARDWARE: None in the chest. OTHER: No other significant finding. IMPRESSION: NO SIGNIFICANT RADIOGRAPHIC FINDING IN THE CHEST. TECHNICAL DOCUMENTATION: JOB ID: [id number] [employer]- All Rights Reserved Reading location - IP/workstation name: [email or web address]
--- NOTE | 2018-02-09 11:41 | ER Document Report ---
ED General - General Chief Complaint: Shortness Of Breath Stated Complaint: BACK PAIN, SHORTNESS OF BREATH Time Seen by Provider: 02/09/18 10:39 TRAVEL OUTSIDE OF THE [place].S. IN LAST 30 DAYS: No COUNTRY TRAVELED TO/FROM: [facility] Patient complains to provider of: Shortness of breath back pain Notes: Patient may have shortness of breath and back pain. Patient was evaluated by myself approximately week ago. For shortness of breath. At that time patient had a normal CTA study was sent home on Atroven. Patient that she has been using the new neurologic treatment with some success however states today major complaint is bilateral paraspinal thoracic back pain patient states her smear sticks [place]. Patient denies any fevers chills nausea vomiting diarrhea. Patient resting comfortably upon my evaluation. - Related Data Allergies/Adverse Reactions: No Known Allergies Allergy (Verified 02/06/18 09:59) Past Medical History - Social History Smoking Status: Never Smoker Chew tobacco use (# tins/day): No Frequency of alcohol use: None Drug Abuse: None Family History: Arthritis, Hypertension Patient has suicidal ideation: No Patient has homicidal ideation: No - Past Medical History Cardiac Medical History: Denies: Hx Congestive Heart Failure, Hx Coronary Artery Disease, Hx Heart Attack, Hx Hypertension Pulmonary Medical History: Reports: Hx Asthma - intubated for asthma exacerbation May 2017 Renal/ Medical History: Denies: Hx Peritoneal Dialysis GI Medical History: Reports: Hx Gastroesophageal Reflux Disease Musculoskeletal Medical History: Reports Hx Musculoskeletal Trauma Traumatic Medical History: Reports: Hx Fractures - ankle Past Surgical History: Reports: Hx Cholecystectomy, Hx Oral Surgery, Hx Orthopedic Surgery - ACl R knee L ankle - Immunizations Hx Diphtheria, Pertussis, Tetanus Vaccination: Yes Review of Systems - Review of Systems Constitutional: No symptoms reported EENT: No symptoms reported Cardiovascular: No symptoms reported Respiratory: Short of breath Gastrointestinal: No symptoms reported Genitourinary: No symptoms reported Female Genitourinary: No symptoms reported Musculoskeletal: Back pain Skin: No symptoms reported Hematologic/Lymphatic: No symptoms reported Neurological/Psychological: No symptoms reported -: Yes All other systems reviewed and negative Physical Exam - Vital signs Vitals: Temp Pulse Resp BP Pulse Ox 98.7 F 89 20 130/84 H 98 02/09/18 10:30 02/09/18 10:30 02/09/18 10:30 02/09/18 10:30 02/09/18 10:30 Interpretation: Normal - General General appearance: Appears well, Alert - HEENT Head: Normocephalic, Atraumatic Eyes: Normal Pupils: PERRL - Respiratory Respiratory status: No respiratory distress Chest status: Nontender Breath sounds: Normal Chest palpation: Normal - Cardiovascular Rhythm: Regular Heart sounds: Normal auscultation Murmur: No - Abdominal Inspection: Normal Distension: No distension Bowel sounds: Normal Tenderness: Nontender Organomegaly: No organomegaly - Back Back: Normal, Tender - Symptoms are reproduced with palpation of the paraspinal region bilaterally T2 through T6 - Extremities General upper extremity: Normal inspection, Nontender, Normal color, Normal ROM , Normal temperature General lower extremity: Normal inspection, Nontender, Normal color, Normal ROM , Normal temperature, Normal weight bearing. No: Pat's sign - Neurological Neuro grossly intact: Yes Cognition: Normal Orientation: AAOx4 [place] Coma Scale Eye Opening: Spontaneous [place] Coma Scale Verbal: Oriented [place] Coma Scale Motor: Obeys Commands [place] Coma Scale Total: 15 Speech: Normal Motor strength normal: LUE, RUE, LLE, RLE Sensory: Normal - Psychological Associated symptoms: Normal affect, Normal mood - Skin Skin Temperature: Warm Skin Moisture: Dry Skin Color: Normal Course - Re-evaluation Re-evalutation: 02/09/18 20:51 Patient with normal vital signs with tachycardia and hypoxia with normal CT a week ago patient I believe believe this time is very low risk for PE. Patient had a chest x-ray performed showing no signs of bony abnormality or infectious process. Clinically patient has clear lungs no signs of respiratory distress. Patient recommended to try lidocaine patches Tylenol Motrin for pain control. Patient is encouraged to follow with her primary care physician. - Vital Signs Vital signs: Temp Pulse Resp BP Pulse Ox 97.6 F 61 18 137/83 H 98 02/09/18 11:48 02/09/18 11:48 02/09/18 11:48 02/09/18 11:48 02/09/18 11:48 Discharge - Discharge Clinical Impression: Dyspnea Qualifiers: Dyspnea type: unspecified Qualified Code(s): R06.00 - Dyspnea, unspecified Back pain Qualifiers: Back pain location: thoracic back pain Chronicity: unspecified Back pain laterality: bilateral Qualified Code(s): M54.6 - Pain in thoracic spine Condition: Good Disposition: HOME, SELF-CARE Instructions: Dyspnea, Nonspecific ([facility]), Ice Massage ([facility]), Ice Packs ([facility]), Oral Narcotic Medication ([facility]) Additional Instructions: Chest x-ray today does not reveal any signs of pneumonia infection. X-ray also is able to take a look at her spine shows no bony abnormality. Your pain is from increased respiratory rate over the last few days while you have been sick. Your lungs today are clear there is no wheezing. Please continue on your respiratory protocol and therapy at home. I would recommend taking Tylenol and Motrin for pain control he may take the Ultram for severe pain. Return to ER symptoms worsen follow-up with her primary care physician. Prescriptions: Tramadol HCl [Ultram 50 mg Tablet] 50 mg PO Q6HP PRN #10 tablet PRN Reason: Ibuprofen [Motrin 600 mg Tablet] 600 mg PO Q8HP PRN #21 tablet PRN Reason: Forms: Return to Work Referrals: BRYAN LEIVA PA-C [ALLIED HEALTH PROFESSIONAL] - Follow up in 3-5 days
[2018-02-09 11:49] VITALS: BP 137/83
== END 2018-02-09 11:49 | disposition home or self-care (01) ==
LOC: ER 10:26
DX: M54.6 Pain in thoracic spine (principal); R06.00 Dyspnea, unspecified; Z79.899 Other long term (current) drug therapy; J45.909 Unspecified asthma, uncomplicated
CPT/HCPCS: 99284; 71046; J3490

== ENCOUNTER 2018-02-11 20:12 | Emergency (ER) | payer MEDICAID ==
[2018-02-11] MEDS ORDERED: LIDOCAINE 5% (700 MG) TRANSDERMAL ADH..PATCH TP ONE (21:36)
[2018-02-11] MEDS ORDERED: OXYCODONE-ACETAMINOPHEN 5-325 MG TABLET PO ONE (21:36)
--- NOTE | 2018-02-11 21:43 | ER Document Report ---
ED General - General Chief Complaint: Shortness Of Breath Stated Complaint: BACK PAIN Time Seen by Provider: 02/11/18 20:53 Mode of Arrival: Ambulatory Information source: Patient Notes: 27-year-old female with a history of reactive airway disease who presents to the emergency room with back pain and pain when she breathes in. Patient has been worked up recently for pulmonary embolism and has had a negative CTA. Her oxygen saturation at this time is 99% she appears quite comfortable. She is followed by pulmonology. TRAVEL OUTSIDE OF THE [place] IN LAST 30 DAYS: No COUNTRY TRAVELED TO/FROM: [place] - HPI Onset: Other - Past month Onset/Duration: Gradual Quality of pain: Dull Severity: Moderate Pain Level: 2 Associated symptoms: Shortness of breath - Intermittently, Other - Back pain Exacerbated by: Movement, Other - So that he Relieved by: Remaining still, Other - Proved with nebulizers Similar symptoms previously: Yes Recently seen / treated by doctor: Yes - Related Data Allergies/Adverse Reactions: No Known Allergies Allergy (Verified 02/06/18 09:59) Past Medical History - General Information source: Patient - Social History Smoking Status: Never Smoker Cigarette use (# per day): No Chew tobacco use (# tins/day): No Frequency of alcohol use: None Drug Abuse: None Lives with: Family Family History: Arthritis, Hypertension Patient has suicidal ideation: No Patient has homicidal ideation: No - Past Medical History Cardiac Medical History: Denies: Hx Congestive Heart Failure, Hx Coronary Artery Disease, Hx Heart Attack, Hx Hypertension Pulmonary Medical History: Reports: Hx Asthma - intubated for asthma exacerbation May 2017 Renal/ Medical History: Denies: Hx Peritoneal Dialysis GI Medical History: Reports: Hx Gastroesophageal Reflux Disease Musculoskeletal Medical History: Reports Hx Musculoskeletal Trauma Traumatic Medical History: Reports: Hx Fractures - ankle Past Surgical History: Reports: Hx Cholecystectomy, Hx Oral Surgery, Hx Orthopedic Surgery - ACl R knee L ankle - Immunizations Hx Diphtheria, Pertussis, Tetanus Vaccination: Yes Review of Systems - Review of Systems Constitutional: denies: Chills, Fever EENT: No symptoms reported Cardiovascular: No symptoms reported Respiratory: See HPI, Short of breath, Wheezing Gastrointestinal: No symptoms reported Genitourinary: No symptoms reported Female Genitourinary: No symptoms reported Musculoskeletal: See HPI Skin: No symptoms reported Hematologic/Lymphatic: No symptoms reported Neurological/Psychological: No symptoms reported Physical Exam - Vital signs Vitals: Temp Pulse Resp BP Pulse Ox 98.1 F 70 18 144/80 H 100 02/11/18 20:13 02/11/18 20:13 02/11/18 20:13 02/11/18 20:13 02/11/18 20:13 Notes: Physical exam: GENERAL: The 27-year-old female, alert and oriented 3, no acute distress. Oxygen saturation 99% on room air. HEAD: Atraumatic, normocephalic. EYES: Pupils equal round and reactive to light, extraocular movements intact, sclera anicteric, conjunctiva are normal. ENT: TMs normal, nares patent, oropharynx clear without exudates. Moist mucous membranes. NECK: Normal range of motion, supple without obvious mass or JVD. LUNGS: Breath sounds clear to auscultation bilaterally and equal. No wheezes rales or rhonchi. HEART: Regular rate and rhythm without murmurs, rubs or gallops. ABDOMEN: Soft, normoactive bowel sounds. No tenderness to palpation. No guarding, no rebound. No masses appreciated. EXTREMITIES: Normal range of motion, no pitting or edema. No clubbing or cyanosis. No calf pain. NEUROLOGICAL: Cranial nerves II through XII grossly intact. Normal speech, moving all extremities. PSYCH: Normal mood, normal affect. SKIN: Warm, Dry, normal turgor, no rashes or lesions noted. Course - Vital Signs Vital signs: Temp Pulse Resp BP Pulse Ox 98.1 F 64 15 136/99 H 98 02/11/18 20:13 02/11/18 21:55 02/11/18 21:55 02/11/18 21:55 02/11/18 21:55 Discharge - Discharge Clinical Impression: Back pain, Reactive airway disease Condition: Stable Disposition: HOME, SELF-CARE Additional Instructions: As we discussed, I would like you to use the Lidoderm patches daily for the next week or 2. Continue with your prednisone with your taper. Take Percocet for any pain not relieved with the anti-inflammatory. Return to the emergency room for worsening shortness of breath or any concerns or getting worse. Call the pulmonary doctor tomorrow to see if you can get in the office on Thursday. Prescriptions: Lidocaine [Lidoderm 5% (700 mg) Transdermal Patch] 1 patch TP DAILY #14 adh..patch Oxycodone HCl/Acetaminophen [Percocet 5-325 mg Tablet] 1 - 2 tab PO ASDIR PRN # 25 tablet PRN Reason: Forms: Return to Work Referrals: PARAS BARLOW MD [ACTIVE STAFF] - Follow up as needed
[2018-02-11 21:55] VITALS: BP 136/99
== END 2018-02-11 21:57 | disposition home or self-care (01) ==
LOC: ER 20:12
DX: M54.9 Dorsalgia, unspecified (principal); J45.909 Unspecified asthma, uncomplicated; R06.02 Shortness of breath
CPT/HCPCS: 99284; J3490

== ENCOUNTER → 2018-02-18 | Outpatient (CLI) | payer MEDICAID ==
--- NOTE | 2018-02-18 09:21 | RADIOLOGY REPORT (SQ) ---
EXAM DESCRIPTION: ABDIFATAH SWALLOW COMPLETED DATE/TIME: 02/18/2018 9:01 am REASON FOR STUDY: COUGH, DYSPHAGIA R05 COUGH R13.10 DYSPHAGIA, UNSPECIFIED COMPARISON: None. TECHNIQUE: Videofluoroscopic swallowing examination was performed in conjunction with speech patholo gy. Videofluoroscopic imaging was obtained and reviewed and these are the findings: RADIATION DOSE: Fluoro time 1.1 minutes 1 images saved to PACS. LIMITATIONS: None FINDINGS: The patient was brought into the fluoro room and placed upright on a modified barium swall ow chair. The patient was then given multiple consistencies mixed with barium to swallow under live fluoroscopic video guidance. According to the Speech Pathologist there was flash laryngeal penetrati on without aspiration seen with thin barium. All other consistencies were swallowed without incident . Please refer to the speech pathology report for further details. IMPRESSION: FLASH LARYNGEAL PENETRATION WITHOUT ASPIRATION SEEN WITH THIN BARIUM.PLEASE SEE SPEECH P ATHOLOGIST REPORT FOR OTHER FINDINGS AND RECOMMENDATIONS. COMMENT: None Quality ID [id number]: Final reports for procedures using fluoroscopy that document radiation exposure gilberto lisbeth, or exposure time and number of fluorographic images (if radiation exposure indices are not avail able) TECHNICAL DOCUMENTATION: JOB ID: [id number] [employer]- All Rights Reserved Reading location - IP/workstation name: [email or web address] [id number]
--- NOTE | 2018-02-18 10:02 | ST Modified Barium Swallow ---
Recommendation - Recommendations Recommendations: No skilled intervention or diet changes recommended. Medical Diagnoses - Medical Diagnoses Medical Diagnosis Description & ICD-10 Code(s): R05 cough, R13.10 dysphagia Other Medical Diagnoses/Co-Morbidities: patient reports reflux and asthma symptoms. Reports that she is not currently . ST Modified Barium Swallow - General Date: 02/18/18 Referring Physician: DONNA Muñoz Risks/Precautions: None Date of Onset: 05/22/17 Reason for Referral: cough - History History obtained from: Patient -: Medical - Patient acted as her own historian. Patient reports that she is not having any current swallowing difficulties, but does note frequent coughing on going since May of 2017, exact date not given. Patient does report reflux and states that she avoids foods that she knows irritates this. Medications: per patient report: "bariva, promazone, nasal spray, breathing treatment" - Functional Status Prior Functional Status: INDEPENDENT: feeding - independent - Subjective Patient/caregiver goal(s): r/o aspiration Cognitive-Linguistic Function: WNL Speech Intelligibility: WNL Current Nutritional Means: PO Current PO diet: Regular Current symptoms: Coughing Pain: Patient reports, 4/5 - upper back pain - Objective Assessment: Upright, Left Lateral - Food Trials Used Food trials used: Thin liquids, Pureed, Regular The patient: fed by ST - Oral-Motor Skills Dentition: Full Velo-pharyngeal function: Unremarkable Laryngeal Function: Throat Clear - WNL, Volitional Swallow - WNL - Assessment Oral prep: Normal Labial closure: Adequate Leakage: None Mastication: Adequate Lingual Movement: Normal Oral stage: Normal for this Procedure - Pharyngeal Stage Initiation of Pharyngeal Stage Reflex: Normal Decreased laryngeal elevation: No Reduced Velopharyngeal Closure: no Reduced pressure generation: No reduced tongue-based retraction: No Pre-swallow pooling in valleculae: None Pre-Swallow pooling in pyriforms: None Reduced Thyro-Hyoid approximation: No Reduced epiglottic excursion: No Reduced pharyngeal peristalsis/contraction: No Post-swallow residulas vallecular: None Post-Swallow residuals in pyriforms: None - Fall Risk Assessment Medications/Conditions that increase fall risks include: Antidepressants, sedatives, anti-arrhythmic, diuretic, benzodiazipenes, neuroleptics. BP regulation problems, cardiac problems, balance or gait deficits, neurological problems. Is patient considered at risk for falls: no Fall Risk Actions Taken: No action needed - Behavioral Observations During evaluation process patient: was pleasant, was cooperative, able to answer questions - Treatment / Educational Needs: Treatment/Education Needs: Treatment consisted of patient education on the role of the Speech Pathologist. Patient's plan of care and golas were communicated as well as scheduling and attendance policies. Recommendations for initial home program were shared. Patient demonstrated understanding and verbalized agreement. - Impression/Summary Laryngeal Penetration: Yes, Flash, during swallow Consistency: Thin Tracheal Aspiration: no Patient presents with: Normal swallow at eval Risk of Aspiration: Minimal Evaluation and Findings: Normal oral and pharyngeal phase swallowing seen. Mild flash penetration seen with thin liquids, this easily redirected and did not reach level of vocal folds. No additional skilled intervention is indicated, no diet changes or specific strategies recommended. Discussed findings with patient after study. - Recommendations Solid diet recommendations: Regular Liquid Diet Modification: Thin Pt/Family education and followup with MD: Yes Dysphagia therapy with PUBLIC STENOGRAPHER: no Reflux Precautions: Taught to Patient Recommended techniques: Fully Upright During Meal, Small Bites and Sips Supervision: Independent Information, Precautions and Recommendations: Patient (Written), Patient (Verbal ) - Time Total Time: 25 - Plan of Care Strategies to optimize patient understanding include:: ongoing assessment of educational needs, implementation of educational strategies, and re-education. - - -: Thank you for the opportunity to work with this patient and his/her family. Should you have any questions about this patient's plan or progress, I can be reached at [phone]. Charge G Code? - - -: No
== END ==
LOC: RAD 08:15
PROVIDERS: ATTEND Physician Assistant
DX: R05 Cough (principal); R13.10 Dysphagia, unspecified
CPT/HCPCS: 74230

== ENCOUNTER 2018-02-23 07:38 | Emergency (ER) | payer MEDICAID ==
[2018-02-23] MEDS ORDERED: IPRATROPIUM/ALBUTEROL 0.5-2.5 MG/3 ML AMPUL NEB ONE ×2 (08:54→11:54)
[2018-02-23] MEDS ORDERED: RACEPINEPHRINE HCL 2.25% NEB 0.5 ML AMPUL NEB ONE (08:55)
--- NOTE | 2018-02-23 08:55 | ER Document Report ---
ED Respiratory Problem - General Information source: Patient TRAVEL OUTSIDE OF THE U[place]S. IN LAST 30 DAYS: No COUNTRY TRAVELED TO/FROM: [facility] - General Chief Complaint: Breathing Difficulty Stated Complaint: SHORT OF BREATH/DIFFICULTY BREATHING Time Seen by Provider: 02/23/18 08:47 Notes: 27-year-old female who presents to the emergency department today with complaints of a cough, shortness of breath, and wheezing. Patient has been seen here multiple times for asthma exacerbation in the past with her last intubation being in May 2017. Patient states she has been using her inhaler and Spiriva and steroids as prescribed. (MICHELLE VELÁSQUEZ) - Related Data Allergies/Adverse Reactions: No Known Allergies Allergy (Verified 02/23/18 07:42) Past Medical History - General Information source: Patient - Social History Smoking Status: Never Smoker Cigarette use (# per day): No Frequency of alcohol use: None Drug Abuse: None Lives with: Family Family History: Arthritis, Hypertension Pulmonary Medical History: Reports: Hx Asthma - intubated for asthma exacerbation May 2017 GI Medical History: Reports: Hx Gastroesophageal Reflux Disease Musculoskeletal Medical History: Reports Hx Musculoskeletal Trauma Traumatic Medical History: Reports: Hx Fractures - ankle Past Surgical History: Reports: Hx Cholecystectomy, Hx Oral Surgery, Hx Orthopedic Surgery - ACl R knee L ankle - Immunizations Hx Diphtheria, Pertussis, Tetanus Vaccination: Yes Review of Systems - Review of Systems Constitutional: No symptoms reported EENT: No symptoms reported Cardiovascular: No symptoms reported Respiratory: See HPI, Cough, Short of breath, Wheezing Gastrointestinal: No symptoms reported Genitourinary: No symptoms reported Female Genitourinary: No symptoms reported Musculoskeletal: No symptoms reported Skin: No symptoms reported Hematologic/Lymphatic: No symptoms reported Neurological/Psychological: No symptoms reported -: Yes All other systems reviewed and negative Physical Exam - Vital signs Vitals: Temp Pulse Resp BP Pulse Ox 97.9 F 76 20 101/69 97 02/23/18 07:54 02/23/18 07:54 02/23/18 07:54 02/23/18 07:54 02/23/18 07:54 - Notes Notes: Physical Exam: General: Alert, appears well. HEENT: Normocephalic. Atraumatic. PERRL. Extraocular movements intact. Oropharynx clear. Neck: Supple. Non-tender. Respiratory: No respiratory distress. Decreased air movement bilaterally, tight with wheezing bilaterally. Cardiovascular: Regular rate and rhythm. Abdominal: Normal Inspection. Non-tender. No distension. Normal Bowel Sounds. Back: Non-tender. No deformity or step off. Extremities: Moves all four extremities. Upper extremities: Normal inspection. Normal ROM. Lower extremities: Normal inspection. No edema. Normal ROM. Neurological: Normal cognition. AAOx4. Normal speech. Psychological: Normal affect. Normal Mood. Skin: Warm. Dry. Normal color. (MICHELLE VELÁSQUEZ) Course - Re-evaluation Re-evalutation: 02/23/18 09:54 Lungs are much clearer at this time, patient states her upper back hurts when she breathes. 02/23/18 12:05 Patient reports she feels much better and breathing is almost back to normal. On auscultation I can hear faint high-pitched wheezes deep in both lungs on forced cough. Evaluation of her back pain shows the pain is located to the medial scapular muscles bilaterally, with tenderness and reproduction of her pain on palpating these areas. I discussed with the patient about the need to go back up to higher doses of steroids right now, as she is on prednisone 10 mg daily. She will follow-up with her primary care later this week for reevaluation about her medication regimen. 02/23/18 12:06 (THANH ROSS) - Vital Signs Vital signs: Temp Pulse Resp BP Pulse Ox 98.1 F 73 17 108/78 99 02/23/18 12:27 02/23/18 12:27 02/23/18 12:27 02/23/18 12:27 02/23/18 12:27 Discharge - Discharge Clinical Impression: Asthma exacerbation Qualifiers: Asthma severity: moderate Asthma persistence: unspecified Qualified Code(s): J45.901 - Unspecified asthma with (acute) exacerbation Acute thoracic back pain Qualifiers: Back pain laterality: bilateral Qualified Code(s): M54.6 - Pain in thoracic spine Condition: Stable Disposition: HOME, SELF-CARE Additional Instructions: You will need to increase the dose of prednisone for the next several days to help get through this recent flare of your asthma. Stop the 10 mg daily dose of prednisone you are taking now and take the prednisone as prescribed. You were given today's dose of prednisone, so you can start the new prescription tomorrow. Be sure to drink plenty of fluids and rest. Follow-up with your primary care provider this week for reevaluation of your breathing and discussion about any medication changes that might be recommended. RETURN TO THE EMERGENCY ROOM IF ANY NEW OR WORSENING SYMPTOMS. Prescriptions: Albuterol Sulfate [Proair HFA] 1 - 2 puff IH Q4 PRN #1 inhaler PRN Reason: Benzonatate [Tessalon Perles 100 mg Capsule] 100 mg PO ASDIR PRN #30 capsule PRN Reason: Prednisone [Deltasone 10 mg Tablet] 10 mg PO ASDIR PRN #26 tablet PRN Reason: Forms: Return to Work Referrals: BRYAN LEIVA PA-C [Primary Care Provider] - Follow up in 3-5 days Scribe Attestation: 02/23/18 09:09 I personally performed the services described in the documentation, reviewed and edited the documentation which was dictated to the scribe in my presence, and it accurately records my words and actions. (THANH ROSS) Scribe Documentation - Scribe Written by Violetta:: Violetta Morgan, 02/23/2018 1355 acting as scribe for :: Tony
[2018-02-23] MEDS: MAGNESIUM SULFATE/D5W 1 GM/100 ML RTUPB IV SCH ×2 (09:34→10:21)
[2018-02-23] MEDS ORDERED: ALBUTEROL SULFATE 0.083% NEB 2.5 MG/3 ML AMPUL NEB ONE (10:14)
[2018-02-23] MEDS ORDERED: BENZONATATE 100 MG CAPSULE PO ONE (10:14)
[2018-02-23] MEDS ORDERED: PREDNISONE 20 MG TABLET PO ONE (12:07)
[2018-02-23 12:30] VITALS: BP 123/91
--- NOTE | 2018-02-23 12:44 | EKG REPORT ---
SEVERITY:- OTHERWISE NORMAL ECG - SINUS ARRHYTHMIA, RATE 60-87 : Confirmed by: Boo Dawkins MD 23-Feb-2018 12:44:19
== END 2018-02-23 12:34 | disposition home or self-care (01) ==
LOC: ER 07:38
DX: J45.901 Unspecified asthma with (acute) exacerbation (principal); R05 Cough; R06.02 Shortness of breath; M54.6 Pain in thoracic spine; Z79.899 Other long term (current) drug therapy; Z79.52 Long term (current) use of systemic steroids
CPT/HCPCS: 93005; 94640 ×2; 99285; 96365; 96366; 93010; J3490 ×2; J3475; J7512; J7620

== ENCOUNTER 2018-03-14 21:19 | Emergency (ER) | payer MEDICAID ==
[2018-03-14 21:44] VITALS: BP 143/74
== END 2018-03-15 02:30 | disposition left against medical advice (07) ==
LOC: ER 21:19
DX: Z53.21 Procedure and treatment not carried out due to patient leaving prior to being seen by health care provider (principal)

== ENCOUNTER 2018-05-30 17:46 | Emergency (ER) | payer SELFPAY ==
[2018-05-30 17:52] VITALS: BP 135/79
[2018-05-30] MEDS ORDERED: IBUPROFEN 800 MG TABLET PO ONE (18:19)
--- NOTE | 2018-05-30 18:22 | ER Document Report ---
HPI - HPI Patient complains to provider of: bodyachces Time Seen by Provider: 05/30/18 18:10 Pain Level: 4 Context: Patient is a 27-year-old female presenting to the emergency department complaining of generalized body aches for the last 11 days. Patient does note over 10 episodes of diarrhea today. Patient denies any blood in her diarrhea. Patient denies any cough, congestion, fever, nausea, vomiting. States diarrhea started today. Patient states she was to this facility a year ago and intubated for status asthmaticus. States she was [facility] and then followed up with pulmonology in [place]. States she was placed on prednisone and has been taking 20 mg of prednisone every day for the last year. States in the last 2 weeks she stopped taking the prednisone because she wants to work on her weight. She states prednisone makes her eat too much and she has gained a lot of weight. States she did not talk to pulmonology or her primary care doctor about stopping the prednisone. Patient denies any shortness of breath, chest pain, dizziness, lightheadedness. Past medical history: Asthma Medications: Symbicort Allergies: None - CONSTITUTIONAL Constitutional: DENIES: Fever, Chills - EENT EENT: DENIES: Sore Throat, Ear Pain, Eye problems - NEURO Neurology: DENIES: Headache, Weakness, Vision blurred, Dizzinesss / Vertigo - CARDIOVASCULAR Cardiovascular: DENIES: Chest pain - RESPIRATORY Respiratory: DENIES: Trouble Breathing, Coughing - GASTROINTESTINAL Gastrointestinal: DENIES: Abdominal Pain, Black / Bloody Stools - URINARY Urinary: DENIES: Dysuria, Urgency, Frequency - REPRODUCTIVE Reproductive: REPORTS: : - MUSCULOSKELETAL Musculoskeletal: REPORTS: Extremity pain - all over body pain Past Medical History - General Information source: Patient - Social History Smoking Status: Unknown if Ever Smoked Family History: Arthritis, Hypertension Patient has suicidal ideation: No Patient has homicidal ideation: No - Past Medical History Cardiac Medical History: Denies: Hx Congestive Heart Failure, Hx Coronary Artery Disease, Hx Heart Attack, Hx Hypertension Pulmonary Medical History: Reports: Hx Asthma - intubated for asthma exacerbation May 2017 Renal/ Medical History: Denies: Hx Peritoneal Dialysis GI Medical History: Reports: Hx Gastroesophageal Reflux Disease Musculoskeletal Medical History: Reports Hx Musculoskeletal Trauma Traumatic Medical History: Reports: Hx Fractures - ankle Past Surgical History: Reports: Hx Cholecystectomy, Hx Oral Surgery, Hx Orthopedic Surgery - ACl R knee L ankle - Immunizations Hx Diphtheria, Pertussis, Tetanus Vaccination: Yes Vertical Provider Document - CONSTITUTIONAL Agree With Documented VS: Yes Notes: GENERAL: Morbidly obese alert, interacts well. No acute distress. HEAD: Normocephalic, atraumatic. EYES: Pupils equal, round, and reactive to light. Extraocular movements intact. ENT: Oral mucosa moist, tongue midline. Nares patent, TM's intact, pharynx within normal limits, no palatal petechiae or exudate noted tonsils +1 bilaterally NECK: Full range of motion. Supple. Trachea midline. LUNGS: Clear to auscultation bilaterally, no wheezes, rales, or rhonchi. No respiratory distress. HEART: Regular rate and rhythm. No murmur ABDOMEN: Soft, non-tender. Non-distended. Bowel sounds present in all 4 quadrants. EXTREMITIES: Moves all 4 extremities spontaneously. No edema, normal radial and dorsalis pedis pulses bilaterally. No cyanosis. 5 out of 5 strength all 4 extremities. BACK: no cervical, thoracic, lumbar midline tenderness. No saddle anesthesia, normal distal neurovascular exam. NEUROLOGICAL: Alert and oriented x3. Normal speech. cranial nerves II through XII grossly intact PSYCH: Normal affect, normal mood. SKIN: Warm, dry, normal turgor. No rashes or lesions noted. - INFECTION CONTROL TRAVEL OUTSIDE OF THE [place] IN LAST 30 DAYS: No COUNTRY TRAVELED TO/FROM: [place] Course - Re-evaluation Re-evalutation: 05/30/18 18:28 Discussed with patient at bedside her body aches may be attributed to a viral illness. Also discussed it may be attributed to her stopping her prednisone abruptly. Discussed need to call pulmonology back in follow-up with them. Patient states she left a voicemail with pulmonology but they have not called her back. Close return precautions discussed. Patient is afebrile, non-tachycardic, nontoxic appearing. Stable for discharge. - Vital Signs Vital signs: Temp Pulse Resp BP Pulse Ox 98.7 F 97 18 135/79 H 99 05/30/18 17:51 05/30/18 17:51 05/30/18 17:51 05/30/18 17:51 05/30/18 17:51 Discharge - Discharge Clinical Impression: Generalized body aches Condition: Stable Disposition: HOME, SELF-CARE Instructions: Viral Syndrome ([facility]) Additional Instructions: He has been seen and treated in the emergency department for body aches. These body aches could be caused by a virus. There are many upper respiratory and gastrointestinal viruses that can cause body aches. These body aches may be attributed to stopping her prednisone abruptly. You should follow-up with the assistant portfolio manager who placed her on the prednisone. They may want to taper you on a different dose. Please return to the emergency room for any other concerning symptoms. Referrals: BRYAN LEIVA PA-C [Primary Care Provider] - Follow up as needed
== END 2018-05-30 18:47 | disposition home or self-care (01) ==
LOC: ER 17:46
DX: M79.10 Myalgia, unspecified site (principal); R19.7 Diarrhea, unspecified; J45.909 Unspecified asthma, uncomplicated
CPT/HCPCS: 99283

== ENCOUNTER 2018-12-19 21:25 | Emergency (ER) | payer SELFPAY ==
--- NOTE | 2018-12-19 22:38 | ER Document Report ---
ED Medical Screen (RME) - General Chief Complaint: Swelling Stated Complaint: SWOLLEN FEET Time Seen by Provider: 12/19/18 22:36 Notes: 28-year-old obese -[place] female coming in today with bilateral lower extremity swelling. Denies calf pain. Feet are swollen all the time. Patient drives a cab all day. Relates that it does not get better with elevation. Does not have any chest pain or shortness of breath or cardiac history. I have treated and performed a rapid initial assessment of this patient. A comprehensive ED assessment and evaluation of the patient, analysis of test results and completion of medical decision making process will be conducted by additional ED providers. PHYSICAL EXAMINATION: GENERAL: Well-appearing, well-nourished and in no acute distress. A&Ox4. Answers questions appropriately. LUNGS: Breath sounds clear to auscultation bilaterally and equal. No wheezes rales or rhonchi. HEART: Regular rate and rhythm without murmurs, rubs, gallops. ABDOMEN: Soft, nondistended abdomen. No guarding, no rebound. Normal bowel sounds present. No CVA tenderness bilaterally. + mild epigastric tenderness (cannot elicit thorough abd exam w/o table, however). Extremities: Positive bilateral pedal edema NEUROLOGICAL: Normal speech, normal gait. PSYCH: Normal mood, normal affect. TRAVEL OUTSIDE OF THE U[place] IN LAST 30 DAYS: No COUNTRY TRAVELED TO/FROM: [place] - Related Data Allergies/Adverse Reactions: No Known Allergies Allergy (Verified 02/23/18 07:42) Past Medical History - Past Medical History Cardiac Medical History: Denies: Hx Congestive Heart Failure, Hx Coronary Artery Disease, Hx Heart Attack, Hx Hypertension Pulmonary Medical History: Reports: Hx Asthma - intubated for asthma exacerbation May 2017 Renal/ Medical History: Denies: Hx Peritoneal Dialysis GI Medical History: Reports: Hx Gastroesophageal Reflux Disease Musculoskeltal Medical History: Reports Hx Musculoskeletal Trauma Traumatic Medical History: Reports: Hx Fractures - ankle Past Surgical History: Reports: Hx Cholecystectomy, Hx Oral Surgery, Hx Orthopedic Surgery - ACl R knee L ankle - Immunizations Hx Diphtheria, Pertussis, Tetanus Vaccination: Yes History of Influenza Vaccine for 03/2017 - 08/2017 Season: Yes Physical Exam - Vital signs Vitals: Temp Pulse Resp BP Pulse Ox 99.2 F 77 18 134/64 H 96 12/19/18 21:35 12/19/18 21:35 12/19/18 21:35 12/19/18 21:35 12/19/18 21:35 Course - Vital Signs Vital signs: Temp Pulse Resp BP Pulse Ox 99.2 F 77 18 134/64 H 96 12/19/18 21:35 12/19/18 21:35 12/19/18 21:35 12/19/18 21:35 12/19/18 21:35
--- NOTE | 2018-12-20 00:40 | ER Document Report ---
ED General - General Chief Complaint: Swelling Stated Complaint: SWOLLEN FEET Time Seen by Provider: 12/19/18 22:36 Primary Care Provider: [facility] [Provider Group] - Follow up as needed DESHAUN LEZAMA MD [ACTIVE STAFF] - Follow up as needed Notes: Patient is a 28-year-old female that comes to the emergency department for chief complaint of bilateral lower extremity swelling for the past couple of days. She states her feet are usually swollen but now her legs are swollen. She denies calf pain. She does report some chronic left foot pain over the bottom of her foot, worse when she gets up in the morning. She denies any other symptoms including injury, fever/chills, shortness of breath, chest pain. She states she tried elevating her feet last night but she did not notice a difference. She does not take any daily medications. She denies , states her periods are really irregular. She denies recreational drugs. TRAVEL OUTSIDE OF THE [place] IN LAST 30 DAYS: No COUNTRY TRAVELED TO/FROM: [place] - Related Data Allergies/Adverse Reactions: No Known Allergies Allergy (Verified 02/23/18 07:42) Past Medical History - General Information source: Patient - Social History Smoking Status: Never Smoker Frequency of alcohol use: None Drug Abuse: None Lives with: Family Family History: Arthritis, Hypertension Patient has suicidal ideation: No Patient has homicidal ideation: No - Past Medical History Cardiac Medical History: Denies: Hx Congestive Heart Failure, Hx Coronary Artery Disease, Hx Heart Attack, Hx Hypertension Pulmonary Medical History: Reports: Hx Asthma - intubated for asthma exacerbation May 2017 Renal/ Medical History: Denies: Hx Peritoneal Dialysis GI Medical History: Reports: Hx Gastroesophageal Reflux Disease Musculoskeletal Medical History: Reports Hx Musculoskeletal Trauma Traumatic Medical History: Reports: Hx Fractures - ankle Past Surgical History: Reports: Hx Cholecystectomy, Hx Oral Surgery, Hx Orthopedic Surgery - ACl R knee L ankle - Immunizations Hx Diphtheria, Pertussis, Tetanus Vaccination: Yes Review of Systems - Review of Systems Constitutional: No symptoms reported EENT: No symptoms reported Cardiovascular: See HPI Respiratory: No symptoms reported Gastrointestinal: No symptoms reported Genitourinary: No symptoms reported Female Genitourinary: No symptoms reported Musculoskeletal: See HPI Skin: No symptoms reported Hematologic/Lymphatic: No symptoms reported Neurological/Psychological: No symptoms reported Physical Exam - Vital signs Vitals: Temp Pulse Resp BP Pulse Ox 99.2 F 77 18 134/64 H 96 12/19/18 21:35 12/19/18 21:35 12/19/18 21:35 12/19/18 21:35 12/19/18 21:35 - Notes Notes: GENERAL: Alert, interacts well. No acute distress. HEAD: Normocephalic, atraumatic. EYES: Pupils equal, round, and reactive to light. Extraocular movements intact. ENT: Oral mucosa moist, tongue midline. Oropharynx unremarkable. Airway patent. NECK: Full range of motion. Supple. Trachea midline. LUNGS: Clear to auscultation bilaterally, no wheezes, rales, or rhonchi. No respiratory distress. HEART: Regular rate and rhythm. No murmur ABDOMEN: Soft, non-tender. Non-distended. GENITOURINARY: Deferred EXTREMITIES: Moves all 4 extremities spontaneously. Normal distal neurovascular exam. 1+ edema bilaterally. Pain over the plantar aspect of the left foot without erythema, abnormal swelling, or other concerning other maladies noted. BACK: no cervical, thoracic, lumbar midline tenderness. No saddle anesthesia, normal distal neurovascular exam. Moves all extremities in full range of motion. NEUROLOGICAL: Alert and oriented x3. Normal speech. Cranial nerves II through XII grossly intact. PSYCH: Normal affect, normal mood. SKIN: Warm, dry, normal turgor. No rashes or lesions noted. Course - Re-evaluation Re-evalutation: Patient is well-appearing, clear lungs, benign abdomen, worsening lower extremity swelling. 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 Patient is very obese. Patient reported symptoms I do have a low suspicion of cardiac or liver sources of her edema. Patient also has evidence of plantar fasciitis on exam. I discussed with patient. I discussed the possible work-up, discussed treatment options. After discussion decision was made to provide patient with short-term diuretic, potassium supplement, I did discuss plantar fasciitis recommendations, discussed primary care follow-up and return precautions. Patient states understanding and agreement. - Vital Signs Vital signs: Temp Pulse Resp BP Pulse Ox 98.6 F 68 16 164/76 H 96 12/20/18 00:59 12/20/18 00:59 12/20/18 00:59 12/20/18 00:59 12/19/18 21:35 Discharge - Discharge Clinical Impression: Swelling of lower extremity Condition: Stable Disposition: HOME, SELF-CARE Additional Instructions: Your evaluation shows lower extremity swelling suggesting some venous insufficiency, I recommend wearing the TEDs at night. Take the diuretic as prescribed to help treat this as well. Follow-up with primary care referral for additional evaluation and management. For the suspected plantar fasciitis, anti-inflammatories can help, stretches can help, and I recommend supportive shoes. If symptoms continue follow-up with orthopedics referral. Return to the emergency department for any concerning worsening symptoms severe worsening swelling, redness, pain, or any other concerning or worsening symptoms. Prescriptions: Furosemide [Lasix 20 mg Tablet] 20 mg PO QAM PRN #7 tablet PRN Reason: Potassium Chloride 10 meq PO DAILY PRN #7 capsule.er PRN Reason: Referrals: [facility] [Provider Group] - Follow up as needed DESHAUN LEZAMA MD [ACTIVE STAFF] - Follow up as needed
[2018-12-20 01:01] VITALS: BP 164/76
== END 2018-12-20 00:59 | disposition home or self-care (01) ==
LOC: ER 21:25
DX: R60.0 Localized edema (principal); M72.2 Plantar fascial fibromatosis; J45.909 Unspecified asthma, uncomplicated
CPT/HCPCS: 81025; 99283

== ENCOUNTER 2019-02-26 21:46 | Emergency (ER) | payer SELFPAY ==
--- NOTE | 2019-02-26 23:28 | ER Document Report ---
HPI - HPI Time Seen by Provider: 02/26/19 23:10 Pain Level: 4 Context: Patient is a 28-year-old female that comes to the emergency department for chief complaint of right knee pain. She states her son did fall on the knee 2 days ago. She states that when she walks it pops and it hurts to bend. She has been taking 800 mg of ibuprofen without significant change. She had ACL repair in the same knee in 2007. She denies any other complaints. She denies any diagnosed medical problems, denies . - REPRODUCTIVE Reproductive: DENIES: : Past Medical History - General Information source: Patient - Social History Smoking Status: Never Smoker Drug Abuse: None Lives with: Family Family History: Arthritis, Hypertension - Past Medical History Cardiac Medical History: Denies: Hx Congestive Heart Failure, Hx Coronary Artery Disease, Hx Heart Attack, Hx Hypertension Pulmonary Medical History: Reports: Hx Asthma - intubated for asthma exacerbation May 2017 Renal/ Medical History: Denies: Hx Peritoneal Dialysis GI Medical History: Reports: Hx Gastroesophageal Reflux Disease Musculoskeletal Medical History: Reports Hx Musculoskeletal Trauma Traumatic Medical History: Reports: Hx Fractures - ankle Past Surgical History: Reports: Hx Cholecystectomy, Hx Oral Surgery, Hx Orthopedic Surgery - ACl R knee L ankle - Immunizations Hx Diphtheria, Pertussis, Tetanus Vaccination: Yes Vertical Provider Document - CONSTITUTIONAL General Appearance: WD/WN, No Apparent Distress - INFECTION CONTROL TRAVEL OUTSIDE OF THE [place] IN LAST 30 DAYS: No COUNTRY TRAVELED TO/FROM: [place] - HEENT HEENT: Atraumatic, Normocephalic - NECK Neck: Normal Inspection - RESPIRATORY Respiratory: Breath Sounds Normal, No Respiratory Distress - CARDIOVASCULAR Cardiovascular: Regular Rate, Regular Rhythm - GI/ABDOMEN Gastrointestinal: Abdomen Soft, Abdomen Non-Tender - BACK Back: Normal Inspection - MUSCULOSKELETAL/EXTREMETIES Musculoskeletal/Extremeties: MAEW, FROM, Tender - Patient complains with palpation over the inferior aspect of the right knee, there are scars over the right knee vertically, range of motion of the right knee intact, positive Jessica test. There is no obvious swelling, no abnormal heat or erythema. Normal hip, ankle, foot exams. Normal distal neurovascular exam. Course - Re-evaluation Re-evalutation: X-ray showing tricompartmental degenerative changes, no effusion, no soft tissue swelling, no fracture. Patient has positive Jessica's test, clinical picture is consistent with arthritis and probably meniscus tear. Patient provided with knee immobilizer, anti-inflammatory, recommendations, orthopedic referral. Discussed follow-up and return precautions. Patient states understanding and agreement. - Vital Signs Vital signs: Temp Pulse Resp BP Pulse Ox 98.2 F 61 18 135/82 H 96 02/26/19 22:22 02/26/19 22:22 02/26/19 22:22 02/26/19 22:22 02/26/19 22:22 - Diagnostic Test Radiology reviewed: Image reviewed, Reports reviewed Procedures - Immobilization right knee Pre-Proc Neuro Vasc Exam: Normal Immobilizer type: Knee immobilizer Performed by: PCT Post-Proc Neuro Vasc Exam: Normal Alignment checked and good: Yes Discharge - Discharge Clinical Impression: Right knee pain Qualifiers: Chronicity: acute Qualified Code(s): M25.561 - Pain in right knee Condition: Stable Disposition: HOME, SELF-CARE Instructions: Oral Narcotic Medication ([facility]) Additional Instructions: Your evaluation is very suspicious for a meniscus tear, your imaging shows degenerative changes in your knee. I recommend that you wear the knee immobilizer, use the crutches, ice 3-4 times a day for 10 to 15 minutes, take the anti-inflammatory, and elevate your knee whenever possible. Hopefully symptoms will simply resolve with time. If symptoms continue please follow-up with the orthopedic referral for additional management. Return for any concerning symptoms including severe swelling, redness, fever, severe pain, or any other concerning symptoms. Prescriptions: Naproxen 500 mg PO BID PRN #20 tablet PRN Reason: Forms: Return to Work Referrals: DESHAUN LEZAMA MD [ACTIVE STAFF] - Follow up in 1 week
--- NOTE | 2019-02-27 00:17 | RADIOLOGY REPORT (SQ) ---
EXAM DESCRIPTION: XR KNEE 4 OR MORE VIEWS COMPLETED DATE/TME: 02/26/2019 23:27 CLINICAL HISTORY: 28 years, Female, right knee injury and pain COMPARISON: 01/04/2018 right knee NUMBER OF VIEWS: 4 TECHNIQUE: 4 view right knee LIMITATIONS: None. FINDINGS: Post surgical changes consistent with prior ACL repair. Negative for acute fracture or dislocation. Mild tricompartmental degenerative changes. No definitive joint effusion IMPRESSION: Postsurgical changes with mild tricompartmental degenerative change. copyright 2010 [employer]- All Rights Reserved
[2019-02-27] MEDS ORDERED: HYDROCODONE/ACETAMINOPHEN 5-325 MG (6 TAB/ER DISP) PO PRN (01:44)
[2019-02-27 02:37] VITALS: BP 136/85
== END 2019-02-27 02:37 | disposition home or self-care (01) ==
LOC: ER 21:46
DX: M25.561 Pain in right knee (principal); W50.0XXA Accidental hit or strike by another person, initial encounter; Z98.890 Other specified postprocedural states; J45.909 Unspecified asthma, uncomplicated
CPT/HCPCS: 73564; L1830; 99283

== ENCOUNTER 2019-12-13 10:18 | Emergency (ER) | payer SELFPAY ==
[2019-12-13 10:24] VITALS: BP 143/92
--- NOTE | 2019-12-13 10:40 | ER Document Report ---
HPI - HPI Patient complains to provider of: Left ear pain Time Seen by Provider: 12/13/19 10:37 Onset: Yesterday Onset/Duration: Gradual, Waxing and waning Quality of pain: Achy, Dull Associated Symptoms: None Exacerbated by: Denies, Deep breathing Similar symptoms previously: No - REPRODUCTIVE Reproductive: DENIES: : Past Medical History - General Information source: Patient - Social History Smoking Status: Never Smoker Cigarette use (# per day): No Chew tobacco use (# tins/day): No Smoking Education Provided: No Family History: Arthritis, Hypertension Patient has suicidal ideation: No Patient has homicidal ideation: No - Medical History Medical History: Negative - Past Medical History Cardiac Medical History: Denies: Hx Congestive Heart Failure, Hx Coronary Artery Disease, Hx Heart Attack, Hx Hypertension Pulmonary Medical History: Reports: Hx Asthma - intubated for asthma exacerbation May 2017 Neurological Medical History: Denies: Hx Parkinson's Disease Renal/ Medical History: Denies: Hx Peritoneal Dialysis GI Medical History: Reports: Hx Gastroesophageal Reflux Disease Musculoskeletal Medical History: Reports Hx Musculoskeletal Trauma Traumatic Medical History: Reports: Hx Fractures - ankle Past Surgical History: Reports: Hx Cholecystectomy, Hx Oral Surgery, Hx Orthopedic Surgery - ACl R knee L ankle - Immunizations Hx Diphtheria, Pertussis, Tetanus Vaccination: Yes Vertical Provider Document - CONSTITUTIONAL Agree With Documented VS: Yes - INFECTION CONTROL TRAVEL OUTSIDE OF THE [place] IN LAST 30 DAYS: No - HEENT HEENT: Atraumatic, Conjuctival Injection, Normocephalic, PERRLA Notes: Left ear canal erythema with scant exudate. - NECK Neck: Normal Inspection - RESPIRATORY Respiratory: Breath Sounds Normal - CARDIOVASCULAR Cardiovascular: Regular Rate, Regular Rhythm - GI/ABDOMEN Gastrointestinal: Abdomen Soft, Abdomen Non-Tender - REPRODUCTIVE Female Genitalia: Normal Inspection - BACK Back: Normal Inspection - MUSCULOSKELETAL/EXTREMETIES Musculoskeletal/Extremeties: MAEW - NEURO Level of Consciousness: Awake, Alert - DERM Integumentary: Warm Course - Vital Signs Vital signs: Temp Pulse Resp BP Pulse Ox 98.6 F 57 L 20 143/92 H 99 12/13/19 10:22 12/13/19 10:22 12/13/19 10:22 12/13/19 10:22 12/13/19 10:22 Discharge - Discharge Clinical Impression: Otitis externa Qualifiers: Otitis externa type: other infective Chronicity: acute Laterality: left Qualified Code(s): H60.392 - Other infective otitis externa, left ear Condition: Good Disposition: HOME, SELF-CARE Instructions: Use of Ear Drops ([facility]), Otitis Externa ([facility]) Prescriptions: Ciprofloxacin HCl/Dexameth [Ciprodex Otic Suspension 7.5 ml Bottle] 4 drop OT BID #1 bottle
== END 2019-12-13 10:44 | disposition home or self-care (01) ==
LOC: ER 10:18
DX: H60.392 Other infective otitis externa, left ear (principal); J45.909 Unspecified asthma, uncomplicated
CPT/HCPCS: 99282

== ENCOUNTER 2019-12-17 19:49 | Emergency (ER) | payer BC ==
[2019-12-17 19:55] VITALS: BP 149/77
[2019-12-17] MEDS ORDERED: SULFAMETHOXAZOLE/TRIMETHOPRIM 800-160 MG TABLET PO ONE (22:41)
--- NOTE | 2019-12-17 22:47 | ER Document Report ---
ED General - General Chief Complaint: Wound Infection Stated Complaint: SORES ON HEAD/HEAD PAIN Notes: Patient is a 29-year-old -[place] female who presents to the emergency department with a chief complaint of soreness, swelling and draining to the top of the scalp began a few days ago. She states she had her hair done, pulled tight into brennan and put in a "up do". Patient reports the area was very tender under the traction on her hair. She states that she pulled her hair down to try to get some relief and subsequently noticed some swelling to the superior occipital scalp. She states there is began to drain a scant drainage. She has been applying antibacterial cream and rinsing the hair. She is left that her down and out of traction without any significant improvement. She denies any fevers chills or night sweats. No neck pain or headache. TRAVEL OUTSIDE OF THE [place] IN LAST 30 DAYS: No - Related Data Allergies/Adverse Reactions: No Known Allergies Allergy (Verified 02/23/18 07:42) Past Medical History - Social History Smoking Status: Never Smoker Chew tobacco use (# tins/day): No Frequency of alcohol use: None Drug Abuse: None Family History: Arthritis, Hypertension Patient has homicidal ideation: No - Past Medical History Cardiac Medical History: Denies: Hx Congestive Heart Failure, Hx Coronary Artery Disease, Hx Heart Attack, Hx Hypertension Pulmonary Medical History: Reports: Hx Asthma - intubated for asthma exacerbation May 2017 Neurological Medical History: Denies: Hx Parkinson's Disease Renal/ Medical History: Denies: Hx Peritoneal Dialysis GI Medical History: Reports: Hx Gastroesophageal Reflux Disease Musculoskeletal Medical History: Reports Hx Musculoskeletal Trauma Traumatic Medical History: Reports: Hx Fractures - ankle Past Surgical History: Reports: Hx Cholecystectomy, Hx Oral Surgery, Hx Orthopedic Surgery - ACl R knee L ankle - Immunizations Hx Diphtheria, Pertussis, Tetanus Vaccination: Yes Review of Systems - Review of Systems Skin: Change in hair/nails, Lesions -: Yes All other systems reviewed and negative Physical Exam - Vital signs Vitals: Temp Pulse Resp BP Pulse Ox 98.7 F 80 20 149/77 H 98 12/17/19 19:53 12/17/19 19:53 12/17/19 19:53 12/17/19 19:53 12/17/19 19:53 - General General appearance: Appears well, Alert In distress: None - HEENT Head: Other - Swelling and obvious folliculitis to the posterior/superior occipital scalp with slight traction alopecia. No evidence of tinea capitis. Neck: Normal - Respiratory Respiratory status: No respiratory distress Chest status: Nontender Breath sounds: Normal Chest palpation: Normal - Cardiovascular Rhythm: Regular Heart sounds: Normal auscultation - Neurological Neuro grossly intact: Yes Cognition: Normal Orientation: AAOx4 - Psychological Associated symptoms: Normal affect, Normal mood - Skin Skin Color: Other - As described above, affected area of scalp Course - Re-evaluation Re-evalutation: 12/17/19 22:46 Patient is here under traction likely causative of a traction alopecia and sec ondary folliculitis. She will continue to keep the hair down, cleanse area as discussed, apply topical antibiotic cream and we will add Bactrim p.o. twice daily for 10 days. Counseled her regarding the importance of outpatient follow- up in 2 to 3 days for wound recheck/reevaluation. Advised that she return here or any ER immediately with any new, persistent or worsening symptoms. She verbalized understood and agreed. - Vital Signs Vital signs: Temp Pulse Resp BP Pulse Ox 98.7 F 80 20 149/77 H 98 12/17/19 19:53 12/17/19 19:53 12/17/19 19:53 12/17/19 19:53 12/17/19 19:53 Discharge - Discharge Clinical Impression: Folliculitis Condition: Stable Disposition: HOME, SELF-CARE Instructions: Soap Cleansing ([facility]), Folliculitis ([facility]) Additional Instructions: Follow-up with your regular doctor in 2 to 3 days for reevaluation. Return here or any ER immediately with any new, persistent or worsening symptoms. Prescriptions: Sulfamethoxazole/Trimethoprim [Bactrim Ds Tablet] 1 each PO BID #19 tablet
== END 2019-12-17 22:47 | disposition home or self-care (01) ==
LOC: ER 19:49
DX: L73.9 Follicular disorder, unspecified (principal); L65.8 Other specified nonscarring hair loss; J45.909 Unspecified asthma, uncomplicated
CPT/HCPCS: 99283

== ENCOUNTER 2020-02-04 19:05 | Emergency (ER) | payer SELFPAY ==
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
--- NOTE | 2020-02-04 20:00 | RADIOLOGY REPORT (SQ) ---
EXAM DESCRIPTION: CHEST 2 VIEWS IMAGES COMPLETED DATE/TIME: 02/04/2020 7:40 pm REASON FOR STUDY: Chest pain, syncope COMPARISON: 02/09/2018 TECHNIQUE: Frontal and lateral radiographic views of the chest acquired. NUMBER OF VIEWS: Two view. LIMITATIONS: None. FINDINGS: LUNGS AND PLEURA: No pneumothorax. No consolidation or pleural effusion. MEDIASTINUM AND HILAR STRUCTURES: Stable. HEART AND VASCULAR STRUCTURES: Stable. BONES: No acute findings. HARDWARE: None in the chest. OTHER: No other significant finding. IMPRESSION: NO ACUTE FINDINGS. TECHNICAL DOCUMENTATION: JOB ID: [id number] [id number] [email or web address]- All Rights Reserved Reading location - IP/workstation name: [email or web address]
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
[2020-02-04 20:25] LABS: ABSOLUTE BASOPHILS # (AUTO) 0.1 10^3/uL (0.0-0.2); ABSOLUTE EOSINOPHILS # (AUTO) 0.1 10^3/uL (0.0-0.6); ABSOLUTE MONOCYTES (AUTO) 0.4 10^3/uL (0.1-1.4); ABSOLUTE NEUT (AUTO) 3.2 10^3/uL (1.7-8.2); BASOPHILS % (AUTO) 1.1 % (0-2); EOSINOPHILS % (AUTO) 1.9 % (0-6); HEMATOCRIT 40.9 % (36.0-47.0); HEMOGLOBIN 13.8 g/dL (12.0-15.5); LYMPHOCYTES % (AUTO) 34.7 % (13-45); MEAN CORPUSCULAR HGB CONC 33.7 g/dL (32.0-36.0); MEAN CORPUSCULAR VOLUME 86 fl (80-97); MONOCYTES % (AUTO) 7.2 % (3-13); PLATELET COUNT 269 10^3/uL (150-450); RED BLOOD COUNT 4.74 10^6/uL (3.72-5.28); SEGMENTED NEUTROPHILS % (AUTO) 55.1 % (42-78); TOTAL CELLS COUNTED % (AUTO) 100 %; WHITE BLOOD COUNT 5.8 10^3/uL (4.0-10.5)
[2020-02-04 20:35] LABS: APPEARANCE,URINE CLOUDY; BILIRUBIN,URINE NEGATIVE (NEGATIVE); COLOR,URINE YELLOW; GLUCOSE, URINE NEGATIVE (NEGATIVE); KETONES,URINE NEGATIVE (NEGATIVE); LEUKOCYTE ESTERASE,URINE MODERATE (NEGATIVE); NITRITE,URINE NEGATIVE (NEGATIVE); PROTEIN,URINE 30 mg/dL (NEGATIVE)
[2020-02-04 20:38] LABS: ALBUMIN 4.2 g/dL (3.5-5.0); ALKALINE PHOSPHATASE 68 U/L (38-126); ANION GAP 5 (5-19); ASPARTATE AMINO TRANSFERASE 26 U/L (14-36); BILIRUBIN,TOTAL 0.4 mg/dL (0.2-1.3); BLOOD UREA NITROGEN 13 mg/dL (7-20); CALCIUM 9.3 mg/dL (8.4-10.2); CARBON DIOXIDE 29 mmol/L (22-30); CHLORIDE 104 mmol/L (98-107); CREATINE KINASE 209 U/L (30-135); GLUCOSE 115 mg/dL (75-110); POTASSIUM 3.9 mmol/L (3.6-5.0); TOTAL PROTEIN 7.6 g/dL (6.3-8.2)
[2020-02-04 20:51] LABS: NT PRO BNP 94 pg/mL (<125)
[2020-02-04 21:03] LABS: TROPONIN I < 0.012 ng/mL
--- NOTE | 2020-02-04 22:21 | RADIOLOGY REPORT (SQ) ---
EXAM DESCRIPTION: CTA chest with contrast CLINICAL HISTORY: 29 years Female, syncope, r/o PE COMPARISON: None. TECHNIQUE: Axial images of the chest were performed utilizing intravenous contrast, with sagittal and coronal MIP images and sagittal and coronal reformatted images. This exam was performed according to our departmental dose-optimization program which includes use of Automated Exposure Control, adjustment of the mA and/or kV according to patient size and/or use of iterative reconstruction technique. FINDINGS: No evidence of pulmonary embolus. No evidence of aortic dissection. No evidence of pulmonary infiltrate or pleural effusion. No evidence of mediastinal or hilar adenopathy. IMPRESSION: No acute finding.
--- NOTE | 2020-02-04 23:17 | EKG REPORT ---
SEVERITY:- NORMAL ECG - SINUS RHYTHM : Confirmed by: Jose Mcdonald MD 04-Feb-2020 23:16:46
[2020-02-05] MEDS ORDERED: KETOROLAC TROMETHAMINE INJ/PF 30 MG/1 ML SDV IV ONE (00:04)
[2020-02-05 01:19] VITALS: BP 110/75
== END 2020-02-05 01:19 | disposition home or self-care (01) ==
LOC: ER 19:05
DX: Z04.1 Encounter for examination and observation following transport accident (principal); R07.9 Chest pain, unspecified; R55 Syncope and collapse; E66.01 Morbid (severe) obesity due to excess calories; J45.909 Unspecified asthma, uncomplicated
CPT/HCPCS: 93005; 99285; 96374; 36415; 82550; 84702; 84443; 85025; 80053; 81001; 84484; 85379; 83880; 71046; 71275; 93010; J1885

== ENCOUNTER 2020-05-04 16:09 | Emergency (ER) | payer SELFPAY ==
[2020-05-04 16:15] VITALS: BP 142/69
[2020-05-04] MEDS ORDERED: CEFTRIAXONE INJ 250 MG VIAL IM ONE (16:59)
[2020-05-04] MEDS ORDERED: AZITHROMYCIN 250 MG TABLET PO ONE (16:59)
[2020-05-04] MEDS ORDERED: LIDOCAINE 1% INJ-PF (10 MG/ML) 30 ML SDV INJ ONE (16:59)
--- NOTE | 2020-05-04 17:03 | ER Document Report ---
ED GI/ - General Chief Complaint: STD Exposure Stated Complaint: STD EXPOSURE Time Seen by Provider: 05/04/20 16:50 Mode of Arrival: Ambulatory Information source: Patient Notes: 29-year-old female presents to ED for concern of STD exposure. She states she just had a clean bill of health pelvic exam in and everything and it was all negative little over a week ago and then her sexual partner told her that he was positive for trichomonas. She states she does not know if he has any other infections as well. She states she does not have any symptoms she does not have any nausea vomiting pain discharge or any other symptoms at this time but she needs to be seen and tested and treated for these STDs. Constitutional: Negative for fever. HENT: Negative for sore throat. Eyes: Negative for visual changes. Cardiovascular: Negative for chest pain. Respiratory: Negative for shortness of breath. Gastrointestinal: Negative for abdominal pain, vomiting or diarrhea. Genitourinary: Negative for dysuria. Musculoskeletal: Negative for back pain. Skin: Negative for rash. Neurological: Negative for headaches, weakness or numbness. 10 point ROS negative except as marked above and in HPI. PHYSICAL EXAMINATION: GENERAL: Well-appearing, well-nourished and in no acute distress. HEAD: Atraumatic, normocephalic. EYES: Pupils equal round extraocular movements intact, conjunctiva are normal. ENT: Nares patent NECK: Normal range of motion LUNGS: No respiratory distress Musculoskeletal: Normal range of motion NEUROLOGICAL: Normal speech, normal gait. PSYCH: Normal mood, normal affect. SKIN: Warm, Dry, normal turgor, no rashes or lesions noted. TRAVEL OUTSIDE OF THE [place] IN LAST 30 DAYS: No - HPI Patient complains to provider of: Other - 7 for STD Onset: Other Quality of pain: No pain Severity in ED: None Pain Level: Denies Vaginal bleeding (Compared to normal period): None Sexual history: STD exposure Associated symptoms: None Exacerbated by: Denies Relieved by: Denies Similar symptoms previously: No Recently seen / treated by doctor: Yes - Related Data Allergies/Adverse Reactions: No Known Allergies Allergy (Verified 05/04/20 17:08) Past Medical History - General Information source: Patient - Social History Smoking Status: Never Smoker Frequency of alcohol use: None Drug Abuse: None Lives with: Family Family History: Arthritis, Hypertension Patient has suicidal ideation: No Patient has homicidal ideation: No - Past Medical History Cardiac Medical History: Reports: None Pulmonary Medical History: Reports: Hx Asthma - intubated for asthma exacerbation May 2017 EENT Medical History: Reports: None Neurological Medical History: Reports: None Endocrine Medical History: Reports: None Renal/ Medical History: Reports: None Malignancy Medical History: Reports: None GI Medical History: Reports: Hx Gastroesophageal Reflux Disease Musculoskeletal Medical History: Reports Hx Musculoskeletal Trauma Skin Medical History: Reports None Psychiatric Medical History: Reports: Hx Anxiety, Hx Depression Traumatic Medical History: Reports: Hx Fractures - ankle Infectious Medical History: Reports: None Past Surgical History: Reports: Hx Cholecystectomy, Hx Oral Surgery, Hx Orthopedic Surgery - ACl R knee L ankle - Immunizations Immunizations up to date: Yes Hx Diphtheria, Pertussis, Tetanus Vaccination: Yes Physical Exam - Vital signs Vitals: Temp Pulse Resp BP Pulse Ox 98.3 F 64 16 142/69 H 100 05/04/20 16:14 05/04/20 16:14 05/04/20 16:14 05/04/20 16:14 05/04/20 16:14 Course - Re-evaluation Re-evalutation: 05/04/20 17:03 We will treat with Rocephin and azithromycin prophylactically now we will wait for the urine to return. We will send patient home with prescription for Flagyl as even if she is negative at this time if her partner is positive she will become infected. - Vital Signs Vital signs: Temp Pulse Resp BP Pulse Ox 98.3 F 64 16 142/69 H 100 05/04/20 16:14 05/04/20 16:14 05/04/20 16:14 05/04/20 16:14 05/04/20 16:14 - Laboratory Laboratory results interpreted by me: 05/04/20 17:00 Urine Blood SMALL H Discharge - Discharge Clinical Impression: Encounter for assessment of STD exposure Condition: Stable Disposition: HOME, SELF-CARE Additional Instructions: VAGINOSIS, BACTERIAL: Your exam shows you have bacterial vaginosis. This condition is due to an overgrowth of bacteria in the vagina. Symptoms may include vaginal itching or pain, general treatment note smelly discharge, and sometimes burning with urination. Normally this is not transmitted by sexual contact. Vaginosis can be treated with oral or topical antibiotics. Metronidazole (Flagyl) pills are usually effective. Topical vaginal creams include Cleocin and Metro-Gel. You should avoid sexual contact until your symptoms are all better. Call the doctor if you develop pelvic pain, fever, or problems with urination, or if you don't improve as expected. VAGINAL TRICHOMONAS INFECTION: You were negative for vaginal trichomonas at this time but because your partner stated they were positive I want you to take the full dose of medication as prescribed Trichomoniasis is infection of the vagina or male genital tract with Trichomonas vaginalis. It can be asymptomatic or cause urethritis, vaginitis, or occasionally cystitis, epididymitis, or prostatitis. Diagnosis is by microscopic examination of vaginal or prostatic secretions or by urethral culture. Patients and sex partners are treated with metronidazole. T. vaginalis is a flagellated, sexually transmitted protozoan that more often infects women (about 20% of women of reproductive age) than men. Infection may be asymptomatic in either sex, but asymptomatic is the rule for men. In men, protozoa may persist for long periods in the tract without causing symptoms; thus, protozoa may be transmitted unwittingly to sex partners. Trichomoniasis may account for up to 5% of nongonococcal, nonchlamydial urethritis in men in some areas. Co-infection with gonorrhea and other sexually transmitted diseases (STDs) is common. In women, symptoms range from none to copious, yellow-green, frothy vaginal discharge with soreness of the vulva and perineum, dyspareunia, and dysuria. Asymptomatic infection may become symptomatic at any time as the vulva and perineum become inflamed and edema develops in the labia. The vaginal fraser and surface of the cervix may have punctate, red "strawberry" spots. Urethritis and possibly cystitis may also occur. Men are usually asymptomatic; however, sometimes urethritis results in a discharge that may be transient, frothy, or purulent or that causes dysuria and frequency, usually early in the morning. Often, urethritis is mild and causes only minimal urethral irritation and occasional moisture at the urethral meatus, under the foreskin, or both. Epididymitis and prostatitis are rare complications. Trichomoniasis is suspected in women with vaginitis, in men with urethritis, and in their sex partners. Suspicion is high if symptoms persist after patients have been evaluated and treated for other infections such as gonorrhea and chlamydial, mycoplasmal, and ureaplasmal infections. In women, diagnosis is based on clinical criteria and in-office testing. The saline wet mount is examined microscopically as soon as possible to detect trichomonads.In men, microscopy of urine is insensitive, although occasionally organisms are visible in a first-voided morning specimen or a centrifuged specimen. Cultures of urine and urethral swabs are more sensitive. As with diagnosis of any STD, patients with trichomoniasis should be tested to exclude other common STDs such as gonorrhea and chlamydial infection. Metronidazole or tinidazole 2 g po in a single dose cures up to 95% of women if sex partners are treated simultaneously. Effectiveness of single-dose regimens in men is not as clear, so treatment is typically with metronidazole or tinidazole 500 mg bid for 5 to 7 days. Sex partners should be screened and treated for trichomoniasis and other STDs. If poor adherence to follow-up is likely, treatment can be initiated in sex partners of patients with documented trichomoniasis without confirming the diagnosis in the partner. Rocephin You have been given an injection of an antibiotic called Rocephin (ceftriaxone). Sometimes the injection must be combined with antibiotic pills. For some infections, such as an uncomplicated ear infection, Rocephin provides all the antibiotic that's needed. The antibiotic will be in your body for about two days. For serious infections, we usually repeat doses of Rocephin daily. Side effects are very unusual following a shot. Women may develop vaginal yeast infections, and babies can get yeast (thrush) in the mouth following the use of antibiotics. Contact your physician if you have symptoms with this medication. Allergy to this antibiotic can result in hives, wheezing, faintness, or itching. If symptoms of allergy occur, call the doctor at once. AZITHROMYCIN: Azithromycin (Zithromax) is a broad spectrum antibiotic in the same class as erythromycin. It can treat a variety of bacterial infections, but is most frequently used for respiratory infections. Azithromycin is extremely long-lasting. It accumulates in body tissues and continues to kill bacteria for many days. In order to improve absorption, Azithromycin should be taken at least one hour before or two hours after a meal. It does not have the same strong tendency to upset the stomach as erythromycin and is usually very well tolerated. Patients who have had a rash or other true allergic reactions to erythromycin should not take this medication. Call if you develop gastrointestinal distress, severe diarrhea, rash, hives, itching, or shortness of breath. METRONIDAZOLE: Metronidazole (Flagyl) has been prescribed. This medication is used to kill a type of bacteria called anaerobes, and protozoan parasites such as trichomonas and Giardia. Flagyl often causes a metallic taste in the mouth and mild nausea. Do not use alcohol in any form with Flagyl (including alcohol in medication elixirs). Flagyl interacts with alcohol to cause flushing, palpitations, headache, stomach cramps, and vomiting. Do not use Flagyl if you are taking Antabuse (disulfiram). Call the doctor at once if you develop rash, shortness of breath, itching, or lightheadedness. FOLLOW-UP CARE: If you have been referred to a physician for follow-up care, call the physicians office for an appointment as you were instructed or within the next two days. If you experience worsening or a significant change in your symptoms, notify the physician immediately or return to the Emergency Department at any time for re-evaluation. Prescriptions: Metronidazole [Flagyl 500 mg Tablet] 500 mg PO BID #14 tablet Forms: Elevated Blood Pressure
[2020-05-04 17:05] LABS: BACTERIA (WET MOUNT) 3+ BACTERIA SEEN; EPITHELIALS (WET MOUNT) 3+ EPITHELIALS SEEN; T.VAGINALIS (WET MOUNT) NO TRICHOMONAS SEEN; WBCS (WET MOUNT) FEW WBCS SEEN; YEAST (WET MOUNT) NO YEAST SEEN
[2020-05-04 17:13] LABS: APPEARANCE,URINE CLEAR; BILIRUBIN,URINE NEGATIVE (NEGATIVE); COLOR,URINE YELLOW; GLUCOSE, URINE NEGATIVE (NEGATIVE); KETONES,URINE NEGATIVE (NEGATIVE); LEUKOCYTE ESTERASE,URINE NEGATIVE (NEGATIVE); NITRITE,URINE NEGATIVE (NEGATIVE); PROTEIN,URINE NEGATIVE (NEGATIVE); URINE SPECIFIC GRAVITY 1.024; UROBILINOGEN,URINE NEGATIVE mg/dL (<2.0)
[2020-05-04 18:32] LABS: CHLAM PCR NOT DETECTED (NOT DETECT)
== END 2020-05-04 17:30 | disposition home or self-care (01) ==
LOC: ER 16:09
DX: Z20.2 Contact with and (suspected) exposure to infections with a predominantly sexual mode of transmission (principal)
CPT/HCPCS: 99284; 96372; 87086; 87210; 81025; 81001; 87491; 87591; J3490; J0696